=== PATIENT | male | born 1945 | race Caucasian/White ===

== ENCOUNTER → 2020-02-04 09:20 | Outpatient (BNVA) | payer MEDICARE, SELFPAY | PROVIDERS: PCP Internal Medicine; Referring Provider Internal Medicine; Visit Provider Internal Medicine Cardiovascular Disease | DX: R00.2 Palpitations (principal); I10 Essential (primary) hypertension | CPT/HCPCS: 93005; 99212 ==

== ENCOUNTER 2020-06-09 10:45 | Outpatient (REF) | payer MEDICARE, SELFPAY ==
[2020-06-09 12:44] LABS: Alanine Aminotransferase 31 U/L (0-40); Albumin Level 4.2 g/dL (3.5-5.0); Alkaline Phosphatase 61 U/L (39-117); Aspartate Amino Transferase 32 U/L (5-37); Bilirubin Direct 0.2 mg/dL (0.0-0.5); Bilirubin Total 0.4 mg/dL (0.0-1.0); Cholesterol 139 mg/dL; HDL Cholesterol 38 mg/dL; LDL Cholesterol Calculated 72 mg/dl; Total Protein 6.8 g/dL (6.5-8.0); Triglycerides 149 mg/dL
== END 2020-06-09 10:46 | disposition home or self-care (01) ==
LOC: HO.LNP 10:45
PROVIDERS: Visit Provider Internal Medicine
DX: I25.10 Atherosclerotic heart disease of native coronary artery without angina pectoris (principal); E78.6 Lipoprotein deficiency
CPT/HCPCS: 80061; 80076

== ENCOUNTER 2020-09-09 14:09 | Outpatient (REF) | payer MEDICARE, SELFPAY ==
--- NOTE | ~2020-09-09 | XR_ITS ---
EXAMINATION: XR HAND, BILATERAL CLINICAL INFORMATION: Bilateral hand pain. COMPARISON: 11/22/2017 TECHNIQUE: 3 views of each hand. FINDINGS: RIGHT HAND: There is no evidence of acute fracture or dislocation of the right hand. There is again noted to be significant narrowing of the 1st metacarpophalangeal joint with loss of joint space and marginal spurring and sclerosis and flattening of the distal metatarsal head. This is similar to previous study. There is some degenerative change with narrowing of the 1st carpometacarpal joint and spurring. There are some small bony densities without narrowing of joint spaces involving the 2nd distal interphalangeal joint, 3rd proximal interphalangeal joint, and 4th proximal interphalangeal joint. These are likely sequela of previous injuries. No periarticular or para-articular erosive change appreciated. LEFT HAND: There is no evidence of acute fracture or dislocation of the left hand. No acute fracture or dislocation is evident. There is some degenerative change of the 1st carpometacarpal joint with some mild joint space narrowing and marginal sclerosis and spurring. There are small bony densities seen about the 1st metacarpophalangeal joint, 1st interphalangeal joint, and 2nd distal interphalangeal joint likely related to previous trauma. The joint spaces are generally maintained other than for previously noted. There appears to be a hypoplastic 5th distal interphalangeal phalanx. Subchondral cyst formation is seen about the heads of the 2nd and 3rd proximal interphalangeal joints with soft tissue swelling prominent about the 3rd proximal interphalangeal joint. The subchondral cyst formation is more prominent than was present on previous study of 11/22/2017. XR/XR hand LT min 3V IMPRESSION: Degenerative change of both hands without evidence of acute fracture or dislocation. Large amount soft tissue swelling seen about the 3rd proximal interphalangeal joint.
[2020-09-09 15:38] LABS: MANUAL DIFF FLAG NO
[2020-09-09 15:43] LABS: Basophils Absolute Auto 0.1 X10*3/uL (0.0-0.2); Basophils Percent Auto 0.6 % (0-2); Eosinophils Absolute Auto 0.3 X10*3/uL (0.0-0.4); Eosinophils Percent Auto 3.3 % (0-4); Hematocrit 41.9 % (42-52); Hemoglobin 13.8 g/dl (14.0-18.0); Imm Gran Abs Auto 0.03 X10*3/uL (0.00-0.03); Imm Gran Pct Auto 0.4 % (0.0-0.4); Lymphocytes Absolute Auto 2.2 X10*3/uL (1.2-4.9); Lymphocytes Percent Auto 27.1 % (20-40); Mean Corpuscular HGB Conc 32.9 g/dl (31.0-36.0); Mean Corpuscular Hemoglobin 30.9 pg (27.0-33.0); Mean Corpuscular Volume 93.9 fL (80-98); Mean Platelet Volume 10.3 fL (9.4-12.4); Monocytes Absolute Auto 0.6 X10*3/uL (0.1-1.2); Neutrophils Absolute Auto 4.8 X10*3/uL (2.0-8.3); Neutrophils Percent Auto 60.6 % (45-73); Platelet Count 213 X10*3/uL (160-400); Red Blood Count 4.46 X10*6/uL (4.60-5.80); Red Cell Distribution Width 12.8 % (11.0-16.0)
[2020-09-09 16:12] LABS: Alanine Aminotransferase 33 U/L (0-40); Albumin Level 4.3 g/dL (3.5-5.0); Alkaline Phosphatase 63 U/L (39-117); Anion Gap 14 (12-20); Aspartate Amino Transferase 38 U/L (5-37); Bilirubin Total 0.7 mg/dL (0.0-1.0); Blood Urea Nitrogen 18 mg/dL (9-16); C Reactive Protein 0.19 mg/dL (< or = 0.50); Calcium 9.7 mg/dL (8.4-10.2); Carbon Dioxide 28 mmol/L (22-29); Chloride 105 mmol/L (96-108); Estimated Glomerular Filt Rate 51; Glucose Random 101 mg/dL (60-115); Potassium 4.1 mmol/L (3.3-5.1); Sodium 143 mmol/L (135-145); Total Protein 7.1 g/dL (6.5-8.0); Uric Acid 8.5 mg/dL (3.4-7.0)
[2020-09-09 16:19] LABS: Rheumatoid Factor < 15.0 IU/mL (<15.0)
[2020-09-09 16:59] LABS: Erythrocyte Sedimentation Rate 5 MM/HR (0-15)
[2020-09-13 15:57] LABS: Cyclic Citrullinated Peptide <16 UNITS
== END 2020-09-09 14:10 | disposition home or self-care (01) ==
LOC: HO.LAB 14:09
PROVIDERS: PCP Internal Medicine; Visit Provider Student in an Organized Health Care Education/Training Program
DX: M25.541 Pain in joints of right hand (principal); M25.542 Pain in joints of left hand
CPT/HCPCS: 36415; 73130; 80053; 84550; 85025; 85652; 86140; 86200; 86431; 99202

== ENCOUNTER 2020-10-22 12:39 | Outpatient (REF) | payer MEDICARE, SELFPAY ==
[2020-10-22 15:24] LABS: Uric Acid 6.4 mg/dL (3.4-7.0)
== END 2020-10-22 12:40 | disposition home or self-care (01) ==
LOC: HO.LAB 12:39
PROVIDERS: PCP Internal Medicine; Visit Provider Student in an Organized Health Care Education/Training Program
DX: M25.541 Pain in joints of right hand (principal); M25.542 Pain in joints of left hand
CPT/HCPCS: 36415; 84550

== ENCOUNTER → 2020-10-27 09:58 | Outpatient (BNVA) | payer MEDICARE, SELFPAY | PROVIDERS: Visit Provider Nurse Practitioner Family | DX: M1A.09X1 Idiopathic chronic gout, multiple sites, with tophus (tophi) (principal); M25.541 Pain in joints of right hand; M25.542 Pain in joints of left hand; Z79.899 Other long term (current) drug therapy | CPT/HCPCS: 99212 ==

== ENCOUNTER 2020-12-08 07:44 | Outpatient (REF) | payer MEDICARE, SELFPAY ==
[2020-12-08 08:18] LABS: MANUAL DIFF FLAG NO
[2020-12-08 08:29] LABS: Basophils Percent Auto 0.4 % (0-2); Eosinophils Absolute Auto 0.3 X10*3/uL (0.0-0.4); Hematocrit 40.2 % (42-52); Hemoglobin 13.3 g/dl (14.0-18.0); Imm Gran Abs Auto 0.02 X10*3/uL (0.00-0.03); Imm Gran Pct Auto 0.3 % (0.0-0.4); Lymphocytes Absolute Auto 1.6 X10*3/uL (1.2-4.9); Lymphocytes Percent Auto 23.2 % (20-40); Mean Corpuscular HGB Conc 33.1 g/dl (31.0-36.0); Mean Corpuscular Hemoglobin 31.5 pg (27.0-33.0); Mean Corpuscular Volume 95.3 fL (80-98); Mean Platelet Volume 10.2 fL (9.4-12.4); Monocytes Absolute Auto 0.5 X10*3/uL (0.1-1.2); Monocytes Percent Auto 7.6 % (2-11); Neutrophils Absolute Auto 4.4 X10*3/uL (2.0-8.3); Neutrophils Percent Auto 64.5 % (45-73); Platelet Count 187 X10*3/uL (160-400); Red Blood Count 4.22 X10*6/uL (4.60-5.80); Red Cell Distribution Width 13.4 % (11.0-16.0); White Blood Count 6.8 X10*3/uL (4.8-10.8)
[2020-12-08 08:55] LABS: Cholesterol 131 mg/dL; HDL Cholesterol 33 mg/dL; LDL Cholesterol Calculated 75 mg/dl; Triglycerides 115 mg/dL
[2020-12-08 08:59] LABS: Alanine Aminotransferase 35 U/L (0-40); Alkaline Phosphatase 60 U/L (39-117); Anion Gap 10 (12-20); Aspartate Amino Transferase 31 U/L (5-37); Bilirubin Total 0.4 mg/dL (0.0-1.0); Blood Urea Nitrogen 21 mg/dL (9-16); Calcium 8.9 mg/dL (8.4-10.2); Carbon Dioxide 29 mmol/L (22-29); Chloride 108 mmol/L (96-108); Estimated Glomerular Filt Rate 53; Glucose Random 108 mg/dL (60-115); Potassium 4.7 mmol/L (3.3-5.1); Sodium 142 mmol/L (135-145); Total Protein 6.4 g/dL (6.5-8.0); Uric Acid 5.9 mg/dL (3.4-7.0)
[2020-12-08 09:13] LABS: Reflex LDLD? No
[2020-12-08 09:17] LABS: PSA,Total (Free>4and<10) 1.06 ng/mL (0.00-4.00)
[2020-12-08 09:57] LABS: Appearance Urine CLEAR; Color Urine YELLOW; Glucose Urine UA NEG (NEG); Leukocyte Esterase Urine NEG (NEG); Nitrite Urine NEG (NEG); Urine Blood NEG (NEG); Urine Ketones NEG (NEG); Urine Protein NEG (NEG-TRACE)
== END 2020-12-08 07:45 | disposition home or self-care (01) ==
LOC: HO.LAB 07:44
PROVIDERS: Absent Provider Nurse Practitioner Family; PCP Internal Medicine; Visit Provider Internal Medicine
DX: Z12.5 Encounter for screening for malignant neoplasm of prostate (principal); M1A.09X1 Idiopathic chronic gout, multiple sites, with tophus (tophi); I10 Essential (primary) hypertension; E78.6 Lipoprotein deficiency
CPT/HCPCS: 36415; 80053; 80061; 81003; 84153; 84550; 85025

== ENCOUNTER → 2020-12-10 07:52 | Outpatient (BNVA) | payer MEDICARE, SELFPAY | PROVIDERS: PCP Internal Medicine; Visit Provider Nurse Practitioner Family | DX: M1A.09X1 Idiopathic chronic gout, multiple sites, with tophus (tophi) (principal); M25.541 Pain in joints of right hand; M25.542 Pain in joints of left hand | CPT/HCPCS: 99212 ==

== ENCOUNTER → 2021-02-05 14:22 | Outpatient (BNVA) | payer MEDICARE, SELFPAY | PROVIDERS: PCP Internal Medicine; Referring Provider Internal Medicine; Visit Provider Internal Medicine Cardiovascular Disease | DX: I10 Essential (primary) hypertension (principal); R00.2 Palpitations | CPT/HCPCS: 93005; 99212 ==

== ENCOUNTER 2021-03-16 07:58 | Outpatient (REF) | payer MEDICARE, SELFPAY ==
[2021-03-16 08:59] LABS: Alanine Aminotransferase 33 U/L (0-40); Albumin Level 4.2 g/dL (3.5-5.0); Alkaline Phosphatase 73 U/L (39-117); Anion Gap 10 (12-20); Aspartate Amino Transferase 28 U/L (5-37); Bilirubin Total 0.3 mg/dL (0.0-1.0); Blood Urea Nitrogen 17 mg/dL (9-16); Calcium 9.8 mg/dL (8.4-10.2); Carbon Dioxide 31 mmol/L (22-29); Chloride 105 mmol/L (96-108); Estimated Glomerular Filt Rate 56; Glucose Random 92 mg/dL (60-115); Potassium 4.4 mmol/L (3.3-5.1); Sodium 142 mmol/L (135-145)
[2021-03-16 09:18] LABS: Uric Acid 5.7 mg/dL (3.4-7.0)
== END 2021-03-16 07:59 | disposition home or self-care (01) ==
LOC: HO.LAB 07:58
PROVIDERS: PCP Internal Medicine; Visit Provider Nurse Practitioner Family
DX: M10.9 Gout, unspecified (principal)
CPT/HCPCS: 36415; 80053; 84550

== ENCOUNTER → 2021-03-19 07:56 | Outpatient (BNVA) | payer MEDICARE, SELFPAY | PROVIDERS: PCP Internal Medicine; Visit Provider Nurse Practitioner Family | DX: M1A.09X1 Idiopathic chronic gout, multiple sites, with tophus (tophi) (principal); M25.541 Pain in joints of right hand; M25.542 Pain in joints of left hand | CPT/HCPCS: 99212 ==

== ENCOUNTER 2021-05-18 08:12 | Outpatient (REF) | payer MEDICARE, SELFPAY ==
[2021-05-18 09:42] LABS: Alanine Aminotransferase 26 U/L (0-40); Albumin Level 4.2 g/dL (3.5-5.0); Alkaline Phosphatase 71 U/L (39-117); Anion Gap 12 (12-20); Aspartate Amino Transferase 30 U/L (5-37); Bilirubin Total 0.4 mg/dL (0.0-1.0); Blood Urea Nitrogen 16 mg/dL (9-16); Calcium 9.3 mg/dL (8.4-10.2); Carbon Dioxide 30 mmol/L (22-29); Chloride 105 mmol/L (96-108); Estimated Glomerular Filt Rate 57; Glucose Random 99 mg/dL (60-115); Potassium 4.4 mmol/L (3.3-5.1); Sodium 143 mmol/L (135-145); Uric Acid 4.8 mg/dL (3.4-7.0)
== END 2021-05-18 08:13 | disposition home or self-care (01) ==
LOC: HO.LAB 08:12
PROVIDERS: PCP Internal Medicine; Visit Provider Nurse Practitioner Family
DX: M1A.09X1 Idiopathic chronic gout, multiple sites, with tophus (tophi) (principal)
CPT/HCPCS: 36415; 80053; 84550

== ENCOUNTER → 2021-05-22 10:51 | Outpatient (BNVA) | payer MEDICARE, SELFPAY | PROVIDERS: PCP Internal Medicine; Visit Provider Nurse Practitioner Family | DX: M1A.09X1 Idiopathic chronic gout, multiple sites, with tophus (tophi) (principal); M25.541 Pain in joints of right hand; M25.542 Pain in joints of left hand | CPT/HCPCS: 99212 ==

== ENCOUNTER 2021-06-12 10:55 | Outpatient (REF) | payer MEDICARE, SELFPAY ==
[2021-06-12 14:29] LABS: Alanine Aminotransferase 29 U/L (0-40); Albumin Level 4.2 g/dL (3.5-5.0); Alkaline Phosphatase 70 U/L (39-117); Aspartate Amino Transferase 33 U/L (5-37); Bilirubin Direct 0.2 mg/dL (0.0-0.5); Bilirubin Total 0.6 mg/dL (0.0-1.0); Cholesterol 133 mg/dL; HDL Cholesterol 34 mg/dL; LDL Cholesterol Calculated 76 mg/dl; Total Protein 6.5 g/dL (6.5-8.0); Triglycerides 115 mg/dL
[2021-06-12 14:58] LABS: Reflex LDLD? No
== END 2021-06-12 10:56 | disposition home or self-care (01) ==
LOC: HO.LNP 10:55
PROVIDERS: Visit Provider Internal Medicine
DX: I25.10 Atherosclerotic heart disease of native coronary artery without angina pectoris (principal); E78.6 Lipoprotein deficiency
CPT/HCPCS: 80061; 80076

== ENCOUNTER 2021-09-21 08:03 | Outpatient (REF) | payer MEDICARE, SELFPAY ==
[2021-09-21 09:14] LABS: Alanine Aminotransferase 26 U/L (0-40); Albumin Level 4.2 g/dL (3.5-5.0); Alkaline Phosphatase 69 U/L (39-117); Anion Gap 10 (12-20); Aspartate Amino Transferase 28 U/L (5-37); Bilirubin Total 0.4 mg/dL (0.0-1.0); Blood Urea Nitrogen 15 mg/dL (9-16); Calcium 9.2 mg/dL (8.4-10.2); Carbon Dioxide 32 mmol/L (22-29); Chloride 106 mmol/L (96-108); Estimated Glomerular Filt Rate 56; Glucose Random 121 mg/dL (60-115); Potassium 4.6 mmol/L (3.3-5.1); Sodium 143 mmol/L (135-145); Total Protein 6.5 g/dL (6.5-8.0); Uric Acid 4.7 mg/dL (3.4-7.0)
== END 2021-09-21 08:04 | disposition home or self-care (01) ==
LOC: HO.LAB 08:03
PROVIDERS: PCP Internal Medicine; Visit Provider Nurse Practitioner Family
DX: M1A.09X1 Idiopathic chronic gout, multiple sites, with tophus (tophi) (principal)
CPT/HCPCS: 36415; 80053; 84550

== ENCOUNTER → 2021-09-24 12:18 | Outpatient (BNVA) | payer MEDICARE, SELFPAY | PROVIDERS: PCP Internal Medicine; Visit Provider Nurse Practitioner Family | DX: M1A.09X1 Idiopathic chronic gout, multiple sites, with tophus (tophi) (principal); M25.541 Pain in joints of right hand; M25.542 Pain in joints of left hand | CPT/HCPCS: Q3014 ==

== ENCOUNTER 2021-12-10 11:43 | Outpatient (REF) | payer MEDICARE, SELFPAY ==
[2021-12-10 11:49] LABS: MANUAL DIFF FLAG NO
[2021-12-10 12:10] LABS: Basophils Percent Auto 0.6 % (0-2); Eosinophils Absolute Auto 0.3 X10*3/uL (0.0-0.4); Eosinophils Percent Auto 4.5 % (0-4); Hematocrit 40.7 % (42.0-52.0); Hemoglobin 13.3 g/dl (14.0-18.0); Imm Gran Abs Auto 0.01 X10*3/uL (0.00-0.03); Imm Gran Pct Auto 0.2 % (0.0-0.4); Lymphocytes Absolute Auto 1.6 X10*3/uL (1.2-4.9); Mean Corpuscular HGB Conc 32.7 g/dl (31.0-36.0); Mean Corpuscular Volume 94.9 fL (80.0-98.0); Mean Platelet Volume 10.3 fL (9.4-12.4); Monocytes Absolute Auto 0.5 X10*3/uL (0.1-1.2); Monocytes Percent Auto 8.2 % (2-11); Neutrophils Percent Auto 61.5 % (45-73); Platelet Count 191 X10*3/uL (160-400); Red Blood Count 4.29 X10*6/uL (4.60-5.80); Red Cell Distribution Width 13.6 % (11.0-16.0); White Blood Count 6.5 X10*3/uL (4.8-10.8)
[2021-12-10 12:19] LABS: Alanine Aminotransferase 29 U/L (0-40); Albumin Level 4.2 g/dL (3.5-5.0); Alkaline Phosphatase 72 U/L (39-117); Anion Gap 13 (12-20); Aspartate Amino Transferase 35 U/L (5-37); Bilirubin Total 0.8 mg/dL (0.0-1.0); Blood Urea Nitrogen 19 mg/dL (9-16); Calcium 9.1 mg/dL (8.4-10.2); Carbon Dioxide 29 mmol/L (22-29); Chloride 102 mmol/L (96-108); Cholesterol 142 mg/dL; Estimated Glomerular Filt Rate 58; Glucose Fasting 102 mg/dL (60-99); HDL Cholesterol 33 mg/dL; LDL Cholesterol Calculated 76 mg/dl; Sodium 140 mmol/L (135-145); Total Protein 6.5 g/dL (6.5-8.0); Triglycerides 167 mg/dL
[2021-12-10 12:39] LABS: PSA,Total (Free>4and<10) 1.52 ng/mL (0.00-4.00)
[2021-12-10 13:05] LABS: Appearance Urine Clear; Color Urine Dark Yellow; Glucose Urine UA Negative (Negative); Leukocyte Esterase Urine Trace (Negative); Nitrite Urine Negative (Negative); UMIC TRIGGER UA YES; Urine Blood Negative (Negative); Urine Ketones Negative (Negative); Urine Protein Negative (Neg-Trace)
[2021-12-10 13:12] LABS: Bacteria Urine None Seen (None Seen); Hyaline Casts Urine 0-2 /LPF (0-2); RBC Urine 0-2 /HPF (0-2); Squamous Epithelial Cell Urine 0-2 /HPF (0-2); WBC Urine 0-5 /HPF (0-5)
== END 2021-12-10 11:44 | disposition home or self-care (01) ==
LOC: HO.LNP 11:43
PROVIDERS: Visit Provider Internal Medicine
DX: Z12.5 Encounter for screening for malignant neoplasm of prostate (principal); I10 Essential (primary) hypertension; E78.6 Lipoprotein deficiency
CPT/HCPCS: 80053; 80061; 81001; 84153; 85025

== ENCOUNTER 2021-12-30 07:58 | Outpatient (REF) | payer MEDICARE, SELFPAY ==
--- NOTE | ~2021-12-30 | CT_ITS ---
EXAMINATION: CT LUMBAR SPINE WITH CONTRAST CLINICAL INFORMATION: Spinal stenosis of the lumbar spine. COMPARISON: None TECHNIQUE: Multidetector helical imaging acquired in the axial plane following intravenous administration of 85 mL of Omnipaque 350. This CT examination was performed using dose optimization techniques as appropriate, variously including the following: *Automated exposure control *Adjustment of mA and/or kV according to patient size (this includes techniques or standardized protocols for targeted exams where dose is matched to indication/reason for exam; i.e. extremities or head) *Use of iterative reconstruction technique DLP: 1410 mGy-cm FINDINGS: Significant multilevel disc space narrowing evident with vacuum phenomenon and endplate spurring. There are mild posterior subluxations at the L1-L2 and L2-L3 levels. No compression fractures identified. Chronic postlaminectomy changes noted at the L5-S1 level on the right side. L1-L2: Mild retrosubluxation and diffuse disc bulge with facet arthropathy resulting in mild central canal stenosis and mild foraminal narrowing. L2-L3: Retrosubluxation and diffuse disc bulge contribute to moderate central canal stenosis and ventral thecal sac distortion. Zdzg-[id number]-coyzcbgb bilateral foraminal narrowing. L3-L4: Concentric disc bulge and facet arthropathy with thickening of the ligamentum flavum result in mild central canal stenosis with severe left foraminal narrowing as a result of osseous encroachment. L4-L5: Posterior subluxation and diffuse disc bulge with moderate facet arthropathy result in moderate central canal stenosis. Severe bilateral foraminal narrowing, worse on the left side. L5-S1: Chronic postlaminectomy changes on the right side with slight narrowing of the central canal. Exuberant facet arthropathy and chronic right L5 pars defect. A left foraminal disc protrusion compresses the exiting left L5 nerve root. No suspicious abnormal enhancement is seen. Small renal cysts noted for which no further imaging followup is indicated. The visualized bony pelvis is unremarkable with vacuum phenomenon and [id number]-pv-[id number] sacroiliac joint space narrowing. The imaged paraspinal soft tissues are unremarkable. CT/CT lumbar spine w IV con IMPRESSION: Extensive multilevel degenerative disc disease and facet arthropathy. Chronic postlaminectomy changes on the right side at the L5-S1 level with a chronic right L5 pars defect. Exuberant facet arthropathy and diffuse disc bulge with mild narrowing of the central canal at this level. Additional left posterolateral disc protrusion which compresses the exiting left L5 nerve root. Moderate central canal stenosis and severe foraminal narrowing, worse on the left side at the L4-L5 level. Mild central canal stenosis and severe left foraminal narrowing at the L3-L4 level. Moderate central canal stenosis and artf-gu-vrkcgwpl foraminal narrowing at the L2-L3 level. No abnormal enhancement.
[2021-12-30] MEDS: iohexoL 350 MG/ML 100 ML INFUS..BTL IV ×2 (09:02→09:06)
== END 2021-12-30 07:59 | disposition home or self-care (01) ==
LOC: HO.CT 07:58
PROVIDERS: PCP Internal Medicine; Visit Provider Internal Medicine
DX: M48.062 Spinal stenosis, lumbar region with neurogenic claudication (principal)
CPT/HCPCS: 72132; Q9967

== ENCOUNTER → 2022-02-08 12:38 | Outpatient (BNVA) | payer MEDICARE, SELFPAY | PROVIDERS: PCP Internal Medicine; Referring Provider Internal Medicine; Visit Provider Internal Medicine Cardiovascular Disease | DX: I10 Essential (primary) hypertension (principal); R00.2 Palpitations; Z79.899 Other long term (current) drug therapy | CPT/HCPCS: 93005; 99212 ==

== ENCOUNTER 2022-03-25 07:45 | Outpatient (REF) | payer MEDICARE, SELFPAY ==
[2022-03-25 09:40] LABS: Alanine Aminotransferase 24 U/L (0-40); Albumin Level 4.1 g/dL (3.5-5.0); Alkaline Phosphatase 73 U/L (39-117); Anion Gap 14 (12-20); Aspartate Amino Transferase 30 U/L (5-37); Bilirubin Total 0.8 mg/dL (0.0-1.0); Blood Urea Nitrogen 21 mg/dL (9-16); Calcium 9.6 mg/dL (8.4-10.2); Carbon Dioxide 30 mmol/L (22-29); Chloride 103 mmol/L (96-108); Estimated Glomerular Filt Rate 56; Glucose Random 111 mg/dL (60-115); Potassium 4.6 mmol/L (3.3-5.1); Sodium 142 mmol/L (135-145); Total Protein 6.4 g/dL (6.5-8.0); Uric Acid 4.9 mg/dL (3.4-7.0)
== END 2022-03-25 07:46 | disposition home or self-care (01) ==
LOC: HO.LAB 07:45
PROVIDERS: PCP Internal Medicine; Visit Provider Nurse Practitioner Family
DX: M1A.09X1 Idiopathic chronic gout, multiple sites, with tophus (tophi) (principal)
CPT/HCPCS: 36415; 80053; 84550

== ENCOUNTER → 2022-03-31 12:43 | Outpatient (BNVA) | payer MEDICARE, SELFPAY | PROVIDERS: PCP Internal Medicine; Visit Provider Nurse Practitioner Family | DX: M1A.9XX1 Chronic gout, unspecified, with tophus (tophi) (principal) | CPT/HCPCS: 99212 ==

== ENCOUNTER 2022-04-08 12:38 | Outpatient (REF) | payer MEDICARE, SELFPAY ==
--- NOTE | ~2022-04-08 | XR_ITS ---
EXAMINATION: XR HIP, LEFT CLINICAL INFORMATION: Left hip tendinitis. COMPARISON: None TECHNIQUE: AP and frog-leg lateral views of the left hip are submitted, together with a frontal view the pelvis. FINDINGS: Bones and soft tissues are normal. No fracture. Alignment is anatomic. Hip joint spaces are well-maintained. There are symmetric tiny accessory ossification centers seen adjacent to the bilateral acetabular roofs. The sacroiliac joints are symmetric and well-maintained. Pubic symphysis is intact. There are pelvic phleboliths and atherosclerotic calcifications. XR/XR hip LT w PEL1V IMPRESSION: Normal left hip and AP pelvis.
== END 2022-04-08 12:39 | disposition home or self-care (01) ==
LOC: HO.XRAY 12:38
PROVIDERS: PCP Internal Medicine; Visit Provider Physical Medicine & Rehabilitation
DX: M76.02 Gluteal tendinitis, left hip (principal)
CPT/HCPCS: 73502

== ENCOUNTER 2022-06-11 10:57 | Outpatient (REF) | payer MEDICARE, SELFPAY ==
[2022-06-11 11:49] LABS: Alanine Aminotransferase 29 U/L (0-40); Albumin Level 3.9 g/dL (3.5-5.0); Alkaline Phosphatase 70 U/L (39-117); Aspartate Amino Transferase 30 U/L (5-37); Bilirubin Direct 0.2 mg/dL (0.0-0.5); Bilirubin Total 0.8 mg/dL (0.0-1.0); Cholesterol 145 mg/dL; HDL Cholesterol 38 mg/dL; LDL Cholesterol Calculated 87 mg/dl; Total Protein 6.1 g/dL (6.5-8.0); Triglycerides 104 mg/dL
[2022-06-11 13:00] LABS: Reflex LDLD? No
== END 2022-06-11 10:58 | disposition home or self-care (01) ==
LOC: HO.LNP 10:57
PROVIDERS: Visit Provider Internal Medicine
DX: E78.5 Hyperlipidemia, unspecified (principal)
CPT/HCPCS: 80061; 80076

== ENCOUNTER 2022-09-08 12:00 | Outpatient (RCR) | payer MEDICARE, SELFPAY | END 2022-09-08 13:04 | disposition home or self-care (01) | LOC: HO.PT 12:00 | PROVIDERS: PCP Internal Medicine; Visit Provider Nurse Practitioner Adult Health | DX: M54.16 Radiculopathy, lumbar region (principal) | CPT/HCPCS: 97110; 97162; 97530 ==

== ENCOUNTER 2022-10-20 08:04 | Outpatient (REF) | payer MEDICARE, SELFPAY ==
[2022-10-20 08:27] LABS: MANUAL DIFF FLAG NO
[2022-10-20 08:51] LABS: Basophils Percent Auto 0.6 % (0-2); Eosinophils Absolute Auto 0.4 X10*3/uL (0.0-0.4); Eosinophils Percent Auto 5.6 % (0-4); Hematocrit 41.3 % (42.0-52.0); Hemoglobin 13.4 g/dl (14.0-18.0); Imm Gran Abs Auto 0.02 X10*3/uL (0.00-0.03); Imm Gran Pct Auto 0.3 % (0.0-0.4); Lymphocytes Absolute Auto 1.5 X10*3/uL (1.2-4.9); Mean Corpuscular HGB Conc 32.4 g/dl (31.0-36.0); Mean Corpuscular Hemoglobin 31.5 pg (27.0-33.0); Mean Corpuscular Volume 97.2 fL (80.0-98.0); Monocytes Absolute Auto 0.4 X10*3/uL (0.1-1.2); Monocytes Percent Auto 6.5 % (2-11); Neutrophils Absolute Auto 4.1 x10*3/uL (2.0-8.3); Platelet Count 185 X10*3/uL (160-400); Red Blood Count 4.25 X10*6/uL (4.60-5.80); Red Cell Distribution Width 13.2 % (11.0-16.0); White Blood Count 6.4 X10*3/uL (4.8-10.8)
[2022-10-20 09:43] LABS: Alanine Aminotransferase 23 U/L (0-40); Alkaline Phosphatase 70 U/L (39-117); Anion Gap 11 (12-20); Aspartate Amino Transferase 31 U/L (5-37); Bilirubin Total 0.8 mg/dL (0.0-1.0); Blood Urea Nitrogen 19 mg/dL (9-16); Calcium 9.8 mg/dL (8.4-10.2); Carbon Dioxide 31 mmol/L (22-29); Chloride 105 mmol/L (96-108); Estimated Glomerular Filt Rate 49; Glucose Random 91 mg/dL (60-115); Potassium 4.4 mmol/L (3.3-5.1); Sodium 143 mmol/L (135-145); Total Protein 6.6 g/dL (6.5-8.0); Uric Acid 5.5 mg/dL (3.4-7.0)
== END 2022-10-20 08:05 | disposition home or self-care (01) ==
LOC: HO.LAB 08:04
PROVIDERS: Absent Provider Student in an Organized Health Care Education/Training Program; PCP Internal Medicine; Visit Provider Nurse Practitioner Family
DX: M1A.9XX1 Chronic gout, unspecified, with tophus (tophi) (principal)
CPT/HCPCS: 36415; 80053; 84550; 85025

== ENCOUNTER 2022-10-27 14:31 | Outpatient (AMB) | payer MEDICARE, SELFPAY ==
--- NOTE | 2022-10-27 14:35 | MHC.OFFVIS ---
Intake Vital Signs 10/27/22 14:36 Height 6 ft Weight 272 lb 14.916 oz BMI 37.0 BP 124/70 Blood Pressure Location Rt brachial Position Sitting Pulse 67 Pulse Source Pulse Oximeter Temp 97.3 F Temp Source Skin Pulse Oximetry (%) 96 Oxygen Delivery Method Room Air Intake Visit Reasons: Gout Intake Note: Here for gout follow up. c/o back pain Auto Body Technician Required: No Accompanied by: Self / Same As Patient Allergies lisinopril [From ZESTRIL] Adverse Reaction (Mild, Verified 03/31/22 13:23) DIZZINESS Cortisone Allergy (Mild, Uncoded 03/31/22 13:23) red face Medication List - Last Reconciled 10/27/22 by Scooter Yeboah MD albuterol sulfate 90 mcg/actuation 2 puffs PO Q4H PRN allopurinol 300 mg PO DAILY alprazolam 1 mg PO DAILY PRN amlodipine 10 mg PO DAILY amoxicillin 1,000 mg PO BID aspirin (Adult Low Dose Aspirin) 81 mg PO DAILY atorvastatin 20 mg PO DAILY carvedilol 6.25 mg PO BID 90 days celecoxib 200 mg PO .4 times a week fluticasone propionate 110 mcg/actuation (Flovent HFA) 1 puff inhalation DAILY gabapentin 300 mg PO TID irbesartan-hydrochlorothiazide 150-12.5 mg 1 tab PO DAILY lorazepam 0.5 mg PO BID PRN multivitamin 1 tab PO DAILY pantoprazole 40 mg PO DAILY prednisone 20 mg PO DAILY PRN HPI HPI Comments History of Present Illness Details 77yoM presents for follow-up of gout. Last seen 03/29 by Lindsay Hylton. On Allopurinol 300mg daily and tolerating this well. His main complaint today is left lower back pain, left buttock pain radiating down his left lower extremity. States that his sciatica is coming back. He had an epidural injection back in 06/2022 which helped for a few months until last week where he had another flare-up of his sciatica. He was evaluated by his spine doctor and is scheduled for another injection soon. In terms of his gout he has not had a flare up in a long time. Does not recall the most recent flare. He has been giving pain at the base of both thumbs worse with use. [facility] Surgical History History of foot surgery History of left knee surgery S/P surgery on nasal septum Family History Father No problems noted. Mother No problems noted. Family/Other Diabetes Social History Household Members: Spouse Alcohol intake: never Patient Tobacco Use Status: Former Tobacco user Quit Date: 1999 Tobacco use type: Cigarette Years Smoked: 20 +/- Review of Systems Musc Reports back pain, Reports arthralgias and Reports stiffness Neuro Reports radicular pain Physical Exam Vital Signs: Last Vital Signs Temp 97.3 F 10/27/22 14:36 Pulse 67 10/27/22 14:36 BP 124/70 10/27/22 14:36 Pulse Ox 96 10/27/22 14:36 Oxygen Delivery Method Room Air 10/27/22 14:36 BMI result Body Mass Index 37.0 Const General: cooperative and healthy appearing Nutritional Appearance: obese morbidly obese Orientation/consciousness: patient oriented x3 Limitations: ambulation with cane HEENT Head: Yes normocephalic and Yes atraumatic Resp Effort & Inspection: normal respiratory effort and able to speak in complete sentences Neuro General: patient oriented x3 Extrem Other: Bilateral positive [facility] grind test + crepitus and pain Assessment & Plan Assessment & Plan (1) Gout with tophi: Comment: Allopurinol started 09/09/2020- present Code(s): M1A.9XX1 - Chronic gout, unspecified, with tophus (tophi) Plan: This is a 77-year-old female with gout who presents for follow-up. On allopurinol 300 mg daily. Does not recall the most recent gout flare-up. Uric acid level is at 5.5 which is at goal. His creatinine was slightly elevated at 1.4 which is a little higher than previous values. Patient had a sciatica attack over the last week and was using NSAIDs. Patient will follow-up with his PCP. Advised patient that we will monitor his kidney function as we might have to adjust his allopurinol dose accordingly. For now continue with allopurinol 300 mg daily Labs before next visit in 6 months Plan I spent 24 minutes reviewing patient's chart, evaluating patient, ordering diagnostic workup, counseling patient and documenting in the chart Medications: Changed From prednisone Take 20mg by mouth daily for 3 days for gout flare. 20 mg PO DAILY PRN 12 tabs 0RF gout flare To prednisone Take 20mg by mouth daily for 3 days for gout flare. 20 mg PO DAILY PRN Refilled allopurinol 300 mg PO DAILY 90 tabs 1RF Coding Level of Care Code Est Pt Level 4 (58855) Diagnoses Gout with tophi M1A.9XX1
[2022-10-27 14:36] VITALS: BP 124/70; PULSE 67; TEMP 36.3; O2SAT 96; BMI 37.0
== END 2022-10-27 14:56 | disposition home or self-care (01) ==
PROVIDERS: PCP Internal Medicine; Visit Provider Student in an Organized Health Care Education/Training Program
DX: M1A.9XX1 Chronic gout, unspecified, with tophus (tophi) (principal)
CPT/HCPCS: 99214

== ENCOUNTER → 2022-10-27 14:31 | Outpatient (BNVA) | payer MEDICARE, SELFPAY | PROVIDERS: PCP Internal Medicine; Visit Provider Student in an Organized Health Care Education/Training Program | DX: M1A.9XX1 Chronic gout, unspecified, with tophus (tophi) (principal) | CPT/HCPCS: 99212 ==

== ENCOUNTER 2022-11-04 11:38 | Outpatient (REF) | payer MEDICARE, SELFPAY ==
[2022-11-04 11:57] LABS: MANUAL DIFF FLAG NO
[2022-11-04 12:02] LABS: Basophils Percent Auto 0.4 % (0-2); Eosinophils Absolute Auto 0.3 X10*3/uL (0.0-0.4); Eosinophils Percent Auto 3.1 % (0-4); Hematocrit 37.8 % (42.0-52.0); Hemoglobin 12.8 g/dl (14.0-18.0); Imm Gran Abs Auto 0.02 X10*3/uL (0.00-0.03); Imm Gran Pct Auto 0.2 % (0.0-0.4); Mean Corpuscular HGB Conc 33.9 g/dl (31.0-36.0); Mean Corpuscular Volume 94.5 fL (80.0-98.0); Monocytes Absolute Auto 0.9 X10*3/uL (0.1-1.2); Monocytes Percent Auto 9.8 % (2-11); Neutrophils Absolute Auto 5.8 x10*3/uL (2.0-8.3); Neutrophils Percent Auto 64.5 % (45-73); Platelet Count 172 X10*3/uL (160-400); Red Cell Distribution Width 13.2 % (11.0-16.0)
[2022-11-04 12:37] LABS: C Reactive Protein 6.98 mg/dL (< or = 0.50); Uric Acid 5.3 mg/dL (3.4-7.0)
[2022-11-04 12:41] LABS: Erythrocyte Sedimentation Rate 17 MM/HR (0-15)
== END 2022-11-04 11:39 | disposition home or self-care (01) ==
LOC: HO.LAB 11:38
PROVIDERS: PCP Internal Medicine; Visit Provider Podiatrist
DX: M10.072 Idiopathic gout, left ankle and foot (principal)
CPT/HCPCS: 36415; 84550; 85025; 85652; 86140

== ENCOUNTER 2022-11-26 08:38 | Outpatient (REF) | payer MEDICARE, SELFPAY ==
--- NOTE | ~2022-11-26 | MR_ITS ---
EXAMINATION: MR LUMBAR SPINE WITHOUT CONTRAST CLINICAL INFORMATION: Ongoing low back pain with leg pain. COMPARISON: Lumbar spine CT 12/30/2021. TECHNIQUE: MRI of the lumbar spine was obtained using routine sequences without contrast. FINDINGS: The lumbar vertebral bodies maintain normal heights. There is mild retrolisthesis of L1 on L2, L2 on L3, L3 on L4, and L4 on L5. There is grade 1 anterolisthesis of L5 on S1 related to right-sided L5 pars defect. There is advanced intervertebral disc height loss throughout the lumbar levels with associated vacuum discs. Mild amount of endplate edema seen inferiorly at T12, superiorly at L3, inferiorly at L3, and at the opposing endplates of L4-L5. The distal spinal cord appears normal. The conus medullaris terminates normally at the L1-L2 level. The visualized paraspinal muscles and intra-abdominal and pelvic contents are within normal limits. SPINAL LEVELS: L1-L2: Disc bulging. No spinal canal stenosis. Mild bilateral neural foraminal stenosis. L2-L3: Disc bulging with facet arthropathy. Mild spinal canal stenosis. Mild right neural foraminal stenosis. Osteophytic ridging abuts the exiting right L2 nerve root. L3-L4: Disc bulging with left more than right facet arthropathy. Left subarticular stenosis with compression of the traversing left L4 nerve root. Severe left neural foraminal stenosis with significant compression of the exiting left L3 nerve root. L4-L5: Disc bulging with ligament flavum infolding and severe right and moderate left facet arthropathy. Bilateral subarticular stenosis and mild spinal canal stenosis. Severe bilateral neural foraminal stenosis with compression of both exiting L4 nerve roots. L5-S1: Grade 1 anterolisthesis. Disc bulging with severe facet arthropathy. Bilateral subarticular stenosis. Severe left and fgqm-tc-qfeniaun right neural foraminal stenosis with compression of the exiting left L5 nerve root. MR/MR lumbar spine wo con IMPRESSION: 1. Advanced multilevel degenerative spondylosis. 2. At L3-L4 there is left subarticular stenosis with compression of the traversing left L4 nerve root and severe left neural foraminal stenosis with significant compression of the exiting left L3 nerve root. 3. At L4-L5 there is severe bilateral neural foraminal stenosis with compression of both exiting L4 nerve roots. 4. At L5-S1 there is grade 1 anterolisthesis related to right-sided L5 pars defect. Severe left neural foraminal stenosis with compression of the exiting left L5 nerve root.
== END 2022-11-26 08:39 | disposition home or self-care (01) ==
LOC: HO.MRI 08:38
PROVIDERS: PCP Internal Medicine; Visit Provider Nurse Practitioner Adult Health
DX: M54.16 Radiculopathy, lumbar region (principal)
CPT/HCPCS: 72148

== ENCOUNTER 2022-12-15 18:02 | Emergency (ER) | payer MEDICARE, SELFPAY ==
--- NOTE | ~2022-12-15 | US_ITS ---
EXAMINATION: US VENOUS ULTRASOUND WITH DOPPLER LOWER EXTREMITY, RIGHT CLINICAL INFORMATION: Right lower extremity edema and pain. COMPARISON: None available. TECHNIQUE: Ultrasound of the deep veins is performed from the hip to the calf with compression sonography and color and pulse Doppler assessment. Spectral analysis with color-flow imaging is performed. FINDINGS: There is normal venous compression and respiratory variation and augmented flow. The visualized common femoral vein, superficial femoral vein, profunda femoral vein, popliteal vein, and the trifurcation region shows no evidence of deep venous thrombosis. There is no significant popliteal fossa cyst. If the patient's symptoms persist, followup ultrasound in 5 days 7 days might be of value to exclude proximal propagation from a non-visualized calf vein. US/US venous duplex LE RT IMPRESSION: No DVT demonstrated in the right lower extremity.
[2022-12-15 18:37] VITALS: BP 165/79; PULSE 72; RESP 18; TEMP 36.9; O2SAT 96; BMI 36.6
--- NOTE | 2022-12-15 18:40 | ED.GENADULT ---
HPI - General Adult General Chief complaint: General Medical Stated complaint: dizziness, high blood pressure Time Seen by Provider: 12/16/22 00:18 Source: patient Mode of arrival: ambulatory History of Present Illness HPI narrative: This is a 77-year-old male who arrives here after being referred from urgent care for feeling lightheaded at approximately noon this afternoon after eating lunch. Patient states that it persisted until he you arrives here in the emergency room and denies any recent fever, chills, recent travel, nausea or vomiting or shortness of breath and denies any visual or speech difficulties. Related Data Home Medications Medication Instructions Recorded Confirmed albuterol sulfate 90 mcg/actuation 2 puff PO Q4H PRN 02/04/20 10/27/22 aerosol inhaler amlodipine 10 mg tablet 10 mg PO DAILY 02/04/20 10/27/22 aspirin 81 mg tablet,delayed 81 mg PO DAILY 02/04/20 10/27/22 release (Adult Low Dose Aspirin) atorvastatin 20 mg tablet 20 mg PO DAILY 02/04/20 10/27/22 irbesartan 150 1 tab PO DAILY 02/04/20 10/27/22 mg-hydrochlorothiazide 12.5 mg tablet lorazepam 0.5 mg tablet 0.5 mg PO BID PRN 02/04/20 10/27/22 fluticasone propionate 110 1 puff inhalation DAILY 09/09/20 10/27/22 mcg/actuation HFA aerosol inhaler (Flovent HFA) multivitamin 1 tab PO DAILY 09/09/20 10/27/22 celecoxib 200 mg capsule 200 mg PO .4 times a week 12/10/20 10/27/22 alprazolam 1 mg tablet 1 mg PO DAILY PRN 10/27/22 10/27/22 amoxicillin 500 mg capsule 1,000 mg PO BID 10/27/22 10/27/22 gabapentin 300 mg capsule 300 mg PO TID 10/27/22 10/27/22 pantoprazole 40 mg tablet,delayed 40 mg PO DAILY 10/27/22 10/27/22 release prednisone 20 mg tablet 20 mg PO DAILY PRN gout flare 10/27/22 10/27/22 Previous Rx's Medication Instructions Recorded carvedilol 6.25 mg tablet 6.25 mg PO BID 90 days #180 tabs 02/08/22 allopurinol 300 mg tablet 300 mg PO DAILY #90 tabs 10/27/22 Allergies Allergy/AdvReac Type Severity Reaction Status Date / Time lisinopril [From ZESTRIL] AdvReac Mild DIZZINESS Verified 03/31/22 13:23 Cortisone Allergy Mild red face Uncoded 03/31/22 13:23 Review of Systems Review of Systems: Pertinent positives and negatives as stated in [facility] Past Medical History Source: nursing notes reviewed Surgical History History of foot surgery S/P surgery on nasal septum History of left knee surgery Family History Family History Father No problems noted. Mother No problems noted. Family/Other Diabetes Social History Social History Household Members: Spouse Alcohol intake: never Patient Tobacco Use Status: Former Tobacco user Quit Date: 1999 Tobacco use type: Cigarette Years Smoked: 20 +/- Smoked in Last 30 Days: No Use of substances other than those prescribed or required for medical reasons: No Advance Directives: No Advance Directives Information Provided: Yes Physical Exam ED Vital Signs: Vital Signs - 24 hr 12/15/22 18:37 12/16/22 00:44 12/16/22 00:44 Temperature 98.5 F Pulse Rate 72 61 65 Respiratory Rate 18 Blood Pressure 165/79 H 155/73 H 155/78 H Pulse Oximetry 96 Oxygen Delivery Method Room Air 12/16/22 00:45 12/16/22 00:45 Temperature 97.9 F Pulse Rate 65 68 Respiratory Rate 18 Blood Pressure 155/78 H 149/82 H Pulse Oximetry 97 Oxygen Delivery Method Room Air BMI result Body Mass Index 36.6 VITAL SIGNS: Reviewed. GENERAL: Well developed, well nourished, in no acute distress. HEAD: Normocephalic/atraumatic EYES: PERRLA, EOMI EARS: Ext canals without abnormality NOSE: Nares patent bilateral OROPHARYNX: no oral lesions noted, posterior pharynx clear NECK: Supple, no adenopathy LUNGS: Normal breath sounds. No adventitious sounds or accessory muscle use. SpO2<96> CARDIOVASCULAR: Regular rate and rhythm without noted murmurs, no JVD but bilateral 1+ pitting edema ABDOMEN: Soft, non-tender, non-distended with bowel sounds. MUSCULOSKELETAL: No tenderness, deformities, or effusions noted on gross inspection. EXTREMITIES: No cyanosis, clubbing or edema. SKIN: Inspection of the skin reveals no rashes NEUROLOGIC: Alert and oriented x 4. Strength and sensation to light touch were grossly intact x 4, no facial asymmetry, no pronator drift, cranial nerves 2-12 are grossly intact. Course Course Course Narrative: This is an RME: Additional HPI, ROS, PE not included below will be deferred to primary provider. This is a [id number]-male presenting to the ER with complaints of swollen right leg, HTN, dizziness, since today. Patient reporting right swollen leg, worsening since today. Plan: Labs, EKG, US Medical Decision Making Medical Decision Making [facility] Narrative: 77-year-old male with history and clinical presentation, DDX: Infection, anemia, electrolyte abnormality, arrhythmia, lower clinical suspicion for primary ACS and no focal deficits appreciated and at this time patient is completely asymptomatic. I reviewed all investigations and orthostatic are negative, hematologic indices are chronically stable without leukocytosis or left shift, there is a stable normocytic anemia no thrombocytopenia. Chemistry indices are without RAULITO and no electrolyte or liver enzyme abnormalities. There was a noted detectable/elevated troponin that remain unchanged on repeat and is not associated with any acute changes on EKG in patient is asymptomatic for chest pain or palpitations. BNP is within normal range. Urinalysis is negative for UTI or hematuria. Venous duplex negative for DVT. All results and findings were discussed with patient at bedside Differential Diagnosis Differential Diagnoses: The differential diagnosis associated with the presentation includes Please see the discussion above Admission/Observation Consideration of admission/observation: Escalation of care including admission/observation considered Please see the discussion above Lab Data [facility] Lab Attestation statement: I reviewed the patient's lab results. Please see the discussion above 12/15/22 19:00 12/15/22 19:00 Labs: Lab Results 12/15/22 12/16/22 Range/Units 19:00 00:54 WBC 8.9 (4.8-10.8) X10*3/uL RBC 4.38 L (4.60-5.80) X10*6/uL Hgb 13.8 L (14.0-18.0) g/dl Hct 40.9 L (42.0-52.0) % MCV 93.4 (80.0-98.0) fL MCH 31.5 (27.0-33.0) pg MCHC 33.7 (31.0-36.0) g/dl RDW 13.5 (11.0-16.0) % Plt Count 194 (160-400) X10*3/uL MPV 9.6 (9.4-12.4) fL Immature Gran % (Auto) 0.3 (0.0-0.4) % Neut % (Auto) 62.9 (45-73) % Lymph % (Auto) 24.2 (20-40) % [place] % (Auto) 7.2 (2-11) % Eos % (Auto) 4.7 H (0-4) % Baso % (Auto) 0.7 (0-2) % Lymph # (Auto) 2.2 (1.2-4.9) X10*3/uL [place] # (Auto) 0.6 (0.1-1.2) X10*3/uL Eos # (Auto) 0.4 (0.0-0.4) X10*3/uL Baso # (Auto) 0.1 (0.0-0.2) X10*3/uL Abs Immat Gran (auto) 0.03 (0.00-0.03) X10*3/uL Absolute Neuts (auto) 5.6 (2.0-8.3) x10*3/uL Absolute Nucleated RBC 0.000 (0.0-0.012) X10*3/uL Nucleated RBC % (auto) 0.0 (0.0-0.2) /100WBC Sodium 143 (135-145) mmol/L Potassium 3.7 (3.3-5.1) mmol/L Chloride 105 (96-108) mmol/L Carbon Dioxide 25 (22-29) mmol/L Anion Gap 17 (12-20) BUN 18 H (9-16) mg/dL Creatinine 1.02 (0.5-1.4) mg/dL Estim Creat Clear Calc 84.5 Estimated GFR > 60 Random Glucose 102 (60-115) mg/dL Calcium 9.6 (8.4-10.2) mg/dL Magnesium 2.0 (1.6-2.6) mg/dL Total Bilirubin 0.6 (0.0-1.0) mg/dL Direct Bilirubin 0.2 (0.0-0.5) mg/dL AST 35 (5-37) U/L ALT 26 (0-40) U/L Alkaline Phosphatase 67 (39-117) U/L Troponin I High Sens 41.3 H 39.7 H (<3.5-35.0) ng/L B-Natriuretic Peptide 50 (<100) pg/mL Total Protein 7.0 (6.5-8.0) g/dL Albumin 4.3 (3.5-5.0) g/dL Urine Color Yellow Urine Appearance Clear Urine pH 7.5 (5.0-9.0) Ur Specific [place] 1.010 (1.005-1.025) Urine Protein Negative (Neg-Trace) mg/dL Urine Glucose (UA) Negative (Negative) mg/dL Urine Ketones Negative (Negative) mg/dL Urine Blood Negative (Negative) Urine Nitrite Negative (Negative) Ur Leukocyte Esterase Negative (Negative) Independent Interpretation I performed an independent interpretation of an: EKG Interpretation: Sinus bradycardia, HR -59, no STEMI, IL/QRS/QTC is within normal limits. Radiology Impression Discussion of test interpretation with radiology: I have reviewed the radiologist's reading. Radiologist Impression: Please see the discussion above External Record Review External record reviewed: Outpatient record, Prior outpatient labs and Prior outpatient radiology Chronic Conditions Patient?s care impacted by: Hypertension Discharge Plan Discharge Clinical Impression: Light-headed, Elevated troponin Patient Disposition: Home, Self-Care Instructions: Lightheadedness (ED) Additional Instructions: 1. Resume all home medications as prescribed. 2. Please follow-up with primary care doctor by calling the office 1st thing in the morning and setting up an appointment for re-evaluation. Return to the ER for any worsening of symptoms. Prescriptions: No Action Flovent HFA 110 mcg/actuation HFA aerosol inhaler 1 puff inhalation DAILY multivitamin Tablet 1 tab PO DAILY lorazepam 0.5 mg tablet 0.5 mg PO BID PRN irbesartan-hydrochlorothiazide 150-12.5 mg tablet 1 tab PO DAILY atorvastatin 20 mg tablet 20 mg PO DAILY amlodipine 10 mg tablet 10 mg PO DAILY albuterol sulfate 90 mcg/actuation HFA aerosol inhaler 2 puff PO Q4H PRN aspirin [Adult Low Dose Aspirin] 81 mg tablet,delayed release (DR/EC) 81 mg PO DAILY celecoxib 200 mg capsule 200 mg PO .4 times a week pantoprazole 40 mg tablet,delayed release (DR/EC) 40 mg PO DAILY carvedilol 6.25 mg tablet 6.25 mg PO BID 90 Days Qty: 180 3RF prednisone 20 mg tablet 20 mg PO DAILY PRN (Reason: gout flare) Rx Instructions: Take 20mg by mouth daily for 3 days for gout flare. alprazolam 1 mg tablet 1 mg PO DAILY PRN amoxicillin 500 mg capsule 1,000 mg PO BID gabapentin 300 mg capsule 300 mg PO TID allopurinol 300 mg tablet 300 mg PO DAILY Qty: 90 1RF Referrals: Luis Gauthier MD [Primary Care Provider] - Antonio Cage MD [Physician] -
--- NOTE | 2022-12-15 18:44 | ECG_ITS ---
Test Reason : DIZZINESS Blood Pressure : / mmHG Vent. Rate : 059 BPM Atrial Rate : 059 BPM P-R Int : 132 ms QRS Dur : 094 ms QT Int : 426 ms P-R-T Axes : 005 -11 043 degrees QTc Int : 421 ms Sinus bradycardia with Premature supraventricular complexes Otherwise normal ECG When compared with ECG of 08-JUN-2018 23:16, Premature supraventricular complexes are now Present Referred By: Sheeba Arboleda Electronically Signed By:GENIA CANTU MD
[2022-12-15 19:05] LABS: MANUAL DIFF FLAG NO
[2022-12-15 19:09] LABS: Basophils Absolute Auto 0.1 X10*3/uL (0.0-0.2); Basophils Percent Auto 0.7 % (0-2); Eosinophils Absolute Auto 0.4 X10*3/uL (0.0-0.4); Eosinophils Percent Auto 4.7 % (0-4); Hematocrit 40.9 % (42.0-52.0); Hemoglobin 13.8 g/dl (14.0-18.0); Imm Gran Abs Auto 0.03 X10*3/uL (0.00-0.03); Imm Gran Pct Auto 0.3 % (0.0-0.4); Lymphocytes Absolute Auto 2.2 X10*3/uL (1.2-4.9); Lymphocytes Percent Auto 24.2 % (20-40); Mean Corpuscular HGB Conc 33.7 g/dl (31.0-36.0); Mean Corpuscular Hemoglobin 31.5 pg (27.0-33.0); Mean Corpuscular Volume 93.4 fL (80.0-98.0); Mean Platelet Volume 9.6 fL (9.4-12.4); Monocytes Absolute Auto 0.6 X10*3/uL (0.1-1.2); Monocytes Percent Auto 7.2 % (2-11); Neutrophils Absolute Auto 5.6 x10*3/uL (2.0-8.3); Neutrophils Percent Auto 62.9 % (45-73); Platelet Count 194 X10*3/uL (160-400); Red Blood Count 4.38 X10*6/uL (4.60-5.80); Red Cell Distribution Width 13.5 % (11.0-16.0); White Blood Count 8.9 X10*3/uL (4.8-10.8)
[2022-12-15 19:22] LABS: Alanine Aminotransferase 26 U/L (0-40); Albumin Level 4.3 g/dL (3.5-5.0); Alkaline Phosphatase 67 U/L (39-117); Anion Gap 17 (12-20); Aspartate Amino Transferase 35 U/L (5-37); Bilirubin Direct 0.2 mg/dL (0.0-0.5); Bilirubin Total 0.6 mg/dL (0.0-1.0); Blood Urea Nitrogen 18 mg/dL (9-16); Calcium 9.6 mg/dL (8.4-10.2); Carbon Dioxide 25 mmol/L (22-29); Chloride 105 mmol/L (96-108); Creatinine Clr Calc Pharmacy 84.5; Estimated Glomerular Filt Rate > 60; Glucose Random 102 mg/dL (60-115); Potassium 3.7 mmol/L (3.3-5.1); Sodium 143 mmol/L (135-145)
[2022-12-15 19:27] LABS: B Type Natriuretic Peptide 50 pg/mL (<100)
[2022-12-15 19:28] LABS: Troponin-I High Sensitivity 41.3 ng/L (<3.5-35.0)
--- OUTSIDE RECORDS SUMMARY | 2022-12-16 00:14 | XMS_ITS | Patient Health Record ---
Author Name Unknown Organization Luis Gauthier MD Address [address] [place] [address] [phone] Care Team Providers Care Solar Installer Pv Name Role Phone Luis Gauthier Primary Care Provider ALLERGIES Allergen (clinical drug ingredient) Drug/Non Drug Allergy documented on EMR Reaction Allergy Type Onset Date Status lisinopril Lisinopril angioedema Drug Allergy Acti ve RESULTS Component Value Reference Range Notes CT lumbar spine w con Reviewed date:01/04/2022 12:53:58 PM Interpretation: Performing Lab: Notes/Report: [address] [address] [address] Scan Report Signed Patient: Ben Dia MR#: [id number] : 1945 Acct:[id number] Age/Sex: 76 / M ADM Date: 12/30/21 Loc: HO.CT Attending Dr: Luis Gauthier MD Ordering Physician: Luis Gauthier MD Date of Service: 12/30/21 Procedure(s): CT lumbar spine w IV con Accession Number(s): [id number] cc: Luis Gauthier MD EXAMINATION: CT LUMBAR SPINE WITH CONTRAST CLINICAL INFORMATION: Spinal stenosis of the lumbar spine. COMPARISON: None TECHNIQUE: Multidetector helical imaging acquired in the axial plane following intravenous administration of 85 mL of Omnipaque 350. This CT examination was performed using dose optimization techniques as appropriate, variously including the following: *Automated exposure control *Adjustment of mA and/or kV according to patient size (this includes techniques or standardized protocols for targeted exams where dose is matched to indication/reason for exam; i.e. extremities or head) *Use of iterative reconstruction technique DLP: 1410 mGy-cm FINDINGS: Significant multilevel disc space narrowing evident with vacuum phenomenon and endplate spurring. There are mild posterior subluxations at the L1-L2 and L2-L3 levels. No compression fractures identified. Chronic postlaminectomy changes noted at the L5-S1 level on the right side. L1-L2: Mild retrosubluxation and diffuse disc bulge with facet arthropathy resulting in mild central canal stenosis and mild foraminal narrowing. L2-L3: Retrosubluxation and diffuse disc bulge contribute to moderate central canal stenosis and ventral thecal sac distortion. Osfy-xl-cqhmbljy bilateral foraminal narrowing. L3-L4: Concentric disc bulge and facet arthropathy with thickening of the ligamentum flavum result in mild central canal stenosis with severe left foraminal narrowing as a result of osseous encroachment. L4-L5: Posterior subluxation and diffuse disc bulge with moderate facet arthropathy result in moderate central canal stenosis. Severe bilateral foraminal narrowing, worse on the left side. L5-S1: Chronic postlaminectomy changes on the right side with slight narrowing of the central canal. Exuberant facet arthropathy and chronic right L5 pars defect. A left foraminal disc protrusion compresses the exiting left L5 nerve root. No suspicious abnormal enhancement is seen. Small renal cysts noted for which no further imaging followup is indicated. The visualized bony pelvis is unremarkable with vacuum phenomenon and tofl-dv-lbnypdqe sacroiliac joint space narrowing. The imaged paraspinal soft tissues are unremarkable. CT/CT lumbar spine w IV con IMPRESSION: Extensive multilevel degenerative disc disease and facet arthropathy. Chronic postlaminectomy changes on the right side at the L5-S1 level with a chronic right L5 pars defect. Exuberant facet arthropathy and diffuse disc bulge with mild narrowing of the central canal at this level. Additional left posterolateral disc protrusion which compresses the exiting left L5 nerve root. Moderate central canal stenosis and severe foraminal narrowing, worse on the left side at the L4-L5 level. Mild central canal stenosis and severe left foraminal narrowing at the L3-L4 level. Moderate central canal stenosis and vvhj-qq-wznqaitg foraminal narrowing at the L2-L3 level. No abnormal enhancement. Dictated By: SEBLE JIMENEZ MD Signed By: <Electronically signed by SEBLE JIMENEZ MD in OV> 01/03/22 1340 DD/ 0900 TD/TT: Petrology Teacher: MATT Schmitt. Panel Reviewed date:03/25/2022 05:01:30 PM Interpretation: Performing Lab:[facility], [address] [place] [phone] Notes/Report: Sodium 142 135-145 mmol/L Potassium 4.6 3.3-5.1 mmol/L Chloride 103 96-108 mmol/L Carbon Dioxide 30 22-29 mmol/L Anion Gap 14 12-20 Blood Urea Nitrogen 21 9-16 mg/dL Creatinine 1.25 0.5-1.4 mg/dL Estimated Glomerular Filt Rate 56 NOTE: For -Mexican individuals, multiply the result by 1.210. Chronic Kidney Disease: Estimated GFR < 60 mL/min/1.73m2 Severe Kidney Disease: Estimated GFR < 15 mL/min/1.73m2 Glucose Random 111 60-115 mg/dL Calcium 9.6 8.4-10.2 mg/dL Bilirubin Total 0.8 0.0-1.0 mg/dL Aspartate Amino Transferase 30 5-37 U/L Alanine Aminotransferase 24 0-40 U/L Total Protein 6.4 6.5-8.0 g/dL Albumin Level 4.1 3.5-5.0 g/dL Alkaline Phosphatase 73 39-117 U/L Uric Acid Reviewed date:03/25/2022 12:49:18 PM Interpretation: Performing Lab:[facility], [address] [place] [phone] Notes/Report: Uric Acid 4.9 3.4-7.0 mg/dL Liver Panel Reviewed date:06/11/2022 02:13:03 PM Interpretation: Performing Lab:[facility], [address] [place] [phone] Notes/Report: Bilirubin Total 0.8 0.0-1.0 mg/dL Bilirubin Direct 0.2 0.0-0.5 mg/dL Aspartate Amino Transferase 30 5-37 U/L Alanine Aminotransferase 29 0-40 U/L Total Protein 6.1 6.5-8.0 g/dL Albumin Level 3.9 3.5-5.0 g/dL Alkaline Phosphatase 70 39-117 U/L Lipid Panel with Reflex Reviewed date:06/11/2022 02:13:14 PM Interpretation: Performing Lab:[facility], [address] [place] [phone] Notes/Report: Triglycerides 104 Desirable Triglyceride: less than 150 mg/dL Borderline High Triglyceride 150-199 mg/dL High Triglyceride: 200-499 mg/dL Very High Triglyceride: greater than or equal to 5OO mg/dL Cholesterol 145 Desirable Cholesterol: less than 200 mg/dL Borderline High Cholesterol: 200-239 mg/dL High Cholesterol: greater than 239 mg/dL LDL Cholesterol Calculated 87 Desirable LDL: less than 100 mg/dL Near Optimal/Above Optimal LDL: 110-129 mg/dL Borderline High LDL: 130-159 mg/dL High LDL: 160-189 mg/dL Very High LDL: greater than or equal to 190 mg/dL HDL Cholesterol 38 Desirable HDL: greater than 40 mg/dL Note: This HDL assay may give artificially low results in patients with liver disease. Complete Blood Count Auto Di ff Reviewed date:10/21/2022 05:07:21 PM Interpretation: Performing Lab:[facility], [address] [place] [phone] Notes/Report: White Blood Count 6.4 4.8-10.8 X10*3/uL Red Blood Count 4.25 4.60-5.80 X10*6/uL Hemoglobin 13.4 14.0-18.0 g/dl Hematocrit 41.3 42.0-52.0 % Mean Corpuscular Volume 97.2 80.0-98.0 fL Mean Corpuscular Hemoglobin 31.5 27.0-33.0 pg Mean Corpuscular HGB Conc 32.4 31.0-36.0 g/dl Red Cell Distribution Width 13.2 11.0-16.0 % Platelet Count 185 160-400 X10*3/uL Mean Platelet Volume 10.0 9.4-12.4 fL Neutrophils Percent Auto 64.0 45-73 % Imm Gran Pct Auto 0.3 0.0-0.4 % Lymphocytes Percent Auto 23.0 20-40 % Monocytes Percent Auto 6.5 2-11 % Eosinophils Percent Auto 5.6 0-4 % Basophils Percent Auto 0.6 0-2 % NRBC Pct Auto 0.0 0.0-0.2 /100WBC Neutrophils Absolute Auto 4.1 2.0-8.3 x10*3/u L Imm Gran Abs Auto 0.02 0.00-0.03 X10*3/uL Lymphocytes Absolute Auto 1.5 1.2-4.9 X10*3/u L Monocytes Absolute Auto 0.4 0.1-1.2 X10*3/uL Eosinophils Absolute Auto 0.4 0.0-0.4 X10*3/u L Basophils Absolute Auto 0.0 0.0-0.2 X10*3/uL NRBC Abs Auto 0.000 0.0-0.012 X10*3/uL Comprehensive Met. Panel Reviewed date:10/21/2022 07:51:30 PM Interpretation: Performing Lab:[facility], [address] [place] [phone] Notes/Report: Sodium 143 135-145 mmol/L Potassium 4.4 3.3-5.1 mmol/L Chloride 105 96-108 mmol/L Carbon Dioxide 31 22-29 mmol/L Anion Gap 11 12-20 Blood Urea Nitrogen 19 9-16 mg/dL Creatinine 1.41 0.5-1.4 mg/dL Estimated Glomerular Filt Rate 49 NOTE: For -Mexican individuals, multiply the result by 1.210. Chronic Kidney Disease: Estimated GFR < 60 mL/min/1.73m2 Severe Kidney Disease: Estimated GFR < 15 mL/min/1.73m2 Glucose Random 91 60-115 mg/dL Calcium 9.8 8.4-10.2 mg/dL Bilirubin Total 0.8 0.0-1.0 mg/dL Aspartate Amino Transferase 31 5-37 U/L Alanine Aminotransferase 23 0-40 U/L Total Protein 6.6 6.5-8.0 g/dL Albumin Level 4.0 3.5-5.0 g/dL Alkaline Phosphatase 70 39-117 U/L Uric Acid Reviewed date:10/21/2022 05:07:29 PM Interpretation: Performing Lab:[facility], [address] [facility], [place] [address] Notes/Report: Uric Acid 5.5 3.4-7.0 mg/dL REASON FOR REFERRAL Reason spinal stenosis of l umber patient is not able to do a MRI due to mental implantes will be having a Ct scan done instead Diagnosis 1 Spinal stenosis of l umbar region with neurogenic claudication (M48.062) Referral Organization Luis Gauthier MD Referring Provider First Name Luis Referring Provider Last Name Disha Referring Provider Speciality Internal M edicine Referred Provider Hema Gallegos Referred Provider Specialty Neurological Surgery General Notes Cristine Chaney 03:20:56 PM EDT > info faxed [phone], Cristine Chaney 01/01/2022 10:27:12 AM EDT > wanting for Ct to be read then appt can be booked , Cristine Chaney 01/04/2022 10:19:56 AM EDT > called patient with info and mailed Referral Priority Routine Referral Appointment Date 03/02/2022 MEDICATIONS Medication SIG (Take, Route, Frequency, Duration) Notes Start Date End Date Status amLODIPine Besylate 10 MG TAKE 1 TABLET BY MOUTH EVERY DAY for 90 Active Allopurinol 300 MG 1tablet Orally Once a day Active Amoxicillin 500 MG 4capsule Orally 1 ho ur prior to dental Not-Taking Gabapentin 300 MG 1 capsule Orally thr ee times a day Active LORazepam 0.5 MG 1 tablet as needed Orally Twice a day for 7 days 06/09/2018 Not-Taking Flovent HFA 110 MCG/ACT 2 puffs Inhalati on Twice a day for 30 days 06/07/2022 Active Irbesartan-hydroCHLOROthi azide 150-12.5 MG TAKE 1 TABLET BY MOUTH EVERY DAY for 90 Active Celecoxib 200 MG TAKE 1 CAPSULE BY MO UTH EVERY DAY for 90 Active Pantoprazole Sodium 40 MG TAKE 2 TABLETS BY MOUTH EVERY DAY for 90 Active Atorvastatin Calcium 20 MG TAKE 1 TABLET BY MOUTH EVERY DAY for 90 Active Carvedilol 6.25 MG TAKE 1 TABLET BY MEREDITH TH TWICE DAILY Active ProAir HFA 108 (90 Base) MCG/ACT 2 puffs as needed Inhalation every 4 hrs for 90 days Active Flonase 50 MCG/ACT 2 sprays Nasally Onc e a day for 90 days Not-Taking Advair Diskus 500-50 MCG/DOSE 1 puff Inhalation Twice a day 06/22/2012 Not-Taking Aspir-81 81 MG 1 tablet Orally Once a day for 30 day(s) Active Nasacort Allergy 24HR 55 MCG/ACT 1 puff in each nostril Nasally Once a day for 30 day(s) 03/28/2015 Not-Taking IMMUNIZATIONS Vaccine Route Administration Date Status Comme nts Flu Vaccine IM Intramuscular 12/18/2010 Administered PPSV23 (Pnemovax) IM Intramuscular 07/11/2012 Administered Flu Vaccine Unknown 12/15/2012 Administered At work [email or web address]. Fluarix Quadrivalent IM Intramuscular 11/20/2013 Administe red Prevnar 13 IM Intramuscular 03/11/2014 Administered zFluzone Quadrivalent Unknown 12/31/2014 Administered given at work Fluarix Quadrivalent Unknown 11/26/2015 Administered At work [employer]. Fluarix Quadrivalent Unknown 12/17/2016 Administered At [facility] TDaP Unknown 05/20/2008 Administered Shingles Unknown 05/20/2008 Administered PPSV23 (Pnemovax) IM Intramuscular 05/29/2018 Administered Fluarix Quadrivalent Unknown 12/16/2017 Administered pt was given the vaccine at work. Shingrix IM Intramuscular 10/24/2018 Administered pt was given the vaccine at [facility] [employer] [facility] in [place]. Shingrix IM Intramuscular 01/06/2019 Administered pt was given the vaccine at [facility] [employer] [facility] in [place]. Influenza High Dose Unknown 11/29/2019 Administered [employer] TDaP Unknown 10/25/2019 Administered [facility] Covid Vaccine Unknown 04/29/2020 Administered Moderna Covid Vaccine Unknown 05/27/2020 Administered Moderna Influenza High Dose Unknown 12/05/[address] [facility] SARS-COV-2 Moderna Unknown 06/12/2021 Administered [employer] SARS-COV-2 Moderna Unknown 12/26/2020 Administered Influenza High Dose Unknown 12/05/2021 Administered SARS-COV-2 Moderna Unknown 06/12/2021 Administered SARS-COV-2 Moderna Unknown 11/15/2021 Administered Flu Vaccine Unknown 11/20/2013 Pending SOCIAL HISTORY Tobacco Use: Social History Observation Description Date Details (start date - stop date) Former Smoker NA - NA Sex Assigned At : Social History Observation Description Sex Assigned At Unknown Tobacco Use/Smoking Question Answer Notes Patient is a former smoker How long has it been since y ou last smoked? > 10 years Additional Findings: Tobacco Non-User Fo rmer smoker, currently using no form of tobacco Alcohol Screen Question Answer Notes Did you have a drink containing alcohol in the p ast year? No Points 0 Interpretation Negative PROBLEMS Problem Type ICD Code Onset Dates Problem Status W/U Status Risk SNOMED Code Notes Problem Atherosclerotic heart disease of 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) Active confirmed 892585188 Problem Anxiety (F41.9) Active confirmed 346832 02 Problem Obstructive sleep apnea (adult) (pediatric) (G47.33) Active confirmed 29609278 Problem Arthritis (M19.90) Active confirmed 372 3001 Problem Gastroesophageal reflux disease without esophagitis (K21.9) Active confirmed 915172731 Problem Essential hypertension (I10) Active confirmed 70148636 Problem Mild intermittent asthma without complication (J45.20) Active confirmed 414796350 Problem Low HDL (under 40) (E78.6) Active confirmed 261303441 Problem Non morbid obesity due to excess calories (E66.09) Active confirmed 729168640 Problem History of gout (Z87.39) Active confirmed 328577979 Problem Esophageal dysmotility (K22.4) Active confirmed 531098435 Problem Obstructive sleep apnea (G47.33) Active confirmed 81991710 Problem OSMEL (obstructive sleep apnea) (G47.33) Active confirmed 38650614 Problem Nodule of kidney (N28.89) Active confirmed 991808202 VITAL SIGNS Blood pressure diastolic 58 mm Hg 06/18/2022 gwendolyn ght is up 5 pounds since 12-17-21 Height 72 in 06/18/2022 weight is up 5 pounds since 12-17-21 Blood pressure systolic 120 mm Hg 06/18/2022 weig ht is up 5 pounds since 12-17-21 Weight 278 lbs 06/18/2022 weight is up 5 pounds since 12-17-21 BMI 37.70 kg/m2 06/18/2022 weight is up 5 pounds since 12-17-21 Encounters Encounter Location Date Provider Diagnosis Luis Gauthier MD [address] [place] [id number] 12/17/2021 Luis Gauthier Spinal stenosis of lumbar region with neurogenic claudication M48.062 ; Essential hypertension I10 ; Tertiary contraction of esophagus K22.4 ; Obstructive sleep apnea G47.33 ; Colon cancer screening Z12.11 ; Depression screen Z13.31 and Encounter for screening for other viral diseases Z11.59 Luis Gauthier MD [address] [place] [id number] 06/11/2022 Luis Gauthier Low HDL (under 40) E78.6 Luis Gauthier MD [address] [place] [id number] 12/16/2022 Luis Gauthier Essential hypertension I10 and Low HDL (under 40) E78.6 Luis Gauthier MD [address] [place] [address] [id number] 06/18/2022 Luis Gauthier Spinal stenosis, lumbar region with neurogenic claudication M48.062 and Leg weakness, bilateral R29.898 Luis Gauthier MD [address] [place] [address] [id number] 12/25/2021 Luis Gauthier Spinal stenosis of lumbar region with neurogenic claudication M48.062 Luis Gauthier MD [address] [place] [address] [id number] 06/07/2022 Luis Gauthier MD [address] [place] [address] [id number] 06/07/2022 Luis Gauthier MD [address] [place] [address] [id number] 12/17/2021 Luis Gauthier MD [address] [place] [address] [id number] 06/05/2022 Luis Gauthier ASSESSMENTS Encounter Date Diagnosis Assessment Notes Treatment Notes Treatment Clinical Notes 12/17/2021 Spinal stenosis of lumbar region with neurogenic claudication (ICD-10 - M48.062) willy send to neurosurgery of 's choice/ patient will be calling us back with this info / order faxed to [facility] dept 12/17/2021 Essential hypertension (ICD-10 - I10) doing well, will continue current regiment 06/11/2022 Low HDL (under 40) (ICD-10 - E78.6) 12/16/2022 Essential hypertension (ICD-10 - I10) 06/18/2022 Leg weakness, bilateral (ICD-10 - R29.898) may be partially related to spinal stenosis 06/18/2022 Spinal stenosis, lumbar region with neurogenic claudication (ICD-10 - M48.062) if he doesn't get better with repeat injections will get back to neurosurgery 12/17/2021 Tertiary contraction of esophagus (ICD-10 - K22.4) still having a little issue 12/16/2022 Low HDL (under 40) (ICD-10 - E78.6) 12/25/2021 Spinal stenosis of lumbar region with neurogenic claudication (ICD-10 - M48.062) order faxed to [facility] dept 12/17/2021 Obstructive sleep apnea (ICD-10 - G47.33) using machine all the time 12/17/2021 Colon cancer screening (ICD-10 - Z12.11) guaiac negative 12/17/2021 Depression screen (ICD-10 - Z13.31) negative screen 12/17/2021 Encounter for screening for other viral diseases (ICD-10 - Z11.59) no covid sx's PLAN OF TREATMENT Pending Test Test Name Order Date Complete Blood Count Auto Diff 3 Comprehensive [place]. Panel Fast 3 Lipid Panel 12/16/2022 PSA,Total (Free>4and<10) 12/16/2022 CT lumbar spine wo con 12/17/2021 UA ClnCatch+Micro w/rflx Cult 12/16/2022 Next Appt Details Provider Name:Luis kirkland, 12/16/2022 07:00:00 AM, [address] [place] [address], [address], [place], [place], [phone], Provider Name:Luis kirkland, 12/23/2022 08:30:00 AM, [address] [place] [address], [address], [place], [place], [phone], Insurance Providers Payer Name Payer Address Payer Phone Subscriber Number Group Number Insured Name Patient Relationship to Insured Coverage Start Date Coverage End Date MEDICARE NHIC EDD[address] [place] [id number] [employer] Self - patient is the insured [employer] [address] [place], [place] [id number] [phone] [id number] Ben Kramer Self - patient is the insured MEDICAL (GENERAL) HISTORY Medical History History ICD Code phlebitis Gout hematuria .cysto in 2004 colonoscopy 02/2003; 03/2013 - repeat 10 years sleep study 10/2008 Surgical History Surgery Date(Month/Year) Left Achilles Lengthening 12/2012
[2022-12-16 00:44] VITALS: BP 155/73; BP 155/78; PULSE 61; PULSE 65
[2022-12-16 00:45] VITALS: BP 149/82; BP 155/78; PULSE 65; PULSE 68; RESP 18; TEMP 36.6; O2SAT 97
--- NOTE | 2022-12-16 00:46 | MHC.EDTECH ---
Ortho Static vitals completed,patient ambulated to bathroom with cane and a steady gait, urine sample and repeat labs collected and sent to lab.
[2022-12-16 01:06] LABS: Appearance Urine Clear; Color Urine Yellow; Glucose Urine UA Negative (Negative); Leukocyte Esterase Urine Negative (Negative); Nitrite Urine Negative (Negative); PH 7.5 (5.0-9.0); Urine Blood Negative (Negative); Urine Ketones Negative (Negative); Urine Protein Negative (Neg-Trace)
[2022-12-16 01:34] LABS: Troponin-I High Sensitivity 39.7 ng/L (<3.5-35.0)
[2022-12-16 02:24] VITALS: BP 139/75; PULSE 62; RESP 18; TEMP 36.6; O2SAT 98
--- NOTE | 2022-12-16 02:24 | MHC.EDTECH ---
Hourly rounds and vitals completed,patient is awaiting discharge at this time.
== END 2022-12-16 02:32 | disposition home or self-care (01) ==
PROVIDERS: Physician Assistant Medical; Emergency Provider Student in an Organized Health Care Education/Training Program; PCP Internal Medicine
DX: R42 Dizziness and giddiness (principal); R79.89 Other specified abnormal findings of blood chemistry; R60.0 Localized edema; I10 Essential (primary) hypertension; Z79.82 Long term (current) use of aspirin; Z79.899 Other long term (current) drug therapy; Z87.891 Personal history of nicotine dependence
CPT/HCPCS: 36415; 80048; 80053; 80061; 80076; 81003; 83735; 83880; 84153; 84484; 85025; 93005; 93971; 99284; 99285

== ENCOUNTER 2022-12-17 11:09 | Outpatient (REF) | payer MEDICARE, SELFPAY ==
[2022-12-17 11:37] LABS: Alanine Aminotransferase 26 U/L (0-40); Albumin Level 4.1 g/dL (3.5-5.0); Alkaline Phosphatase 63 U/L (39-117); Anion Gap 15 (12-20); Aspartate Amino Transferase 32 U/L (5-37); Bilirubin Total 0.8 mg/dL (0.0-1.0); Blood Urea Nitrogen 22 mg/dL (9-16); Calcium 9.3 mg/dL (8.4-10.2); Carbon Dioxide 28 mmol/L (22-29); Chloride 104 mmol/L (96-108); Cholesterol 137 mg/dL (<200); Estimated Glomerular Filt Rate > 60; Glucose Random 97 mg/dL (60-115); HDL Cholesterol 34 mg/dL (>40); LDL Cholesterol Calculated 76 mg/dL (<100); Potassium 4.1 mmol/L (3.3-5.1); Sodium 143 mmol/L (135-145); Total Protein 6.6 g/dL (6.5-8.0); Triglycerides 135 mg/dL (<150)
== END 2022-12-17 11:10 | disposition home or self-care (01) ==
LOC: HO.LNP 11:09
PROVIDERS: Visit Provider Internal Medicine
DX: I10 Essential (primary) hypertension (principal); E78.6 Lipoprotein deficiency; Z12.5 Encounter for screening for malignant neoplasm of prostate
CPT/HCPCS: 80053; 80061; 84153

== ENCOUNTER 2023-02-09 12:47 | Outpatient (AMB) | payer MEDICARE, SELFPAY ==
[2023-02-09 12:51] VITALS: BP 110/50; PULSE 68; BMI 38.0
--- NOTE | 2023-02-09 12:51 | A.OFFVIS_ITS ---
Intake Vital Signs 02/09/23 12:51 Height 6 ft Weight 279 lb 15.793 oz BMI 38.0 BP 110/50 L Blood Pressure Location Lt brachial Position Sitting Pulse 68 Pulse Source Pulse Oximeter Intake Visit Reasons: 1 yr f/up Intake Note: 1 yr f/up patient feel good. Language And Literature Division Chair Required: No Accompanied by: Self / Same As Patient Allergies lisinopril [From ZESTRIL] Adverse Reaction (Mild, Verified 02/09/23 12:54) DIZZINESS Cortisone Allergy (Mild, Uncoded 03/31/22 13:23) red face Medication List - Last Reconciled 02/09/23 by Antonio Cage MD albuterol sulfate 90 mcg/actuation 2 puffs PO Q4H PRN allopurinol 300 mg PO DAILY alprazolam 1 mg PO DAILY PRN amlodipine 10 mg PO DAILY amoxicillin 1,000 mg PO BID aspirin (Adult Low Dose Aspirin) 81 mg PO DAILY atorvastatin 20 mg PO DAILY carvedilol 6.25 mg PO BID 90 days celecoxib 200 mg PO .4 times a week fluticasone propionate 110 mcg/actuation (Flovent HFA) 1 puff inhalation DAILY gabapentin 300 mg PO TID irbesartan-hydrochlorothiazide 150-12.5 mg 1 tab PO DAILY lorazepam 0.5 mg PO BID PRN multivitamin 1 tab PO DAILY pantoprazole 40 mg PO DAILY prednisone 20 mg PO DAILY PRN HPI HPI Comments History of Present Illness Details Here for follow up. He was seen for epigastric fullness, palpitations and HTN. He had slight troponin elevation. Nuclear stress was normal. Echo showed normal LVEF and indeterminate diastolic function. For his palpitations we arranged a Holter which showed occasional supraventricular and ventricular ectopy but no sustained arrhythmia noted. He was started on antiypertensive medications. Since then he has been doing well. He is here for follow-up today. He is denying any chest discomfort or shortness of breath. Denying any further palpitations. Taking his antihypertensive medications regularly without any significant issues. He has bilateral lower extremity edema. He is wearing compression stockings. He had right lower extremity DVT and since then he had chronic right lower extremity edema. Currently has edema on both sides and he has been on amlodipine 10 mg daily which is potential reason for edema. He is denying any shortness of breath, orthopnea or PND. He has sleep apnea and sleeps with CPAP. 02/09/2023: He returns for follow-up. He was in the emergency department in December with dizziness. He felt lightheaded at that time. His blood pressure was elevated and his blood pressures were as high as 160s systolic. He was monitored in the ER and then discharged home. His BNP was normal. High sensitive troponin levels were flat. EKG did not have any dynamic changes. Since then he has done well. He continues to take same medications at this point. He continues to have peripheral edema but appears to be not bothered by it. [facility] Surgical History History of foot surgery S/P surgery on nasal septum History of left knee surgery Family History Father No problems noted. Mother No problems noted. Family/Other Diabetes Social History Household Members: Spouse Alcohol intake: never Patient Tobacco Use Status: Former Tobacco user Quit Date: 1999 Tobacco use type: Cigarette Years Smoked: 20 +/- Review of Systems Const Reports chills, Reports fatigue, Reports fever(s), Reports frequent falls, Reports weakness, Reports weight gain and Reports weight loss ENT Reports dizziness Card Reports chest pain, Reports leg edema, Reports lightheadedness, Reports palpitations, Reports dyspnea and Reports dyspnea on exertion Resp Reports cough, Reports dyspnea and Reports dyspnea on exertion GI Reports hematochezia Musc Reports abnormal gait, Reports muscle weakness, Reports numbness, Reports radiating pain into limb and Reports tingling Neuro Reports abnormal gait, Reports dizziness, Reports frequent falls, Reports n umbness, Reports tingling and Reports weakness Endo Reports fatigue and Reports palpitations Physical Exam Vital Signs: Last Vital Signs Pulse 68 02/09/23 12:51 BP 110/50 L 02/09/23 12:51 BMI result Body Mass Index 38.0 GENERAL APPEARANCE: in no acute distress, well developed, well nourished. NECK/THYROID: no carotid bruit, no jugular venous distention. SKIN: warm and dry. HEART: no murmurs, regular rate and rhythm, S1, S2 normal. LUNGS: clear to auscultation bilaterally. ABDOMEN: normal, bowel sounds present, soft, nontender, nondistended. EXTREMITIES: One to 2+ edema bilaterally in the legs. PERIPHERAL PULSES: equal. PSYCH: mood/affect full range. Assessment & Plan Assessment & Plan (1) Hypertension: Code(s): I10 - Essential (primary) hypertension (2) Peripheral edema: Code(s): R60.0 - Localized edema Plan 77-year-old gentleman here for follow-up. He has background of hypertension. Blood pressure control is good. He recently went to ER with dizziness. He was not hypotensive and affect his blood pressures were mildly elevated. He had workup and was discharged home. He has not had any further symptoms since then. He has peripheral edema which is a combination of amlodipine and gabapentin. He is not in heart failure clinically. If edema worsens then can consider stopping gabapentin 1st. It was stopping gabapentin is not an option then amlodipine can be split to 5 mg twice a day. Thank you for allowing me to participate in the care of your patient. Please feel free to contact me if you have any questions. Coding Level of Care Code Est Pt Level 4 (15066) Diagnoses Hypertension I10 Peripheral edema R60.0
== END 2023-02-09 13:15 | disposition home or self-care (01) ==
PROVIDERS: Visit Provider Internal Medicine Cardiovascular Disease
DX: I10 Essential (primary) hypertension (principal); R60.0 Localized edema
CPT/HCPCS: 99214

== ENCOUNTER → 2023-02-09 12:47 | Outpatient (BNVA) | payer MEDICARE, SELFPAY | PROVIDERS: Visit Provider Internal Medicine Cardiovascular Disease | DX: I10 Essential (primary) hypertension (principal); R60.0 Localized edema | CPT/HCPCS: 99212 ==

== ENCOUNTER 2023-04-27 11:07 | Outpatient (REF) | payer MEDICARE, SELFPAY ==
[2023-04-27 11:23] LABS: MANUAL DIFF FLAG NO
[2023-04-27 11:59] LABS: Basophils Absolute Auto 0.1 X10*3/uL (0.0-0.2); Basophils Percent Auto 0.8 % (0-2); Eosinophils Absolute Auto 0.3 X10*3/uL (0.0-0.4); Eosinophils Percent Auto 4.4 % (0-4); Hematocrit 41.1 % (42.0-52.0); Hemoglobin 13.4 g/dl (14.0-18.0); Imm Gran Abs Auto 0.02 X10*3/uL (0.00-0.03); Imm Gran Pct Auto 0.3 % (0.0-0.4); Lymphocytes Absolute Auto 2.2 X10*3/uL (1.2-4.9); Lymphocytes Percent Auto 28.5 % (20-40); Mean Corpuscular HGB Conc 32.6 g/dl (31.0-36.0); Mean Corpuscular Volume 95.1 fL (80.0-98.0); Monocytes Absolute Auto 0.6 X10*3/uL (0.1-1.2); Monocytes Percent Auto 7.7 % (2-11); Neutrophils Absolute Auto 4.5 x10*3/uL (2.0-8.3); Neutrophils Percent Auto 58.3 % (45-73); Platelet Count 211 X10*3/uL (160-400); Red Blood Count 4.32 X10*6/uL (4.60-5.80); Red Cell Distribution Width 13.2 % (11.0-16.0); White Blood Count 7.7 X10*3/uL (4.8-10.8)
[2023-04-27 12:22] LABS: Alanine Aminotransferase 24 U/L (0-40); Albumin Level 4.3 g/dL (3.5-5.0); Alkaline Phosphatase 76 U/L (39-117); Anion Gap 12 (12-20); Aspartate Amino Transferase 31 U/L (5-37); Bilirubin Total 0.8 mg/dL (0.0-1.0); Blood Urea Nitrogen 18 mg/dL (9-16); Calcium 9.7 mg/dL (8.4-10.2); Carbon Dioxide 31 mmol/L (22-29); Chloride 104 mmol/L (96-108); Estimated Glomerular Filt Rate 56; Glucose Random 93 mg/dL (60-115); Potassium 4.8 mmol/L (3.3-5.1); Sodium 142 mmol/L (135-145)
== END 2023-04-27 11:08 | disposition home or self-care (01) ==
LOC: HO.LAB 11:07
PROVIDERS: PCP Internal Medicine; Visit Provider Student in an Organized Health Care Education/Training Program
DX: M1A.9XX1 Chronic gout, unspecified, with tophus (tophi) (principal)
CPT/HCPCS: 36415; 80053; 84550; 85025

== ENCOUNTER 2023-04-28 13:27 | Outpatient (AMB) | payer MEDICARE, SELFPAY ==
[2023-04-28 13:36] VITALS: BP 120/68; PULSE 54; TEMP 36.4; O2SAT 96; BMI 37.2
--- NOTE | 2023-04-28 13:36 | MHC.OFFVIS ---
Intake Vital Signs 04/28/23 13:36 Height 6 ft Weight 274 lb 0.553 oz BMI 37.2 BP 120/68 Blood Pressure Location Rt brachial Position Sitting Pulse 54 Pulse Source Pulse Oximeter Temp 97.6 F Temp Source Skin Pulse Oximetry (%) 96 Intake Visit Reasons: Gout Intake Note: Patient last seen 10/27/22 presents today for follow up and test results. 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 Required: No Accompanied by: Self / Same As Patient Allergies lisinopril [From ZESTRIL] Adverse Reaction (Mild, Verified 04/28/23 13:39) DIZZINESS Cortisone Allergy (Mild, Uncoded 04/28/23 13:39) red face Medication List - Last Reconciled 04/28/23 by Scooter Yeboah MD albuterol sulfate 90 mcg/actuation 2 puffs PO Q4H PRN allopurinol 300 mg PO DAILY alprazolam 1 mg PO DAILY PRN amlodipine 10 mg PO DAILY amoxicillin 1,000 mg PO BID aspirin (Adult Low Dose Aspirin) 81 mg PO DAILY atorvastatin 20 mg PO DAILY carvedilol 6.25 mg PO BID celecoxib 200 mg PO .4 times a week fluticasone propionate 110 mcg/actuation (Flovent HFA) 1 puff inhalation DAILY gabapentin 300 mg PO TID irbesartan-hydrochlorothiazide 150-12.5 mg 1 tab PO DAILY lorazepam 0.5 mg PO BID PRN multivitamin 1 tab PO DAILY pantoprazole 40 mg PO DAILY prednisone 20 mg PO DAILY PRN HPI HPI Comments History of Present Illness Details 77yoM presents for follow-up of gout. Last seen 10/2022 On Allopurinol 300mg daily and tolerating this well. Doing well overall with no recent gout flares. Requesting refills. States that he recently had back surgery and it was uneventful. He is going to PT these days [facility] Surgical History History of foot surgery S/P surgery on nasal septum History of left knee surgery Family History Father No problems noted. Mother No problems noted. Family/Other Diabetes Social History Household Members: Spouse Alcohol intake: never Patient Tobacco Use Status: Former Tobacco user Quit Date: 1999 Tobacco use type: Cigarette Years Smoked: 20 +/- Review of Systems Neuro Details: Poor balance. Using a cane for support Physical Exam Vital Signs: Last Vital Signs Temp 97.6 F 04/28/23 13:36 Pulse 54 04/28/23 13:36 BP 120/68 04/28/23 13:36 Pulse Ox 96 04/28/23 13:36 BMI result Body Mass Index 37.2 Const General: cooperative and healthy appearing Nutritional Appearance: obese morbidly obese Orientation/consciousness: patient oriented x3 Limitations: ambulation with cane HEENT Head: Yes normocephalic and Yes atraumatic Resp Effort & Inspection: normal respiratory effort and able to speak in complete sentences Neuro General: patient oriented x3 Extrem Other: Bilateral lower extremity edema No active synovitis No tophi noted Assessment & Plan Assessment & Plan (1) Gout with tophi: Comment: Allopurinol started 09/09/2020- present Code(s): M1A.9XX1 - Chronic gout, unspecified, with tophus (tophi) Plan: This is a 77-year-old female with gout who presents for follow-up. On allopurinol 300 mg daily. Well tolerated. Gout well controlled. Uric acid level at target 5.0. Patient takes 1 20 mg prednisone tablet as needed for flare-ups. Refilled. Has not had flare-ups in a long time Continue with allopurinol 300 mg daily. Refilled Labs before next visit in 6 months Plan I spent 15 minutes reviewing patient's chart, evaluating patient, ordering diagnostic workup, counseling patient and documenting in the chart Orders: Orders Complete Blood Count Auto Diff 6 Months M1A.9XX1 - Chronic gout, unspecified, with tophus (tophi) Uric Acid 6 Months M1A.9XX1 - Chronic gout, unspecified, with tophus (tophi) Comprehensive Met. Panel 6 Months M1A.9XX1 - Chronic gout, unspecified, with tophus (tophi) Medications: New prednisone Take 20mg by mouth daily for 3 days for gout flare. 20 mg PO DAILY PRN 12 tabs 1RF gout flare Refilled allopurinol 300 mg PO DAILY 90 tabs 3RF Coding Level of Care Code Est Pt Level 3 (06342) Diagnoses Gout with tophi M1A.9XX1
== END 2023-04-28 13:57 | disposition home or self-care (01) ==
PROVIDERS: PCP Internal Medicine; Visit Provider Student in an Organized Health Care Education/Training Program
DX: M1A.9XX1 Chronic gout, unspecified, with tophus (tophi) (principal)
CPT/HCPCS: 99213

== ENCOUNTER → 2023-04-28 13:27 | Outpatient (BNVA) | payer MEDICARE, SELFPAY | PROVIDERS: PCP Internal Medicine; Visit Provider Student in an Organized Health Care Education/Training Program | DX: M1A.9XX1 Chronic gout, unspecified, with tophus (tophi) (principal) | CPT/HCPCS: 99212 ==

== ENCOUNTER 2023-06-13 14:00 | Outpatient (RCR) | payer MEDICARE, SELFPAY | END 2023-07-11 13:07 | disposition home or self-care (01) | LOC: HO.PT 14:00 | PROVIDERS: PCP Internal Medicine; Visit Provider Physician Assistant Surgical | DX: R26.81 Unsteadiness on feet (principal) | CPT/HCPCS: 97110; 97112; 97116; 97161 ==

== ENCOUNTER 2023-06-14 11:31 | Outpatient (REF) | payer MEDICARE, SELFPAY ==
[2023-06-14 12:34] LABS: Alanine Aminotransferase 24 U/L (0-40); Alkaline Phosphatase 77 U/L (39-117); Aspartate Amino Transferase 29 U/L (5-37); Bilirubin Direct 0.2 mg/dL (0.0-0.5); Bilirubin Total 0.5 mg/dL (0.0-1.0); Cholesterol 130 mg/dL (<200); HDL Cholesterol 30 mg/dL (>40); LDL Cholesterol Calculated 76 mg/dL (<100); Total Protein 6.4 g/dL (6.5-8.0); Triglycerides 123 mg/dL (<150)
[2023-06-14 14:02] LABS: Reflex LDLD? No
== END 2023-06-14 11:32 | disposition home or self-care (01) ==
LOC: HO.LNP 11:31
PROVIDERS: Visit Provider Internal Medicine
DX: I25.10 Atherosclerotic heart disease of native coronary artery without angina pectoris (principal); E78.6 Lipoprotein deficiency
CPT/HCPCS: 80061; 80076

== ENCOUNTER 2023-09-05 13:00 | Outpatient (RCR) | payer MEDICARE, SELFPAY | END 2023-09-05 15:45 | disposition home or self-care (01) | LOC: HO.PT 13:00 | PROVIDERS: PCP Internal Medicine; Visit Provider Nurse Practitioner Adult Health | DX: M54.16 Radiculopathy, lumbar region (principal); M51.36 Other intervertebral disc degeneration, lumbar region; M48.062 Spinal stenosis, lumbar region with neurogenic claudication | CPT/HCPCS: 97110; 97161; 97530 ==

== ENCOUNTER 2023-09-19 13:27 | Emergency (ER) | payer MEDICARE, SELFPAY ==
--- NOTE | ~2023-09-19 | XR_ITS ---
EXAMINATION: XR SHOULDER, LEFT CLINICAL INFORMATION: Shoulder injury COMPARISON: CTA chest 05/30/2018 TECHNIQUE: Four views of the left shoulder. FINDINGS: There is a fracture through the base of the humeral head which is minimally comminuted and impacted. The glenohumeral joint remains intact. The AC joint is unremarkable. There is some XR/XR shoulder LT min 2V IMPRESSION: Humeral head fracture.
--- NOTE | ~2023-09-19 | CT_ITS ---
EXAM: CT scan of the head and cervical spine. INDICATION: Reason for Exam pain, fall TECHNIQUE: A noncontrast CT scan was performed from the skull base to the vertex. A noncontrast CT scan of the cervical spine was performed from the base of the skull through T1 at 2.5 mm and 1.25 mm collimation. Coronal and sagittal reformats were obtained at the acquisition workstation. This CT examination was performed using dose optimization techniques as appropriate, variously including the following: *Automated exposure control *Adjustment of mA and/or kV according to patient size (this includes techniques or standardized protocols for targeted exams where dose is matched to indication/reason for exam; i.e. extremities or head) *Use of iterative reconstruction technique DLP: 757 mGy-cm COMPARISON: None FINDINGS: Head: There is no evidence of acute intracranial hemorrhage or territorial infarction. Patel-white matter differentiation is preserved. No abnormal mass effect or midline shift. No extra-axial fluid collections. No abnormal attenuation is demonstrated within the brain parenchyma. The ventricles and sulcal spaces are proportional without hydrocephalus. Proportional prominence of the ventricles and sulcal spaces. No acute osseous or soft tissue abnormalities. The mastoid air cells and visualized portions of the paranasal sinuses are well aerated. Cervical Spine: The atlantooccipital and atlantoaxial articulations remain well aligned. Reversal of the normal cervical lordosis. Otherwise, there is anatomic alignment of the vertebral bodies and posterior elements. No evidence of acute fracture or subluxation. Notable degenerative disc disease changes from C3 4-6 T1. Minimal lateral listhesis of C4-C5 1 mm likely degenerative. Slight motion degradation limits assessment.. There is no prevertebral soft tissue swelling. The thyroid gland and remaining cervical soft tissues are normal in appearance. The lung apices demonstrate no abnormalities. CT/CT cervical spine wo IV con IMPRESSION: No acute intracranial pathology. No acute fracture subluxation cervical spine.
[2023-09-19 13:44] VITALS: BP 155/77; PULSE 55; RESP 17; TEMP 36.6; O2SAT 97; BMI 38.2
--- NOTE | 2023-09-19 13:44 | ED_ITS ---
HPI - General Adult General Chief complaint: Fall Stated complaint: fall l shoulder inj Time Seen by Provider: 09/19/23 15:15 Source: patient Mode of arrival: ambulatory Limitations: no limitations History of Present Illness ED Provider: Edwina Downs PA-C HPI narrative: Patient is a 78 year old assigned male at with a history of HTN presenting to the emergency department today with left shoulder pain. Patient states that he tripped on his rug and fell, landing on his left shoulder. Patient denies any head strike or loss of consciousness. Patient denies any dizziness, lighthead edness, abdominal pain, nausea, vomiting, fever, chills, blurry vision, double vision, loss of vision, chest pain, difficulty breathing, shortness of breath, back pain, night sweats, pain with urination, increased urinary frequency, increased urinary urgency, blood in his urine or stool, syncope or a near syncopal episode, bowel incontinence, bladder incontinence, or any other complaints at this time. Location: left and upper extremity Severity: mild Severity scale (1-10): 4 Quality: aching and dull Pain Consistency: constant Relieving factors: immobilization Exacerbating factors: movement Associated symptoms: denies other symptoms Treatments prior to arrival: none Related Data Home Medications ?Medication ?Instructions ?Recorded ?Confirmed albuterol sulfate 90 mcg/actuation 2 puff PO Q4H PRN 02/04/20 02/09/23 aerosol inhaler amlodipine 10 mg tablet 10 mg PO DAILY 02/04/20 02/09/23 aspirin 81 mg tablet,delayed 81 mg PO DAILY 02/04/20 02/09/23 release (Adult Low Dose Aspirin) atorvastatin 20 mg tablet 20 mg PO DAILY 02/04/20 02/09/23 irbesartan 150 1 tab PO DAILY 02/04/20 02/09/23 mg-hydrochlorothiazide 12.5 mg tablet lorazepam 0.5 mg tablet 0.5 mg PO BID PRN 02/04/20 02/09/23 fluticasone propionate 110 1 puff inhalation DAILY 09/09/20 02/09/23 mcg/actuation HFA aerosol inhaler (Flovent HFA) multivitamin 1 tab PO DAILY 09/09/20 02/09/23 celecoxib 200 mg capsule 200 mg PO .4 times a week 12/10/20 02/09/23 alprazolam 1 mg tablet 1 mg PO DAILY PRN 10/27/22 02/09/23 amoxicillin 500 mg capsule 1,000 mg PO BID 10/27/22 02/09/23 gabapentin 300 mg capsule 300 mg PO TID 10/27/22 02/09/23 pantoprazole 40 mg tablet,delayed 40 mg PO DAILY 10/27/22 02/09/23 release Previous Rx's ?Medication ?Instructions ?Recorded carvedilol 6.25 mg tablet 6.25 mg PO BID #180 tabs 02/14/23 allopurinol 300 mg tablet 300 mg PO DAILY #90 tabs 04/28/23 prednisone 20 mg tablet 20 mg PO DAILY PRN gout flare #12 04/28/23 tabs Allergies Allergy/AdvReac Type Severity Reaction Status Date / Time lisinopril [From ZESTRIL] AdvReac Mild DIZZINESS Verified 09/19/23 13:48 Cortisone AdvReac Mild red face Uncoded 09/19/23 13:48 Review of Systems Constitutional: Constitutional: Reports no additional constitutional complaints, Denies chills, Denies fever(s) and Denies night sweats Eyes: Eyes: Reports no additional eye complaints, Denies blurry vision, Denies change in vision, Denies diplopia, Denies eye discharge, Denies loss of vision and Denies eye pain ENT: Denies dizziness Cardiovascular: Cardiovascular: Reports no additional cardiovascular complaints, Denies chest pain, Denies lightheadedness, Denies Loss of Consciousness and Denies dyspnea Respiratory: Respiratory: Reports no additional respiratory complaints and Denies dyspnea Gastrointestinal: Gastrointestinal: Reports no additional gastrointestinal complaints, Denies abdominal pain, Denies melena, Denies hematochezia, Denies change in bowel habits and Denies change in stool character Genitourinary: Genitourinary: Reports no additional male genitourinary complaints, Denies hematuria, Denies oliguria, Denies difficulty urinating, Denies dysuria, Denies urinary frequency, Denies urinary hesitancy, Denies urinary incontinence and Denies urinary urgency Musculoskeletal: Musculoskeletal: Reports no additional musculoskeletal complaints, Denies numbness and Denies tingling Comments: left shoulder pain Neurologic: Denies dizziness, Denies loss of vision, Denies numbness and Denies tingling Psychiatric: Psychiatric: Reports no additional psychiatric complaints Endocrine: Endocrine: Reports no additional endocrine complaints Hematologic/Lymphatic: Hematologic/Lymphatic: Reports no additional hematologic/lymphatic complaints Allergic/Immunologic: Allergic/Immunologic: Reports no additional allergic/immunologic complaints [facility] Past Medical History Attestation statement: The following information was validated with the patient. Source: old records reviewed and nursing notes reviewed Surgical History History of foot surgery S/P surgery on nasal septum History of left knee surgery Family History Family History Father No problems noted. Mother No problems noted. Family/Other Diabetes Social History Social History Household Members: Spouse Alcohol intake: never Patient Tobacco Use Status: Former Tobacco user Tobacco use type: Cigarette Years Smoked: 20 +/- Advance Directives: No Advance Directives Information Provided: No Do you have a plan to hurt others: No Plan Physical Exam ED Vital Signs: Vital Signs - 24 hr 09/19/23 13:44 09/19/23 18:17 09/19/23 18:41 Temperature 97.9 F 97.8 F 97.8 F Pulse Rate 55 70 70 Respiratory Rate 17 18 18 Blood Pressure 155/77 H 158/87 H 158/87 H Pulse Oximetry 97 95 95 Oxygen Delivery Method Room Air Room Air Room Air BMI result Body Mass Index 38.2 Const General: cooperative, no acute distress, alert and awake Nutritional Appearance: well nourished Orientation/consciousness: patient oriented x3 Limitations: no limitations [facility] Head: Yes normal to inspection and Yes atraumatic Ears: hearing grossly normal bilaterally and external ears normal General nose exam: Normal external nose present, no nasal discharge noted and no epistaxis Face and sinus: Yes normal facial exam, No abrasion and No laceration Mouth: Normal oral and palatal mucosa present, no drooling and no muffled voice Eyes General: appearance normal, both eyes and all related structures Periorbital: periorbital findings normal Eyelids: Yes eyelids normal Conjunctivae: conjunctivae normal Pupils: Equal, round and reactive pupils present EOM: EOMs intact bilaterally Neck Neck: Yes normal visual inspection, Yes full ROM and Yes no lymphadenopathy Chest Chest palpation & inspection: normal inspection of the chest Resp Effort & Inspection: normal respiratory effort and able to speak in complete sentences GI Inspection: Yes normal to inspection Neuro General: patient oriented x3 and moves all extremities Cranial nerves: Yes Equal, round and reactive pupils present Cognition (Neuro): normal cognition Extrem Other: pain with left shoulder ROM General: Yes normal to inspection and Yes capillary refill normal Psych Appearance: grossly normal Mental Status: mental status grossly normal Affect: normal affect Attitude: cooperative Thought process: Normal thought process present Thought content: Normal thought content present Insight: Good insight present (Psych) Course Course Course Narrative: RME performed by Edwina Downs PA-C. Patient is a 78 year old assigned male at presenting to the emergency department with left shoulder pain after a trip and fall. Detailed physical exam and review of systems are deferred to the guest services ambassador. Imaging ordered. Patient placed back in the waiting room pending room availability and results. Procedures Orthopedic Splinting/Casting Injury #1: Side: left Upper Extremity Injury Location: shoulder Upper Extremity Immobilizer: sling/shoulder immobilizer Medical Decision Making Medical Decision Making MDM Narrative: Patient is a 78 year old assigned male at with a history of HTN presenting to the emergency department today with left shoulder pain post fall. Patient's physical exam was as noted in the physical exam portion of this note. Patient's head and c-spine CTs showed no acute process. Patient's left shoulder x-ray showed a humerus fx. I explained my physical exam findings as well as all test results to the patient. I answered all questions asked by the patient. Patient's left shoulder was placed in a sling, without incident. Patient's PMS was intact prior to and after sling placement. I stressed the importance of the patient taking his medication as directed (either prescribed or as the over the counter packaging recommends). I stressed the importance of the patient following up with his primary care provider and an orthopedic provider. I stressed the importance of the patient returning to the emergency department immediately if his symptoms were to worsen or if he were to develop any dizziness, shortness of breath, difficulty breathing, chest pain, blurry vision, loss of vision, nausea, vomiting, abdominal pain, fever, chills, back pain, or any other complaints. Patient verbalized agreement and understanding with this treatment plan and discharge. Differential Diagnosis Differential Diagnoses: The differential diagnosis associated with the presentation includes Humerus fracture Shoulder pain Shoulder strain Fall Admission/Observation Consideration of admission/observation: Escalation of care including admission/observation considered Patient would have been admitted to the hospital had his work up had any findings where hospital admission was appropriate and his clinical presentation warranted hospital admission. Independent Interpretation I performed an independent interpretation of an: Plain X-Ray and CT Scan Interpretation: My interpretation is in agreement with the radiologist's impression of these imaging studies. EXAM: CT scan of the head and cervical spine. INDICATION: Reason for Exam pain, fall TECHNIQUE: A noncontrast CT scan was performed from the skull base to the vertex. A noncontrast CT scan of the cervical spine was performed from the base of the skull through T1 at 2.5 mm and 1.25 mm collimation. Coronal and sagittal reformats were obtained at the acquisition workstation. This CT examination was performed using dose optimization techniques as appropriate, variously including the following: *Automated exposure control *Adjustment of mA and/or kV according to patient size (this includes techniques or standardized protocols for targeted exams where dose is matched to indication/reason for exam; i.e. extremities or head) *Use of iterative reconstruction technique DLP: 757 mGy-cm COMPARISON: None FINDINGS: Head: There is no evidence of acute intracranial hemorrhage or territorial infarction. Patel-white matter differentiation is preserved. No abnormal mass effect or midline shift. No extra-axial fluid collections. No abnormal attenuation is demonstrated within the brain parenchyma. The ventricles and sulcal spaces are proportional without hydrocephalus. Proportional prominence of the ventricles and sulcal spaces. No acute osseous or soft tissue abnormalities. The mastoid air cells and visualized portions of the paranasal sinuses are well aerated. Cervical Spine: The atlantooccipital and atlantoaxial articulations remain well aligned. Reversal of the normal cervical lordosis. Otherwise, there is anatomic alignment of the vertebral bodies and posterior elements. No evidence of acute fracture or subluxation. Notable degenerative disc disease changes from C3 4-6 T1. Minimal lateral listhesis of C4-C5 1 mm likely degenerative. Slight motion degradation limits assessment.. There is no prevertebral soft tissue swelling. The thyroid gland and remaining cervical soft tissues are normal in appearance. The lung apices demonstrate no abnormalities. CT/CT head/brain wo IV con IMPRESSION: No acute intracranial pathology. No acute fracture subluxation cervical spine. Dictated By: Laron Crane MD Signed By: Electronically signed by Laron Crane MD 09/19/23 1829 EXAMINATION: XR SHOULDER, LEFT CLINICAL INFORMATION: Shoulder injury COMPARISON: CTA chest 05/30/2018 TECHNIQUE: Four views of the left shoulder. FINDINGS: There is a fracture through the base of the humeral head which is minimally comminuted and impacted. The glenohumeral joint remains intact. The AC joint is unremarkable. There is some XR/XR shoulder LT min 2V IMPRESSION: Humeral head fracture. Dictated By: Noe Swann MD Signed By: Electronically signed by Noe Swann MD 09/19/23 1448 Radiology Impression Discussion of test interpretation with radiology: I have reviewed the radiologist's reading. Discharge Plan Discharge Clinical Impression: Fracture, humerus Patient Disposition: Home, Self-Care Instructions: How to Use a Sling (ED) Additional Instructions: You should extend your left elbow out of the sling at least 5 minutes every hour to avoid freezing your elbow. Follow up with your primary care provider and an orthopedic provider. Return to the emergency department immediately if your symptoms worsen or if you develop any dizziness, shortness of breath, difficulty breathing, chest pain, blurry vision, loss of vision, nausea, vomiting, abdominal pain, fever, chills, back pain, or any other complaints. Prescriptions: No Action carvedilol 6.25 mg tablet 6.25 mg PO BID Qty: 180 3RF Flovent HFA 110 mcg/actuation HFA aerosol inhaler 1 puff inhalation DAILY multivitamin Tablet 1 tab PO DAILY lorazepam 0.5 mg tablet 0.5 mg PO BID PRN irbesartan-hydrochlorothiazide 150-12.5 mg tablet 1 tab PO DAILY atorvastatin 20 mg tablet 20 mg PO DAILY amlodipine 10 mg tablet 10 mg PO DAILY albuterol sulfate 90 mcg/actuation HFA aerosol inhaler 2 puff PO Q4H PRN aspirin [Adult Low Dose Aspirin] 81 mg tablet,delayed release (DR/EC) 81 mg PO DAILY celecoxib 200 mg capsule 200 mg PO .4 times a week pantoprazole 40 mg tablet,delayed release (DR/EC) 40 mg PO DAILY alprazolam 1 mg tablet 1 mg PO DAILY PRN amoxicillin 500 mg capsule 1,000 mg PO BID gabapentin 300 mg capsule 300 mg PO TID allopurinol 300 mg tablet 300 mg PO DAILY Qty: 90 3RF prednisone 20 mg tablet 20 mg PO DAILY PRN (Reason: gout flare) Qty: 12 1RF Rx Instructions: Take 20mg by mouth daily for 3 days for gout flare. Referrals: [facility] [place] Orthopedic Surgeons [Provider Group] (Call to establish and follow up with an orthopedic provider.) Luis Gauthier MD [Primary Care Provider] - Interventions: ED Discharge Assessment Last Done: 09/19/23 18:41 Discharge Date/Time: 09/19/23 18:47 Print Language: Somali
[2023-09-19 18:17] VITALS: BP 158/87; PULSE 70; RESP 18; TEMP 36.6; O2SAT 95
[2023-09-19 18:41] VITALS: BP 158/87; PULSE 70; RESP 18; TEMP 36.6; O2SAT 95
== END 2023-09-19 18:47 | disposition home or self-care (01) ==
PROVIDERS: Emergency Provider Student in an Organized Health Care Education/Training Program; PCP Internal Medicine
DX: S42.302A Unspecified fracture of shaft of humerus, left arm, initial encounter for closed fracture (principal); R51.9 Headache, unspecified; M54.2 Cervicalgia; M25.512 Pain in left shoulder; X58.XXXA Exposure to other specified factors, initial encounter; W18.09XA Striking against other object with subsequent fall, initial encounter; Y93.9 Activity, unspecified; Y92.89 Other specified places as the place of occurrence of the external cause; Y99.8 Other external cause status; Z79.899 Other long term (current) drug therapy
CPT/HCPCS: 29105; 70450; 72125; 73030; 99282; 99284

== ENCOUNTER 2023-09-22 10:38 | Outpatient (AMB) | payer MEDICARE, SELFPAY ==
--- NOTE | 2023-09-22 10:55 | MHC.OFFVIS ---
Intake Visit Reasons: FC- right,humerus,FC DOI 09/19/23 Intake Note: Ben a 78 year old male right hand dominant male who presents today for an ER follow up of right humerus fx, DOI 09/19/23. Patient reports he tripped on a rug causing him to fall landing on his shoulder. He presented to [facility] ER where xrays were taken and placed in a sling. Currently he has pain with movement of arm. Occasional numbness and tingling in his hands Allergies lisinopril [From ZESTRIL] Adverse Reaction (Mild, Verified 09/22/23 10:59) DIZZINESS Cortisone Adverse Reaction (Mild, Uncoded 09/22/23 10:59) red face Medication List - Last Reconciled 09/22/23 by Virgilio Melgoza PA-C albuterol sulfate 90 mcg/actuation 2 puffs PO Q4H PRN allopurinol 300 mg PO DAILY alprazolam 1 mg PO DAILY PRN amlodipine 10 mg PO DAILY amoxicillin 1,000 mg PO BID aspirin (Adult Low Dose Aspirin) 81 mg PO DAILY atorvastatin 20 mg PO DAILY carvedilol 6.25 mg PO BID celecoxib 200 mg PO .4 times a week fluticasone propionate 110 mcg/actuation (Flovent HFA) 1 puff inhalation DAILY gabapentin 300 mg PO TID irbesartan-hydrochlorothiazide 150-12.5 mg 1 tab PO DAILY lorazepam 0.5 mg PO BID PRN multivitamin 1 tab PO DAILY pantoprazole 40 mg PO DAILY prednisone 20 mg PO DAILY PRN pregabalin 50 mg PO BID HPI HPI FC- right,humerus,FC DOI 09/19/23: Details: 78-year-old right hand dominant male who presents to the office today for an ER follow-up of right humerus injury after tripping on a rug causing him to fall on his shoulder, 09/19/23. He currently states he has pain with movement of his arm. His pain is aggravated at night. He also experiences occasional numbness and tingling in his hands. [facility] Surgical History (Updated 09/22/23 @ 11:02 by NATALIA Hall) History of back surgery History of foot surgery S/P surgery on nasal septum History of left knee surgery Family History Father No problems noted. Mother No problems noted. Family/Other Diabetes Social History (Updated 09/22/23 @ 11:05 by Mireya Kulkarni Junie) Household Members: Spouse Alcohol intake: never Patient Tobacco Use Status: Former Tobacco user Tobacco use type: Cigarette Years Smoked: 20 +/- Current occupational status: unemployed Review of Systems Const All systems reviewed & are unremarkable except as noted in HPI and below Physical Exam Extrem Other: Right shoulder: Normal to inspection. Diffuse Swelling and tenderness over the proximal humerus which extends down the arm. Anterior deltoid sensation intact. Elbow and wrist ROM intact. NVI. Office Procedures Fracture Care Fracture Billing Code: Fracture Billing Code Results Reviewed Results Reviewed: xrays of the left shoulder obtained in the ED on 09/19/23 show impacted prox humerus fx Assessment & Plan Assessment & Plan (1) Closed fracture of left proximal humerus: Code(s): S42.202A - Unspecified fracture of upper end of left humerus, initial encounter for closed fracture Category: Medical Qualifiers: Encounter type: initial encounter Fracture morphology: other fracture Fracture alignment: displaced Qualified Code(s): S42.292A - Other displaced fracture of upper end of left humerus, initial encounter for closed fracture Plan He will use the sling for comfort. He can remove the sling to rest and allow it to dangle on the sides. He will do light activities in the fronatal plane of the body. He will avoid any type of lifting, pushing, pulling, or carrying. He will see me back in 4-6 weeks with x-rays, sooner if needed. Patient Instructions: Scribed for Virgilio Melgoza PA-C, by David Jefferson medical review coordinator, on 09/22/2023 at 10:45 AM EST.? I, Virgilio Melgoza PA-C, have personally reviewed and agree with the information entered by the scribe. Coding Level of Care Code New Pt Level 3 (22162) Diagnoses Other closed displaced fracture of proximal end of left humerus, initial encounter S42.292A Encounter type: initial encounter Fracture morphology: other fracture Fracture alignment: displaced CPT Codes Fracture Care - Fracture Billing Code: Fracture Billing Code ([id number])
== END 2023-09-22 11:26 | disposition home or self-care (01) ==
PROVIDERS: PCP Internal Medicine; Visit Provider Physician Assistant
DX: S42.292A Other displaced fracture of upper end of left humerus, initial encounter for closed fracture (principal); W01.0XXA Fall on same level from slipping, tripping and stumbling without subsequent striking against object, initial encounter
CPT/HCPCS: 99203

== ENCOUNTER → 2023-09-22 10:38 | Outpatient (BNVA) | payer MEDICARE, SELFPAY | PROVIDERS: PCP Internal Medicine; Visit Provider Physician Assistant | DX: S42.291A Other displaced fracture of upper end of right humerus, initial encounter for closed fracture (principal); W18.09XA Striking against other object with subsequent fall, initial encounter; Y93.9 Activity, unspecified; Y92.9 Unspecified place or not applicable; Y99.9 Unspecified external cause status | CPT/HCPCS: 99202 ==

== ENCOUNTER 2023-09-26 09:30 | Outpatient (REF) | payer MEDICARE, SELFPAY ==
[2023-09-26 09:59] LABS: MANUAL DIFF FLAG NO
[2023-09-26 10:45] LABS: Basophils Absolute Auto 0.1 X10*3/uL (0.0-0.2); Basophils Percent Auto 0.6 % (0-2); Eosinophils Absolute Auto 0.3 X10*3/uL (0.0-0.4); Eosinophils Percent Auto 3.3 % (0-4); Hemoglobin 12.6 g/dl (14.0-18.0); Imm Gran Abs Auto 0.03 X10*3/uL (0.00-0.03); Imm Gran Pct Auto 0.4 % (0.0-0.4); Lymphocytes Absolute Auto 1.7 X10*3/uL (1.2-4.9); Lymphocytes Percent Auto 21.5 % (20-40); Mean Corpuscular HGB Conc 33.2 g/dl (31.0-36.0); Mean Corpuscular Hemoglobin 32.1 pg (27.0-33.0); Mean Corpuscular Volume 96.7 fL (80.0-98.0); Mean Platelet Volume 10.1 fL (9.4-12.4); Monocytes Absolute Auto 0.5 X10*3/uL (0.1-1.2); Monocytes Percent Auto 6.6 % (2-11); Neutrophils Absolute Auto 5.3 x10*3/uL (2.0-8.3); Neutrophils Percent Auto 67.6 % (45-73); Platelet Count 199 X10*3/uL (160-400); Red Blood Count 3.93 X10*6/uL (4.60-5.80); Red Cell Distribution Width 13.5 % (11.0-16.0); White Blood Count 7.8 X10*3/uL (4.8-10.8)
[2023-09-26 11:20] LABS: Alanine Aminotransferase 26 U/L (0-40); Albumin Level 4.1 g/dL (3.5-5.0); Alkaline Phosphatase 71 U/L (39-117); Anion Gap 13 (12-20); Aspartate Amino Transferase 29 U/L (5-37); Bilirubin Total 0.7 mg/dL (0.0-1.0); Blood Urea Nitrogen 25 mg/dL (9-16); Carbon Dioxide 30 mmol/L (22-29); Chloride 105 mmol/L (96-108); Estimated Glomerular Filt Rate 59; Glucose Random 98 mg/dL (60-115); Potassium 4.9 mmol/L (3.3-5.1); Sodium 143 mmol/L (135-145); Total Protein 6.7 g/dL (6.5-8.0); Uric Acid 4.9 mg/dL (3.4-7.0)
== END 2023-09-26 09:31 | disposition home or self-care (01) ==
LOC: HO.LAB 09:30
PROVIDERS: PCP Internal Medicine; Visit Provider Student in an Organized Health Care Education/Training Program
DX: M1A.9XX1 Chronic gout, unspecified, with tophus (tophi) (principal)
CPT/HCPCS: 36415; 80053; 84550; 85025

== ENCOUNTER 2023-10-06 13:32 | Outpatient (AMB) | payer MEDICARE, SELFPAY ==
--- NOTE | 2023-10-06 13:37 | MHC.OFFVIS ---
Vital Signs 10/06/23 13:40 Height 6 ft Weight 279 lb 15.793 oz BMI 38.0 BP 120/62 Blood Pressure Location Rt brachial Position Sitting Respiration 18 Pulse 60 Pulse Source Pulse Oximeter Pulse Oximetry (%) 96 Oxygen Delivery Method Room Air Intake Visit Reasons: Gout/Cm Intake Note: Patient presents for Gout. Allergies lisinopril [From ZESTRIL] Adverse Reaction (Mild, Verified 10/06/23 13:41) DIZZINESS Cortisone Adverse Reaction (Mild, Uncoded 09/22/23 10:59) red face Medication List - Last Reconciled 10/06/23 by Scooter Yeboah MD acetaminophen (Tylenol Extra Strength) 1,000 mg PO QID PRN albuterol sulfate 90 mcg/actuation 2 puffs PO Q4H PRN allopurinol 300 mg PO DAILY alprazolam 1 mg PO DAILY PRN amlodipine 10 mg PO DAILY amoxicillin 1,000 mg PO BID aspirin (Adult Low Dose Aspirin) 81 mg PO DAILY atorvastatin 20 mg PO DAILY carvedilol 6.25 mg PO BID celecoxib 200 mg PO .4 times a week fluticasone propionate 110 mcg/actuation (Flovent HFA) 1 puff inhalation DAILY gabapentin 300 mg PO TID irbesartan-hydrochlorothiazide 150-12.5 mg 1 tab PO DAILY lorazepam 0.5 mg PO BID PRN multivitamin 1 tab PO DAILY pantoprazole 40 mg PO DAILY prednisone 20 mg PO DAILY PRN pregabalin 50 mg PO BID HPI Comments Details: 78yoM presents for follow-up of gout. Last seen 04/2023 On Allopurinol 300mg daily and tolerating this well. Doing well overall with no recent gout flares. Three weeks ago he his toe was caught in the carpet and he fell and broke his left humerus. He now has a sling. He gets some pain at the base of his right thumb with activity. Has used Voltaren gel and Tylenol without much relief he also takes Celebrex about 4 days a week for his other arthritic issues. [facility] Surgical History History of back surgery History of foot surgery S/P surgery on nasal septum History of left knee surgery Family History Father No problems noted. Mother No problems noted. Family/Other Diabetes Social History Household Members: Spouse Alcohol intake: never Patient Tobacco Use Status: Former Tobacco user Tobacco use type: Cigarette Years Smoked: 20 +/- Current occupational status: unemployed Review of Systems [facility] Reports arthralgias, Reports joint swelling and Reports stiffness Neuro Details: Poor balance. Using a cane for support Physical Exam Vital Signs: Last Vital Signs Pulse 60 10/06/23 13:40 Resp 18 10/06/23 13:40 BP 120/62 10/06/23 13:40 Pulse Ox 96 10/06/23 13:40 Oxygen Delivery Method Room Air 10/06/23 13:40 BMI result Body Mass Index 38.0 Const General: cooperative and healthy appearing Nutritional Appearance: obese morbidly obese Orientation/consciousness: patient oriented x3 Limitations: ambulation with cane HEENT Head: Yes normocephalic and Yes atraumatic Resp Effort & Inspection: normal respiratory effort and able to speak in complete sentences Neuro General: patient oriented x3 Extrem Other: Bilateral lower extremity edema No active synovitis Crepitus and pain with right thumb grind test No tophi noted Assessment & Plan Assessment & Plan (1) Gout with tophi: Comment: Allopurinol started 09/09/2020- present Code(s): M1A.9XX1 - Chronic gout, unspecified, with tophus (tophi) Category: Medical Plan: This is a 78-year-old female with gout who presents for follow-up. On allopurinol 300 mg daily. Well tolerated. Gout well controlled. Uric acid level at target 4.9 Patient takes 1 20 mg prednisone tablet as needed for flare-ups. Has not had flare-ups in a long time Continue with allopurinol 300 mg daily. Discussed with patient that at this time I think his gout is well controlled and he may have follow-up with his PCP if PCP is agreeable. Uric acid level and kidney function should be monitored periodically about twice a year. If there is any changes or patient start developing gout flare-ups we can see him again If patient is to follow-up with us he is to do blood work before next visit in 6 months (2) Osteoarthritis of carpometacarpal joints of thumbs, bilateral: Code(s): M18.0 - Bilateral primary osteoarthritis of first carpometacarpal joints Category: Medical Qualifiers: Osteoarthritis type: primary Qualified Code(s): M18.0 - Bilateral primary osteoarthritis of first carpometacarpal joints Plan: Intermittent symptoms, worse with activity. Uses Tylenol. Also uses Celebrex. Voltaren gel not very helpful. We discussed potential injections. Patient will think about it. He will give us a call if he feels like he needs an injection Plan I spent 15 minutes reviewing patient's chart, evaluating patient, ordering diagnostic workup, counseling patient and documenting in the chart Orders: Orders Comprehensive Met. Panel 6 Months M1A.9XX1 - Chronic gout, unspecified, with tophus (tophi) Uric Acid 6 Months M1A.9XX1 - Chronic gout, unspecified, with tophus (tophi) Coding Level of Care Code Est Pt Level 3 (04662) Diagnoses Gout with tophi M1A.9XX1 Primary osteoarthritis of both first carpometacarpal joints M18.0 Osteoarthritis type: primary
[2023-10-06 13:40] VITALS: BP 120/62; PULSE 60; RESP 18; O2SAT 96; BMI 38.0
== END 2023-10-06 14:08 | disposition home or self-care (01) ==
PROVIDERS: PCP Internal Medicine; Visit Provider Student in an Organized Health Care Education/Training Program
DX: M1A.9XX1 Chronic gout, unspecified, with tophus (tophi) (principal); M18.0 Bilateral primary osteoarthritis of first carpometacarpal joints
CPT/HCPCS: 99213

== ENCOUNTER → 2023-10-06 13:32 | Outpatient (BNVA) | payer MEDICARE, SELFPAY | PROVIDERS: PCP Internal Medicine; Visit Provider Student in an Organized Health Care Education/Training Program | DX: M18.0 Bilateral primary osteoarthritis of first carpometacarpal joints (principal); M1A.9XX1 Chronic gout, unspecified, with tophus (tophi) | CPT/HCPCS: 99212 ==

== ENCOUNTER 2023-10-20 09:03 | Outpatient (REF) | payer MEDICARE, SELFPAY ==
--- NOTE | ~2023-10-20 | XR_ITS ---
EXAMINATION: XR SHOULDER, LEFT CLINICAL INFORMATION: Pain. COMPARISON: Radiographs dated 09/19/2023. TECHNIQUE: AP external rotation, Grashey, scapular Y, and axillary views of the left shoulder. FINDINGS: Bony alignment and mineralization are normal. The glenohumeral joint is intact and shows mild osteoarthritic change. The previously noted fracture line of the right humeral neck is not redemonstrated, with the bony union and good callus formation. No dislocation is seen. The acromioclavicular and coracoclavicular intervals are normal. No focal soft tissue calcification or foreign body is seen. There is no right pneumothorax. XR/XR shoulder LT min 2V IMPRESSION: There is interval healing of the previously noted left humeral neck fracture, with good callus formation. Electronically signed by: Raghavendra Bazan MD 11/16/2023 03:09 PM EDT
== END 2023-10-20 09:04 | disposition home or self-care (01) ==
LOC: HO.HOSX 09:03
PROVIDERS: Visit Provider Physician Assistant
DX: M25.512 Pain in left shoulder (principal); S42.292D Other displaced fracture of upper end of left humerus, subsequent encounter for fracture with routine healing
CPT/HCPCS: 73030; 99212

== ENCOUNTER 2023-10-20 10:27 | Outpatient (AMB) | payer MEDICARE, SELFPAY ==
--- NOTE | 2023-10-20 10:46 | MHC.OFFVIS ---
Vital Signs 10/20/23 10:48 Height 6 ft Weight 279 lb BMI 37.8 Intake Visit Reasons: OV- rt humerus fracture DOI 09/19/23 Intake Note: Ben a 78 year old male who presents today for a follow up of right humerus fracture, DOI 09/19/23. Xrays updated. Patient reports he is doing well, states he is able to move his arm more. He continues use of sling. Allergies lisinopril [From ZESTRIL] Adverse Reaction (Mild, Verified 10/20/23 10:49) DIZZINESS Cortisone Adverse Reaction (Mild, Uncoded 10/20/23 10:49) red face Medication List - Last Reconciled 10/20/23 by Virgilio Melgoza PA-C acetaminophen (Tylenol Extra Strength) 1,000 mg PO QID PRN albuterol sulfate 90 mcg/actuation 2 puffs PO Q4H PRN allopurinol 300 mg PO DAILY alprazolam 1 mg PO DAILY PRN amlodipine 10 mg PO DAILY amoxicillin 1,000 mg PO BID aspirin (Adult Low Dose Aspirin) 81 mg PO DAILY atorvastatin 20 mg PO DAILY carvedilol 6.25 mg PO BID celecoxib 200 mg PO .4 times a week fluticasone propionate 110 mcg/actuation (Flovent HFA) 1 puff inhalation DAILY gabapentin 300 mg PO TID irbesartan-hydrochlorothiazide 150-12.5 mg 1 tab PO DAILY lorazepam 0.5 mg PO BID PRN multivitamin 1 tab PO DAILY pantoprazole 40 mg PO DAILY prednisone 20 mg PO DAILY PRN pregabalin 50 mg PO BID HPI HPI OV- rt humerus fracture DOI 09/19/23: Details: 78-year-old male who presents to the office today for follow-up of right humerus injury, 09/19/23. He states he has improvement in his symptoms however he continues to have pain, soreness and limited ROM in his arm. He continues to use his sling as instructed. He has no other concerns today. [facility] Surgical History History of back surgery History of foot surgery S/P surgery on nasal septum History of left knee surgery Family History Father No problems noted. Mother No problems noted. Family/Other Diabetes Social History Household Members: Spouse Alcohol intake: never Patient Tobacco Use Status: Former Tobacco user Tobacco use type: Cigarette Years Smoked: 20 +/- Current occupational status: unemployed Review of Systems Const All systems reviewed & are unremarkable except as noted in HPI and below Physical Exam Vital Signs: BMI result Body Mass Index 37.8 Extrem Other: Right shoulder: Normal to inspection. No swelling or tenderness over the proximal humerus . Anterior deltoid sensation intact. He can bring his hand to the mouth and top of the head. ER to 60, FF to 100 with use of accessory muscles. Elbow and wrist ROM intact. NVI. Results Reviewed Results Reviewed: xrays of the left shoulder obtained in the office today show impacted prox humerus fx Assessment & Plan Assessment & Plan (1) Closed fracture of left proximal humerus: Code(s): S42.A - Unspecified fracture of upper end of left humerus, initial encounter for closed fracture Category: Medical Qualifiers: Encounter type: initial encounter Fracture alignment: displaced Fracture morphology: other fracture Qualified Code(s): S42.292A - Other displaced fracture of upper end of left humerus, initial encounter for closed fracture Plan He will begin working on physical therapy to improve ROM and periscapular stabilization. He will hold off on RTC strengthening until 3 months post injury. I would like to see him back in 8 weeks with new x-rays, sooner if needed. ? Orders: Orders PT Evaluation and Treatment Today S42.292A - Other displaced fracture of upper end of left humerus, initial encounter for closed fracture Patient Instructions: Scribed for Virgilio Melgoza PA-C, by David Jefferson medical artist, on 10/20/2023 at 10:45 AM EST.? I, Virgilio Melgoza PA-C, have personally reviewed and agree with the information entered by the scribe. Coding Level of Care Code Global (85292) Diagnoses Other closed displaced fracture of proximal end of left humerus, initial encounter S42.292A Encounter type: initial encounter Fracture alignment: displaced Fracture morphology: other fracture
[2023-10-20 10:48] VITALS: BMI 37.8
== END 2023-10-20 11:59 | disposition home or self-care (01) ==
PROVIDERS: PCP Internal Medicine; Visit Provider Physician Assistant
DX: S42.292A Other displaced fracture of upper end of left humerus, initial encounter for closed fracture (principal)
CPT/HCPCS: 99213

== ENCOUNTER 2023-12-15 10:49 | Outpatient (REF) | payer MEDICARE, SELFPAY | END 2023-12-15 10:50 | disposition home or self-care (01) | LOC: HO.HOSX 10:49 | PROVIDERS: Visit Provider Physician Assistant | DX: M25.512 Pain in left shoulder (principal); S42.292D Other displaced fracture of upper end of left humerus, subsequent encounter for fracture with routine healing | CPT/HCPCS: 73030; 99212 ==

== ENCOUNTER 2023-12-15 12:28 | Outpatient (AMB) | payer MEDICARE, SELFPAY ==
--- NOTE | 2023-12-15 12:50 | A.OFFVIS_ITS ---
Vital Signs 12/15/23 12:58 Height 6 ft Weight 279 lb BMI 37.8 Intake Visit Reasons: OV- lt humerus fracture DOI 09/19/23 Intake Note: Ben a 78 year old male who presents today for a follow up of right humerus fracture, DOI 09/19/23. Xrays updated. Patient reports he is doing well, states a having some pain with certain arm movements. He continues to attend PT. Allergies lisinopril [From ZESTRIL] Adverse Reaction (Mild, Verified 12/15/23 12:58) DIZZINESS Cortisone Adverse Reaction (Mild, Uncoded 12/15/23 12:58) red face Medication List - Last Reconciled 12/15/23 by Virgilio Melgoza PA-C acetaminophen (Tylenol Extra Strength) 1,000 mg PO QID PRN albuterol sulfate 90 mcg/actuation 2 puffs PO Q4H PRN allopurinol 300 mg PO DAILY alprazolam 1 mg PO DAILY PRN amlodipine 10 mg PO DAILY amoxicillin 1,000 mg PO BID aspirin (Adult Low Dose Aspirin) 81 mg PO DAILY atorvastatin 20 mg PO DAILY carvedilol 6.25 mg PO BID celecoxib 200 mg PO .4 times a week fluticasone propionate 110 mcg/actuation (Flovent HFA) 1 puff inhalation DAILY gabapentin 300 mg PO TID irbesartan-hydrochlorothiazide 150-12.5 mg 1 tab PO DAILY lorazepam 0.5 mg PO BID PRN multivitamin 1 tab PO DAILY pantoprazole 40 mg PO DAILY prednisone 20 mg PO DAILY PRN pregabalin 50 mg PO BID HPI HPI OV- lt humerus fracture DOI 09/19/23: Details: 78-year-old male who returns to the office today for a follow-up of right humerus fracture, 09/19/23. He states he has mild pain that is aggravated with certain positions. He also experiences occasional popping in his shoulder. He continues to attend physical therapy with benefits. He is doing well overall and has no other concerns today. [facility] Surgical History History of back surgery History of foot surgery S/P surgery on nasal septum History of left knee surgery Family History Father No problems noted. Mother No problems noted. Family/Other Diabetes Social History Household Members: Spouse Alcohol intake: never Patient Tobacco Use Status: Former Tobacco user Tobacco use type: Cigarette Years Smoked: 20 +/- Current occupational status: unemployed Review of Systems Const All systems reviewed & are unremarkable except as noted in HPI and below Physical Exam Vital Signs: BMI result Body Mass Index 37.8 Extrem Other: Right shoulder: Normal to inspection. No swelling or tenderness over the proximal humerus . Anterior deltoid sensation intact. He can bring his hand to the mouth and top of the head. ER to 60, FF to 100 with use of accessory muscles. Elbow and wrist ROM intact. NVI. Results Reviewed Results Reviewed: xrays of the left shoulder obtained in the office today show impacted prox humerus fx Assessment & Plan Assessment & Plan (1) Closed fracture of left proximal humerus: Code(s): S42.A - Unspecified fracture of upper end of left humerus, initial encounter for closed fracture Category: Medical Qualifiers: Encounter type: initial encounter Fracture alignment: displaced Fracture morphology: other fracture Qualified Code(s): S42.292A - Other displaced fracture of upper end of left humerus, initial encounter for closed fracture Plan He will progress to RTC strengthening with physical therapy and increase activities as tolerated. He will see me back if symptoms arise. Orders: Orders XR shoulder RT min 2V Today M25.511 - Pain in right shoulder XR shoulder LT min 2V Today M25.512 - Pain in left shoulder PT Evaluation and Treatment Today S42.292A - Other displaced fracture of upper end of left humerus, initial encounter for closed fracture Patient Instructions: Scribed for Virgilio Melgoza PA-C, by David [place] emergency medical technician, on 12/15/2023 at 12:45 PM EST.? I, Virgilio Melgoza PA-C, have personally reviewed and agree with the information entered by the scribe. Coding Level of Care Code Global (87934) Diagnoses Other closed displaced fracture of proximal end of left humerus, initial encounter S42.292A Encounter type: initial encounter Fracture alignment: displaced Fracture morphology: other fracture
[2023-12-15 12:58] VITALS: BMI 37.8
== END 2023-12-15 13:43 | disposition home or self-care (01) ==
PROVIDERS: PCP Internal Medicine; Visit Provider Physician Assistant
DX: S42.292A Other displaced fracture of upper end of left humerus, initial encounter for closed fracture (principal)
CPT/HCPCS: 99213

== ENCOUNTER 2023-12-20 11:11 | Outpatient (REF) | payer MEDICARE, SELFPAY ==
[2023-12-20 11:14] LABS: MANUAL DIFF FLAG NO
[2023-12-20 11:42] LABS: Basophils Percent Auto 0.5 % (0-2); Eosinophils Absolute Auto 0.3 X10*3/uL (0.0-0.4); Eosinophils Percent Auto 5.2 % (0-4); Hematocrit 39.7 % (42.0-52.0); Imm Gran Abs Auto 0.03 X10*3/uL (0.00-0.03); Imm Gran Pct Auto 0.5 % (0.0-0.4); Lymphocytes Absolute Auto 1.5 X10*3/uL (1.2-4.9); Mean Corpuscular HGB Conc 32.7 g/dl (31.0-36.0); Mean Corpuscular Hemoglobin 31.9 pg (27.0-33.0); Mean Corpuscular Volume 97.3 fL (80.0-98.0); Mean Platelet Volume 10.6 fL (9.4-12.4); Monocytes Absolute Auto 0.4 X10*3/uL (0.1-1.2); Neutrophils Percent Auto 62.8 % (45-73); Platelet Count 172 X10*3/uL (160-400); Red Blood Count 4.08 X10*6/uL (4.60-5.80); Red Cell Distribution Width 13.9 % (11.0-16.0); White Blood Count 6.3 X10*3/uL (4.8-10.8)
[2023-12-20 11:45] LABS: Appearance Urine Clear; Color Urine Yellow; Glucose Urine UA Negative (Negative); Leukocyte Esterase Urine Negative (Negative); Nitrite Urine Negative (Negative); Specific Gravity - Urine 1.015 (1.005-1.025); Urine Blood Negative (Negative); Urine Ketones Negative (Negative); Urine Protein Negative (Neg-Trace)
[2023-12-20 11:54] LABS: Alanine Aminotransferase 27 U/L (0-40); Albumin Level 4.2 g/dL (3.5-5.0); Alkaline Phosphatase 79 U/L (39-117); Anion Gap 8 (12-20); Aspartate Amino Transferase 31 U/L (5-37); Bilirubin Total 0.4 mg/dL (0.0-1.0); Blood Urea Nitrogen 18 mg/dL (9-16); Calcium 9.4 mg/dL (8.4-10.2); Carbon Dioxide 32 mmol/L (22-29); Chloride 107 mmol/L (96-108); Cholesterol 128 mg/dL (<200); Estimated Glomerular Filt Rate > 60; Glucose Fasting 99 mg/dL (60-99); HDL Cholesterol 36 mg/dL (>40); LDL Cholesterol Calculated 74 mg/dL (<100); Sodium 143 mmol/L (135-145); Total Protein 6.6 g/dL (6.5-8.0); Triglycerides 91 mg/dL (<150)
[2023-12-20 12:11] LABS: PSA,Total (Free>4and<10) 2.21 ng/mL (0.00-4.00)
[2023-12-20 12:17] LABS: Bacteria Urine None Seen (None Seen); Hyaline Casts Urine 0-2 /LPF (0-2); RBC Urine 0-2 /HPF (0-2); Squamous Epithelial Cell Urine 0-2 /HPF (0-2); WBC Urine 0-5 /HPF (0-5)
== END 2023-12-20 11:12 | disposition home or self-care (01) ==
LOC: HO.LNP 11:11
PROVIDERS: Visit Provider Internal Medicine
DX: I10 Essential (primary) hypertension (principal); E78.6 Lipoprotein deficiency; E78.00 Pure hypercholesterolemia, unspecified; Z12.5 Encounter for screening for malignant neoplasm of prostate
CPT/HCPCS: 80053; 80061; 81001; 84153; 85025

== ENCOUNTER 2023-12-29 13:00 | Outpatient (RCR) | payer MEDICARE, SELFPAY ==
--- NOTE | 2023-11-14 15:40 | MHC.PT.EP ---
[facility] Office [place] Office [place] Office [address] [phone] F: [phone] F: [phone] F: [phone] F: [phone] Physical Therapy Plan of Care Date of Evaluation: 11/14/23 Date of Surgery: Diagnosis: L humerus fracture Assessment: Pt is a 78 y/o M with HTN who is referred to PT for eval and treat of L humerus fx resulting in decreased ability for reaching overhead, reaching behind his back and pulling objects secondary to decreased shoulder ROM and strength, decreased elbow strength and evidence of humeral fracture shown in x-rays. Pt is motivated and is deemed an appropriate candidate to receive skilled PT services to address their physical impairments in order to improve his function. Frequency and Duration: The patient will be seen 2x/week for 5 weeks. Short Term Goals: Initiate home exercise program. Pt will report at most 1/10 pain; initial 0-3/10 pain. Pt will improve L shoulder flex ROM to 120; initial 67 and painful. Comparative Sociology Professor Goals: Pt will be I with home exercise program. Pt will improve L shoulder abd strength by 1/2 grade; initial 4/5. Pt will be able to wash his back with at most 4/10 difficulty; initial 9/10. Pt will improve SPADI score by 13 points. Treatment Plan: Modalities to reduce pain, spasms and effusion. Manual therapy to restore motion and function. Therapeutic exercise to improve strength and flexibility. Neuromuscular re-education for posture and balance. Therapeutic activities to return to functional activities of daily living. Electronically signed by: Watson Cormier PT. Please sign and return to therapist. Thank you for your referral.
--- NOTE | 2023-12-29 14:11 | MHC.PT.DC ---
[facility] [place] Office [place] Office [place] Office [address] Haleigh Chance 140 [facility] [phone] F: [phone] F: [phone] F: [phone] F: [phone] Physical Therapy Discharge Report Diagnosis: L humerus fracture Date of Surgery: DOI Date of Evaluation: 11/14/23 Date of Discharge: 12/29/23 Treatments to Date: 11 Cancellations to Date: No Shows to Date: Discharge Status: Achieved Goals Improved Function Independent with HEP Discharge Summary: Ben has been an active and motivated participant in his therapy in and out of the clinic. We are in agreement with DC as he is managed of his symptoms, improved of his function and has met most of his therapeutic goals. Electronically signed by: Watson Cormier PT. Please sign and return to therapist. Thank you for your referral.
== END 2023-12-29 14:10 | disposition home or self-care (01) ==
LOC: HO.PT 13:00
PROVIDERS: PCP Internal Medicine; Visit Provider Physician Assistant
DX: S42.292D Other displaced fracture of upper end of left humerus, subsequent encounter for fracture with routine healing (principal)
CPT/HCPCS: 97110; 97140; 97161; 97530

== ENCOUNTER 2024-02-11 16:23 | Emergency (ER) | payer MEDICARE, SELFPAY ==
--- NOTE | ~2024-02-11 | XR_ITS ---
EXAMINATION: XR HAND, RIGHT CLINICAL INFORMATION: deformity 4th finger COMPARISON: Right hand 09/09/2020 TECHNIQUE: PA, lateral, and oblique views of the right hand. FINDINGS: There is an acute dislocation at the PIP joint of the fourth digit with medial and dorsal displacement of the middle phalanx. Some fracture fragments are seen at the base of the middle phalanx . Chronic degenerative changes are present at the first MCP joint as well as the first CMC joint. Milder degenerative changes are seen at the interphalangeal joints, all changed. XR/XR hand RT 2V IMPRESSION: Acute fracture dislocation at the PIP joint of the fourth digit. Electronically signed by: Noe Swann MD 02/11/2024 05:35 PM EST
--- NOTE | ~2024-02-11 | XR_ITS ---
EXAMINATION: XR HAND, RIGHT CLINICAL INFORMATION: s/p reduction COMPARISON: Right hand earlier today TECHNIQUE: PA, lateral, and oblique views of the right hand. FINDINGS: There has been reduction of the previously seen dislocation at the PIP joint of the fourth digit . Some soft tissue swelling is present. There is a ill-defined bony density seen at the medial distal end of the proximal phalanx which likely represents avulsion fracture although degenerative change could be playing a role. XR/XR hand RT 2V IMPRESSION: Reduction of previously seen dislocation at the PIP joint of the fourth digit. Probable avulsion fracture as described above. Electronically signed by: Noe Swann MD 02/11/2024 08:27 PM EST
--- NOTE | 2024-02-11 16:31 | ED.FALL ---
HPI - Fall General Chief Complaint: General Medical Stated Complaint: fell right hand and facial inj Time Seen by Provider: 02/11/24 18:51 Source: patient Mode of arrival: ambulatory Limitations: no limitations History of Present Illness ED Provider: Bushra Bunch APRN HPI Narrative: 78 yo male with history of HTN here with complaints of right 4th finger pain/swelling after a trip and fall. When he fell he bit his lower lip. Does not believe he hit his head or LOC. No AC therapy use. No associated chest pain, belly pain, neck pain, back pain, weakness/numbness/tingling of the extremity. Tetanus was last given in 2019 Related Data Home Medications ?Medication ?Instructions ?Recorded ?Confirmed albuterol sulfate 90 mcg/actuation 2 puff PO Q4H PRN 02/04/20 12/15/23 aerosol inhaler amlodipine 10 mg tablet 10 mg PO DAILY 02/04/20 12/15/23 aspirin 81 mg tablet,delayed 81 mg PO DAILY 02/04/20 12/15/23 release (Adult Low Dose Aspirin) atorvastatin 20 mg tablet 20 mg PO DAILY 02/04/20 12/15/23 irbesartan 150 1 tab PO DAILY 02/04/20 12/15/23 mg-hydrochlorothiazide 12.5 mg tablet lorazepam 0.5 mg tablet 0.5 mg PO BID PRN 02/04/20 12/15/23 fluticasone propionate 110 1 puff inhalation DAILY 09/09/20 12/15/23 mcg/actuation HFA aerosol inhaler (Flovent HFA) multivitamin 1 tab PO DAILY 09/09/20 12/15/23 celecoxib 200 mg capsule 200 mg PO .4 times a week 12/10/20 12/15/23 alprazolam 1 mg tablet 1 mg PO DAILY PRN 10/27/22 12/15/23 amoxicillin 500 mg capsule 1,000 mg PO BID 10/27/22 12/15/23 gabapentin 300 mg capsule 300 mg PO TID 10/27/22 12/15/23 pantoprazole 40 mg tablet,delayed 40 mg PO DAILY 10/27/22 12/15/23 release pregabalin 50 mg capsule 50 mg PO BID 09/22/23 12/15/23 acetaminophen 500 mg tablet 1,000 mg PO QID PRN 10/06/23 12/15/23 (Tylenol Extra Strength) Previous Rx's ?Medication ?Instructions ?Recorded carvedilol 6.25 mg tablet 6.25 mg PO BID #180 tabs 02/14/23 allopurinol 300 mg tablet 300 mg PO DAILY #90 tabs 04/28/23 prednisone 20 mg tablet 20 mg PO DAILY PRN gout flare #12 04/28/23 tabs Allergies Allergy/AdvReac Type Severity Reaction Status Date / Time lisinopril [From ZESTRIL] AdvReac Mild DIZZINESS Verified 02/11/24 16:35 Cortisone AdvReac Mild red face Uncoded 02/11/24 16:35 Review of Systems Review of Systems: Yes all other systems are reviewed and are negative Constitutional: Constitutional: Reports no additional constitutional complaints, Denies body ache(s), Denies chills, Denies fever(s), Denies headache(s) and Denies weakness Eyes: Eyes: Reports no additional eye complaints and Denies change in vision ENT: Reports system reviewed and no additional complaints, except as documented, Denies dizziness, Denies headache(s), Denies nasal congestion, Denies nasal discharge and Denies neck pain Cardiovascular: Cardiovascular: Reports no additional cardiovascular complaints, Denies chest pain, Denies leg edema and Denies dyspnea Respiratory: Respiratory: Reports no additional respiratory complaints, Denies cough and Denies dyspnea Gastrointestinal: Gastrointestinal: Reports no additional gastrointestinal complaints, Denies abdominal pain, Denies diarrhea, Denies nausea and Denies vomiting Genitourinary: Genitourinary: Denies urinary incontinence Musculoskeletal: Musculoskeletal: Reports no additional musculoskeletal complaints, Denies back pain, Reports arthralgias, Reports joint swelling, Reports limited range of motion, Denies neck pain, Denies numbness and Denies tingling Integumentary/Breasts: Skin/Breast: Reports system reviewed and no additional complaints, except as docu and Denies rash Neurologic: Reports system reviewed and no additional complaints, except as documented, Denies Abnormal speech present, Denies dizziness, Denies headache(s), Denies numbness, Denies tingling and Denies weakness PMFSH Past Medical History Attestation statement: The following information was validated with the patient. Source: old records reviewed Surgical History History of back surgery History of foot surgery S/P surgery on nasal septum History of left knee surgery Family History Family History Father No problems noted. Mother No problems noted. Family/Other Diabetes Social History Social History Household Members: Spouse Alcohol intake: never Patient Tobacco Use Status: Former Tobacco user Tobacco use type: Cigarette Years Smoked: 20 +/- Advance Directives: No Advance Directives Information Provided: No Do you have a plan to hurt others: No Plan Current occupational status: unemployed Physical Exam Vital Signs: Vital Signs: Last Vital Signs Temp 98 F 02/11/24 16:33 Pulse 73 02/11/24 16:33 Resp 17 02/11/24 16:33 BP 164/79 H 02/11/24 16:33 Pulse Ox 98 02/11/24 16:33 O2 Del Method Room Air 02/11/24 16:33 BMI result Body Mass Index 37.3 Const: General: cooperative, healthy appearing, comfortable and no acute distress Orientation/consciousness: patient oriented x3 Limitations: no limitations HEENT: Other: No hemotympanum Head: Yes normal to inspection, No Martinez's sign and No raccoon eyes Ears: hearing grossly normal bilaterally and TM's normal bilaterally General nose exam: Normal external nose present Face and sinus: Yes normal facial exam Mouth: Normal oral and palatal mucosa present Mouth/tongue images: 1. Superficial abrasion Throat: Yes posterior oropharynx normal Eyes: General: appearance normal, both eyes and all related structures Pupils: Equal, round and reactive pupils present Neck: Neck: Yes normal visual inspection Chest: Chest palpation & inspection: normal inspection of the chest Resp: Effort & Inspection: normal respiratory effort Auscultation: clear to auscultation bilaterally Cardio: Rate: regular rate Rhythm: regular rhythm Peripheral pulses: Peripheral pulses 2+ throughout GI: Inspection: Yes normal to inspection Palpation (GI): Soft to palpation and nontender Auscultation: normal bowel sounds Back/Spine/Pelvis: Thoracic/Lumbar Spine: thoracic and lumbar spine normal to inspection Skin: General skin exam: no rashes or lesions noted Neuro: General: patient oriented x3, moves all extremities, no focal motor deficits and normal sensation to monofilament Cranial nerves: Yes CN's II-XII intact bilaterally, Yes Equal, round and reactive pupils present, Yes Bilaterally intact EOM present, Yes Nystagmus not present, Yes Normal facial strength present and Yes Midline tongue present Cognition (Neuro): normal cognition Speech: No Abnormal speech present Gait exam (Neuro): Normal gait present Motor exam (neuro): 5/5 motor strength present throughout Sensory Exam: Normal double simultaneous stimulation for sensation Extrem: Hand/finger images: 1. Deformity, swelling Sensation normal Skin pink warm dry Course Course Course Narrative: Patient's x-ray shows an acute fracture and dislocation of the PIP joint of the 4th digit. He received a nerve block and we did a bedside reduction with a repeat x-ray that shows anatomical alignment. Patient had several abrasions noted over the fingers and hand which were cleansed. Bacitracin and a dressing were applied. Patient was placed in a foam finger splint. Reviewed worrisome signs and symptoms of when to return to the emergency room. Comfortable plan for discharge home. Medications Administered Discontinued Medications Generic Name Dose Route Start Last Admin Trade Name Abhilash PRN Reason Stop Dose Admin Lidocaine HCl 2 ml 02/11/24 18:57 02/11/24 19:03 Lidocaine Hcl 1 % Mpf 2 Ml Vial INFILTRATI 02/11/24 18:58 2 ml ONCE ONE Administration Lidocaine HCl 2 ml 02/11/24 18:58 02/11/24 19:03 Lidocaine Hcl 1 % Mpf 2 Ml Vial INFILTRATI 02/11/24 18:59 2 ml ONCE ONE Administration Procedures Nerve Block Nerve Block 1: Time out performed: Yes Local Anesthetic: lidocaine 1% Amount of anesthesia used (mL): 2 Nerve Blocks: digital Procedure Successful: Yes Patient Tolerated Procedure: well Complications: none Orthopedic Joint Reduction Joint #1: Time Out Performed: Yes Side: right Joint Reduction Location: finger Analgesia: nerve block Technique used: traction/counter-traction Post-reduction neuro exam: intact Post-reduction vascular: intact Post Reduction X-Ray Obtained: Yes Post Reduction X-Ray Results: reduced Splint Applied: Yes Patient Tolerated Procedure: well Medical Decision Making Medical Decision Making MDM Narrative: 78 yo male with history of HTN here with complaints of right 4th finger pain/swelling after a trip and fall. When he fell he bit his lower lip. Does not believe he hit his head or LOC. No AC therapy use. No associated chest pain, belly pain, neck pain, back pain, weakness/numbness/tingling of the extremity. Tetanus was last given in 2019 Patient has deformity to the right hand 4th digit Color and sensation is normal Will check x-rays Superficial laceration to the lip. No need for repair Patient does not feel that he had his head or have loss of consciousness and has a normal neurological exam and so do not feel that imaging of his head is warranted Differential Diagnosis Differential Diagnoses: The differential diagnosis associated with the presentation includes Abrasion, laceration Fracture, dislocation Low suspicion for vascular injury, see above Admission/Observation Consideration of admission/observation: Escalation of care including admission/observation considered Independent Interpretation I performed an independent interpretation of an: Plain X-Ray Interpretation: I have independetely reviewed the x-ray and agree with rad report Radiology Impression Discussion of test interpretation with radiology: I have reviewed the radiologist's reading. Radiologist Impression: [address] [address] XRay Report Signed Patient: Ben Kramer MR#: [id number] : 1945 Acct:[id number] Age/Sex: 78 / M ADM Date: 02/11/24 Loc: HO.ED Attending Dr: Ordering Physician: Bushra Bunch NP Date of Service: 02/11/24 Procedure(s): XR hand RT 2V Accession Number(s): [id number] cc: Luis Gauthier MD; Bushra Bunch NP~ EXAMINATION: XR HAND, RIGHT CLINICAL INFORMATION: deformity 4th finger COMPARISON: Right hand 09/09/2020 TECHNIQUE: PA, lateral, and oblique views of the right hand. FINDINGS: There is an acute dislocation at the PIP joint of the fourth digit with medial and dorsal displacement of the middle phalanx. Some fracture fragments are seen at the base of the middle phalanx . Chronic degenerative changes are present at the first MCP joint as well as the first CMC joint. Milder degenerative changes are seen at the interphalangeal joints, all changed. XR/XR hand RT 2V IMPRESSION: Acute fracture dislocation at the PIP joint of the fourth digit. Electronically signed by: Noe Swann MD 02/11/2024 05:35 PM [facility] Independent Historian Clinical information obtained from an independent historian. History obtained from or confirmed by: Spouse Prescription Management I considered prescription management with: Pain Medication Discharge Plan Discharge Clinical Impression: Dislocation closed, finger, Avulsion fracture of middle phalanx of finger Patient Disposition: Home, Self-Care Instructions: Finger Fracture (ED), Finger Dislocation (ED) Additional Instructions: Use the splint for the next 7 days. You may remove it for showering or washing her hands and then reapply it Take Tylenol and Motrin for pain if able as needed Prescriptions: No Action carvedilol 6.25 mg tablet 6.25 mg PO BID Qty: 180 3RF Flovent HFA 110 mcg/actuation HFA aerosol inhaler 1 puff inhalation DAILY multivitamin Tablet 1 tab PO DAILY lorazepam 0.5 mg tablet 0.5 mg PO BID PRN irbesartan-hydrochlorothiazide 150-12.5 mg tablet 1 tab PO DAILY atorvastatin 20 mg tablet 20 mg PO DAILY amlodipine 10 mg tablet 10 mg PO DAILY albuterol sulfate 90 mcg/actuation HFA aerosol inhaler 2 puff PO Q4H PRN aspirin [Adult Low Dose Aspirin] 81 mg tablet,delayed release (DR/EC) 81 mg PO DAILY celecoxib 200 mg capsule 200 mg PO .4 times a week pantoprazole 40 mg tablet,delayed release (DR/EC) 40 mg PO DAILY alprazolam 1 mg tablet 1 mg PO DAILY PRN amoxicillin 500 mg capsule 1,000 mg PO BID gabapentin 300 mg capsule 300 mg PO TID allopurinol 300 mg tablet 300 mg PO DAILY Qty: 90 3RF prednisone 20 mg tablet 20 mg PO DAILY PRN (Reason: gout flare) Qty: 12 1RF Rx Instructions: Take 20mg by mouth daily for 3 days for gout flare. acetaminophen [Tylenol Extra Strength] 500 mg tablet 1,000 mg PO QID PRN pregabalin 50 mg capsule 50 mg PO BID Referrals: Luis Gauthier MD [Primary Care Provider] - 1 week Print Language: Spanish
[2024-02-11 16:33] VITALS: BP 164/79; PULSE 73; RESP 17; TEMP 36.6; O2SAT 98; BMI 37.3
[2024-02-11] MEDS: Lidocaine HCl 1 % MPF 2 ML VIAL INFILTRATI ×2 (19:03)
[2024-02-11 19:39] VITALS: BP 155/77; PULSE 70; RESP 20; TEMP 36.6; O2SAT 98
[2024-02-11 19:49] VITALS: BP 155/77; PULSE 70; RESP 20; TEMP 36.6; O2SAT 98
== END 2024-02-11 19:50 | disposition home or self-care (01) ==
PROVIDERS: Emergency Provider Emergency Medicine; PCP Internal Medicine
DX: S62.624A Displaced fracture of middle phalanx of right ring finger, initial encounter for closed fracture (principal); W01.0XXA Fall on same level from slipping, tripping and stumbling without subsequent striking against object, initial encounter; Y93.9 Activity, unspecified; Y92.9 Unspecified place or not applicable; Y99.9 Unspecified external cause status
CPT/HCPCS: 26742; 73120; 99282; 99284; J2003

== ENCOUNTER 2024-02-13 14:21 | Outpatient (AMB) | payer MEDICARE, SELFPAY ==
[2024-02-13 14:30] VITALS: BP 140/60; PULSE 54; BMI 37.6
--- NOTE | 2024-02-13 14:30 | A.OFFVIS_ITS ---
Vital Signs 02/13/24 14:30 Height 6 ft Weight 277 lb 5.464 oz BMI 37.6 BP 140/60 H Blood Pressure Location Lt brachial Position Sitting Pulse 54 Pulse Source Monitor Intake Visit Reasons: 1 yr f/up Intake Note: 1 yr f/up Web Specialist Required: No Accompanied by: Self / Same As Patient Allergies lisinopril [From ZESTRIL] Adverse Reaction (Mild, Verified 02/11/24 16:35) DIZZINESS Cortisone Adverse Reaction (Mild, Uncoded 02/11/24 16:35) red face Medication List - Last Reconciled 02/13/24 by nAtonio Cage MD acetaminophen (Tylenol Extra Strength) 1,000 mg PO QID PRN albuterol sulfate 90 mcg/actuation 2 puffs PO Q4H PRN allopurinol 300 mg PO DAILY alprazolam 1 mg PO DAILY PRN amlodipine 10 mg PO DAILY amoxicillin 1,000 mg PO BID aspirin (Adult Low Dose Aspirin) 81 mg PO DAILY atorvastatin 20 mg PO DAILY carvedilol 6.25 mg PO BID celecoxib 200 mg PO .4 times a week fluticasone propionate 110 mcg/actuation (Flovent HFA) 1 puff inhalation DAILY irbesartan-hydrochlorothiazide 150-12.5 mg 1 tab PO DAILY lorazepam 0.5 mg PO BID PRN multivitamin 1 tab PO DAILY pantoprazole 40 mg PO DAILY prednisone 20 mg PO DAILY PRN pregabalin 50 mg PO BID HPI Comments Details: Here for follow up. He was seen for epigastric fullness, palpitations and HTN. He had slight troponin elevation. Nuclear stress was normal. Echo showed normal LVEF and indeterminate diastolic function. For his palpitations we arranged a Holter which showed occasional supraventricular and ventricular ectopy but no sustained arrhythmia noted. He was started on antiypertensive medications. Since then he has been doing well. He is here for follow-up today. He is denying any chest discomfort or shortness of breath. Denying any further palpitations. Taking his antihypertensive medications regularly without any significant issues. He has bilateral lower extremity edema. He is wearing compression stockings. He had right lower extremity DVT and since then he had chronic right lower extremity edema. Currently has edema on both sides and he has been on amlodipine 10 mg daily which is potential reason for edema. He is denying any shortness of breath, orthopnea or PND. He has sleep apnea and sleeps with CPAP. 02/09/2023: He returns for follow-up. He was in the emergency department in December with dizziness. He felt lightheaded at that time. His blood pressure was elevated and his blood pressures were as high as 160s systolic. He was monitored in the ER and then discharged home. His BNP was normal. High sensitive troponin levels were flat. EKG did not have any dynamic changes. Since then he has done well. He continues to take same medications at this point. He continues to have peripheral edema but appears to be not bothered by it. 02/13/2024: He is here for follow-up. His blood pressure is elevated and he has peripheral edema as before. He is saying that he is off the gabapentin and has been started on pregabalin. Continues to take 10 mg amlodipine. [facility] Surgical History History of back surgery History of foot surgery S/P surgery on nasal septum History of left knee surgery Family History Father No problems noted. Mother No problems noted. Family/Other Diabetes Social History Household Members: Spouse Alcohol intake: never Patient Tobacco Use Status: Former Tobacco user Tobacco use type: Cigarette Years Smoked: 20 +/- Current occupational status: unemployed Review of Systems Const Denies chills, Denies fatigue, Denies fever(s), Denies frequent falls, Denies weakness, Denies weight gain and Denies weight loss ENT Denies dizziness Card Denies chest pain, Denies leg edema, Denies lightheadedness, Denies palpitations, Denies dyspnea and Denies dyspnea on exertion Resp Denies cough, Denies dyspnea and Denies dyspnea on exertion GI Denies hematochezia Musc Denies abnormal gait, Denies muscle weakness, Denies numbness, Denies radiating pain into limb and Denies tingling Neuro Denies abnormal gait, Denies dizziness, Denies frequent falls, Denies numbness, Denies tingling and Denies weakness Endo Denies fatigue and Denies palpitations Physical Exam Vital Signs: Last Vital Signs Pulse 54 02/13/24 14:30 BP 140/60 H 02/13/24 14:30 BMI result Body Mass Index 37.6 GENERAL APPEARANCE: in no acute distress, well developed, well nourished. NECK/THYROID: no carotid bruit, no jugular venous distention. SKIN: warm and dry. HEART: no murmurs, regular rate and rhythm, S1, S2 normal. LUNGS: clear to auscultation bilaterally. ABDOMEN: normal, bowel sounds present, soft, nontender, nondistended. EXTREMITIES: One to 2+ edema bilaterally in the legs. PERIPHERAL PULSES: equal. PSYCH: mood/affect full range. Office Procedures EKG Details: Sinus bradycardia 54 beats per minute, normal axis, premature atrial complexes, QTC 398 milliseconds. 63645-Tkqzqbdtlssttvdni, Complete Assessment & Plan Assessment & Plan (1) Hypertension: Code(s): I10 - Essential (primary) hypertension Category: Medical (2) Peripheral edema: Code(s): R60.0 - Localized edema Category: Medical Plan Pleasant 78 year gentleman who is here for follow-up. He has background history of hypertension. Blood pressure is mildly elevated. He is on carvedilol 6.25 mg twice a day, amlodipine 10 mg daily and irbesartan hydrochlorothiazide combi nation 150-12.5 mg daily. He has peripheral edema and I think he will benefit from low-dose of Lasix. Adding 20 mg Lasix daily. Given the combination of thiazide and Lasix, I will repeat blood workup in 10 days to monitor electrolytes and kidney function. Follow-up with us in 6 months. Thank you for allowing me to participate in the care of your patient. Please feel free to contact me if you have any questions. Orders: Orders Basic Metabolic Panel 10 Days R60.0 - Localized edema Medications: New furosemide (Lasix) 20 mg PO DAILY 90 tabs 3RF R60.0 - Localized edema Coding Level of Care Code Est Pt Level 4 (76820) Diagnoses Hypertension I10 Peripheral edema R60.0 CPT Codes EKG - CPT: 23055-Ylgudczgkhfylzpkz, Complete ([id number])
== END 2024-02-13 14:56 | disposition home or self-care (01) ==
PROVIDERS: PCP Internal Medicine; Visit Provider Internal Medicine Cardiovascular Disease
DX: I10 Essential (primary) hypertension (principal); R60.0 Localized edema
CPT/HCPCS: 93010; 99214

== ENCOUNTER → 2024-02-13 14:21 | Outpatient (BNVA) | payer OTHER, MEDICARE, SELFPAY | PROVIDERS: PCP Internal Medicine; Visit Provider Internal Medicine Cardiovascular Disease | DX: I10 Essential (primary) hypertension (principal); R60.0 Localized edema; Z79.899 Other long term (current) drug therapy | CPT/HCPCS: 93005; 99212 ==

== ENCOUNTER 2024-02-27 07:58 | Outpatient (REF) | payer MEDICARE, SELFPAY ==
[2024-02-27 08:47] LABS: Anion Gap 13 (12-20); Blood Urea Nitrogen 33 mg/dL (9-16); Calcium 9.6 mg/dL (8.4-10.2); Carbon Dioxide 33 mmol/L (22-29); Chloride 102 mmol/L (96-108); Estimated Glomerular Filt Rate 45; Glucose Random 111 mg/dL (60-115); Potassium 4.5 mmol/L (3.3-5.1); Sodium 143 mmol/L (135-145)
== END 2024-02-27 07:59 | disposition home or self-care (01) ==
LOC: HO.LAB 07:58
PROVIDERS: PCP Internal Medicine; Visit Provider Internal Medicine Cardiovascular Disease
DX: R60.0 Localized edema (principal)
CPT/HCPCS: 36415; 80048

== ENCOUNTER 2024-03-15 15:06 | Outpatient (REF) | payer MEDICARE, SELFPAY ==
[2024-03-15 17:39] LABS: Uric Acid 5.5 mg/dL (3.4-7.0)
[2024-03-15 18:20] LABS: Alanine Aminotransferase 31 U/L (0-40); Albumin Level 4.1 g/dL (3.5-5.0); Anion Gap 17 (12-20); Aspartate Amino Transferase 43 U/L (5-37); Bilirubin Total 0.6 mg/dL (0.0-1.0); Blood Urea Nitrogen 21 mg/dL (9-16); Calcium 9.5 mg/dL (8.4-10.2); Carbon Dioxide 28 mmol/L (22-29); Chloride 106 mmol/L (96-108); Estimated Glomerular Filt Rate 51; Glucose Random 100 mg/dL (60-115); Potassium 4.6 mmol/L (3.3-5.1); Sodium 146 mmol/L (135-145); Total Protein 6.8 g/dL (6.5-8.0)
[2024-03-15 18:39] LABS: Alkaline Phosphatase 74 U/L (39-117)
== END 2024-03-15 15:07 | disposition home or self-care (01) ==
LOC: HO.LAB 15:06
PROVIDERS: Absent Provider Student in an Organized Health Care Education/Training Program; PCP Internal Medicine; Visit Provider Internal Medicine
DX: M1A.9XX1 Chronic gout, unspecified, with tophus (tophi) (principal); I10 Essential (primary) hypertension
CPT/HCPCS: 36415; 80053; 84550

== ENCOUNTER 2024-06-26 10:54 | Outpatient (REF) | payer MEDICARE, SELFPAY ==
[2024-06-26 11:48] LABS: Alanine Aminotransferase 31 U/L (0-40); Albumin Level 4.1 g/dL (3.5-5.0); Alkaline Phosphatase 76 U/L (39-117); Aspartate Amino Transferase 39 U/L (5-37); Bilirubin Direct 0.2 mg/dL (0.0-0.5); Bilirubin Total 0.5 mg/dL (0.0-1.0); Cholesterol 132 mg/dL (<200); HDL Cholesterol 30 mg/dL (>40); LDL Cholesterol Calculated 69 mg/dL (<100); Total Protein 6.2 g/dL (6.5-8.0); Triglycerides 168 mg/dL (<150)
--- OUTSIDE RECORDS SUMMARY | 2024-06-26 12:57 | XMS_ITS ---
Author Organization [facility] Address [address] [place] [address] Care Team Providers Care Tongue And Groove Machine Feeder Name Role Phone Luis Gauthier MD Primary Care Provider Unavajane granados Black, Soila Unavailable [phone] Allergies Allergen (clinical drug ingredient) Drug/Non Drug Allergy documented on EMR Reaction Allergy Type Onset Date Status Cortisone red face Drug Allergy Active angiotensin-converting enzyme inhibitor (FN) NOEMI Inhibitors swelling Drug Allergy Acti ve REASON FOR VISIT Painful nail(s) aggrevated by shoes and causing difficulty standing/walking. Medications Medication SIG (Take, Route, Frequency, Duration) Notes Start Date End Date Status ProAir HFA Active AFO-fixed Not-Taking Ammonium Lactate 12 % 1 application Externally Twice a day for 30 days Active predniSONE PRN Active Gabapentin 300 MG 1 capsule Orally Three times a day Not-Taking Pantoprazole Sodium 40 MG 1 tablet Orally Once a day for 30 day(s) Active CeleBREX 200 MG 1 capsule Orally Once a day for 30 day(s) Active Carvedilol 6.25 MG 1 tablet with food Orally Twice a day Active Multivitamins Active Flovent HFA 110 MCG/ACT 1 puff Inhalatio n Twice a day Active Allopurinol 300 MG 1 tablet Orally once a day Active amLODIPine Besylate 10 MG 1 tablet Orally Once a day Active Pregabalin Active Avalide 150-12.5 MG 1 tablet Orally Once a day for 30 day(s) Active Aspirin 81 MG 1 tablet Orally Once a day Active Colcrys 0.6 MG 1 tablet Orally Once a day for 30 day(s) Not-Taking Ciclopirox Olamine 0.77% external Apply to effected areas on the feet twice a day for 30 days 07/28/2015 Not-Taking Keflex 500 MG 1 capsule Orally every 12 hrs for 10 day(s) 04/12/2019 Not-Taking Colcrys 0.6 MG 1 tablet Orally Once a day for 30 day(s) 10/29/2013 Not-Taking Cephalexin 500 MG 1 tablet Orally every 6 hrs for 10 day(s) 02/17/2016 Not-Taking Social History Tobacco Use: Social History Observation Description Date Details (start date - stop date) Former Smoker NA - NA Tobacco Use/Smoking Question Answer Notes Are you a: former smoker Additional Findings: Tobacco Non-User Current no n-smoker Tobacco use other than smoking: Question Answer Notes Are you an other tobacco user? No AUDIT-C (Standard) Question Answer Notes Did you have a drink containing alcohol in the p ast year? No Points 0 Interpretation Negative Vital Signs Height 6ft in 02/13/2024 Weight 275 lbs 02/13/2024 BMI 37.29 kg/m2 02/13/2024 Blood pressure systolic 122 mm Hg 02/13/20 24 Blood pressure diastolic 60 mm Hg 024 Procedures Procedure Date Ordered Date Performed Result Body Sit e 94689-MRICZUM NAIL, 6 OR MORE 02/13/2024 N/A Encounters Encounter Location Date Provider Diagnosis [facility] [place] [address] [place] [address] 02/13/2024 Soila Villalobos Tinea unguium B35.1 ; Pain in right toe(s) M79.674 and Pain in left toe(s) M79.675 Assessments Encounter Date Diagnosis (ICD Code) Assessment Notes Treatment Notes Treatment Clinical Notes Section Notes 02/13/2024 Tinea unguium (ICD-10 - B35.1) 02/13/2024 Pain in right toe(s) (ICD-10 - M79.674) 02/13/2024 Pain in left toe(s) (ICD-10 - M79.675) Plan Of Treatment Pending Test Test Name Order Date 14254-CCUHXHC NAIL, 6 OR MORE 02/13/2024 Next Appt Details Follow Up: prn, Reason: Provider Name:Soila Villalobos , 08/23/2024 01:00:00 PM, [address] [place] [address], [phone], Provider Name:Soila Villalobos , 10/29/2024 01:30:00 PM, [address] [place] [address], [phone], Procedure Notes * Category Sub-Category Detail Notes Debride Nail 6-10 Nail debridement Due to the cl inical pathology outlined in the exam findings, performance of this nail treatment is medically necessary as its management by an unskilled/untrained nonprofessional would put this patients foot and overall health at risk. Therefore, debridement to affected nail(s), as described in exam, was performed extensively to reduce/remove overall nail length, girth, thickness, subungual debris, and necrotic tissue, by manual and/or electrical means through the use of a nail nipper and/or dremel-type jewel bearing grinder, to a more viable healthy nail plate or bed tissue 6-10 nails in total. Silver nitrate was used for any petechial bleeding as necessary. Definitive antifungal treatment options, both pharmaceutical and surgical, have been reviewed and discussed with the patient. The patient solely prefers the use of intermittent/as needed professional debridement services for their nail condition and understands the need for additional periodic treatments to maintain effectiveness in symptomatic relief - [address] Progress Notes * Ben SANDSDOB: [birth year] (78 yo M)Acc No.[id number]:02/13/2024 Progress Note Patient:?Ben SANDS Provider:?Soila Villalobos DPM :1945???Age:78 Y???Sex:Male Valdo e:02/13/2024 Address:[address] [place], [place] [phone] Pcp:Luis Gauthier MD Subjective: * Chief Complaints: * ???Painful nail(s) aggrevate d by shoes and causing difficulty standing/walking. * HPI: ???Painful Nails:?Pt States Last PCP Visit:?Date:?06/24/2023 * ROS:?General/Constitutional:?Nausea?denies.?Vomiting?denies.?Hunger Thirst?denies.?Loss appetite?denies.?Chills?denies.?Fatigue?denies.?Fever?denies.?Night Sweats?denies.?Unexplained weight loss?denies.?Unexplained weight gain?denies.?HEENTM:?Dentures?denies.?Dizziness?denies.?Glasses/contacts?admits.?Retinopathy?de nies.?Blurred/double vision?denies.?TMJ?denies.?Discharge/drainage?denies.?Implants?denies.?Sore throat?denies.?Dental implants?denies.?Hard of hearing ?denies.?Difficulty chewing/swallowing/speaking?denies.?Nose bleeds?denies.?Sore mouth?denies.?Respiratory:?On Oxygen?denies.?Pneumonia/pleurisy?denies.?Bronchitis?denies.?Emphysema?denies.?C oughing?denies.?Cough blood?denies.?Shortness of breath?denies.?Wheezing?denies.?Cardiovascular:?Pacemaker?denies.?MVP?denies.?WPW?denies.?CHF?denies.?Heart attack?denies.?Septal defect?denies.?Rapid beat?denies.?Chest pain ?denies.?Atrial Fib.?denies.?Murmur/Palpitations?denies.?Gastrointestinal:?Hemorrhoids?denies.?Stomach/Abdominal pain?denies.?Dark blood stool?denies.?Irritable bowel ?denies.?Constipation?denies.?Diarrhea?denies.?Hematology:?Swelling?denies.?Clots?denies.?Varicose Veins?denies.?Bruising?denies.?Bleeding problem?denies.?Genitourinary:?Blood urine?denies.?Frequent/Painfu/urination/bladder control?denies.?Kidney stones?denies.?Infection (UTI)?denies.?Nephropathy?denies.?sex trans dis (STD)?denies.?Prostate?denies.?Musculoskeletal:?Hammertoes?admits.?Bunions?denies.?Back Pain?denies.?Muscle Cramps/ Resting?denies.?Muscle cramps / walking?denies.?Generalized aches and pains?admits.?Weakness?denies.?Integ.:?Horowitz?denies.?Scars?denies.?Corns/calluses?denies.?Ingrown nails?denies.?Painful nails?admits.?Open Sores?denies.?Rashes?denies.?Neurologic:?Difficulty sleeping?denies.?Brain disorder?denies.?Numbness?denies.?Balance trouble?admits.?Confusion?denies.?Fainting/blackouts?denies.?Tingling?denies.?Tr emors?denies.? * Medical History:? * Surgical History:?knee repla cement 2009Foot surgery 12/2013skin tag removal 10/2017Back Surgery 04/01/23 * Hospitalization/Major Diagno stic Procedure:?[facility] - HTN 06/2018[facility] er visit for fall 02/2024 * Family History:?Mother: dece ased, diagnosed with Unspecified essential hypertension, Unspecified heart disease, Family history of arthritis.?Father: .?Daughter(s): alive.?Son(s): alive. Siblings: diabetes, foot problems, hypertension.?Spouse: alive.?1 son(s) , 1 daughter(s) . .? * Social History:?Tobacco Use:?Tobacco Use/Smoking?Are you a:?former smoker ?Additional Findings: Tobacco Non-User?Current non-smoker ?Tobacco use other than smoking?Are you an other tobacco user??No ???Drugs/Alcohol:?Drugs?Have you used drugs other than those for medical reasons in the past 12 months??No ???Miscellaneous:?Caffeine: yes, frequency:, 1-2 cups per day. ?Children: yes, 2. ?Exercise: yes, walking. ?Marital status: . 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 ???Drug/Alcohol:?AUDIT-C (Standard)?Did you have a drink containing alcohol in the past year??No ?Points?0 ?Interpretation?Negative * Medications:?TakingPregabali n Allopurinol 300 MG Tablet 1 tablet Orally , Notes to Pharmacist: once a dayamLODIPine Besylate 10 MG Tablet 1 tablet Orally Once a day Avalide 150-12.5 MG Tablet 1 tablet Orally Once a day Aspirin 81 MG Tablet 1 tablet Orally Once a day CeleBREX 200 MG Capsule 1 capsule Orally Once a day Carvedilol 6.25 MG Tablet 1 tablet with food Orally Twice a day Flovent HFA 110 MCG/ACT Aerosol 1 puff Inhalation Twice a day Multivitamins Pantoprazole Sodium 40 MG Tablet Delayed Release 1 tablet Orally Once a day ProAir HFA predniSONE , Notes to Pharmacist: PRNAmmonium Lactate 12 % Cream 1 application Externally Twice a day Taking Pregabalin Taking Allopurinol 300 MG Tablet 1 tablet Orally , Notes to Pharmacist: once a dayTaking amLODIPine Besylate 10 MG Tablet 1 tablet Orally Once a day Taking Avalide 150-12.5 MG Tablet 1 tablet Orally Once a day Taking Aspirin 81 MG Tablet 1 tablet Orally Once a day Taking CeleBREX 200 MG Capsule 1 capsule Orally Once a day Taking Carvedilol 6.25 MG Tablet 1 tablet with food Orally Twice a day Taking Flovent HFA 110 MCG/ACT Aerosol 1 puff Inhalation Twice a day Taking Multivitamins Taking Pantoprazole Sodium 40 MG Tablet Delayed Release 1 tablet Orally Once a day Taking ProAir HFA Taking predniSONE , Notes to Pharmacist: PRNTaking Ammonium Lactate 12 % Cream 1 application Externally Twice a day Not-Taking/PRNGabapentin 300 MG Capsule 1 capsule Orally Three times a day AFO-fixed Colcrys 0.6 MG Tablet 1 tablet Orally Once a day Ciclopirox Olamine 0.77% Cream external Apply to effected areas on the feet twice a day Keflex 500 MG Capsule 1 capsule Orally every 12 hrs Colcrys 0.6 MG Tablet 1 tablet Orally Once a day Cephalexin 500 MG Tablet 1 tablet Orally every 6 hrs Medication List reviewed and reconciled with the patientNot-Taking/PRN Gabapentin 300 MG Capsule 1 capsule Orally Three times a day Not-Taking/PRN AFO-fixed Not- Taking/PRN Colcrys 0.6 MG Tablet 1 tablet Orally Once a day Not-Taking/PRN Ciclopirox Olamine 0.77% Cream external Apply to effected areas on the feet twice a day Not- Taking/PRN Keflex 500 MG Capsule 1 capsule Orally every 12 hrs Not-Taking/PRN Colcrys 0.6 MG Tablet 1 tablet Orally Once a day Not-Taking/PRN Cephalexin 500 MG Tablet 1 tablet Orally every 6 hrs Medication List reviewed and reconciled with the patient * Allergies:?Cortisone: red fa ce - Side EffectsACE Inhibitors: swelling - Side Effectsyes[Allergies Verified] Objective: * Vitals:?Ht: 6ft, Wt: 275, BM I: 37.29, Shoe size: 12.5, BP: 122/60 mm Hg, Ht-cm: 182.88 cm, Wt-k.74 kg. * Examination: ???Nails: ?NAILS are:?Elongated, overgrown, dystrophic, lytic, greater than 3mm thick, discolored and friable with crumbly malodorous subungual debris, with pain on palpation, , 1-5 B/L.? Assessment: * Assessment: 1.?Tinea unguium - B35.1 (Pr imary)???2.?Pain in right toe(s) - M79.674???3.?Pain in left toe(s) - M79.675??? Plan: * Treatment: * Procedures:?Debride Nail 6-10:?Nail debridement?Due to the clinical pathology outlined in the exam findings, performance of this nail treatment is medically necessary as its management by an unskilled/untrained nonprofessional would put this patients foot and overall health at risk. Therefore, debridement to affected nail(s), as described in exam, was performed extensively to reduce/remove overall nail length, girth, thickness, subungual debris, and necrotic tissue, by manual and/or electrical means through the use of a nail nipper and/or dremel-type jewel bearing grinder, to a more viable healthy nail plate or bed tissue 6-10 nails in total. Silver nitrate was used for any petechial bleeding as necessary. Definitive antifungal treatment options, both pharmaceutical and surgical, have been reviewed and discussed with the patient. The patient solely prefers the use of intermittent/as needed professional debridement services for their nail condition and understands the need for additional periodic treatments to maintain effectiveness in symptomatic relief - 11599.? * Procedure Codes:?56909 DEBRI DE NAIL, 6 OR MORE * Preventive Medicine:? ??Screening/Special Tests:?Fall Risk?Assessment:?Performed ?Plan of Care:?Documented ?Type of fall plan of care:?Balance, strength and gait training or instruction provided ?Screening:?Two or more falls with injury in the past year * Follow Up:?prn * Images: * Sign off status: Completed true * Provider:?Soila Villalobos DPM Date:?2023 Generated for Inocencio peace/Prosper/Dorinda on:?06/26/2024 12:57 PM EDT History and Physical Notes * HPI (History of Present Illness) Category Sub-Category Detail Notes Category Not es Painful Nails Pt States Last PCP Visit: Date:: 06/24/2023 Examination Category Sub-Category Detail Notes Category Not es Nails NAILS are: Elongated, overg rown, dystrophic, lytic, greater than 3mm thick, discolored and friable with crumbly malodorous subungual debris, with pain on palpation, , 1-5 B/L
--- OUTSIDE RECORDS SUMMARY | 2024-06-26 12:57 | XMS_ITS ---
Author Organization Luis Gauthier MD Address [address] [place] [phone] Care Team Providers Care Plastic Parts Fabricator Trimmer Name Role Phone Luis Gauthier Primary Care Provider [phone] REASON FOR VISIT FASTING LIPIDS Encounters Encounter Location Date Provider Diagnosis Luis Gauthier MD [address] [place] [phone] 06/26/2024 Luis Gauthier Hypercholesteremia E 78.00 Assessments Encounter Date Diagnosis (ICD Code) Assessment Notes Treatment Notes Treatment Clinical Notes Section Notes 06/26/2024 Hypercholesteremia (ICD-10 - E78.00) Plan Of Treatment Pending Test Test Name Order Date Liver Panel 06/26/2024 Lipid Panel with Reflex 06/26/2024 Next Appt Details Provider Name:Luis kirkland, 07/03/2024 10:00:00 AM, [address] [place] [address], [address], [phone], Provider Name:Luis kirkland, 12/20/2024 07:15:00 AM, [address] [place] [address], [address], [phone], Provider Name:Luis kirkland, 12/27/2024 08:30:00 AM, [address], [address], [place], [phone], Progress Notes * Ben KRAMER SrDOB: (79 yo M)Acc No.[id number]:06/26/2024 Progress Note Patient:?Ben KRAMER Sr Provider:?Luis Gauthier MD :1945???Age:79 Y???Sex:Male Valdo e:06/26/2024 Address: [address], [facility], [id number] Subjective: * Chief Complaints: * ???1. FASTING LIPIDS. * Medical History:? Objective: * Vitals:? Assessment: * Assessment: 1.?Hypercholesteremia - E78. 00 (Primary)??? Plan: * Treatment: * Procedure Codes:?07250 VENIP UNCT, ROUTINE* * * The named appointment provid er may or may not be the originator of this progress note, and it is not deemed complete until electronically signed by the appointment provider. Sign off status: Pending * Provider:?Luis Gauthier MD Date:?0 06/26/2024 Generated for Inocencio peace/Prosper/Aleksitting on:?06/26/2024 12:56 PM EDT
--- OUTSIDE RECORDS SUMMARY | 2024-06-26 12:57 | XMS_ITS | Patient Health Record ---
Author Organization Luis Chaves MD Address [address] [place], [place] [id number] Care Team Providers Care Retail Coverage Merchandiser Name Role Phone Luis Chaves Primary Care Provider Allergies Allergen (clinical drug ingredient) Drug/Non Drug Allergy documented on EMR Reaction Allergy Type Onset Date Status Lisinopril angioedema Drug Allergy Activ e Results Component Value Reference Range Notes Complete Blood Count Auto Di ff Reviewed date:12/21/2023 02:28:31 PM Interpretation: Performing Lab:[facility], [address] [place] [phone] Notes/Report: White Blood Count 6.3 4.8-10.8 X10*3/uL Red Blood Count 4.08 4.60-5.80 X10*6/uL Hemoglobin 13.0 14.0-18.0 g/dl Hematocrit 39.7 42.0-52.0 % Mean Corpuscular Volume 97.3 80.0-98.0 fL Mean Corpuscular Hemoglobin 31.9 27.0-33.0 pg Mean Corpuscular HGB Conc 32.7 31.0-36.0 g/dl Red Cell Distribution Width 13.9 11.0-16.0 % Platelet Count 172 160-400 X10*3/uL Mean Platelet Volume 10.6 9.4-12.4 fL Neutrophils Percent Auto 62.8 45-73 % Imm Gran Pct Auto 0.5 0.0-0.4 % Lymphocytes Percent Auto 24.0 20-40 % Monocytes Percent Auto 7.0 2-11 % Eosinophils Percent Auto 5.2 0-4 % Basophils Percent Auto 0.5 0-2 % NRBC Pct Auto 0.0 0.0-0.2 /100WBC Neutrophils Absolute Auto 4.0 2.0-8.3 x10*3/uL Imm Gran Abs Auto 0.03 0.00-0.03 X10*3/uL Lymphocytes Absolute Auto 1.5 1.2-4.9 X10*3/uL Monocytes Absolute Auto 0.4 0.1-1.2 X10*3/uL Eosinophils Absolute Auto 0.3 0.0-0.4 X10*3/uL Basophils Absolute Auto 0.0 0.0-0.2 X10*3/uL NRBC Abs Auto 0.000 0.0-0.012 X10*3/uL Comprehensive [place]. Panel Fa st Reviewed date:12/21/2023 06:53:29 PM Interpretation: Performing Lab:[facility], [address] [place] [phone] Notes/Report: Sodium 143 135-145 mmol/L Potassium 4.0 3.3-5.1 mmol/L Chloride 107 96-108 mmol/L Carbon Dioxide 32 22-29 mmol/L Anion Gap 8 12-20 Blood Urea Nitrogen 18 9-16 mg/dL Creatinine 1.17 0.5-1.4 mg/dL Estimated Glomerular Filt Rate > 60 NOTE: For -Portuguese individuals, multiply the result by 1.210. Chronic Kidney Disease: Estimated GFR < 60 mL/min/1.73m2 Severe Kidney Disease: Estimated GFR < 15 mL/min/1.73m2 Glucose Fasting 99 60-99 mg/dL Calcium 9.4 8.4-10.2 mg/dL Bilirubin Total 0.4 0.0-1.0 mg/dL Aspartate Amino Transferase 31 5-37 U/L Alanine Aminotransferase 27 0-40 U/L Total Protein 6.6 6.5-8.0 g/dL Albumin Level 4.2 3.5-5.0 g/dL Alkaline Phosphatase 79 39-117 U/L Lipid Panel Reviewed date:12/21/2023 02:16:56 PM Interpretation: Performing Lab:[facility], [address] [place] [phone] Notes/Report: Triglycerides 91 <150 mg/dL Desirable Triglyceride: less than 150 mg/dL Borderline High Triglyceride 150-199 mg/dL High Triglyceride: 200-499 mg/dL Very High Triglyceride: greater than or equal to 5OO mg/dL Cholesterol 128 <200 mg/dL Desirable Cholesterol: less than 200 mg/dL Borderline High Cholesterol: 200-239 mg/dL High Cholesterol: greater than 239 mg/dL LDL Cholesterol Calculated 74 <100 mg/dL Desirable LDL: less than 100 mg/dL Near Optimal/Above Optimal LDL: 110-129 mg/dL Borderline High LDL: 130-159 mg/dL High LDL: 160-189 mg/dL Very High LDL: greater than or equal to 190 mg/dL HDL Cholesterol 36 >40 mg/dL Desirable HDL: greater than 40 mg/dL Note: This HDL assay may give artificially low results in patients with liver disease. PSA,Total (Free>4and<10) Reviewed date:12/21/2023 02:15:52 PM Interpretation: Performing Lab:[facility], [address] [place] [phone] Notes/Report: PSA,Total (Free>4and<10) 2.21 0.00-4.00 ng/mL A Free PSA was not performed: The percentage of Free PSA can be used to enhance the differentiation of prostate cancer from benign prostatic disease in subjects whose PSA levels are between 4.0 and 10.0 ng/mL. For subjects whose PSA levels are below 4.0 or above 10.0 ng/mL, the risk of prostate cancer is determined on the basis of the PSA alone. Therefore the % Free PSA is recommended only for those subjects whose PSA levels are between 4.0 and 10.0 ng/mL. PSA methodology: Bourgeois Alinity i Chemiluminescent Microparticle Immunoassay (CMIA) UA ClnCatch+Micro w/rflx Cul t Reviewed date:12/21/2023 06:42:42 PM Interpretation: Performing Lab:[facility], [address] [place] [phone] Notes/Report: Urine, Clean Catch Color Urine Yellow Appearance Urine Clear PH 7.0 5.0-9.0 Glucose Urine UA Negative Negative mg/dL Urine Blood Negative Negative Specific [place] - Urine 1.015 1.005-1.025 Urine Protein Negative Neg-Trace mg/dL Urine Ketones Negative Negative mg/dL Nitrite Urine Negative Negative Leukocyte Esterase Urine Negative Negative RBC Urine 0-2 0-2 /HPF WBC Urine 0-5 0-5 /HPF Squamous Epithelial Cell Urine 0-2 0-2 /HPF Bacteria Urine None Seen None Seen Hyaline Casts Urine 0-2 0-2 /LPF Occult Blood, Stool, Guaiac Reviewed date:12/26/2023 10:58:51 AM Interpretation:Negative Performing Lab: Notes/Report: Negative Occult Blood, Stool, Guaiac Neg CT cervical spine wo con Reviewed date:09/20/2023 10:43:04 AM Interpretation: Performing Lab: Notes/Report: [address] [address] [address] Scan Report Signed Patient: Ben Kramer MR#: [id number] : 1945 Acct:[id number] Age/Sex: 78 / M ADM Date: 09/19/23 Loc: HO.ED Attending Dr: Ordering Physician: Edwina Downs Date of Service: 09/19/23 Procedure(s): CT cervical spine wo IV con Accession Number(s): [id number] cc: Luis Chaves MD; Edwina Downs EXAM: CT scan of the head and cervical spine. INDICATION: Reason for Exam pain, fall TECHNIQUE: A noncontrast CT scan was performed from the skull base to the vertex. A noncontrast CT scan of the cervical spine was performed from the base of the skull through T1 at 2.5 mm and 1.25 mm collimation. Coronal and sagittal reformats were obtained at the acquisition workstation. This CT examination was performed using dose optimization techniques as appropriate, variously including the following: *Automated exposure control *Adjustment of mA and/or kV according to patient size (this includes techniques or standardized protocols for targeted exams where dose is matched to indication/reason for exam; i.e. extremities or head) *Use of iterative reconstruction technique DLP: 757 mGy-cm COMPARISON: None FINDINGS: Head: There is no evidence of acute intracranial hemorrhage or territorial infarction. Patel-white matter differentiation is preserved. No abnormal mass effect or midline shift. No extra-axial fluid collections. No abnormal attenuation is demonstrated within the brain parenchyma. The ventricles and sulcal spaces are proportional without hydrocephalus. Proportional prominence of the ventricles and sulcal spaces. No acute osseous or soft tissue abnormalities. The mastoid air cells and visualized portions of the paranasal sinuses are well aerated. Cervical Spine: The atlantooccipital and atlantoaxial articulations remain well aligned. Reversal of the normal cervical lordosis. Otherwise, there is anatomic alignment of the vertebral bodies and posterior elements. No evidence of acute fracture or subluxation. Notable degenerative disc disease changes from C3 4-6 T1. Minimal lateral listhesis of C4-C5 1 mm likely degenerative. Slight motion degradation limits assessment.. There is no prevertebral soft tissue swelling. The thyroid gland and remaining cervical soft tissues are normal in appearance. The lung apices demonstrate no abnormalities. CT/CT cervical spine wo IV con IMPRESSION: No acute intracranial pathology. No acute fracture subluxation cervical spine. Dictated By: Laron Crane MD Signed By: <Electronically signed by Laron Crane MD in OV> 09/19/23 1829 DD/ 1723 TD/TT: Certified Family Mediator: [place] [id number] CT Scan Report Signed Patient: Ben Kramer MR#: [id number] : 1945 Acct:[id number] Age/Sex: 78 / M ADM Date: 09/19/23 Loc: HO.ED Attending Dr: Ordering Physician: Edwina Downs Date of Service: 09/19/23 Procedure(s): CT cervical spine wo IV con Accession Number(s): [id number] cc: Luis Chaves MD; Edwina Downs EXAM: CT scan of the head and cervical spine. INDICATION: Reason for Exam pain , fall TECHNIQUE: A noncontrast CT sca n was performed from the skull base to the vertex. A noncontrast CT sca n of the cervical spine was performed from the base of the skull through T1 at 2.5 mm and 1.25 mm collimation. Coronal and sagittal reformats w ere obtained at the acquisition workstation. This CT examination was performed using dose optimization techniques as appropriate, various ly including the following: *Automated exposure control *Adjustment of mA an d/or kV according to patient size (this includes techniques or standardized protocols for targeted exams where dose is matched to indication/reason for exam; i.e. extremities or head) *Use of iterative reconstruction technique DLP: 757 mGy-cm COMPARISON: None FINDINGS: Head: There is no evidence of acute intracranial hemorrhage or territorial infarction. Patel-whi te matter differentiation is preserved. No abnormal mass effect or midli ne shift. No extra-axial fluid collections. No abnormal attenuat ion is demonstrated within the brain parenchyma. The ventricles and sulcal spaces are proportional without hydrocephalus. Proportional promine nce of the ventricles and sulcal spaces. No acute osseous or soft tissue abnormalities. The mastoid air cells and visualized porti ons of the paranasal sinuses are well aerated. Cervical Spine: The atlantooccipital and atlantoaxial articulations remain well aligned. Reversal of the normal cervical lordosis. Otherwise, there is anatomic alignment o f the vertebral bodies and posterior elements. No evidence of acute fracture or subluxation. Notable degenerative disc disease changes from C3 4-6 T1. Minimal lateral listhesis of C4-C5 1 mm likely degenerative. Slight motion degradation limits assessment.. There is no preverte bral soft tissue swelling. The thyroid gland an d remaining cervical soft tissues are normal in appearance. The lung apices demonstrate no abnormalities. C T/CT cervical spine wo IV con IMPRESSION: No acute intracrania l pathology. No acute fracture subluxation cervical spine. Dictated By: Jeffery Crane MD Signed By: <Electronically signed by Laron Crane MD in OV> 09/19/23 1829 DD/ 1723 TD/TT: Certified Family Mediator: ELIAS CT head/brain wo con Reviewed date:09/20/2023 10:42:35 AM Interpretation: Performing Lab: Notes/Report: [address] [address] [address] Scan Report Signed Patient: Ben Kramer MR#: [id number] : 1945 Acct:[id number] Age/Sex: 78 / M ADM Date: 09/19/23 Loc: HO.ED Attending Dr: Ordering Physician: Edwina Downs Date of Service: 09/19/23 Procedure(s): CT head/brain wo IV con Accession Number(s): [id number] cc: Luis Chaves MD; Edwina Downs EXAM: CT scan of the head and cervical spine. INDICATION: Reason for Exam pain, fall TECHNIQUE: A noncontrast CT scan was performed from the skull base to the vertex. A noncontrast CT scan of the cervical spine was performed from the base of the skull through T1 at 2.5 mm and 1.25 mm collimation. Coronal and sagittal reformats were obtained at the acquisition workstation. This CT examination was performed using dose optimization techniques as appropriate, variously including the following: *Automated exposure control *Adjustment of mA and/or kV according to patient size (this includes techniques or standardized protocols for targeted exams where dose is matched to indication/reason for exam; i.e. extremities or head) *Use of iterative reconstruction technique DLP: 757 mGy-cm COMPARISON: None FINDINGS: Head: There is no evidence of acute intracranial hemorrhage or territorial infarction. Patel-white matter differentiation is preserved. No abnormal mass effect or midline shift. No extra-axial fluid collections. No abnormal attenuation is demonstrated within the brain parenchyma. The ventricles and sulcal spaces are proportional without hydrocephalus. Proportional prominence of the ventricles and sulcal spaces. No acute osseous or soft tissue abnormalities. The mastoid air cells and visualized portions of the paranasal sinuses are well aerated. Cervical Spine: The atlantooccipital and atlantoaxial articulations remain well aligned. Reversal of the normal cervical lordosis. Otherwise, there is anatomic alignment of the vertebral bodies and posterior elements. No evidence of acute fracture or subluxation. Notable degenerative disc disease changes from C3 4-6 T1. Minimal lateral listhesis of C4-C5 1 mm likely degenerative. Slight motion degradation limits assessment.. There is no prevertebral soft tissue swelling. The thyroid gland and remaining cervical soft tissues are normal in appearance. The lung apices demonstrate no abnormalities. CT/CT head/brain wo IV con IMPRESSION: No acute intracranial pathology. No acute fracture subluxation cervical spine. Dictated By: Laron Crane MD Signed By: <Electronically signed by Laron Crane MD in OV> 09/19/23 1829 DD/ 1723 TD/TT: Certified Family Mediator: ELIAS [address] [address] [address] Scan Report Signed Patient: Ben Kramer MR#: [id number] : 1945 Acct:[id number] Age/Sex: 78 / M ADM Date: 09/19/23 Loc: HO.ED Attending Dr: Ordering Physician: Edwina Downs Date of Service: 09/19/23 Procedure(s): CT head/brain wo IV con Accession Number(s): [id number] cc: Luis Chaves MD; Edwina Downs EXAM: CT scan of the head and cervical spine. INDICATION: Reason for Exam pain , fall TECHNIQUE: A noncontrast CT sca n was performed from the skull base to the vertex. A noncontrast CT sca n of the cervical spine was performed from the base of the skull through T1 at 2.5 mm and 1.25 mm collimation. Coronal and sagittal reformats w ere obtained at the acquisition workstation. This CT examination was performed using dose optimization techniques as appropriate, various ly including the following: *Automated exposure control *Adjustment of mA an d/or kV according to patient size (this includes techniques or standardized protocols for targeted exams where dose is matched to indication/reason for exam; i.e. extremities or head) *Use of iterative reconstruction technique DLP: 757 mGy-cm COMPARISON: None FINDINGS: Head: There is no evidence of acute intracranial hemorrhage or territorial infarction. Patel-whi te matter differentiation is preserved. No abnormal mass effect or midli ne shift. No extra-axial fluid collections. No abnormal attenuat ion is demonstrated within the brain parenchyma. The ventricles and sulcal spaces are proportional without hydrocephalus. Proportional promine nce of the ventricles and sulcal spaces. No acute osseous or soft tissue abnormalities. The mastoid air cells and visualized porti ons of the paranasal sinuses are well aerated. Cervical Spine: The atlantooccipital and atlantoaxial articulations remain well aligned. Reversal of the normal cervical lordosis. Otherwise, there is anatomic alignment o f the vertebral bodies and posterior elements. No evidence of acute fracture or subluxation. Notable degenerative disc disease changes from C3 4-6 T1. Minimal lateral listhesis of C4-C5 1 mm likely degenerative. Slight motion degradation limits assessment.. There is no preverte bral soft tissue swelling. The thyroid gland an d remaining cervical soft tissues are normal in appearance. The lung apices demonstrate no abnormalities. C T/CT head/brain wo IV con IMPRESSION: No acute intracrania l pathology. No acute fracture subluxation cervical spine. Dictated By: Jeffery Crane MD Signed By: <Electronically signed by Laron Crane MD in OV> 09/19/23 1829 DD/ 1723 TD/TT: Bar Attendant ist: SL XR shoulder LT min 2V Reviewed date:09/22/2023 12:41:35 PM Interpretation: Performing Lab: Notes/Report: [address] [address] XRay Report Signed Patient: Ben Dia MR#: [id number] : 1945 Acct:[id number] Age/Sex: 78 / M ADM Date: 09/19/23 Loc: HO.ED Attending Dr: Ordering Physician: Edwina Downs Date of Service: 09/19/23 Procedure(s): XR shoulder LT min 2V Accession Number(s): [id number] cc: Luis Chaves MD; Edwina Downs EXAMINATION: XR SHOULDER, LEFT CLINICAL INFORMATION: Shoulder injury COMPARISON: CTA chest 05/30/2018 TECHNIQUE: Four views of the left shoulder. FINDINGS: There is a fracture through the base of the humeral head which is minimally comminuted and impacted. The glenohumeral joint remains intact. The AC joint is unremarkable. There is some XR/XR shoulder LT min 2V IMPRESSION: Humeral head fracture. Dictated By: Noe Swann MD Signed By: <Electronically signed by Noe Swann MD in OV> 09/19/23 1448 DD/ 1406 TD/TT: Certified Family Mediator: [address] [address] XRay Report Signed Patient: Catie Dia MR#: [id number] : 1945 Acct:[id number] Age/Sex: 78 / M ADM Date: 09/19/23 Loc: HO.ED Attending Dr: Ordering Physician: Edwina Downs Date of Service: 09/19/23 Procedure(s): XR shoulder LT min 2V Accession Number(s): [id number] cc: Luis Chaves MD; Edwina Downs EXAMINATION: XR SHOULDER, LEFT CLINICAL INFORMATION: Shoulder injury COMPARISON: CTA chest 05/30/2018 TECHNIQUE: Four views of the le ft shoulder. FINDINGS: There is a fracture through the base of the humeral head which is minimally comminuted and impacted. The glenohumeral joint remains intact. The AC joint is unremarkable. There is some X R/XR shoulder LT min 2V IMPRESSION: Humeral head fracture. Dictated By: Noe Swann MD Signed By: <Electronically signed by Noe Swann MD in OV> 09/19/23 1448 DD/ 1406 TD/TT: Bar Attendant ist: SS Complete Blood Count Auto Di ff Reviewed date:09/26/2023 12:38:17 PM Interpretation: Performing Lab:[facility], [address] [place] [phone] Notes/Report: White Blood Count 7.8 4.8-10.8 X10*3/uL Red Blood Count 3.93 4.60-5.80 X10*6/uL Hemoglobin 12.6 14.0-18.0 g/dl Hematocrit 38.0 42.0-52.0 % Mean Corpuscular Volume 96.7 80.0-98.0 fL Mean Corpuscular Hemoglobin 32.1 27.0-33.0 pg Mean Corpuscular HGB Conc 33.2 31.0-36.0 g/dl Red Cell Distribution Width 13.5 11.0-16.0 % Platelet Count 199 160-400 X10*3/uL Mean Platelet Volume 10.1 9.4-12.4 fL Neutrophils Percent Auto 67.6 45-73 % Imm Gran Pct Auto 0.4 0.0-0.4 % Lymphocytes Percent Auto 21.5 20-40 % Monocytes Percent Auto 6.6 2-11 % Eosinophils Percent Auto 3.3 0-4 % Basophils Percent Auto 0.6 0-2 % NRBC Pct Auto 0.0 0.0-0.2 /100WBC Neutrophils Absolute Auto 5.3 2.0-8.3 x10*3/uL Imm Gran Abs Auto 0.03 0.00-0.03 X10*3/uL Lymphocytes Absolute Auto 1.7 1.2-4.9 X10*3/uL Monocytes Absolute Auto 0.5 0.1-1.2 X10*3/uL Eosinophils Absolute Auto 0.3 0.0-0.4 X10*3/uL Basophils Absolute Auto 0.1 0.0-0.2 X10*3/uL NRBC Abs Auto 0.000 0.0-0.012 X10*3/uL Comprehensive Met. Panel Reviewed date:09/26/2023 12:32:32 PM Interpretation: Performing Lab:[address] [address] Notes/Report: Sodium 143 135-145 mmol/L Potassium 4.9 3.3-5.1 mmol/L Chloride 105 96-108 mmol/L Carbon Dioxide 30 22-29 mmol/L Anion Gap 13 12-20 Blood Urea Nitrogen 25 9-16 mg/dL Creatinine 1.20 0.5-1.4 mg/dL Estimated Glomerular Filt Rate 59 NOTE: For -Portuguese individuals, multiply the result by 1.210. Chronic Kidney Disease: Estimated GFR < 60 mL/min/1.73m2 Severe Kidney Disease: Estimated GFR < 15 mL/min/1.73m2 Glucose Random 98 60-115 mg/dL Calcium 10.0 8.4-10.2 mg/dL Bilirubin Total 0.7 0.0-1.0 mg/dL Aspartate Amino Transferase 29 5-37 U/L Alanine Aminotransferase 26 0-40 U/L Total Protein 6.7 6.5-8.0 g/dL Albumin Level 4.1 3.5-5.0 g/dL Alkaline Phosphatase 71 39-117 U/L Uric Acid Reviewed date:09/26/2023 12:32:14 PM Interpretation: Performing Lab:[address] [address] Notes/Report: Uric Acid 4.9 3.4-7.0 mg/dL XR hand RT 2V Reviewed date:02/12/2024 11:57:10 AM Interpretation: Performing Lab: Notes/Report: [address] [address] XRay Report Signed Patient: Ben Kramer MR#: [id number] : 1945 Acct:[id number] Age/Sex: 78 / M ADM Date: 02/11/24 Loc: HO.ED Attending Dr: Ordering Physician: Bushra Bunch NP Date of Service: 02/11/24 Procedure(s): XR hand RT 2V Accession Number(s): [id number] cc: Luis Chaves MD; Bushra Bunch NP EXAMINATION: XR HAND, RIGHT CLINICAL INFORMATION: deformity 4th finger COMPARISON: Right hand 09/09/2020 TECHNIQUE: PA, lateral, and oblique views of the right hand. FINDINGS: There is an acute dislocation at the PIP joint of the fourth digit with medial and dorsal displacement of the middle phalanx. Some fracture fragments are seen at the base of the middle phalanx . Chronic degenerative changes are present at the first MCP joint as well as the first CMC joint. Milder degenerative changes are seen at the interphalangeal joints, all changed. XR/XR hand RT 2V IMPRESSION: Acute fracture dislocation at the PIP joint of the fourth digit. Electronically signed by: Noe Swann MD 02/11/2024 05:35 PM [facility] Dictated By: Noe Swann MD Signed By: <Electronically signed by Noe Swann MD in OV> 02/11/24 1735 DD/ 1655 TD/TT: 02/11/24 1700 Certified Family Mediator: [address] [address] XRay Report Signed Patient: Ben Kramer MR#: [id number] : 1945 Acct:[id number] Age/Sex: 78 / M ADM Date: 02/11/24 Loc: HO.ED Attending Dr: Ordering Physician: Bushra Bunch NP Date of Service: 02/11/24 Procedure(s): XR calhoun d RT 2V Accession Number(s): [id number] cc: Luis Chaves MD; Bushra Bunch NP EXAMINATION: XR HAND, RIGHT CLINICAL INFORMATION: deformity 4th finger COMPARISON: Right hand 09/09/2020 TECHNIQUE: PA, lateral, and obl ique views of the right hand. FINDINGS: There is an acute dislocation at the PIP joint of the fourth digit with medial and dorsal displacement of the middle phalanx. Some fracture fragments are seen a t the base of the middle phalanx . Chronic degenerative changes are present at the first MCP joint as well as the first CMC cara nt. Milder degenerative changes are seen at the interphalangeal join ts, all changed. X R/XR hand RT 2V IMPRESSION: Acute fracture dislocation at the PIP joint of the fourth digit. Electronically gonzalo d by: Noe Swann MD 02/11/2024 05:35 PM [facility] Dictated By: Noe Swann MD Signed By: <Electronically signed by Noe Swann MD in OV> 02/11/24 1735 DD/ 1655 TD/TT: 02/11/24 1700 Certified Family Mediator: FINA XR hand RT 2V Reviewed date:02/12/2024 11:48:54 AM Interpretation: Performing Lab: Notes/Report: [address] [address] XRay Report Signed Patient: Ben Kramer MR#: [id number] : 1945 Acct:[id number] Age/Sex: 78 / M ADM Date: 02/11/24 Loc: .ED Attending Dr: Ordering Physician: Bushra Bunch NP Date of Service: 02/11/24 Procedure(s): XR hand RT 2V Accession Number(s): [id number] cc: Luis Chaves MD; Bushra Bunch NP EXAMINATION: XR HAND, RIGHT CLINICAL INFORMATION: s/p reduction COMPARISON: Right hand earlier today TECHNIQUE: PA, lateral, and oblique views of the right hand. FINDINGS: There has been reduction of the previously seen dislocation at the PIP joint of the fourth digit . Some soft tissue swelling is present. There is a ill-defined bony density seen at the medial distal end of the proximal phalanx which likely represents avulsion fracture although degenerative change could be playing a role. XR/XR hand RT 2V IMPRESSION: Reduction of previously seen dislocation at the PIP joint of the fourth digit. Probable avulsion fracture as described above. Electronically signed by: Noe wSann MD 02/11/2024 08:27 PM [facility] [place] Dictated By: Noe Swann MD Signed By: <Electronically signed by Noe Swann MD in OV> 02/11/242026 DD/ 15 TD/TT: 02/11/241927 Certified Family Mediator: [place] [address] XRay Report Signed Patient: Ben Kramer MR#: [id number] : 1945 Acct:[id number] Age/Sex: 78 / M ADM Date: 02/11/24 Loc: HO.ED Attending Dr: Ordering Physician: Bushra Bunch NP Date of Service: 02/11/24 Procedure(s): XR calhoun d RT 2V Accession Number(s): [id number] cc: Luis Chaves MD; Bushra Bunch NP EXAMINATION: XR HAND, RIGHT CLINICAL INFORMATION: s/p reduction COMPARISON: Right hand earlier today TECHNIQUE: PA, lateral, and obl ique views of the right hand. FINDINGS: There has been reduc tion of the previously seen dislocation at the PIP joint of the fourth digit . Some soft tissue swelling is present. There is a ill-defin ed bony density seen at the medial distal end of the proximal phalanx which likely represents avulsion fracture although degenerative change could be playing a role. X R/XR hand RT 2V IMPRESSION: Reduction of previou sly seen dislocation at the PIP joint of the fourth digit. Probable avul juwan fracture as described above. Electronically gonzalo d by: Noe Swann MD 02/11/2024 08:27 PM [facility] [place] Dictated By: Noe Swann MD Signed By: <Electronically signed by Noe Swann MD in OV> 02/11/242026 DD/ 15 TD/TT: 02/11/241927 Certified Family Mediator: FINA Basic Metabolic Panel Reviewed date:03/01/2024 08:49:05 AM Interpretation: Performing Lab:[facility], [address] [place] [phone] Notes/Report: Sodium 143 135-145 mmol/L Potassium 4.5 3.3-5.1 mmol/L Chloride 102 96-108 mmol/L Carbon Dioxide 33 22-29 mmol/L Anion Gap 13 12-20 Blood Urea Nitrogen 33 9-16 mg/dL Creatinine 1.52 0.5-1.4 mg/dL Estimated Glomerular Filt Rate 45 Chronic Kidney Disease: Estimated GFR < 60 mL/min/1.73m2 Severe Kidney Disease: Estimated GFR < 15 mL/min/1.73m2 Glucose Random 111 60-115 mg/dL Calcium 9.6 8.4-10.2 mg/dL Comprehensive Met. Panel Reviewed date:03/16/2024 05:41:41 PM Interpretation: Performing Lab:[facility], [address] [place] [phone] Notes/Report: CC BUN AND CREAT TO DR. CHAVES Sodium 146 135-145 mmol/L Potassium 4.6 3.3-5.1 mmol/L Chloride 106 96-108 mmol/L Carbon Dioxide 28 22-29 mmol/L Anion Gap 17 12-20 Blood Urea Nitrogen 21 9-16 mg/dL Creatinine 1.35 0.5-1.4 mg/dL Estimated Glomerular Filt Rate 51 Chronic Kidney Disease: Estimated GFR < 60 mL/min/1.73m2 Severe Kidney Disease: Estimated GFR < 15 mL/min/1.73m2 Glucose Random 100 60-115 mg/dL Calcium 9.5 8.4-10.2 mg/dL Bilirubin Total 0.6 0.0-1.0 mg/dL Aspartate Amino Transferase 43 5-37 U/L Alanine Aminotransferase 31 0-40 U/L Total Protein 6.8 6.5-8.0 g/dL Albumin Level 4.1 3.5-5.0 g/dL Alkaline Phosphatase 74 39-117 U/L Uric Acid Reviewed date:03/16/2024 05:26:58 PM Interpretation: Performing Lab:[facility], [address] [place] [phone] Notes/Report: CC BUN AND CREAT TO DR. CHAVES Uric Acid 5.5 3.4-7.0 mg/dL Ji Cotto Reviewed date:06/26/2024 12:35:07 PM Interpretation: Performing Lab:[facility], [address] [place] [phone] Notes/Report: Ji Cotto See Note Specimen held untested for 24 hours; Call to request Chemistry testing. Reason For Referral No Information Medications Medication SIG (Take, Route, Frequency, Duration) Notes Start Date End Date Status amLODIPine Besylate 10 MG TAKE 1 TABLET BY MOUTH EVERY DAY for 90 Active Advair HFA 115-21 MCG/ACT 2 puffs Inhala tion Twice a day for 30 days 04/27/2024 Active Celecoxib 200 MG TAKE 1 CAPSULE BY MO UTH EVERY DAY Active Irbesartan-hydroCHLOROthi azide 150-12.5 MG TAKE 1 TABLET BY MOUTH EVERY DAY Active Gabapentin 100 MG 2 capsule Twice a day Active Atorvastatin Calcium 20 MG TAKE 1 TABLET BY MOUTH EVERY DAY Active Allopurinol 300 MG 1tablet Orally Once a day Active Pantoprazole Sodium 40 MG TAKE 2 TABLETS BY MOUTH EVERY DAY for 90 Active Nasacort Allergy 24HR 55 MCG/ACT 1 puff in each nostril Nasally Once a day for 30 day(s) 03/28/2015 Not-Taking Amoxicillin 500 MG 4capsule Orally 1 ho ur prior to dental Not-Taking Flonase 50 MCG/ACT 2 sprays Nasally Onc e a day for 90 days Not-Taking Flovent HFA 110 MCG/ACT 2 puffs Inhalati on Twice a day 06/07/2022 Active Advair Diskus 500-50 MCG/DOSE 1 puff Inhalation Twice a day 06/22/2012 Not-Taking Carvedilol 6.25 MG TAKE 1 TABLET BY MEREDITH TH TWICE DAILY Active Albuterol Sulfate HFA 108 (90 Base) MCG/ACT INHALE 2 PUFFS BY MOUTH EVERY 4 HOURS NEEDED Active Aspir-81 81 MG 1 tablet Orally Once a day for 30 day(s) Not-Taking LORazepam 0.5 MG 1 tablet as needed Orally Twice a day for 7 days 06/09/2018 Not-Taking Immunizations Vaccine Route Administration Date Status Comme nts Flu Vaccine IM Intramuscular 12/18/2010 Administered PPSV23 (Pnemovax) IM Intramuscular 07/11/2012 Administered Flu Vaccine Unknown 12/15/2012 Administered At work [employer]. Fluarix Quadrivalent IM Intramuscular 11/20/2013 Administe red Prevnar 13 IM Intramuscular 03/11/2014 Administered zFluzone Quadrivalent Unknown 12/31/2014 Administered given at work Fluarix Quadrivalent Unknown 11/26/2015 Administered At work [facility] [employer]. Fluarix Quadrivalent Unknown 12/17/2016 Administered At [facility] TDaP Unknown 05/20/2008 Administered Shingles Unknown 05/20/2008 Administered PPSV23 (Pnemovax) IM Intramuscular 05/29/2018 Administered Fluarix Quadrivalent Unknown 12/16/2017 Administered pt was given the vaccine at work. Shingrix IM Intramuscular 10/24/2018 Administered pt was given the vaccine at [employer] in [place]. Shingrix IM Intramuscular 01/06/2019 Administered pt was given the vaccine at [employer] in [place]. Influenza High Dose Unknown 11/29/2019 Administered Teddy sher s TDaP Unknown 10/25/2019 Administered [employer] Covid Vaccine Unknown 04/29/2020 Administered Moderna Covid Vaccine Unknown 05/27/2020 Administered Moderna Influenza High Dose Unknown 12/05/2020 Administered Teddy nikky's SARS-COV-2 Moderna Unknown 06/12/2021 Administered Isabel carballo's SARS-COV-2 Moderna Unknown 12/26/2020 Administered Influenza High Dose Unknown 12/05/2021 Administered SARS-COV-2 Moderna Unknown 06/12/2021 Administered SARS-COV-2 Moderna Unknown 11/15/2021 Administered Fluarix Quadrivalent Unknown 11/30/2022 Administered SARS-COV-2 Moderna Unknown 12/07/2022 Administered Flu Vaccine Unknown 11/20/2013 Pending Social History Tobacco Use: Social History Observation Description Date Details (start date - stop date) Former Smoker NA - NA Tobacco Use/Smoking Question Answer Notes Patient is a former smoker How long has it been since y ou last smoked? > 10 years Additional Findings: Tobacco Non-User Fo rmer smoker, currently using no form of tobacco Alcohol Screen Question Answer Notes Did you have a drink containing alcohol in the p ast year? 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 Problem 74796538 Anxiety (F41.9) Active confirmed Problem 52426138 Obstructive slee p apnea (adult) (pediatric) (G47.33) Active confirmed Problem 7017573 Arthritis (M19.90) Active confirmed Problem 113381036 Lumbar disc dise ase (M51.9) Active confirmed Problem 842762060 Gastroesophageal reflux disease without esophagitis (K21.9) Active confirmed Problem 47806028 Essential hypert ension (I10) Active confirmed Problem 299391094 Mild intermitten t asthma without complication (J45.20) Active confirmed Problem 785386464 Low HDL (under 4 0) (E78.6) Active confirmed Problem 026508712 Non morbid obesi ty due to excess calories (E66.09) Active confirmed Problem 987042596 History of gout (Z87.39) Active confirmed Problem 127860777 Esophageal dysmo tility (K22.4) Active confirmed Problem 50757787 Obstructive slee p apnea (G47.33) Active confirmed Problem 27766561 Hypercholesterem ia (E78.00) Active confirmed Problem 96300238 OSMEL (obstructive sleep apnea) (G47.33) Active confirmed Problem 776449392 Nodule of kidney (N28.89) Active confirmed Vital Signs Blood pressure diastolic 60 mm Hg 12/26/2023 Height 72 in 12/26/2023 Blood pressure systolic 122 mm Hg 12/26/2023 Weight 281 lbs 12/26/2023 BMI 38.11 kg/m2 12/26/2023 Encounters Encounter Location Date Provider Diagnosis Luis Chaves MD [address] [place] [address] [id number] 06/26/2024 Luis Chaves Hypercholesteremia E 78.00 Luis Chaves MD [address] [place] [address] [id number] 12/20/2023 Luis Chaves Essential hypertensi on I10 ; Low HDL (under 40) E78.6 and Hypercholesteremia E78.00 Luis Chaves MD [address] [place] [address] [id number] 12/26/2023 Luis Chaves Mild intermittent as thma without complication J45.20 ; Essential hypertension I10 ; Obstructive sleep apnea G47.33 ; Hypercholesteremia E78.00 ; Lumbar disc disease M51.9 ; History of gout Z87.39 ; Gastroesophageal reflux disease without esophagitis K21.9 ; Arthritis M19.90 ; Colon cancer screening Z12.11 and Depression screening Z13.31 Luis Chaves MD [address] [place] [address] [id number] 09/20/2023 Luis Chaves MD [address] [place] [address] Drive [address] [place] [address] [id number] 02/13/2024 Luis Chaves MD [address] [place] [address] [id number] 04/26/2024 Luis Chaves MD [address] [place] [address] [id number] 04/27/2024 Luis Chaves Assessments Encounter Date Diagnosis (ICD Code) Assessment Notes Treatment Notes Treatment Clinical Notes Section Notes 06/26/2024 Hypercholesteremia (ICD-10 - E78.00) 12/20/2023 Essential hypertensi on (ICD-10 - I10) 12/20/2023 Low HDL (under 40) (ICD-10 - E78.6) 12/26/2023 Mild intermittent asthma without complication (ICD-10 - J45.20) is stable, will continue current regiment 12/26/2023 Essential hypertensi on (ICD-10 - I10) well controlled, will continue current regiment 12/20/2023 Hypercholesteremia (ICD-10 - E78.00) 12/26/2023 Obstructive sleep apnea (ICD-10 - G47.33) using cpap nightly, doing well 12/26/2023 Hypercholesteremia (ICD-10 - E78.00) stable, at goal, will cpntinue current regiment 12/26/2023 Lumbar disc disease (ICD-10 - M51.9) stable, will continue current regiment 12/26/2023 History of gout (ICD-10 - Z87.39) doing well, will continue current regiment 12/26/2023 Gastroesophageal reflux disease without esophagitis (ICD-10 - K21.9) stbale, will contiue current regiment 12/26/2023 Arthritis (ICD-10 - M19.90) stab;e, will continue current regiment 12/26/2023 Colon cancer screeni ng (ICD-10 - Z12.11) guaiac negative 12/26/2023 Depression screening (ICD-10 - Z13.31) negative screen Plan Of Treatment Pending Test Test Name Order Date Liver Panel 06/26/2024 Lipid Panel with Reflex 06/26/2024 CT lumbar spine wo con 12/17/2021 Next Appt Details Provider Name:Luis Lewis ier, 07/03/2024 10:00:00 AM, [address] [place] [address], [phone], Provider Name:Luis Lewis ier, 12/20/2024 07:15:00 AM, [address] [place] [address], [phone], Provider Name:Luis Lewis ier, 12/27/2024 08:30:00 AM, [address] [place] [address], [address], [phone], Insurance Providers Payer Name Payer Address Payer Phone Subscriber Number Group Number Insured Name Patient Relationship to Insured Coverage Start Date Coverage End Date MEDICARE NHIC [address] [place] [address] [id number] Ben Lehman Self - patient is the insured [employer] [address] [place], [place] [id number] [phone] [id number] Ben Kramer Self - patient is the insured Medical (General) History Medical History History ICD Code phlebitis Gout hematuria .cysto in 2004 colonoscopy 02/2003; 03/2013 - repeat 10 years sleep study 10/2008 Surgical History Surgery Date(Month/Year) Left Achilles Lengthening 12/2012
--- OUTSIDE RECORDS SUMMARY | 2024-06-26 12:57 | XMS_ITS ---
[facility] Address [address] [place] [address] Care Team Providers Care Insurance Adjustor Name Role Phone Luis Gauthier MD Primary Care Provider Unavajane granados Black, Soila Unavailable [phone] Allergies Allergen (clinical drug ingredient) Drug/Non Drug Allergy documented on EMR Reaction Allergy Type Onset Date Status Cortisone red face Drug Allergy Active angiotensin-converting enzyme inhibitor (FN) NOEMI Inhibitors swelling Drug Allergy Acti ve REASON FOR VISIT Painful nail(s) aggrevated by shoes and causing difficulty standing/walking., Painful Toe(s) Medications Medication SIG (Take, Route, Frequency, Duration) Notes Start Date End Date Status Keflex 500 MG 1 capsule Orally every 12 hrs for 10 day(s) 04/12/2019 Not-Taking Colcrys 0.6 MG 1 tablet Orally Once a day for 30 day(s) 10/29/2013 Not-Taking Colcrys 0.6 MG 1 tablet Orally Once a day for 30 day(s) Not-Taking Ciclopirox Olamine 0.77% external Apply to effected areas on the feet twice a day for 30 days 07/28/2015 Not-Taking Cephalexin 500 MG 1 tablet Orally every 6 hrs for 10 day(s) 02/17/2016 Not-Taking AFO-fixed Not-Taking Ammonium Lactate 12 % 1 application Externally Twice a day for 30 days Active Gabapentin 300 MG 1 capsule Orally Three times a day Not-Taking ProAir HFA Active predniSONE PRN Active Carvedilol 6.25 MG 1 tablet with food Orally Twice a day Active Flovent HFA 110 MCG/ACT 1 puff Inhalatio n Twice a day Active CeleBREX 200 MG 1 capsule Orally Once a day for 30 day(s) Active Multivitamins Active Pantoprazole Sodium 40 MG 1 tablet Orally Once a day for 30 day(s) Active Avalide 150-12.5 MG 1 tablet Orally Once a day for 30 day(s) Active Aspirin 81 MG 1 tablet Orally Once a day Active Allopurinol 300 MG 1 tablet Orally once a day Active amLODIPine Besylate 10 MG 1 tablet Orally Once a day Active Pregabalin Active Social History Tobacco Use: Social History Observation Description Date Details (start date - stop date) Never Smoker NA - NA Tobacco use other than smoking: Question Answer Notes Are you an other tobacco user? No Tobacco Control (Standard) Question Answer Notes Tobacco use: Nonsmoker Problems Problem Type SNOMED Code ICD Code Onset Dates Problem Status W/U Status Risk Notes Problem Acquired hammer toe of right foot ([id number]) Other hammer toe(s) (acquired), right foot (M20.41) Active confirmed Chronic problem, Worse (4) Problem Localized, primary osteoarthritis of the ankle and/or foot (670666216) Arthritis of joint of lesser toe, right (M19.071) Active confirmed Vital Signs Height 6ft in 04/16/2024 Weight 275 lbs 04/16/2024 BMI 37.29 kg/m2 04/16/2024 Blood pressure systolic 160 mm Hg 04/16/19 25 Blood pressure diastolic 80 mm Hg 025 Procedures Procedure Date Ordered Date Performed Result Body Sit e 82006-JAQECIR NAIL, 6 OR MORE 04/16/2024 N/A Encounters Encounter Location Date Provider Diagnosis [facility] [address] [place] [address] 04/16/2024 Soila Black Tinea unguium B35.1 ; Other hammer toe(s) (acquired), right foot M20.41 ; Pain in left toe(s) M79.675 ; Pain in right toe(s) M79.674 and Subluxation of metatarsophalangeal joint of toe, initial encounter S93.149A Assessments Encounter Date Diagnosis (ICD Code) Assessment Notes Treatment Notes Treatment Clinical Notes Section Notes 04/16/2024 Tinea unguium (ICD-1 0 - B35.1) 04/16/2024 Other hammer toe(s) (acquired), right foot (ICD-10 - M20.41) Chronic problem, Worse (4) 04/16/2024 Pain in left toe(s) (ICD-10 - M79.675) 04/16/2024 Pain in right toe(s) (ICD-10 - M79.674) 04/16/2024 Subluxation of metatarsophalangeal joint of toe, initial encounter (ICD-10 - S93.149A) Plan Of Treatment Pending Test Test Name Order Date [id number] NAIL, 6 OR MORE 04/16/2024 Next Appt Details Follow Up: 2 Months, Reason: Provider Name:Soila Zaman Wilfredo , 08/23/2024 01:00:00 PM, [address] [place] [address], [id number], Provider Name:Soila Villalobos , 10/29/2024 01:30:00 PM, [address] [place] [address], [id number], Procedure Notes * Category Sub-Category Detail Notes Debride Nail 6-10 Nail debridement Due to the cl inical pathology outlined in the exam findings, performance of this nail treatment is medically necessary as its management by an unskilled/untrained nonprofessional would put this patients foot and overall health at risk. Therefore, debridement to affected nail(s), as described in exam ( TA, T1, T2, T3, T4, T5, T6, T8, T9, ), was performed exclusively by the physician of record to reduce/remove overall nail length, girth, thickness, subungual debris, and necrotic tissue, by manual and/or electrical means through the use of a nail nipper and/or dremel-type cast shell grinder, to a more viable healthy nail [...] to maintain effectiveness in symptomatic relief - Progress Notes * STGEORGES, PaulDOB: [birth year] (78 yo M)Acc No.[id number]:04/16/2024 Progress Note Patient:?Ben SANDS Provider:?Soila Villalobos DPM :1945???Age:78 Y???Sex:Male Valdo e:04/16/2024 Address:[address] [place], [place] [id number] Pcp:Luis Gauthier MD Subjective: * Chief Complaints: * ???Painful nail(s) aggrevate d by shoes and causing difficulty standing/walking.Painful Toe(s) * HPI: ???Painful Nails:?Pt States Last PCP Visit:?Date:?12/28/2023 ???Toe pain:?Nature:?tenderness.?Location:?Right foot, 3rd toe.?Duration:?, several weeks.?Course:?worse.?Aggravated by:?any pressure, shoes.?Treatments:?rest/alter normal daily activity, change in shoes.? * ROS:?General/Constitutional:?Nausea?denies.?Vomiting?denies.?Hunger Thirst?denies.?Loss appetite?denies.?Chills?denies.?Fatigue?denies.?Fever?denies.?Night Sweats?denies.?Unexplained weight loss?denies.?Unexplained [...] 10/2017Back Surgery 04/01/23 * [place]ization/Major Diagno stic [place] [place] [place] 02[place] * Family History:?Mother: dece ased, diagnosed with Family history of arthritis, Unspecified essential hypertension, Unspecified heart disease.?Father: .?Daughter(s): alive.?Son(s): alive. Siblings: diabetes, foot problems, hypertension.?Spouse: alive.?1 son(s) , 1 daughter(s) . .? * Social History:?Tobacco Use:?Tobacco use other than smoking?Are you an other tobacco user??No ?Tobacco Control (Standard)?Tobacco use:?Nonsmoker ???Miscellaneous:?Caffeine: yes, frequency:, 1-2 cups per day. ?Children: yes, 2. ?Exercise: yes, walking. ?Marital status: . 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 * Medications:?TakingPregabali n Allopurinol 300 MG Tablet [...] BM I: 37.29, Shoe size: 12.5, BP: 160/80 mm Hg, Ht-cm: 182.88 cm, Wt-k.74 kg. * Examination: ???General Examination: ?GENERAL APPEARANCE:?Reveals a pleasant, alert, well nourished, well- developed, well hydrated individual, who demonstrates proper attention to hygiene/body habitus, and is in no acute distress, Pt serves as own historian for office visit today.?ORIENTED:?person, place, and time.?Nails: ?NAILS are:?Elongated, overgrown, dystrophic, lytic, greater than 3mm thick, discolored and friable with crumbly malodorous subungual debris, with pain on palpation, , , TA, T1, T2, T3, T4, T5, T6, T8, T9.?Orthopedic: ?MUSCLE STRENGTH:?5/5 all groups in a symmetrical fashion, B/L.?GAIT ABNORMALITY:?unstable/unsteady relating occasional difficulty with balance, cane-assisted.?DIGITAL DEFORMITIES:?, Digital contracture, PIPJ, T7, incompl-reducible with WB, or to push-up test, no over, nor underlapping, Reveals pain/swelling/redness/enlargement of DIPJ T7.?FOOTWEAR:? shoe gear properties exacerbate patients foot/toe deformity.?Vascular: ?DP PULSES (B):?2/4, B/L.?PT PULSES (B):?2/4, B/L.?CAPILLARY FILL TIME:?immediate, all digits, B/L.?TROPHIC CONDITION-TEXTURE/ELASTICITY/TURGOR/HAIR GROWTH (B):?normal, B/L.?TEMPERTURE GRADIENT (C):?normal, warm to cool, proximal to distal, B/L, B/L.?PIGMENTATION:?normal, B/L.?Dermatologic: ?SKIN FINDINGS:?Skin exam reveals Keratotic lesion(s) located at distal T7.? Assessment: * Assessment: 1.?Tinea unguium - B35.1???2 .?Other hammer toe(s) (acquired), right foot - M20.41 (Primary)???Notes :Chronic problem, Worse (4)???3.?Pain in left toe(s) - M79.675???4.?Pain in right toe(s) - M79.674???5.?Subluxation of metatarsophalangeal joint of toe, initial encounter - S93.149A??? Plan: * Treatment: * Procedures:?Debride Nail 6-10:?Nail debridement?Due to the clinical pathology outlined in the exam findings, performance of this nail treatment is medically necessary as its management by an unskilled/untrained nonprofessional would put this patients foot and overall health at risk. Therefore, debridement to affected nail(s), as described in exam ( TA, T1, T2, T3, T4, T5, T6, T8, T9, ), was performed exclusively by the physician of record to reduce/remove overall nail length, girth, thickness, subungual debris, and necrotic tissue, by manual and/or electrical means through the use of a nail nipper and/or dremel-type cast shell grinder, to a more viable healthy nail plate or bed tissue 6- 10 nails in total. Silver nitrate was used for any petechial bleeding as necessary. Definitive antifungal treatment options, both pharmaceutical and surgical, have been reviewed and discussed with the patient. The patient solely prefers the use of intermittent/as needed professional debridement services for their nail condition and understands the need for additional periodic treatments to maintain effectiveness in symptomatic relief - 92809.? * Procedure Codes:?20173 DEBRI DE NAIL, 6 OR MORE * Preventive Medicine:? ??Counseling:?Discussion:?-14: Office or other outpatient visit for the evaluation and management of an established patient, which required a medically appropriate history and/or examination and MODERATE level of DECISION MAKING for: 1 OR MORE CHRONIC PROBLEM(S) THATS WORSENING, 2 STABLE CHRONIC PROBLEMS, A NEWLY DIAGNOSED PROBLEM WITH UNCERTAIN PROGNOSIS, AN ACUTE COMPLICATED INJURY WITH MULTIPLE TREATMENT OPTIONS, OR AN ACUTE PROBLEM WITH ACCOMPANYING SYSTEMIC SYMPTOMS, THAT POSE(S) A MODERATE RISK OF MORBIDITY. THIS CONDITION MAY ALSO INCLUDE RX DRUG MANAGEMENT, OR A DECISON FOR MINOR SURGERY. The visit on the day of the encounter encompassed interpreting the data and educating the patient as to the nature of their condition, treatment options available according to their individual PMH, meds, allergies, and overall health/living conditions, as well as any potential risks or complications that may occur from a failure to adhere to, and participate in, the recommended course of therapy. The discussion included a complete verbal, and/or written explanation of the examination results, any x-rays taken, the proposed diagnosis, and outline of the treatment plan. A schedule for future care needs was also explained. The patient verbalized an understanding of the instructions at this time and agreed to be an active participant in their treatment. If the patient should think of any questions or concerns after the visit, I have encouraged the patient to call the office.?Digital Surgery:?FLEXOR : Minimal Incision digital procedure consisting of Percutaneous Flexor Release was discussed with the patient, including the risks of the procedure vs and not having the procedure, the potential procedure complications, the anesthesia, and the usual post-op course. No guarentees were given. We discussed with the patient the complications such as delayed/non healing, excessive scarring, excessive swelling, failure of procedure, floppy toe, infection, numbness, chronic pain, recurrence of the condition, shortened toe, joint stiffness, and possible loss of limb/life. Alternatives to the procedure were also discussed, including conservative care, The patient would like to procede with surgical treatment, The patient will consider surgical treatment.?Digital Treatment:?HT- I explained to the patient the possible etiologies of Hammertoes, including genetics/foot type/shoegear/activity level/exercise routine and the risks/benefits of all the different treatment options for their pain including: No treatment at all, Rest, Ice, New/supportive/wider/deeper Shoe gear, Digital Padding/Strapping/Taping/Bracing/Gel protective sleeves, Foot/Ankle AFO Bracing, Stretching exercises, Deep Tissue Massage, Arch support/shoe inserts with splay metatarsal padding, and Custom orthoses. I insisted that any digital devices be removed daily and not worn overnight for safety. The patient is to carefully examine the toes daily for any skin irritation while using any splinting or padding device. The advantages and disadvantages of each option were discussed and the patients questions re: shoe gear, padding, custom vs prefabricated inserts, activity level, and consistency in home treatment regimens for optimal success were answered to their verbally confirmed satisfaction, Recomm, rest, ice, proper shoegear, padding, orthotics, anti-inflammatories or tylenol as tolerated, topical analgesics, cortisone injections.?Shoe Gear Counseling:?The patient and I reviewed the types of shoes they should be wearing. My recommendation included obtaining a well-fitted shoe with a good supportive, non-foldable nor twistable sole, plenty of toe/room for the forefoot, and proper arch support. Based on todays examination, I recommended the patient look for new shoes, by having their feet professionally measured. We discussed that generally the best time of the day for a shoe fitting is the afternoon. Different shoes types and brands to best match the patients occupation and vocation were discussed. Specific brand selection will be up to the patient, their individual foot condition/deformities, and fit. The patient and I reviewed the standard new shoe break in period by wearing them for a few hours a day while checking for redness or sores as wear time is increased. The patient verbally confirmed to understanding the information discussed.? ??Screening/Special Tests:?Fall Risk?Assessment:?Performed ?Plan of Care:?Documented ?Type of fall plan of care:?Balance, strength and gait training or instruction provided ?Screening:?Two or more falls with injury in the past year ?FALLS: Screening for Future Fall Risk?Have you had two or more falls in the past year??Yes ?Have you had any falls with injury in the past year??Yes * Follow Up:?2 Months * Images: * Sign off status: Completed true * Provider:?Soila Villalobos DPM Date:?2024 Generated for Inocencio peace/Prosper/Dorinda on:?06/26/2024 12:56 PM EDT History and Physical Notes * HPI (History of Present Illness) Category Sub-Category Detail Notes Category Not es Toe pain Nature: tenderness Location: Right foot, 3rd toe Duration: , several weeks Course: worse Aggravated by: any pressure, shoes Treatments: rest/alter normal da johann activity, change in shoes Painful Nails Pt States Last PCP Visit: Date:: 12/28/2023 Examination Category Sub-Category Detail Notes Category Not es Dermatologic SKIN FINDINGS: Skin exam reveal s Keratotic lesion(s) located at distal T7 Orthopedic GAIT ABNORMALITY: unstable/unste livia relating occasional difficulty with balance, cane-assisted FOOTWEAR EVALUATION: shoe gear propertie s exacerbate patients foot/toe deformity DIGITAL DEFORMITIES: , Digital contractu re, PIPJ, T7, incompl-reducible with WB, or to push-up test, no over, nor underlapping, Reveals pain/swelling/redness/enlargement of DIPJ T7 MUSCLE STRENGTH: 5/5 all groups in a symmetrical fashion, B/L General Examination GENERAL APPEARANCE: Reveals a pleasant, alert, well nourished, well-developed, well hydrated individual, who demonstrates proper attention to hygiene/body habitus, and is in no acute distress, Pt serves as own historian for office visit today ORIENTED: person, place, and t endy Vascular DP PULSES (B): 2/4, B/L PT PULSES (B): 2/4, B/L CAPILLARY FILL TIME: immediate, all digi ts, B/L TEMPERTURE GRADIENT (C): normal, warm to cool, proximal to distal, B/L, B/L TROPHIC CONDITION-TEXTURE/ELASTICITY/TURGOR/HAIR GROWTH (B): normal, B/L PIGMENTATION: normal, B/L Nails NAILS are: Elongated, overg rown, dystrophic, lytic, greater than 3mm thick, discolored and friable with crumbly malodorous subungual debris, with pain on palpation, , , TA, T1, T2, T3, T4, T5, T6, T8, T9
--- OUTSIDE RECORDS SUMMARY | 2024-06-26 12:57 | XMS_ITS | Patient Health Record ---
Author Organization [facility] Address [address] [place] [address] Care Team Providers Care Senior Director Marketing Name Role Phone Luis Gauthier MD Primary Care Provider Mariam Villalobos, Soila Unavailable [phone] Allergies Allergen (clinical drug ingredient) Drug/Non Drug Allergy documented on EMR Reaction Allergy Type Onset Date Status Cortisone red face Drug Allergy Active angiotensin-converting enzyme inhibitor (FN) NOEMI Inhibitors swelling Drug Allergy Acti ve Reason For Referral No Information Medications Medication SIG (Take, Route, Frequency, Duration) Notes Start Date End Date Status Ciclopirox Olamine 0.77% external Apply to effected areas on the feet twice a day for 30 days 07/28/2015 Not-Taking Colcrys 0.6 MG 1 tablet Orally Once a day for 30 day(s) Not-Taking AFO-fixed Not-Taking Gabapentin 300 MG 1 capsule Orally Three times a day Not-Taking Ammonium Lactate 12 % 1 application Externally Twice a day for 30 days Active predniSONE PRN Active ProAir HFA Active Pantoprazole Sodium 40 MG 1 tablet Orally Once a day for 30 day(s) Active Multivitamins Active Cephalexin 500 MG 1 tablet Orally every 6 hrs for 10 day(s) 02/17/2016 Not-Taking Flovent HFA 110 MCG/ACT 1 puff Inhalatio n Twice a day Active Colcrys 0.6 MG 1 tablet Orally Once a day for 30 day(s) 10/29/2013 Not-Taking Carvedilol 6.25 MG 1 tablet with food Orally Twice a day Active Keflex 500 MG 1 capsule Orally every 12 hrs for 10 day(s) 04/12/2019 Not-Taking CeleBREX 200 MG 1 capsule Orally Once a day for 30 day(s) Active Aspirin 81 MG 1 tablet Orally Once a day Active Avalide 150-12.5 MG 1 tablet Orally Once a day for 30 day(s) Active amLODIPine Besylate 10 MG 1 tablet Orally Once a day Active Allopurinol 300 MG 1 tablet Orally once a day Active Pregabalin Active Immunizations Vaccine Route Administration Date Status Comme nts COVID-19 Moderna Vaccine Unknown 12/26/2020 Administered 1st 04/29/20 2nd dose: 05/27/20 Social History Tobacco Use: Social History Observation Description Date Details (start date - stop date) Never Smoker NA - NA Tobacco use other than smoking: Question Answer Notes Are you an other tobacco user? No Tobacco Control (Standard) Question Answer Notes Tobacco use: Nonsmoker AUDIT-C (Standard) Question Answer Notes Did you have a drink containing alcohol in the p ast year? No Points 0 Interpretation Negative Problems Problem Type SNOMED Code ICD Code Onset Dates Problem Status W/U Status Risk Notes Problem Cellulitis of left lower limb (256722876590786 09) Cellulitis of left lower limb (L03.116) Active confirmed Problem Localized, primary osteoarthritis of the ankle and/or foot (435036518) Primary osteoarthriti s, left ankle and foot (M19.072) Active confirmed Problem Acquired hammer toe of right foot (440016080420325 5) Other hammer toe(s) (acquired), right foot (M20.41) Active confirmed Chronic problem, Worse (4) Problem Primary gout (42876402) Idiopathic gout, 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) Active confirmed Problem Acquired hammer toe of left foot (055951072171258 3) Hammer toe of left foot (M20.42) Active confirmed Resistant to previous conservative treatment,Deci juwan for Surgery (4) Problem Gout (27830741) Gout (M10.9) Active confirmed Problem Primary gout (73456169) Acute idiopathic gout of left ankle (M10.072) Active confirmed Problem Joint contracture of the ankle and/or foot (654434292) 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) Active confirmed Problem Localized, primary osteoarthritis of the ankle and/or foot (330855134) Arthritis of joint of lesser toe, right (M19.071) Active confirmed Vital Signs Blood pressure diastolic 80 mm Hg 06/18/2024 Height 6ft in 06/18/2024 Blood pressure systolic 160 mm Hg 06/18/2024 Weight 275 lbs 06/18/2024 BMI 37.29 kg/m2 06/18/2024 Procedures Procedure Date Ordered Date Performed Result Body Sit e 83505 - Tenotomy, open flexor 08/25/2023 N/A 26452-XWNQTJL NAIL, 6 OR MORE 09/01/2023 N/A 65751-KPZSLBV NAIL, 6 OR MORE 06/18/2024 N/A 36170-TTYRRYF NAIL, 6 OR MORE 04/16/2024 N/A 22588-OGDBXYG NAIL, 6 OR MORE 02/13/2024 N/A 76717-HMPMYVO NAIL, 6 OR MORE 11/10/2023 N/A Encounters Encounter Location Date Provider Diagnosis [address] [address] 08/25/2023 Soila Black Hammer toe of left f oot M20.[address] [address] 09/01/2023 Soila Black Hammer toe of left f oot M20.42 ; Tinea unguium B35.1 ; Pain in right toe(s) M79.674 and Pain in left toe(s) M79.[address] [address] 11/10/2023 Soila Black Tinea unguium B35.1 ; Pain in right toe(s) M79.674 and Pain in left toe(s) M79.[address] [address] 02/13/2024 Soila Black Tinea unguium B35.1 ; Pain in right toe(s) M79.674 and Pain in left toe(s) M79.[address] [address] 04/16/2024 Soila Black Tinea unguium B35.1 ; Other hammer toe(s) (acquired), right foot M20.41 ; Pain in left toe(s) M79.675 ; Pain in right toe(s) M79.674 and Subluxation of metatarsophalangeal joint of toe, initial encounter S93.149A [facility] [address] [place] [address] 06/18/2024 Soila Black Tinea unguium B35.1 ; Pain in left toe(s) M79.675 and Pain in right toe(s) M79.674 Assessments Encounter Date Diagnosis (ICD Code) Assessment Notes Treatment Notes Treatment Clinical Notes Section Notes 08/25/2023 Hammer toe of left f oot (ICD-10 - M20.42) 11/10/2023 Tinea unguium (ICD-1 0 - B35.1) 11/10/2023 Pain in right toe(s) (ICD-10 - M79.674) 02/13/2024 Tinea unguium (ICD-1 0 - B35.1) 02/13/2024 Pain in right toe(s) (ICD-10 - M79.674) 04/16/2024 Tinea unguium (ICD-1 0 - B35.1) 04/16/2024 Other hammer toe(s) (acquired), right foot (ICD-10 - M20.41) Chronic problem, Worse (4) 06/18/2024 Tinea unguium (ICD-1 0 - B35.1) 06/18/2024 Pain in left toe(s) (ICD-10 - M79.675) 09/01/2023 Tinea unguium (ICD-1 0 - B35.1) 09/01/2023 Hammer toe of left f oot (ICD-10 - M20.42) Improvement 09/01/2023 Pain in right toe(s) (ICD-10 - M79.674) 06/18/2024 Pain in right toe(s) (ICD-10 - M79.674) 04/16/2024 Pain in left toe(s) (ICD-10 - M79.675) 02/13/2024 Pain in left toe(s) (ICD-10 - M79.675) 11/10/2023 Pain in left toe(s) (ICD-10 - M79.675) 04/16/2024 Pain in right toe(s) (ICD-10 - M79.674) 09/01/2023 Pain in left toe(s) (ICD-10 - M79.675) 04/16/2024 Subluxation of metatarsophalangeal joint of toe, initial encounter (ICD-10 - S93.149A) Plan Of Treatment Pending Test Test Name Order Date *Uric Acid, Serum 11/04/2022 *CBC With Differential/Platelet 11/05/19 23 *Sedimentation Rate-Westergren C-Reactive Protein, Quant 11/04/2022 X ray : Foot, right 3V 05/29/2012 07228-XBOPFFP NAIL, 6 OR MORE 04/03/2012 69794-TTXHKDS NAIL, 6 OR MORE 07/01/2011 79531-GZJEGDB NAIL, 6 OR MORE 11/24/2020 64515-MUQMORN NAIL, 6 OR MORE 07/23/2019 50368-OHHIPYB NAIL, 6 OR MORE 10/05/2018 37792-UCXPENP NAIL, 6 OR MORE 09/27/2022 83843-SYZMRQS NAIL, 6 OR MORE 10/29/2013 18970-AMVEHCI NAIL, 6 OR MORE 06/25/2013 33882-XSYDHKL NAIL, 6 OR MORE 12/02/2022 60030-NETFTAN NAIL, 6 OR MORE 02/03/2023 69136-MXYXKNG NAIL, 6 OR MORE 04/07/2023 80471-UCSQZZQ NAIL, 6 OR MORE 06/09/2023 96536-DUPLNSY NAIL, 6 OR MORE 04/05/2016 31276-NPGUHCD NAIL, 6 OR MORE 10/22/2021 75254-HYJMTWH NAIL, 6 OR MORE 12/28/2021 13892-NMPMUPV NAIL, 6 OR MORE 03/15/2022 92419-PCAQCKT NAIL, 6 OR MORE 05/24/2022 27065-XSSDJWV NAIL, 6 OR MORE 07/26/2022 49673-TKNMSNU NAIL, 6 OR MORE 09/01/2023 15515-AISKPLB NAIL, 6 OR MORE 11/10/2023 05180-NTLDXPI NAIL, 6 OR MORE 02/13/2024 52748-QJGHQTD NAIL, 6 OR MORE 04/16/2024 76207-PXHWEXP NAIL, 6 OR MORE 06/18/2024 38190-GPTSIHT NAIL, 6 OR MORE 12/09/2016 19546-NKBUZKQ NAIL, 6 OR MORE 09/24/2016 45316-LUCPTSG NAIL, 6 OR MORE 12/07/2010 19412-VCDTOCY NAIL, 6 OR MORE 03/11/2011 81739-GVMUUCL NAIL, 6 OR MORE 10/14/2011 16756-WQGDYYZ NAIL, 6 OR MORE 02/19/2013 56010-EVTBQZX NAIL, 6 OR MORE 03/18/2014 04435-LVUEHTO NAIL, 6 OR MORE 07/05/2016 77544-SKYRYOE NAIL, 6 OR MORE 02/10/2017 56545-NPEJFMT NAIL, 6 OR MORE 05/05/2017 24590-MZFIZYT NAIL, 6 OR MORE 07/21/2017 28272-SIQXPCE NAIL, 6 OR MORE 10/10/2017 89698-AREYIQP NAIL, 6 OR MORE 12/19/2017 84261-NHUWJGW NAIL, 6 OR MORE 03/20/2018 03090-SVXJRWE NAIL, 6 OR MORE 05/22/2018 52080-LPKOUYP NAIL, 6 OR MORE 07/24/2018 23071-WEGFLUQ NAIL, 6 OR MORE 12/21/2018 12728-STOEJIW NAIL, 6 OR MORE 03/12/2019 16672-IEHITCH NAIL, 6 OR MORE 05/14/2019 81287-JQGCORT NAIL, 6 OR MORE 10/01/2019 11053-RCMZSRO NAIL, 6 OR MORE 12/13/2019 40528-BLSFAYF NAIL, 6 OR MORE 02/19/2020 89158-JUEFGKE NAIL, 6 OR MORE 05/01/2020 29952-RQXRUUU NAIL, 6 OR MORE 07/03/2020 60801-YQYEZKK NAIL, 6 OR MORE 09/04/2020 37275-VFPEQHJ NAIL, 6 OR MORE 03/16/2021 79901-ODIPQDQ NAIL, 6 OR MORE 06/11/2021 30297-CZAKJOB NAIL, 6 OR MORE 08/17/2021 80112-FEGSSOJ NAIL, 6 OR MORE 10/30/2012 98410-FYSHGOG NAIL, 6 OR MORE 07/03/2012 52611-Byrhexfl Plate 10/22/2021 89396-Vcsxpowb Plate 12/13/2019 00102-Phzqqljl Plate 05/22/2018 38450-Vyuqeoqs Plate 10/10/2017 59010-Bwnlitjs Plate 03/18/2014 21858-Mkykugtf Plate 11/18/2014 30535-Lkobpjuh Plate 07/15/2014 42515-Qjlcdlao Plate 09/27/2022 35569-Kvwidswd Plate 07/05/2016 93112-Vjyrikky Plate 12/01/2015 89555-Wpqimbvm Plate Each Additional 30978 I&D ABSCESS- SIMPLE,SINGLE 016 94488 - Tenotomy, open flexor 08/25/2023 49205 - Tenotomy, open flexor 04/12/2019 Next Appt Details Provider Name:Soila Villalobos , 08/23/2024 01:00:00 PM, [address] [place] [address], [phone], Provider Name:Soila Villalobos , 10/29/2024 01:30:00 PM, [address] [place] [address], [phone], Insurance Providers Payer Name Payer Address Payer Phone Subscriber Number Group Number Insured Name Patient Relationship to Insured Coverage Start Date Coverage End Date Medicare National [employer] [address] [place] [address] [id number] Ben Hogan Self - patient is the insured [facility] [address] [place] [address] [phone] [id number] Ben Hogan Self - patient is the insured Medical (General) History Medical History History ICD Code vascular phlebitis(clots) mumps measles hypertension chicken pox Gout Arthritis Broken bones ( arm) Surgical History Surgery Date(Month/Year) knee replacement 2009 Foot surgery 12/2013 skin tag removal 10/2017 Back Surgery 04/01/23 Hospitalization History Reason Date(Month/Year) [facility] er visit for fall 02/2024 [facility] - HTN 06/2018
--- OUTSIDE RECORDS SUMMARY | 2024-06-26 12:57 | XMS_ITS ---
Author Organization [facility] Address [address] [place] [address] Care Team Providers Care Pharmacy Clerk Name Role Phone Luis Gauthier MD Primary Care Provider Unaralph granados Black, Soial Unavailable [phone] Allergies Allergen (clinical drug ingredient) Drug/Non Drug Allergy documented on EMR Reaction Allergy Type Onset Date Status Cortisone red face Drug Allergy Active angiotensin-converting enzyme inhibitor (FN) NOEMI Inhibitors swelling Drug Allergy Acti ve REASON FOR VISIT Painful nail(s) aggrevated by shoes and causing difficulty standing/walking. Medications Medication SIG (Take, Route, Frequency, Duration) Notes Start Date End Date Status Colcrys 0.6 MG 1 tablet Orally Once a day for 30 day(s) 10/29/2013 Not-Taking Keflex 500 MG 1 capsule Orally every 12 hrs for 10 day(s) 04/12/2019 Not-Taking Ciclopirox Olamine 0.77% external Apply to effected areas on the feet twice a day for 30 days 07/28/2015 Not-Taking Colcrys 0.6 MG 1 tablet Orally Once a day for 30 day(s) Not-Taking Cephalexin 500 MG 1 tablet Orally every 6 hrs for 10 day(s) 02/17/2016 Not-Taking AFO-fixed Not-Taking Gabapentin 300 MG 1 capsule Orally Three times a day Not-Taking Ammonium Lactate 12 % 1 application Externally Twice a day for 30 days Active predniSONE PRN Active ProAir HFA Active Flovent HFA 110 MCG/ACT 1 puff Inhalatio n Twice a day Active Carvedilol 6.25 MG 1 tablet with food Orally Twice a day Active CeleBREX 200 MG 1 capsule Orally Once a day for 30 day(s) Active Pantoprazole Sodium 40 MG 1 tablet Orally Once a day for 30 day(s) Active Multivitamins Active Aspirin 81 MG 1 tablet Orally Once a day Active Avalide 150-12.5 MG 1 tablet Orally Once a day for 30 day(s) Active amLODIPine Besylate 10 MG 1 tablet Orally Once a day Active Allopurinol 300 MG 1 tablet Orally once a day Active Pregabalin Active Social History Tobacco Use: Social History Observation Description Date Details (start date - stop date) Never Smoker NA - NA Tobacco use other than smoking: Question Answer Notes Are you an other tobacco user? No Tobacco Control (Standard) Question Answer Notes Tobacco use: Nonsmoker Vital Signs Height 6ft in 06/18/2024 Weight 275 lbs 06/18/2024 BMI 37.29 kg/m2 06/18/2024 Blood pressure systolic 160 mm Hg 06/19/19 25 Blood pressure diastolic 80 mm Hg 025 Procedures Procedure Date Ordered Date Performed Result Body Sit e 36635-CEUDDNM NAIL, 6 OR MORE 06/18/2024 N/A Encounters Encounter Location Date Provider Diagnosis [facility] [address] [address] 06/18/2024 Soila Villalobos Tinea unguium B35.1 ; Pain in left toe(s) M79.675 and Pain in right toe(s) M79.674 Assessments Encounter Date Diagnosis (ICD Code) Assessment Notes Treatment Notes Treatment Clinical Notes Section Notes 06/18/2024 Tinea unguium (ICD-10 - B35.1) 06/18/2024 Pain in left toe(s) (ICD-10 - M79.675) 06/18/2024 Pain in right toe(s) (ICD-10 - M79.674) Plan Of Treatment Pending Test Test Name Order Date 95596-MBVJWMV NAIL, 6 OR MORE 06/18/2024 Next Appt Details Follow Up: 2 Months, Reason: Provider Name:Soila Villalobos , 08/23/2024 01:00:00 PM, [address] [place] [address], [phone], Provider Name:Soila Villalobos , 10/29/2024 01:30:00 PM, [address] [place], [phone], Procedure Notes * Category Sub-Category Detail Notes [...] use of a nail nipper and/or dremel-type head wood grinder, to a more viable healthy nail [...] to maintain effectiveness in symptomatic relief - 60813 Progress Notes * Ben SANDSDOB: [birth year] (79 yo M)Acc No.[id number]:06/18/2024 Progress Note Patient:?Ben SANDS Provider:?Soila GINO Villalobos :1945???Age:79 Y???Sex:Male Valdo e:06/18/2024 Address:[address] [place], [place] [phone] Pcp:Luis Gauthier MD Subjective: * Chief Complaints: * ???Painful nail(s) aggrevate d by shoes and causing difficulty standing/walking. * HPI: ???Painful Nails:?Pt States Last PCP Visit:?Date:?12/28/2023 * ROS:?General/Constitutional:?Nausea?denies.?Vomiting?denies.?Hunger Thirst?denies.?Loss appetite?denies.?Chills?denies.?Fatigue?denies.?Fever?denies.?Night Sweats?denies.?Unexplained weight loss?denies.?Unexplained [...] 10/2017Back Surgery 04/01/23 * Hospitalization/Major Diagno stic Procedure:?[facility] - HTN 06/2018[facility] er visit for fall 02/2024 * Family [...] ?Marital status: . 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 * Medications:?TakingPregabali n Allopurinol 300 MG [...] Orally Three times a day Not-Taking/PRN AFO-fixed Not-Taking/PRN Colcrys 0.6 MG Tablet 1 tablet Orally Once a day Not-Taking/PRN Ciclopirox Olamine 0.77% Cream external Apply to effected areas on the feet twice a day Not-Taking/PRN Keflex 500 MG Capsule 1 capsule Orally every 12 hrs Not- Taking/PRN Colcrys 0.6 MG Tablet 1 [...] T1, T2, T3, T4, T5, T6, T8, T9.?Vascular: ?DP PULSES (B):?2/4, B/L.?PT PULSES (B):?2/4, B/L.?CAPILLARY FILL TIME:?immediate, all digits, B/L.?TROPHIC CONDITION-TEXTURE/ELASTICITY/TURGOR/HAIR GROWTH (B):?normal, B/L.?TEMPERTURE GRADIENT (C):?normal, warm to cool, proximal to distal, B/L, B/L.?PIGMENTATION:?normal, B/L.?Dermatologic: ?SKIN FINDINGS:?Skin exam reveals normal color, texture, elasticity, and turgor. There are no masses, nor excrescences. The interspaces are clear, B/L.? Assessment: * Assessment: 1.?Tinea unguium - B35.1 (Pr imary)???2.?Pain in left toe(s) - M79.675???3.?Pain in right toe(s) - M79.674??? Plan: * Treatment: * Procedures:?Debride Nail 6-10:?Nail [...] use of a nail nipper and/or dremel-type head wood grinder, to a more viable healthy nail [...] to maintain effectiveness in symptomatic relief - [address]1831.? * Procedure Codes:?39946 JOHN DE NAIL, 6 OR MORE * Follow Up:?2 Months * Images: * Sign off status: Completed true * Provider:?Soila Villalobos DPM Date:?2024 Generated for Inocencio peace/Prosper/eTransmitting on:?06/26/2024 12:57 PM EDT History and Physical Notes * HPI (History of Present Illness) Category Sub-Category Detail Notes Category Not es Painful Nails Pt States Last PCP Visit: Date:: 12/28/2023 Examination Category Sub-Category Detail Notes Category Not es Dermatologic SKIN FINDINGS: Skin exam reveal s normal color, texture, elasticity, and turgor. There are no masses, nor excrescences. The interspaces are clear, B/L General Examination GENERAL APPEARANCE: Reveals a [...]
--- OUTSIDE RECORDS SUMMARY | 2024-06-26 12:58 | XMS_ITS ---
Author Organization Luis Gauthier MD Address [address] [place] [phone] Care Team Providers Care Circus Performer Name Role Phone Luis Gautiher Primary Care Provider REASON FOR VISIT RE:Need prescription to replace Flovent HFA with Advair HFA Encounters Encounter Location Date Provider Diagnosis Luis Gauthier MD [address] [facility] [address] [place] [phone] 04/27/2024 Luis Gauthier Plan Of Treatment Next Appt Details Provider Name:Luis kirkland, 07/03/2024 10:00:00 AM, [address] [place] [address], [address], [phone], Provider Name:Luis Lewis ier, 12/20/2024 07:15:00 AM, [address] [place] [address], [address], [phone], Provider Name:Luis kirkland, 12/27/2024 08:30:00 AM, [address] [place] [address], [address], [phone], Progress Notes * Ben KRAMER SrDOB: (78 yo M)Acc No.[id number]:04/27/2024 Patient:?Ben KRAMER Sr :1945???Age:78 Y???Sex:Male Address:[address] [facility] [place] [address] * true * Date:? Generated for Inocencio peace/Prosper/eTransmitting on:?06/26/2024 12:57 PM EDT
--- OUTSIDE RECORDS SUMMARY | 2024-06-26 12:58 | XMS_ITS ---
Author Organization Luis Gauthier MD Address [address] [place] [phone] Care Team Providers Care Deputy Probation Officer Name Role Phone Luis Gauthier Primary Care Provider REASON FOR VISIT Need prescription to replace Flovent HFA with Advair HFA Medications Medication SIG (Take, Route, Frequency, Duration) Notes Start Date End Date Status Advair HFA 115-21 MCG/ACT 2 puffs Inhala tion Twice a day for 30 days 04/27/2024 Active Encounters Encounter Location Date Provider Diagnosis Luis Gauthier MD [address] [place] [address] [place] [phone] 04/26/2024 Luis Gauthier Plan Of Treatment Medication Medication Name Sig Start Date Stop Date Notes Advair HFA 115-21 MCG/ACT 2 puffs Inhala tion Twice a day for 30 days 04/27/2024 Next Appt Details Provider Name:Luis kirkland, 07/03/2024 10:00:00 AM, [address] [place] [address], [address], [phone], Provider Name:Luis kirkland, 12/20/2024 07:15:00 AM, [address] [place] [address], [address], [phone], Provider Name:Luis Lewis ier, 12/27/2024 08:30:00 AM, [address], [address], [place], [place], [phone], Progress Notes * Ben KRAMER SrDOB: (78 yo M)Acc No.[id number]:04/26/2024 Patient:?Ben KRAMER Sr :1945???Age:78 Y???Sex:Male Address:[address], [place] [address] * Refills? Start Advair HFA Aerosol, 115-21 MCG/ACT, Inhalation, 1, 2 puffs, Twice a day, 30 days, Refills=11 * true * Date:? Generated for Inocencio peace/Prosper/eTransmitting on:?06/26/2024 12:57 PM EDT
[2024-06-26 13:47] LABS: Reflex LDLD? No
== END 2024-06-26 10:55 | disposition home or self-care (01) ==
LOC: HO.LNP 10:54
PROVIDERS: Visit Provider Internal Medicine
DX: E78.00 Pure hypercholesterolemia, unspecified (principal)
CPT/HCPCS: 80061; 80076

== ENCOUNTER 2024-07-20 07:49 | Outpatient (REF) | payer MEDICARE, SELFPAY ==
--- NOTE | ~2024-07-20 | FL_ITS ---
EXAMINATION: XR FLUOROSCOPY UPPER GI WITH AIR CLINICAL INFORMATION: History of reflux esophagitis. COMPARISON: None available. TECHNIQUE: Routine upper GI contrast study was performed in upright and lying position. FINDINGS: Following oral administration of thick barium and effervescent granules is normal propagation of bolus from the oral cavity through the pharynx, esophagus into stomach without any evidence of obstruction, narrowing or stricture. The mucosal pattern esophagus is normal. On placing patient supine and prone lying the course, caliber and peristalsis of the stomach is normal. The mucosal pattern of stomach and duodenum is normal. There is mild gastroesophageal reflux without hiatal hernia. FLUOROSCOPY TIME: 2 minutes and 0 seconds DOSE AREA PRODUCT: 2116 uGy-m2 (microgray-meter squared) FL/FL upper GI w air IMPRESSION: Mild gastroesophageal reflux without hiatal hernia. Electronically signed by: Thomas Quintero MD 07/20/2024 09:42 AM EDT
--- OUTSIDE RECORDS SUMMARY | 2024-07-20 07:51 | XMS_ITS ---
Author Organization Luis Gauthier MD Address [address] [place], [place] [phone] Care Team Providers Care Vibrator Equipment Tester Name Role Phone Luis Gauthier Primary Care Provider [phone] Results Component Value Reference Range Notes Liver Panel Reviewed date:06/26/2024 06:41:59 PM Interpretation: Performing Lab:[facility], [address] [place] [phone] Notes/Report: Bilirubin Total 0.5 0.0-1.0 mg/dL Bilirubin Direct 0.2 0.0-0.5 mg/dL Aspartate Amino Transferase 39 5-37 U/L Alanine Aminotransferase 31 0-40 U/L Total Protein 6.2 6.5-8.0 g/dL Albumin Level 4.1 3.5-5.0 g/dL Alkaline Phosphatase 76 39-117 U/L Lipid Panel with Reflex Reviewed date:06/26/2024 06:42:36 PM Interpretation: Performing Lab:[address] [id number] Notes/Report: Triglycerides 168 <150 mg/dL Desirable Triglyceride: [...] Location Date Provider Diagnosis Luis Gauthier MD [address] [place] [phone] 06/26/2024 Luis Gauthier Hypercholesteremia E 78.00 Assessments Encounter Date Diagnosis (ICD Code) Assessment Notes Treatment Notes Treatment Clinical Notes Section Notes 06/26/2024 Hypercholesteremia (ICD-10 - E78.00) Plan Of Treatment Next Appt Details Provider Name:Luis kirkland, 08/03/2024 09:15:00 AM, [address] [place] [address], [address], [phone], Provider Name:Luis kirkland, 12/20/2024 07:15:00 AM, [address] [place] [address], [address], [phone], Provider Name:Luis kirkland, 12/27/2024 08:30:00 AM, [address] [place] [address], [address], [phone], Progress Notes * Ben KRAMER SrDOB: (79 yo M)Acc No.[id number]:06/26/2024 Progress Note Patient:?Ben KRAMER Sr Provider:?Luis Gauthier MD :1945???Age:79 Y???Sex:Male Valdo e:06/26/2024 Address: [address], [id number] Subjective: * Chief Complaints: * ???1. FASTING LIPIDS. * Medical History:? Objective: * Vitals:? Assessment: * Assessment: 1.?Hypercholesteremia - E78. 00 (Primary)??? Plan: * Treatment: * Procedure Codes:?58133 VENIP UNCT, ROUTINE* * * The named appointment provid er may or may not be the originator of this progress note, and it is not deemed complete until electronically signed by the appointment provider. Sign off status: Pending * Provider:?Luis Gauthier MD Date:?0 06/26/2024 Generated for Inocencio peace/Prosper/Corinsmitting on:?07/20/2024 07:50 AM EDT
--- OUTSIDE RECORDS SUMMARY | 2024-07-20 07:52 | XMS_ITS ---
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 ; [...] Treatment Pending Test Test Name Order Date [id number] NAIL, 6 OR MORE 06/18/2024 Next Appt Details Follow Up: 2 Months, Reason: Provider Name:Soila Villalobos , 08/23/2024 01:00:00 PM, [address] [place] [address], [phone], Provider Name:Soila Villalobos , 10/29/2024 01:30:00 PM, [address] [place], [phone], Procedure Notes * Category Sub-Category Detail Notes [...] use of a nail nipper and/or dremel-type grinder brake lining, to a more viable healthy nail plate [...] to maintain effectiveness in symptomatic relief - 98894 Progress Notes * Ben SANDSDOB: 8 (79 yo M)Acc No.[id number]:06/18/2024 Progress Note Patient:?Ben SANDS Provider:?Soila GINO Villalobos :1945???Age:79 Y???Sex:Male Valdo e:06/18/2024 Address:[address] [place], [place] [id number] Pcp:Luis Gauthier MD Subjective: * Chief Complaints: [...] 10/2017Back Surgery 04/01/23 * Hospitalization/Major Diagno stic Procedure:[place] [place] visit for [place] 02/2024 * Family [...] walking. ?Marital status: . 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 * Medications:?TakingPregabali n Allopurinol 300 MG [...] use of a nail nipper and/or dremel-type grinder brake lining, to a more viable healthy nail plate [...] to maintain effectiveness in symptomatic relief - 37489.? * Procedure Codes:?99187 JOHN DE NAIL, 6 OR MORE * Follow Up:?2 Months * Images: * Sign off status: Completed true * Provider:?Soila Villalobos DPM Date:?2024 Generated for Inocencio peace/Prosper/eTransmitting on:?07/20/2024 07:52 AM EDT History and Physical Notes * HPI [...]
--- OUTSIDE RECORDS SUMMARY | 2024-07-20 07:52 | XMS_ITS | Patient Health Record ---
Author Organization Luis Chaves MD Address [address] [place], [place] [id number] Care Team Providers Care Shactor Name Role Phone Luis Chaves Primary Care Provider Allergies Allergen (clinical drug ingredient) Drug/Non Drug Allergy documented on EMR Reaction Allergy Type Onset Date Status lisinopril Lisinopril angioedema Drug Allergy Acti ve Results Component Value Reference Range Notes Liver Panel Reviewed date:06/26/2024 06:41:59 PM Interpretation: Performing Lab:[facility], [address] [place] [phone] Notes/Report: Bilirubin Total 0.5 0.0-1.0 mg/dL Bilirubin Direct 0.2 0.0-0.5 mg/dL Aspartate Amino Transferase 39 5-37 U/L Alanine Aminotransferase 31 0-40 U/L Total Protein 6.2 6.5-8.0 g/dL Albumin Level 4.1 3.5-5.0 g/dL Alkaline Phosphatase 76 39-117 U/L Lipid Panel with Reflex Reviewed date:06/26/2024 06:42:36 PM Interpretation: Performing Lab:[facility], [address] [place] [phone] Notes/Report: Triglycerides 168 <150 mg/dL Desirable Triglyceride: [...] ff Reviewed date:12/21/2023 02:28:31 PM Interpretation: Performing Lab:[facility], [address] [place] [phone] Notes/Report: White Blood Count 6.3 4.8-10.8 X10*3/uL [...] NRBC Abs Auto 0.000 0.0-0.012 X10*3/uL Comprehensive Reading. Panel Fa st Reviewed date:12/21/2023 06:53:29 PM Interpretation: Performing Lab:[facility], [address] [place] [phone] Notes/Report: Sodium 143 135-145 mmol/L Potassium 4.0 3.3-5.1 mmol/L Chloride 107 96-108 mmol/L Carbon Dioxide 32 22-29 mmol/L Anion Gap 8 12-20 Blood Urea Nitrogen 18 9-16 mg/dL Creatinine 1.17 0.5-1.4 mg/dL Estimated Glomerular Filt Rate > 60 NOTE: For -[place] individuals, multiply the result by 1.210. Chronic [...] Panel Reviewed date:12/21/2023 02:16:56 PM Interpretation: Performing Lab:[facility], [address] [place] [phone] Notes/Report: Triglycerides 91 <150 mg/dL Desirable Triglyceride: [...] (Free>4and<10) Reviewed date:12/21/2023 02:15:52 PM Interpretation: Performing Lab:[facility], [address] [place] [phone] Notes/Report: PSA,Total (Free>4and<10) 2.21 0.00-4.00 ng/mL A [...] t Reviewed date:12/21/2023 06:42:42 PM Interpretation: Performing Lab:[facility], [address] [place] [phone] Notes/Report: Urine, Clean Catch Color Urine Yellow Appearance Urine Clear PH 7.0 5.0-9.0 Glucose Urine UA Negative Negative mg/dL Urine Blood Negative Negative Specific [place] - Urine 1.015 1.005-1.025 Urine Protein Negative [...] date:09/20/2023 10:43:04 AM Interpretation: Performing Lab: Notes/Report: [address] [address] [address] Scan Report Signed Patient: Ben Kramer MR#: [id number] : 1945 Acct:[id number] Age/Sex: 78 / M ADM Date: 09/19/23 Loc: HO.ED Attending Dr: Ordering Physician: Edwina Downs Date of Service: 09/19/23 Procedure(s): CT cervical spine wo IV con Accession Number(s): [id number] cc: Luis Chaves MD; Edwina Downs EXAM: [...] in OV> 09/19/23 1829 DD/ 1723 TD/TT: Perinatal Breastfeeding Assistant: [address] [address] [address] Scan Report Signed Patient: Ben Kramer MR#: [id number] : 1945 Acct:[id number] Age/Sex: 78 / M ADM Date: 09/19/23 Loc: HO.ED Attending Dr: Ordering Physician: Edwina Downs Date of Service: 09/19/23 Procedure(s): CT cervical spine wo IV con Accession Number(s): [id number] cc: Luis Chaves MD; Edwina Downs EXAM: [...] in OV> 09/19/23 1829 DD/ 1723 TD/TT: Perinatal Breastfeeding Assistant: ELIAS CT head/brain wo con Reviewed date:09/20/2023 10:42:35 AM Interpretation: Performing Lab: Notes/Report: [address] [address] [address] Scan Report Signed Patient: Ben Kramer MR#: [id number] : 1945 Acct:[id number] Age/Sex: 78 / M ADM Date: 09/19/23 Loc: HO.ED Attending Dr: Ordering Physician: Edwina Downs Date of Service: 09/19/23 Procedure(s): CT head/brain wo IV con Accession Number(s): [id number] cc: Luis Chaves MD; Edwina Downs EXAM: [...] in OV> 09/19/23 1829 DD/ 1723 TD/TT: Perinatal Breastfeeding Assistant: [address] [address] [address] Scan Report Signed Patient: Ben Kramer MR#: [id number] : 1945 Acct:[id number] Age/Sex: 78 / M ADM Date: 09/19/23 Loc: HO.ED Attending Dr: Ordering Physician: Edwina Downs Date of Service: 09/19/23 Procedure(s): CT head/brain wo IV con Accession Number(s): [id number] cc: Luis Chaves MD; Edwina Downs EXAM: [...] acute fracture subluxation cervical spine. Dictated By: [facility] Crane MD Signed By: <Electronically signed by Laron Crane MD in OV> 09/19/23 1829 DD/ 1723 TD/TT: Student Affairs Dean ist: SL XR shoulder LT min 2V Reviewed date:09/22/2023 12:41:35 PM Interpretation: Performing Lab: Notes/Report: [address] [address] XRay Report Signed Patient: Ben Dia MR#: [id number] : 1945 Acct:[id number] Age/Sex: 78 / M ADM Date: 09/19/23 Loc: HO.ED Attending Dr: Ordering Physician: Edwina Downs Date of Service: 09/19/23 Procedure(s): XR shoulder LT min 2V Accession Number(s): [id number] cc: Luis Chaves MD; Edwina Downs EXAMINATION: [...] in OV> 09/19/23 1448 DD/ 1406 TD/TT: Perinatal Breastfeeding Assistant: [address] [address] XRay Report Signed Patient: Catie Dia MR#: [id number] : 1945 Acct:[id number] Age/Sex: 78 / M ADM Date: 09/19/23 Loc: HO.ED Attending Dr: Ordering Physician: Edwina Downs Date of Service: 09/19/23 Procedure(s): XR shoulder LT min 2V Accession Number(s): [id number] cc: Luis Chaves MD; Edwina Downs EXAMINATION: [...] in OV> 09/19/23 1448 DD/ 1406 TD/TT: Student Affairs Dean ist: SS Complete Blood Count Auto Di ff Reviewed date:09/26/2023 12:38:17 PM Interpretation: Performing Lab:[facility], [address] [place] [phone] Notes/Report: White Blood Count 7.8 4.8-10.8 X10*3/uL [...] Panel Reviewed date:09/26/2023 12:32:32 PM Interpretation: Performing Lab:[facility], [address] [place] [phone] Notes/Report: Sodium 143 135-145 mmol/L Potassium 4.9 3.3-5.1 mmol/L Chloride 105 96-108 mmol/L Carbon Dioxide 30 22-29 mmol/L Anion Gap 13 12-20 Blood Urea Nitrogen 25 9-16 mg/dL Creatinine 1.20 0.5-1.4 mg/dL Estimated Glomerular Filt Rate 59 NOTE: For -[place] individuals, multiply the result by 1.210. Chronic [...] Acid Reviewed date:09/26/2023 12:32:14 PM Interpretation: Performing Lab:[facility], [address] [place] [phone] Notes/Report: Uric Acid 4.9 3.4-7.0 mg/dL XR hand RT 2V Reviewed date:02/12/2024 11:57:10 AM Interpretation: Performing Lab: Notes/Report: [address] [address] XRay Report Signed Patient: Ben Kramer MR#: [id number] : 1945 Acct:[id number] Age/Sex: 78 / M ADM Date: 02/11/24 Loc: HO.ED Attending Dr: Ordering Physician: Bushra Bunch NP Date of Service: 02/11/24 Procedure(s): XR hand RT 2V Accession Number(s): [id number] cc: Luis Chaves MD; Bushra Bunch NP [...] by: Noe Swann MD 02/11/2024 05:35 PM [facility] Dictated By: Noe Swann MD Signed By: <Electronically signed by Noe Swann MD in OV> 02/11/24 1735 DD/ 1655 TD/TT: 02/11/24 1700 Perinatal Breastfeeding Assistant: [place] [address] XRay Report Signed Patient: Ben Kramer MR#: [id number] : 1945 Acct:[id number] Age/Sex: 78 / M ADM Date: 02/11/24 Loc: HO.ED Attending Dr: Ordering Physician: Bushra Bunch NP Date of Service: 02/11/24 Procedure(s): XR calhoun d RT 2V Accession Number(s): [id number] cc: Luis Chaves MD; Bushra Bunch NP [...] by: Noe Swann MD 02/11/2024 05:35 PM EST Dictated By: Noe Swann MD Signed By: <Electronically signed by Noe Swann MD in OV> 02/11/24 1735 DD/ 1655 TD/TT: 02/11/24 1700 Perinatal Breastfeeding Assistant: FINA XR hand RT 2V Reviewed date:02/12/2024 11:48:54 AM Interpretation: Performing Lab: Notes/Report: [address] [address] XRay Report Signed Patient: Ben Kramer MR#: [id number] : 1945 Acct:[id number] Age/Sex: 78 / M ADM Date: 02/11/24 Loc: HO.ED Attending Dr: Ordering Physician: Bushra Bunch NP Date of Service: 02/11/24 Procedure(s): XR hand RT 2V Accession Number(s): [id number] cc: Luis Chaves MD; Bushra Bunch NP [...] as described above. Electronically signed by: Noe Swann MD 02/11/2024 08:27 PM EST RP Dictated By: Noe Swann MD Signed By: <Electronically signed by Noe Swann MD in OV> 02/11/242026 DD/ 15 TD/TT: 02/11/241927 Perinatal Breastfeeding Assistant: [address] [address] XRay Report Signed Patient: Ben Kramer MR#: [id number] : 1945 Acct:[id number] Age/Sex: 78 / M ADM Date: 02/11/24 Loc: HO.ED Attending Dr: Ordering Physician: Bushra Bunch NP Date of Service: 02/11/24 Procedure(s): XR calhoun d RT 2V Accession Number(s): [id number] cc: Luis Chaves MD; Bushra Bunch NP [...] by: Noe Swann MD 02/11/2024 08:27 PM EST RP Dictated By: Noe Swann MD Signed By: <Electronically signed by Noe Swann MD in OV> 02/11/242026 DD/ 15 TD/TT: 02/11/241927 Perinatal Breastfeeding Assistant: Basic Metabolic Panel Reviewed date:03/01/2024 08:49:05 AM Interpretation: Performing Lab:[facility] [address] Notes/Report: Sodium 143 135-145 mmol/L Potassium 4.5 [...] Panel Reviewed date:03/16/2024 05:41:41 PM Interpretation: Performing Lab:[address] [phone] Notes/Report: CC BUN AND CREAT TO DR. [...] Acid Reviewed date:03/16/2024 05:26:58 PM Interpretation: Performing Lab:[address] [address] Notes/Report: CC BUN AND CREAT TO DR. CHAVES Uric Acid 5.5 3.4-7.0 mg/dL Hold Gold Reviewed date:06/26/2024 12:35:07 PM Interpretation: Performing Lab:[facility], [address] [facility], [place] [address] Notes/Report: Hold Gold See Note Specimen held untested for 24 hours; Call to request Chemistry testing. Reason For Referral No Information Medications Medication SIG (Take, Route, Frequency, Duration) Notes Start Date End Date Status Advair HFA 115-21 MCG/ACT 2 puffs Inhala tion Twice a day for 30 days 04/27/2024 Active Allopurinol 300 MG 1tablet Orally Once a day Active Aspir-81 81 MG 1 tablet Orally Once a day for 30 day(s) Not-Taking Flovent HFA 110 MCG/ACT 2 puffs Inhalati on Twice a day 06/07/2022 Active LORazepam 0.5 MG 1 tablet as needed Orally Twice a day for 7 days 06/09/2018 Not-Taking Albuterol Sulfate HFA 108 (90 Base) MCG/ACT INHALE 2 PUFFS BY MOUTH EVERY 4 HOURS NEEDED Active Amoxicillin 500 MG 4capsule Orally 1 ho ur prior to dental Not-Taking Carvedilol 6.25 MG TAKE 1 TABLET BY MEREDITH TH TWICE DAILY Active Nasacort Allergy 24HR 55 MCG/ACT 1 puff in each nostril Nasally Once a day for 30 day(s) 03/28/2015 Not-Taking Irbesartan-hydroCHLOROthi azide 150-12.5 MG TAKE 1 TABLET BY MOUTH EVERY DAY Active Advair Diskus 500-50 MCG/DOSE 1 puff Inhalation Twice a day 06/22/2012 Not-Taking Celecoxib 200 MG TAKE 1 CAPSULE BY MO UT EVERY DAY Active Flonase 50 MCG/ACT 2 sprays Nasally Onc e a day for 90 days Not-Taking Atorvastatin Calcium 20 MG TAKE 1 TABLET BY MOUTH EVERY DAY Active Gabapentin 100 MG 2 capsule Twice a day Active Pantoprazole Sodium 40 MG TAKE 2 TABLETS BY MOUTH EVERY DAY for 90 Active amLODIPine Besylate 10 MG TAKE 1 TABLET BY MOUTH EVERY DAY for 90 Active Immunizations Vaccine Route Administration Date Status Comme nts Flu Vaccine IM Intramuscular 12/18/2010 Administered PPSV23 (Pnemovax) IM Intramuscular 07/11/2012 Administered Flu Vaccine Unknown 12/15/2012 Administered At work [facility] [place] Fluarix Quadrivalent IM Intramuscular 11/20/2013 Administe red Prevnar 13 IM Intramuscular 03/11/2014 Administered zFluzone Quadrivalent Unknown 12/31/2014 Administered given at work Fluarix Quadrivalent Unknown 11/26/2015 Administered At work [employer] Fluarix Quadrivalent Unknown 12/17/2016 Administered At The [facility] TDaP Unknown 05/20/2008 Administered Shingles Unknown 05/20/2008 Administered PPSV23 (Pnemovax) IM Intramuscular 05/29/2018 Administered Fluarix Quadrivalent Unknown 12/16/2017 Administered pt was given the vaccine at work. Shingrix IM Intramuscular 10/24/2018 Administered pt was given the vaccine at [facility] in [place]. Shingrix IM Intramuscular 01/06/2019 Administered pt was given the vaccine at [facility] in [place]. Influenza High Dose Unknown 11/29/2019 Administered Teddy sher s TDaP Unknown 10/25/2019 Administered Radha's Covid Vaccine Unknown 04/29/2020 Administered Moderna Covid Vaccine Unknown 05/27/2020 Administered Moderna Influenza High Dose Unknown 12/05/2020 Administered Teddy sher's SARS-COV-2 Moderna Unknown 06/12/2021 Administered Isabel carballo's [...] Problem Status W/U Status Risk Notes Problem 121165634 Atherosclerotic heart disease of [place] coronary artery without angina pectoris (I25.10) Active confirmed Problem Prostatism (10346430) Prostatism (N40.0) Active confirmed Problem Reflux esophagit is (K21.00) Active confirmed Problem 062797008 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 Problem 22374297 Anxiety (F41.9) Active confirmed Problem 14146779 Obstructive slee p apnea (adult) (pediatric) (G47.33) Active confirmed Problem 4136826 Arthritis (M19.90) Active confirmed Problem 451910445 Lumbar disc dise ase (M51.9) Active confirmed Problem 761818697 Gastroesophageal reflux disease without esophagitis (K21.9) Active confirmed Problem 56262518 Essential hypertension (I10) Active confirmed Problem 579931005 Mild intermitten t asthma without complication (J45.20) Active confirmed Problem 373196184 Low HDL (under 4 0) (E78.6) Active confirmed Problem 357709029 Non morbid obesi ty due to excess calories (E66.09) Active confirmed Problem 619571599 History of gout (Z87.39) Active confirmed Problem 108391775 Esophageal dysmotility (K22.4) Active confirmed Problem 74435305 Obstructive slee p apnea (G47.33) Active confirmed Problem 73590480 Hypercholesterem ia (E78.00) Active confirmed Problem 23829063 OSMEL (obstructive sleep apnea) (G47.33) Active confirmed Problem 863326393 Nodule of kidney (N28.89) Active confirmed Vital Signs Blood pressure diastolic 60 mm Hg 07/03/2024 gwendolyn ght is down 8 pounds since 12-26-23 Height 72 in 07/03/2024 weight is down 8 pounds since 12-26-23 Blood pressure systolic 122 mm Hg 07/03/2024 marshall ht is down 8 pounds since 12-26-23 Weight 273 lbs 07/03/2024 weight is down 8 pounds since 12-26-23 BMI 37.02 kg/m2 07/03/2024 weight is down 8 pounds since 12-26-23 Encounters Encounter Location Date Provider Diagnosis Luis Chaves MD [address] [place] [id number] 06/26/2024 Luis Chaves Hypercholesteremia E 78.00 Luis Chaves MD [address] [place] [id number] 12/20/2023 Luis Chaves Essential hypertensi on I10 ; Low HDL (under 40) E78.6 and Hypercholesteremia E78.00 Luis Chaves MD [address] [place] [id number] 12/26/2023 Luis Chaves Mild intermittent as thma without complication J45.20 ; Essential hypertension I10 ; Obstructive sleep apnea G47.33 ; Hypercholesteremia E78.00 ; Lumbar disc disease M51.9 ; History of gout Z87.39 ; Gastroesophageal reflux disease without esophagitis K21.9 ; Arthritis M19.90 ; Colon cancer screening Z12.11 and Depression screening Z13.31 Luis Chaves MD [address] [place] [id number] 07/03/2024 Luis Chaves Vision changes H53.9 ; Hypercholesteremia E78.00 ; Prostatism N40.0 and Reflux esophagitis K21.00 Luis Chaves MD [address] [place] [address] [id number] 09/20/2023 Luis Chaves MD [address] [place] [id number] 02/13/2024 Luis Chaves MD [address] [place] [address] [address] [id number] 04/26/2024 Luis Chaves MD [address] [place] [address] [address] [id number] 04/27/2024 Luis Chaves Assessments Encounter Date Diagnosis (ICD Code) Assessment Notes Treatment Notes Treatment Clinical Notes Section Notes 06/26/2024 Hypercholesteremia (ICD-10 - E78.00) 12/20/2023 Essential hypertension (ICD-10 - I10) 12/20/2023 Low HDL (under 40) (ICD-10 - E78.6) 12/26/2023 Mild intermittent asthma without complication (ICD-10 - J45.20) is stable, will continue current regiment 12/26/2023 Essential hypertension (ICD-10 - I10) well controlled, will continue current regiment 07/03/2024 Vision changes (ICD-10 - H53.9) advised to get back to his ophthalmonoloigst 07/03/2024 Hypercholesteremia (ICD-10 - E78.00) stable, will continue current regiment 12/20/2023 Hypercholesteremia (ICD-10 - E78.00) 12/26/2023 Obstructive sleep apnea (ICD-10 - G47.33) using cpap nightly, doing well 07/03/2024 Prostatism (ICD-10 - N40.0) states that each time is a lot of urine. would fill a bottle each time 12/26/2023 Hypercholesteremia (ICD-10 - E78.00) stable, at goal, will cpntinue current regiment 07/03/2024 Reflux esophagitis (ICD-10 - K21.00) pending diagnostic testing 12/26/2023 Lumbar disc disease (ICD-10 - M51.9) stable, will continue current regiment 12/26/2023 History of gout (ICD-10 - Z87.39) doing well, will continue current regiment 12/26/2023 Gastroesophageal reflux disease without esophagitis (ICD-10 - K21.9) stbale, will contiue current regiment 12/26/2023 Arthritis (ICD-10 - M19.90) stab;e, will continue current regiment 12/26/2023 Colon cancer screening (ICD-10 - Z12.11) guaiac negative 12/26/2023 Depression screening (ICD-10 - Z13.31) negative screen Plan Of Treatment Pending Test Test Name Order Date XR GI SERIES 07/03/2024 CT lumbar spine wo con 12/17/2021 Next Appt Details Provider Name:Luis kirkland, 08/03/2024 09:15:00 AM, [address] [place] [address], [address], [phone], Provider Name:Luis kirkland, 12/20/2024 07:15:00 AM, [address] [place] [address], [address], [phone], Provider Name:Luis kirkland, 12/27/2024 08:30:00 AM, [address] [place] [address], [address], [phone], Insurance Providers Payer Name Payer Address Payer Phone Subscriber Number Group Number Insured Name Patient Relationship to Insured Coverage Start Date Coverage End Date MEDICARE NHIC EDDIE [address] [place] [address] [id number] Ben Kramer Self - patient is the insured [employer] [address] [place], [place] [id number] [id number] Ben Self - patient is the insured Medical (General) History Medical History History ICD Code phlebitis Gout hematuria .cysto in 2004 colonoscopy 02/2003; 03/2013 - repeat 10 years sleep study 10/2008 Surgical History Surgery Date(Month/Year) Left Achilles Lengthening 12/2012
--- OUTSIDE RECORDS SUMMARY | 2024-07-20 07:52 | XMS_ITS | Patient Health Record ---
[facility] Organization [facility] Address [address] [facility] [address] [place] [address] Care Team Providers Care Care Manager Name Role Phone Luis Gauthier MD Primary Care Provider Mariam Villalobos, Soial Unavailable [phone] Allergies Allergen (clinical drug ingredient) Drug/Non Drug [...] Notes Problem Cellulitis of left lower limb (258972160092024 09) Cellulitis of left lower limb (L03.116) Active confirmed Problem Localized, primary osteoarthritis of the ankle and/or foot (120028583) Primary osteoarthriti s, left ankle and foot (M19.072) Active confirmed Problem Acquired hammer toe of right foot (859548620149976 5) Other hammer toe(s) (acquired), right foot (M20.41) Active confirmed Chronic problem, Worse (4) Problem Primary gout (91897946) Idiopathic gout, 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) Active confirmed Problem Acquired hammer toe of left foot (130145870052847 3) Hammer toe of left foot (M20.42) Active confirmed Resistant to previous conservative treatment,Deci juwan for Surgery (4) Problem Gout (14698567) Gout (M10.9) Active confirmed Problem Primary gout (75375773) Acute idiopathic gout of left ankle (M10.072) Active confirmed Problem Joint contracture of the ankle and/or foot (466264339) 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) Active confirmed Problem Localized, primary osteoarthritis of the ankle and/or foot (997345453) Arthritis of joint of lesser toe, right (M19.071) Active confirmed Vital Signs Blood pressure diastolic 80 mm Hg 06/18/2024 Height 6ft in 06/18/2024 Blood pressure systolic 160 mm Hg 06/18/2024 Weight 275 lbs 06/18/2024 BMI 37.29 kg/m2 06/18/2024 Procedures Procedure Date Ordered Date Performed Result Body Sit e 31456 - Tenotomy, open flexor 08/25/2023 N/A 21778-JCSRWSP NAIL, 6 OR MORE 09/01/2023 N/A 12251-VSRWPCO NAIL, 6 OR MORE 11/10/2023 N/A 33732-RBFHQCP NAIL, 6 OR MORE 02/13/2024 N/A 36007-YWLAWDH NAIL, 6 OR MORE 04/16/2024 N/A 91835-LTTLWIX NAIL, 6 OR MORE 06/18/2024 N/A Encounters Encounter Location Date Provider Diagnosis [address] [address] 08/25/2023 Soila Black Hammer toe of left f oot M20.[address] [address] 09/01/2023 Soila Black Hammer toe of left f oot M20.42 ; Tinea unguium B35.1 ; Pain in right toe(s) M79.674 and Pain in left toe(s) M79.[address] [address] 11/10/2023 Soila Black Tinea unguium B35.1 ; Pain in right toe(s) M79.674 and Pain in left toe(s) M79.[address] [address] 02/13/2024 Soila Black Tinea unguium B35.1 ; Pain in right toe(s) M79.674 and Pain in left toe(s) M79.[address] [address] 04/16/2024 Soila Black Tinea unguium B35.1 ; Other hammer toe(s) (acquired), right foot M20.41 ; Pain in left toe(s) M79.675 ; Pain in right toe(s) M79.674 and Subluxation of metatarsophalangeal joint of toe, initial encounter S93.149A [facility] [address] [place] [address] 06/18/2024 Soila Black Tinea unguium B35.1 ; Pain in left toe(s) M79.675 and Pain in right toe(s) M79.674 Assessments Encounter Date Diagnosis (ICD Code) Assessment Notes Treatment Notes Treatment Clinical Notes Section Notes 08/25/2023 Hammer toe of left f oot (ICD-10 - M20.42) 09/01/2023 Tinea unguium (ICD-1 0 - B35.1) 09/01/2023 Hammer toe of left f oot (ICD-10 - M20.42) Improvement 11/10/2023 Tinea unguium (ICD-1 0 - B35.1) [...] in left toe(s) (ICD-10 - M79.675) 09/01/2023 Pain in right toe(s) (ICD-10 - [...] X ray : Foot, right 3V 05/29/2012 62312-MOQPKBT NAIL, 6 OR MORE 07/03/2012 08851-TVEOVLP NAIL, 6 OR MORE 10/30/2012 86850-REBLKFQ NAIL, 6 OR MORE 02/19/2013 64166-SBSJOMY NAIL, 6 OR MORE 06/25/2013 98669-GYZBVSK NAIL, 6 OR MORE 10/29/2013 81432-SOKXPFG NAIL, 6 OR MORE 03/18/2014 87015-MMQVPLH NAIL, 6 OR MORE 12/07/2010 20254-LOVZIRR NAIL, 6 OR MORE 03/11/2011 08312-XCZODXV NAIL, 6 OR MORE 07/01/2011 06167-TRCIRPY NAIL, 6 OR MORE 10/14/2011 90004-OCITJDF NAIL, 6 OR MORE 04/03/2012 54974-MDNXDYE NAIL, 6 OR MORE 04/05/2016 65640-GSVUCOZ NAIL, 6 OR MORE 07/05/2016 42971-FTMYYUJ NAIL, 6 OR MORE 09/24/2016 18524-OFIVCKL NAIL, 6 OR MORE 12/09/2016 56093-FZWXAUZ NAIL, 6 OR MORE 02/10/2017 54614-TJJOOVY NAIL, 6 OR MORE 05/05/2017 22099-PLCKLFP NAIL, 6 OR MORE 07/21/2017 20843-QEBOHZD NAIL, 6 OR MORE 10/10/2017 66273-LBVHMSF NAIL, 6 OR MORE 12/19/2017 56354-NKJKGEX NAIL, 6 OR MORE 03/20/2018 47939-XKXURSI NAIL, 6 OR MORE 05/22/2018 73194-XWZOJKC NAIL, 6 OR MORE 07/24/2018 77279-QZCZCZJ NAIL, 6 OR MORE 10/05/2018 51853-EEZNTOU NAIL, 6 OR MORE 12/21/2018 56601-BZXYFYF NAIL, 6 OR MORE 03/12/2019 98086-XKEBZDD NAIL, 6 OR MORE 09/27/2022 03543-VTMPYUK NAIL, 6 OR MORE 12/02/2022 56008-NILNIYI NAIL, 6 OR MORE 02/03/2023 67399-GGMSZFQ NAIL, 6 OR MORE 04/07/2023 79450-YXODVLR NAIL, 6 OR MORE 06/09/2023 59241-CNNUMLO NAIL, 6 OR MORE 09/01/2023 84729-IRTEUHN NAIL, 6 OR MORE 11/10/2023 48858-QLKFMVH NAIL, 6 OR MORE 02/13/2024 47594-XFROOMV NAIL, 6 OR MORE 04/16/2024 92816-UQNNSTT NAIL, 6 OR MORE 06/18/2024 36479-CZIFDXZ NAIL, 6 OR MORE 02/19/2020 71932-KISNQKA NAIL, 6 OR MORE 05/01/2020 22067-KFWTNYY NAIL, 6 OR MORE 07/03/2020 40939-NJEJQMO NAIL, 6 OR MORE 09/04/2020 12404-JMKFWPF NAIL, 6 OR MORE 11/24/2020 80820-UAKZICN NAIL, 6 OR MORE 03/16/2021 41830-TUMXKDO NAIL, 6 OR MORE 06/11/2021 61413-JZNTDLI NAIL, 6 OR MORE 08/17/2021 30829-BCGIOJV NAIL, 6 OR MORE 05/14/2019 15551-RDUNDNM NAIL, 6 OR MORE 07/23/2019 99901-ERDTEUW NAIL, 6 OR MORE 10/01/2019 94996-FFVODPI NAIL, 6 OR MORE 12/13/2019 64282-ZPNSBGR NAIL, 6 OR MORE 10/22/2021 30304-RUKKCIT NAIL, 6 OR MORE 12/28/2021 01268-FAYOJIF NAIL, 6 OR MORE 03/15/2022 10872-YCCXELX NAIL, 6 OR MORE 05/24/2022 04318-VHPRHAW NAIL, 6 OR MORE 07/26/2022 59531-Xyskfype Plate 09/27/2022 90594-Wnbkcpqk Plate 12/13/2019 62791-Ktwytipv Plate 10/22/2021 28865-Jrdtiwpm Plate 05/22/2018 14468-Owhghakt Plate 10/10/2017 18394-Wqerjono Plate 07/05/2016 85023-Ndmaqema Plate 12/01/2015 94697-Ufzbyvcw Plate 03/18/2014 66089-Wyulzhvr Plate 07/15/2014 46039-Pswzxmmy Plate 11/18/2014 72227-Kppwtaoz Plate Each Additional 10724 I&D ABSCESS- SIMPLE,SINGLE 016 17862 - Tenotomy, open flexor 04/12/2019 58295 - Tenotomy, open flexor 08/25/2023 Next Appt Details Provider Name:Soila Villalobos , 08/23/2024 01:00:00 PM, [address] [place] [address], [phone], Provider Name:Soila Villalobos , 10/29/2024 01:30:00 PM, [address] [place] [address], [phone], Insurance Providers Payer Name Payer Address Payer Phone Subscriber Number Group Number Insured Name Patient Relationship to Insured Coverage Start Date Coverage End Date Medicare National [employer] [address] [place] [address] [id number] Ben Hogan Self - patient is the insured [facility] [address] [place] [address] [phone] [id number] Ben Hogan Self - patient is the insured Medical (General) History Medical History History ICD Code vascular phlebitis(clots) mumps measles hypertension chicken pox Gout Arthritis Broken bones ( arm) Surgical History Surgery Date(Month/Year) knee replacement 2009 Foot surgery 12/2013 skin tag removal 10/2017 Back Surgery 04/01/23 Hospitalization History Reason Date(Month/Year) [facility] er visit for fall 02/2024 [facility] - HTN 06/2018
--- OUTSIDE RECORDS SUMMARY | 2024-07-20 07:52 | XMS_ITS ---
Author Organization [facility] Address [address] [place] [address] Care Team Providers Care Printing Pressman Name Role Phone Luis Gauthier MD Primary Care Provider Unavajane granados Black, Soila Unavailable [phone] Allergies Allergen (clinical drug ingredient) Drug/Non Drug [...] Ordered Date Performed Result Body Sit e 00664-FDDVVOU NAIL, 6 OR MORE 02/13/2024 N/A Encounters Encounter Location Date Provider Diagnosis [facility] [address] [place] [address] 02/13/2024 Soila Villalobos Tinea unguium B35.1 ; [...] Treatment Pending Test Test Name Order Date 57207-OZPYRTE NAIL, 6 OR MORE 02/13/2024 Next Appt Details Follow Up: prn, Reason: Provider Name:Solia Villalobos , 08/23/2024 01:00:00 PM, [address] [place] [address], [phone], Provider Name:Soila Villalobos , 10/29/2024 01:30:00 PM, [address] [place] [address], [phone], Procedure Notes * Category Sub-Category Detail Notes [...] use of a nail nipper and/or dremel-type platen grinder, to a more viable healthy nail [...] to maintain effectiveness in symptomatic relief - 22568 Progress Notes * Ben SANDSDOB: 8 (78 yo M)Acc No.[id number]:02/13/2024 Progress Note Patient:?Ben SANDS Provider:?Soila Villalobos DPM :1945???Age:78 Y???Sex:Male Valdo e:02/13/2024 Address:[address] [place], [place] [address] Pcp:Luis Gauthier MD Subjective: * Chief Complaints: [...] 10/2017Back Surgery 04/01/23 * Hospitalization/Major Diagno stic Procedure:?[facility] - HTN 06/2018[facility] er visit for fall 02/2024 * Family [...] walking. ?Marital status: . 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 ???Drug/Alcohol:?AUDIT-C (Standard)?Did you have a drink containing [...] use of a nail nipper and/or dremel-type platen grinder, to a more viable healthy nail [...] to maintain effectiveness in symptomatic relief - 58387.? * Procedure Codes:?76277 DEBRI DE NAIL, 6 OR MORE * Preventive Medicine:? ??Screening/Special Tests:?Fall Risk?Assessment:?Performed ?Plan of Care:?Documented ?Type of fall plan of care:?Balance, strength and gait training or instruction provided ?Screening:?Two or more falls with injury in the past year * Follow Up:?prn * Images: * Sign off status: Completed true * Provider:?Soila Villalobos DPM Date:?2023 Generated for Inocencio peace/Prosper/Dorinda on:?07/20/2024 07:52 AM EDT History and Physical [...]
--- OUTSIDE RECORDS SUMMARY | 2024-07-20 07:53 | XMS_ITS ---
Author Organization Luis Gauthier MD Address [address] [place], [place] [phone] Care Team Providers Care Consumer Banker Name Role Phone Luis Gauthier Primary Care Provider [phone] Allergies Allergen (clinical drug ingredient) Drug/Non Drug [...] Status W/U Status Risk Notes Problem Prostatism (59735392) Prostatism (N40.0) Active confirmed Problem Reflux esophagitis (K21.00) Active confirmed Vital Signs Blood pressure systolic 122 mm Hg 07/04/19 25 Blood pressure diastolic 60 mm Hg 025 Height 72 in 07/03/2024 Weight 273 lbs 07/03/2024 BMI 37.02 kg/m2 07/03/2024 weight is down 8 pounds [facility] 12-26-23 Encounters Encounter Location Date Provider Diagnosis Luis Gauthier MD [address] [place] [address] [place] [phone] 07/03/2024 Luis Gauthier Vision changes H53.9 ; [...] 4 Weeks, Reason: Provider Name:Luis Lewis ier, 08/03/2024 09:15:00 AM, [address] [place] [address], [address], [place], [place], [phone], Provider Name:Luis Lewis ier, 12/20/2024 07:15:00 AM, [address] [place] [address], [address], [place], [place], [phone], Provider Name:Luis Lewis ier, 12/27/2024 08:30:00 AM, [address] [place] [address], Suite [facility], [place], [place], [phone], Progress Notes * Ben KRAMER SrDOB: (79 yo M)Acc No.[id number]:07/03/2024 Progress Notes Patient:?Ben KRAMER Sr Provider:?Luis Gauthier MD :1945???Age:79 Y???Sex:Male Valdo e:07/03/2024 Address: [address], [place], [place] Subjective: * Chief Complaints: * ???6 MO F/UC/o reflux especi ally at night * HPI: ???Symptom(s):?patient is a 79 yo male here for 6 month follow up visit./ complaining of a lot of reflux. thinks he urinates to often. * ROS:?General/Constitutional:?Denies?Chills.?Denies?Fatigue.?Denies?Fever.?Denies?Headache.?ENT:?Denies?Sore throat.?Respiratory:?Denies?Cough.?Denies?Shortness of breath at rest.?Denies?Shortness of breath with exertion.?Gastrointestinal:?Admits?Abdominal pain.?Denies?Diarrhea.?Admits?Heartburn.?Denies?Nausea.? * Medical History:? * Surgical History:? * Hospitalization/Major Diagno stic Procedure:? * Medications:?TakingAllopurin ol 300 MG Tablet 1tablet Orally Once a day Flovent HFA 110 MCG/ACT Aerosol 2 puffs Inhalation Twice a day Albuterol Sulfate HFA 108 (90 Base) MCG/ACT Aerosol Solution INHALE 2 PUFFS BY MOUTH EVERY 4 HOURS NEEDED Carvedilol 6.25 MG Tablet TAKE 1 TABLET BY MOUTH TWICE DAILY Irbesartan-hydroCHLOROthiazide 150-12.5 MG Tablet TAKE 1 TABLET [...] reviewed and reconciled with the patient * Allergies:?Lisinopril: angio edemayes[Allergies Verified] Objective: * Vitals:?Ht: 72, Wt: 273, BMI :37.02, BP:122/60, Wt-k.83. weight is down 8 pounds since 12-26-23. * ???Past Orders: ???Lab:Liver Panel (Order Da te - 06/26/2024) (Collection Date & Time - 06/26/2024 07:00 AM) ? Value Reference Range ?Bilirubin Total 0.5 0.0- 1.0 - mg/dL ?Bilirubin Direct 0.2 0.0 -0.5 - mg/dL ?Aspartate Amino Transferase 39 H 5-37 - U/L ?Alanine Aminotransferase 31 0-40 - U/L ?Total Protein 6.2 L 6.5-8. 0 - g/dL ?Albumin Level 4.1 3.5-5. 0 - g/dL ?Alkaline Phosphatase 76 39-117 - U/L ???Lab:Lipid Panel with Refl ex (Order Date - 06/26/2024) (Collection Date & Time - 06/26/2024 07:00 AM) ? Value Reference Range ?Triglycerides 168 H <150 - mg/dL ?Cholesterol 132 <200 - m g/dL ?LDL Cholesterol Calculated 69 <100 - mg/dL ?HDL Cholesterol 30 L >40 - mg/dL * Examination: ???General Examination: ?GENERAL APPEARANCE:?alert, well hydrated, in no distress.?HEAD:?normocephalic.?SKIN:?good turgor.?HEART:?no murmurs, rubs, gallops, regular rate and rhythm.?LUNGS:?no wheezes, rales, rhonchi, good air movement, clear to auscultation bilaterally.?ABDOMEN:?soft, nontender, nondistended, no rebound tenderness.? Assessment: * Assessment: 1.?Hypercholesteremia - E78. 00 (Primary)???2.?Vision changes - H53.9???3.?Prostatism - N40.0???4.?Reflux esophagitis - K21.00??? Plan: * Treatment: 2.?Vision changes? Notes: advised to get back to his ophthalmonoloigst?? 3.?Prostatism? Notes: states that each time is a lot of urine. would fill a bottle each time?? 4.?Reflux esophagitis?Imaging: XR GI SERIES Notes: pending diagnostic testing?? * Procedure Codes:? * Follow Up:?4 Weeks * * Sign off status: Completed true * Provider:?Luis Gauthier MD Date:?0 07/03/2024 Generated for Inocencio peace/Prosper/eTmartsmitting on:?07/20/2024 07:52 AM EDT History and Physical [...]
--- OUTSIDE RECORDS SUMMARY | 2024-07-20 07:53 | XMS_ITS ---
Author Organization Luis Gauthier MD Address [address] [facility] [address] [place] [phone] Care Team Providers Care Vamp Presser Name Role Phone Luis Gauthier Primary Care Provider REASON FOR VISIT RE:Need prescription to replace Flovent HFA with Advair HFA Encounters Encounter Location Date Provider Diagnosis Luis Gauthier MD [address] [facility] [address] [place] [phone] 04/27/2024 Luis Gauthier Plan Of Treatment Next Appt Details Provider Name:Luis kirkland, 08/03/2024 09:15:00 AM, [address] [place] [address], [address], [phone], Provider Name:Luis Lewis ier, 12/20/2024 07:15:00 AM, [address] [place] [address], [address], [phone], Provider Name:Luis kirkland, 12/27/2024 08:30:00 AM, [address] [place] [address], [address], [phone], Progress Notes * Ben KRAMER SrDOB: (78 yo M)Acc No.[id number]:04/27/2024 Patient:?Ben KRAMER Sr :1945???Age:78 Y???Sex:Male Address:[address], [place] [place] [address] * true * Date:? Generated for Inocencio peace/Prosper/eTransmitting on:?07/20/2024 07:52 AM EDT
== END 2024-07-20 07:50 | disposition home or self-care (01) ==
LOC: HO.XRAY 07:49
PROVIDERS: PCP Internal Medicine; Visit Provider Internal Medicine
DX: K21.00 Gastro-esophageal reflux disease with esophagitis, without bleeding (principal)
CPT/HCPCS: 74246

== ENCOUNTER → 2024-07-20 07:50 | Outpatient (BNV) | payer MEDICARE, SELFPAY | PROVIDERS: PCP Internal Medicine; Visit Provider Radiology Diagnostic Radiology | DX: K21.9 Gastro-esophageal reflux disease without esophagitis (principal) | CPT/HCPCS: 74246 ==

== ENCOUNTER 2024-07-24 14:06 | Outpatient (AMB) | payer MEDICARE, SELFPAY ==
--- NOTE | 2024-07-24 14:10 | MHC.OFFVIS ---
Vital Signs 07/24/24 14:11 Height 6 ft Weight 272 lb 0.807 oz BMI 36.9 BP 118/64 Blood Pressure Location Lt brachial Position Sitting Pulse 61 Pulse Source Pulse Oximeter Pulse Oximetry (%) 98 Oxygen Delivery Method Room Air Intake Visit Reasons: Gout Intake Note: Patient presents for follow up on gout and lab review. He was last seen in the office by Dr. Yeboah on 10/06/23. Allergies lisinopril [From ZESTRIL] Adverse Reaction (Mild, Verified 07/24/24 14:12) DIZZINESS Cortisone Adverse Reaction (Mild, Uncoded 07/24/24 14:12) red face Medication List - Last Reconciled 07/24/24 by Justine Cohen MD acetaminophen (Tylenol Extra Strength) 1,000 mg PO QID PRN albuterol sulfate 90 mcg/actuation 2 puffs PO Q4H PRN allopurinol 300 mg PO DAILY amlodipine 10 mg PO DAILY aspirin (Adult Low Dose Aspirin) 81 mg PO DAILY atorvastatin 20 mg PO DAILY carvedilol 6.25 mg PO BID celecoxib 200 mg PO .4 times a week fluticasone propion-salmeterol 115-21 mcg/actuation (Advair HFA) inhalation fluticasone propionate 110 mcg/actuation (Flovent HFA) 1 puff inhalation DAILY irbesartan-hydrochlorothiazide 150-12.5 mg 1 tab PO DAILY lorazepam 0.5 mg PO BID PRN multivitamin 1 tab PO DAILY pantoprazole 40 mg PO BID prednisone 20 mg PO DAILY PRN pregabalin 50 mg PO BID pregabalin mg PO HPI Comments Details: Patient is a 79-year-old male with allergies, hypertension, hyperlipidemia, polyarticular osteoarthritis and chronic tophaceous gout here today for follow up Interval History: Patient last seen 10/06/[address] Yeboah. At that time he was following up for his tophaceous gout on allopurinol 300 mg daily. Had no gout flares at that visit. Given that the patient was stable he was recommended to follow up with his PCP if they were amenable Since then he has had 1 gout flare, he is unsure if it was within the last time frame. Complaining of bilateral first CMC joint pain. Right handed. Requesting an injection. Rheumatologic History: Chronic tophaceous gout on allopurinol Current Rheumatology Medication(s): Allopurinol 300 mg daily Prednisone 20 mg p.r.n. for flares PFSH Surgical History (Reviewed 02/13/24 @ 14:33 by Christine Padilla [facility]) History of back surgery History of foot surgery S/P surgery on nasal septum History of left knee surgery Family History (Reviewed 02/13/24 @ 14:33 by Christine Padilla [facility]) Father No problems noted. Mother No problems noted. Family/Other Diabetes Social History (Reviewed 02/13/24 @ 14:33 by Christine Padilla [facility]) Household Members: Spouse Alcohol intake: never Patient Tobacco Use Status: Former Tobacco user Tobacco use type: Cigarette Years Smoked: 20 +/- Current occupational status: unemployed Review of Systems Const Details: Review of Systems Constitutional: Denies fever, chills, weight loss ENT: Denies vision changes, eye pain or eye redness, dental caries, dry mouth GI: Denies nausea, vomiting, diarrhea, abdominal pain, change in BM Pulm: Denies SOB, GARCIA, hemoptysis, wheezing Cards: Denies chest pain, palpitations Skin: Denies Raynaud's, rash, nail changes, photosensitivity, PACKING CHECKER: Denies headaches, weakness, paresthesias, recurrent falls MSK: as per HPI All other systems reviewed and are unremarkable except noted above Physical Exam Vital Signs: Last Vital Signs Pulse 61 07/24/24 14:11 BP 118/64 07/24/24 14:11 Pulse Ox 98 07/24/24 14:11 Oxygen Delivery Method Room Air 07/24/24 14:11 BMI result Body Mass Index 36.9 Vital signs reviewed Physical Examination CONSTITUITIONAL Patient alert and cooperative. Well appearing and in no apparent painful distress HEENT Conjunctiva and sclera clear. ?Pupils equal round and reactive to light. ?No lymphadenopathy. ? CHEST/RESPIRATORY SYSTEM Normal respiratory effort and able to speak in complete sentences. ?Clear to auscultation bilaterally. ?No crackles, rales, rhonchi, wheezes heard. CARDIAC SYSTEM Regular rate and rhythm. ?S1 and S2 heard no murmurs. ?Radial pulses intact bilaterally MSK Hands: ?Able to make a fist. No synovitis noted to the MCPs, PIPs or DIPs. ?No tenderness to palpation of these joints. No deformities noted. ? Wrists: ?Full range of motion at the wrists without pain. ?No tenderness to palpation or synovitis noted to the wrists. Elbows: Full range of motion without pain. No tenderness, weakness, swelling, increased warmth or erythema. Shoulders: Full range of active range of motion without pain. No tenderness, weakness, swelling, increased warmth or erythema. Hips: Full range of motion without pain. Hip bursa: No tenderness to palpation Knees: ?Full range of motion. ?No tenderness, swelling, increased warmth or erythema.?No effusion or crepitations Ankles: Full range of motion. ?No tenderness, swelling, increased warmth or erythema.? Feet: ?Negative squeeze test. ?No tenderness to palpation or swelling of the MTPs. Tender points:?No tenderness to palpation of the bilateral trapezius, supraspinatus, greater trochanters, anterior costochondral junctions, bilateral gluteal areas, bilateral suboccipital muscle insertions SKIN Skin intact without rashes. Results Reviewed Results Reviewed: Laboratory Tests 03/15/24 15:34 Sodium 146 H Potassium 4.6 Chloride 106 Carbon Dioxide 28 BUN 21 H Creatinine 1.35 Uric Acid 5.5 Calcium 9.5 AST 43 H ALT 31 Alkaline Phosphatase 74 Assessment & Plan Assessment & Plan (1) Gout with tophi: Comment: Allopurinol started 09/09/2020- present Code(s): M1A.9XX1 - Chronic gout, unspecified, with tophus (tophi) Category: Medical Plan: #Chronic tophaceous gout Patient is a 79-year-old male with chronic tophaceous gout here today for follow up. Currently in remission on allopurinol monotherapy. Ideally would like his uric acid to be less than 5 however with his uric acid at 5.5 he continues to have no gout flares so we will not increase his allopurinol dose at this time Plan - Allopurinol 300mg - RTC 1 year (2) Osteoarthritis of carpometacarpal joints of thumbs, bilateral: Code(s): M18.0 - Bilateral primary osteoarthritis of first carpometacarpal joints Category: Medical Qualifiers: Osteoarthritis type: primary Qualified Code(s): M18.0 - Bilateral primary osteoarthritis of first carpometacarpal joints Plan: #Bilateral 1st CMC OA s/p right 1st CMC steroid injection (3) Encounter for monitoring allopurinol therapy: Code(s): Z51.81 - Encounter for therapeutic drug level monitoring; Z79.899 - Other terminal press operator (current) drug therapy Plan: #Long-term Current Use of Allopurinol Risks and benefits of allopurinol discussed with patient Benefits include decreased gout flares, remission of gout and reduction of tophi Risks include allopurinol hypersensitivity syndrome which is a severe cutaneous adverse reaction associated with allopurinol use particularly in patients who are HLA B*5801 positive, increased transaminases, GI upset including diarrhea, nausea and vomiting, and other dermatologic manifestations. Plan I spent 20 minutes reviewing the record and labs, taking a history, examining the patient, discussing the treatment plan, ordering diagnostic work up and documenting in the medical record Orders: Orders Comprehensive Met. Panel 1 Year M1A.9XX1 - Chronic gout, unspecified, with tophus (tophi) Uric Acid 1 Year M1A.9XX1 - Chronic gout, unspecified, with tophus (tophi) Comprehensive Met. Panel 6 Months M1A.9XX1 - Chronic gout, unspecified, with tophus (tophi) C Reactive Protein 1 Year M1A.9XX1 - Chronic gout, unspecified, with tophus (tophi) Erythrocyte Sedimentation Rate 1 Year M1A.9XX1 - Chronic gout, unspecified, with tophus (tophi) C Reactive Protein 6 Months M1A.9XX1 - Chronic gout, unspecified, with tophus (tophi) Erythrocyte Sedimentation Rate 6 Months M1A.9XX1 - Chronic gout, unspecified, with tophus (tophi) Uric Acid 6 Months M1A.9XX1 - Chronic gout, unspecified, with tophus (tophi) AMB Joint Injection/Aspiration Today M18.0 - Bilateral primary osteoarthritis of first carpometacarpal joints Medications: New Kenalog (triamcinolone acetonide) 40 mg intra-articular ONCE 1 mL 0RF NS M18.0 - Bilateral primary osteoarthritis of first carpometacarpal joints lidocaine (PF) 1 mL Infiltration ONCE 2 mL 0RF M18.0 - Bilateral primary osteoarthritis of first carpometacarpal joints Refilled allopurinol 300 mg PO DAILY 90 tabs 3RF M1A.9XX1 - Chronic gout, unspecified, with tophus (tophi) prednisone Take 20mg by mouth daily for 3 days for gout flare. 20 mg PO DAILY PRN 12 tabs 1RF gout flare Coding Level of Care Code Est Pt Level 3 (28234) Diagnoses Gout with tophi M1A.9XX1 Primary osteoarthritis of both first carpometacarpal joints M18.0 Osteoarthritis type: primary Encounter for monitoring allopurinol therapy Z51.81; Z79.899
[2024-07-24 14:11] VITALS: BP 118/64; PULSE 61; O2SAT 98; BMI 36.9
--- OUTSIDE RECORDS SUMMARY | 2024-07-24 15:30 | XMS_ITS ---
Author Organization [facility] Address [address] [place] [address] Care Team Providers Care Hack Saw Operator Name Role Phone Luis Gauthier MD Primary Care Provider Unavajane granados Black, Soila Unavailable [phone] Allergies Allergen (clinical drug ingredient) Drug/Non Drug [...] Problem Acquired hammer toe of right foot (6084370417669278) Other hammer toe(s) (acquired), right foot (M20.41) Active confirmed Chronic problem, Worse (4) Problem Localized, primary osteoarthritis of the ankle and/or foot (071741486) Arthritis of joint of lesser toe, right (M19.071) Active confirmed Vital Signs Height 6ft in 04/16/2024 Weight 275 lbs 04/16/2024 BMI 37.29 kg/m2 04/16/2024 Blood pressure systolic 160 mm Hg 04/16/19 25 Blood pressure diastolic 80 mm Hg 025 Procedures Procedure Date Ordered Date Performed Result Body Sit e 42671-YMBNYUY NAIL, 6 OR MORE 04/16/2024 N/A Encounters Encounter Location Date Provider Diagnosis [facility] [place] [address] [place] [address] 04/16/2024 Soila Black Tinea unguium B35.1 ; [...] Treatment Pending Test Test Name Order Date 44852-BEDJITA NAIL, 6 OR MORE 04/16/2024 Next Appt Details Follow Up: 2 Months, Reason: Provider Name:Soila Zaman Wilfredo , 08/23/2024 01:00:00 PM, [address] [place] [address], [phone], Provider Name:Soila Villalobos , 10/29/2024 01:30:00 PM, [address] [place] [address], [phone], Procedure Notes * Category Sub-Category Detail Notes [...] use of a nail nipper and/or dremel-type back grinder, to a more viable healthy nail [...] * STGEORGES, PaulDOB: 8 (78 yo M)Acc No.[id number]:04/16/2024 Progress Note Patient:?Ben SANDS Provider:?Soila Villalobos DPM :1945???Age:78 Y???Sex:Male Valdo e:04/16/2024 Address:[address] [place], [place] [phone] Pcp:Luis Gauthier MD Subjective: * Chief Complaints: [...] 10/2017Back Surgery 04/01/23 * Hospitalization/Major Diagno stic Procedure:?[facility] - HTN 06/2018[facility] er visit for fall 02/2024 [...] walking. ?Marital status: . 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 * Medications:?TakingPregabali n Allopurinol 300 MG [...] use of a nail nipper and/or dremel-type back grinder, to a more viable healthy nail [...] to maintain effectiveness in symptomatic relief - 70106.? * Procedure Codes:?02966 DEBRI DE NAIL, 6 OR MORE * [...] Villalobos DPM Date:?2024 Generated for Inocencio peace/Prosper/Dorinda on:?07/24/2024 03:30 PM EDT History and Physical Notes * [...]
--- OUTSIDE RECORDS SUMMARY | 2024-07-24 15:30 | XMS_ITS ---
Author Organization Luis Gauthier MD Address [address] [place], [place] [id number] Care Team Providers Care Salesperson Men'S Hats Name Role Phone Luis Gauthier Primary Care Provider Results Component Value Reference Range Notes Liver Panel Reviewed date:06/26/2024 06:41:59 PM Interpretation: Performing Lab:[facility], [address] [place] [phone] Notes/Report: Bilirubin Total 0.5 0.0-1.0 mg/dL Bilirubin Direct 0.2 0.0-0.5 mg/dL Aspartate Amino Transferase 39 5-37 U/L Alanine Aminotransferase 31 0-40 U/L Total Protein 6.2 6.5-8.0 g/dL Albumin Level 4.1 3.5-5.0 g/dL Alkaline Phosphatase 76 39-117 U/L Lipid Panel with Reflex Reviewed date:06/26/2024 06:42:36 PM Interpretation: Performing Lab:[address] [id number] Notes/Report: Triglycerides 168 <150 mg/dL Desirable Triglyceride: [...] Location Date Provider Diagnosis Luis Gauthier MD [address] [place] [phone] 06/26/2024 Luis Gauthier Hypercholesteremia E 78.00 Assessments Encounter Date Diagnosis (ICD Code) Assessment Notes Treatment Notes Treatment Clinical Notes Section Notes 06/26/2024 Hypercholesteremia (ICD-10 - E78.00) Plan Of Treatment Next Appt Details Provider Name:Luis kirkland, 08/03/2024 09:15:00 AM, [address] [place] [address], [address], [phone], Provider Name:Luis kirkland, 12/20/2024 07:15:00 AM, [address] [place] [address], [address], [phone], Provider Name:Luis kirkland, 12/27/2024 08:30:00 AM, [address] [place] [address], [address], [phone], Progress Notes * Ben KRAMER SrDOB: (79 yo M)Acc No.[id number]:06/26/2024 Progress Note Patient:?Ben KRAMER Sr Provider:?Luis Gauthier MD :1945???Age:79 Y???Sex:Male Valdo e:06/26/2024 Address: [address] Subjective: * Chief Complaints: * ???1. FASTING LIPIDS. * Medical History:? Objective: * Vitals:? Assessment: * Assessment: 1.?Hypercholesteremia - E78. 00 (Primary)??? Plan: * Treatment: * Procedure Codes:?79228 VENIP UNCT, ROUTINE* * * The named appointment provid er may or may not be the originator of this progress note, and it is not deemed complete until electronically signed by the appointment provider. Sign off status: Pending * Provider:?Luis Gauthier MD Date:?0 06/26/2024 Generated for Inocencio peace/Prosper/Aleksitting on:?07/24/2024 03:30 PM EDT
--- OUTSIDE RECORDS SUMMARY | 2024-07-24 15:31 | XMS_ITS ---
Author Organization Luis Gauthier MD Address [address] [place], [place] [address] Care Team Providers Care Electric Switch Tester Name Role Phone Luis Gauthier Primary [...] Status W/U Status Risk Notes Problem Prostatism (16745043) Prostatism (N40.0) Active confirmed Problem Reflux esophagitis (K21.00) Active confirmed Vital Signs Blood pressure systolic 122 mm Hg 07/04/19 25 Blood pressure diastolic 60 mm Hg 025 Height 72 in 07/03/2024 Weight 273 lbs 07/03/2024 BMI 37.02 kg/m2 07/03/2024 weight is down 8 pounds [facility] 12-26-23 Encounters Encounter Location Date Provider Diagnosis Luis Gauthier MD [address] [place] [address] [place] [phone] 07/03/2024 Luis Gauthier Vision changes H53.9 ; [...] Provider Name:Luis Lewis ier, 08/03/2024 09:15:00 AM, [address] [place] [address], [address], [place], [place], [phone], Provider Name:Luis Lewis ier, 12/20/2024 07:15:00 AM, [address] [place] [address], [address], [place], [place], [phone], Provider Name:Luis Lewis ier, 12/27/2024 08:30:00 AM, [address] [place] [address], Suite [facility], [place], [place], [phone], Progress Notes * Ben KRAMER SrDOB: (79 yo M)Acc No.[id number]:07/03/2024 Progress Notes Patient:?Ben KRAMER Sr Provider:?Luis Gauthier MD :1945???Age:79 Y???Sex:Male Valdo e:07/03/2024 Address: [address], [place], [id number] Subjective: * Chief Complaints: * ???6 [...] Gauthier MD Date:?0 07/03/2024 Generated for Inocencio peace/Prosper/eTransmitting on:?07/24/2024 03:31 PM EDT History and Physical Notes * [...]
--- OUTSIDE RECORDS SUMMARY | 2024-07-24 15:31 | XMS_ITS | Patient Health Record ---
Author Organization [facility] Address [address] [facility] [place] [address] Care Team Providers Care Supervisor Hard Candy Name Role Phone Luis Gauthier MD Primary Care Provider Mariam Villalobos, Soila Unavailable [phone] Allergies Allergen (clinical drug ingredient) Drug/Non Drug [...] Notes Problem Cellulitis of left lower limb (901551156076447 09) Cellulitis of left lower limb (L03.116) Active confirmed Problem Localized, primary osteoarthritis of the ankle and/or foot (328947991) Primary osteoarthriti s, left ankle and foot (M19.072) Active confirmed Problem Acquired hammer toe of right foot (924300835926914 5) Other hammer toe(s) (acquired), right foot (M20.41) Active confirmed Chronic problem, Worse (4) Problem Primary gout (93918229) Idiopathic gout, 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) Active confirmed Problem Acquired hammer toe of left foot (860473361871805 3) Hammer toe of left foot (M20.42) Active confirmed Resistant to previous conservative treatment,Deci juwan for Surgery (4) Problem Gout (47983485) Gout (M10.9) Active confirmed Problem Primary gout (99227672) Acute idiopathic gout of left ankle (M10.072) Active confirmed Problem Joint contracture of the ankle and/or foot (092909411) 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) Active confirmed Problem Localized, primary osteoarthritis of the ankle and/or foot (512343791) Arthritis of joint of lesser toe, right (M19.071) Active confirmed Vital Signs Blood pressure diastolic 80 mm Hg 06/18/2024 Height 6ft in 06/18/2024 Blood pressure systolic 160 mm Hg 06/18/2024 Weight 275 lbs 06/18/2024 BMI 37.29 kg/m2 06/18/2024 Procedures Procedure Date Ordered Date Performed Result Body Sit e 63882 - Tenotomy, open flexor 08/25/2023 N/A 50262-ZWKDVHH NAIL, 6 OR MORE 09/01/2023 N/A 25941-SCVNREK NAIL, 6 OR MORE 11/10/2023 N/A 38336-FNLNHRC NAIL, 6 OR MORE 02/13/2024 N/A 32621-DFQZEIS NAIL, 6 OR MORE 04/16/2024 N/A 90801-EUOBZPM NAIL, 6 OR MORE 06/18/2024 N/A Encounters Encounter Location Date Provider Diagnosis [address] [address] 08/25/2023 Soila Black Hammer toe of left f oot M20.[address] [address] 09/01/2023 Soila Black Hammer toe of left f oot M20.42 ; Tinea unguium B35.1 ; Pain in right toe(s) M79.674 and Pain in left toe(s) M79.[address] [address] 11/10/2023 Soila Black Tinea unguium B35.1 ; Pain in right toe(s) M79.674 and Pain in left toe(s) M79.[address] [address] 02/13/2024 Soila Black Tinea unguium B35.1 ; Pain in right toe(s) M79.674 and Pain in left toe(s) M79.[address] [address] 04/16/2024 Soila Black Tinea unguium B35.1 ; Other hammer toe(s) (acquired), right foot M20.41 ; Pain in left toe(s) M79.675 ; Pain in right toe(s) M79.674 and Subluxation of metatarsophalangeal joint of toe, initial encounter S93.149A [facility] [place] [address] [place] [address] 06/18/2024 Soila Black Tinea unguium B35.1 ; [...] X ray : Foot, right 3V 05/29/2012 90692-HAKFTFH NAIL, 6 OR MORE 07/03/2012 44815-IGFAUGU NAIL, 6 OR MORE 10/30/2012 50299-VUDNEIU NAIL, 6 OR MORE 02/19/2013 03542-TGDDPNF NAIL, 6 OR MORE 06/25/2013 49986-AHYITIA NAIL, 6 OR MORE 10/29/2013 50629-ECTQUDU NAIL, 6 OR MORE 03/18/2014 85195-GIWLOLW NAIL, 6 OR MORE 12/07/2010 15201-XHRCRZV NAIL, 6 OR MORE 03/11/2011 16565-QYFQURN NAIL, 6 OR MORE 07/01/2011 61798-DGZOAEE NAIL, 6 OR MORE 10/14/2011 96327-JXFNWFJ NAIL, 6 OR MORE 04/03/2012 67199-ETZVDIO NAIL, 6 OR MORE 04/05/2016 55101-WBTVLZV NAIL, 6 OR MORE 07/05/2016 04390-ZMDRZLM NAIL, 6 OR MORE 09/24/2016 63887-QCXFXWU NAIL, 6 OR MORE 12/09/2016 87438-PTZBJEY NAIL, 6 OR MORE 02/10/2017 12089-KSGNTLA NAIL, 6 OR MORE 05/05/2017 21131-TZYSTYT NAIL, 6 OR MORE 07/21/2017 68838-FVOJLFZ NAIL, 6 OR MORE 10/10/2017 55978-FMSTSFF NAIL, 6 OR MORE 12/19/2017 72811-JNAANYT NAIL, 6 OR MORE 03/20/2018 94373-OACROFG NAIL, 6 OR MORE 05/22/2018 62864-BEDAVIE NAIL, 6 OR MORE 07/24/2018 67213-GJNIHCA NAIL, 6 OR MORE 10/05/2018 04175-SIZSOYA NAIL, 6 OR MORE 12/21/2018 10614-TBXLAKX NAIL, 6 OR MORE 03/12/2019 54310-UUGWBNJ NAIL, 6 OR MORE 09/27/2022 37918-IEVBPBR NAIL, 6 OR MORE 12/02/2022 44686-YJZJKIZ NAIL, 6 OR MORE 02/03/2023 45056-OLFWQHH NAIL, 6 OR MORE 04/07/2023 49291-UDHOCRR NAIL, 6 OR MORE 06/09/2023 80049-KQYRIMV NAIL, 6 OR MORE 09/01/2023 08874-GWFKSUF NAIL, 6 OR MORE 11/10/2023 89641-NLSAOGX NAIL, 6 OR MORE 02/13/2024 04286-SWSXRFN NAIL, 6 OR MORE 04/16/2024 43564-HXMEXCQ NAIL, 6 OR MORE 06/18/2024 06483-RYAEODA NAIL, 6 OR MORE 02/19/2020 52947-YHGKTSK NAIL, 6 OR MORE 05/01/2020 78461-EOFHSEK NAIL, 6 OR MORE 07/03/2020 41275-DZUJFIE NAIL, 6 OR MORE 09/04/2020 21694-NBDXCHT NAIL, 6 OR MORE 11/24/2020 18323-NSDWDHY NAIL, 6 OR MORE 03/16/2021 14842-BNEIVKT NAIL, 6 OR MORE 06/11/2021 68645-BMCDICM NAIL, 6 OR MORE 08/17/2021 86591-ZWIFIFL NAIL, 6 OR MORE 05/14/2019 16726-YKITKKV NAIL, 6 OR MORE 07/23/2019 51476-DAIJFNH NAIL, 6 OR MORE 10/01/2019 48349-XEBOQBT NAIL, 6 OR MORE 12/13/2019 41222-LZDAFLE NAIL, 6 OR MORE 10/22/2021 38088-VYJPQBH NAIL, 6 OR MORE 12/28/2021 67342-ERVRZCE NAIL, 6 OR MORE 03/15/2022 61109-WFIFMIJ NAIL, 6 OR MORE 05/24/2022 50452-KISERJR NAIL, 6 OR MORE 07/26/2022 46914-Oflbzavs Plate 09/27/2022 25985-Mhfukicr Plate 12/13/2019 35938-Gjjqpovf Plate 10/22/2021 65816-Zgyvvvky Plate 05/22/2018 49843-Xsgpxdum Plate 10/10/2017 81284-Wpwweprf Plate 07/05/2016 63793-Csacknhg Plate 12/01/2015 84918-Gvhftrjz Plate 03/18/2014 15730-Qgispvsm Plate 07/15/2014 30269-Vfrehaxf Plate 11/18/2014 95459-Hnlavsoe Plate Each Additional 97301 I&D ABSCESS- SIMPLE,SINGLE 016 42154 - Tenotomy, open flexor 04/12/2019 33626 - Tenotomy, open flexor 08/25/2023 Next Appt Details Provider Name:Soila Villalobos , 08/23/2024 01:00:00 PM, [address] [place] [address], [phone], Provider Name:Soila Villalobos , 10/29/2024 01:30:00 PM, [address] [place] [address], [phone], Insurance Providers Payer Name Payer Address Payer Phone Subscriber Number Group Number Insured Name Patient Relationship to Insured Coverage Start Date Coverage End Date Medicare [employer] [address] [place] [address] [id number] Ben Hogan Self - patient is the insured [facility] [address] [place] [address] [id number] Ben Hogan Self - patient is the insured Medical (General) History Medical History History ICD Code vascular phlebitis(clots) mumps measles hypertension chicken pox Gout Arthritis Broken bones ( arm) Surgical History Surgery Date(Month/Year) knee replacement 2009 Foot surgery 12/2013 skin tag removal 10/2017 Back Surgery 04/01/23 Hospitalization History Reason Date(Month/Year) [facility] er visit for fall 02/2024 [facility] - HTN 06/2018
--- OUTSIDE RECORDS SUMMARY | 2024-07-24 15:31 | XMS_ITS ---
Author Organization [facility] Address [address] [place] [address] Care Team Providers Care Regulatory Affairs Analyst Name Role Phone Luis Gauthier MD Primary Care Provider Unavajane granados Black, Soila Unavailable [phone] Allergies Allergen (clinical drug ingredient) Drug/Non Drug [...] Ordered Date Performed Result Body Sit e 05583-UCRTPOL NAIL, 6 OR MORE 02/13/2024 N/A Encounters Encounter Location Date Provider Diagnosis [facility] [address] [place] [address] 02/13/2024 Soila Villalobos Tinea unguium B35.1 ; [...] Treatment Pending Test Test Name Order Date 23471-PSMVTUA NAIL, 6 OR MORE 02/13/2024 Next Appt Details Follow Up: prn, Reason: Provider Name:Soila Villalobos , 08/23/2024 01:00:00 PM, [address] [place] [address], [phone], Provider Name:Soila Villalobos , 10/29/2024 01:30:00 PM, [address] [place] [address], [phone], Procedure Notes * Category Sub-Category Detail Notes [...] use of a nail nipper and/or dremel-type magazine grinder loader, to a more viable healthy nail plate [...] to maintain effectiveness in symptomatic relief - 93378 Progress Notes * Ben SANDSDOB: 8 (78 yo M)Acc No.[id number]:02/13/2024 Progress Note Patient:?Ben SANDS Provider:?Soila Villalobos DPM :1945???Age:78 Y???Sex:Male Valdo e:02/13/2024 Address:[address] [place], [place] [phone] Pcp:Luis Gauthier MD Subjective: * Chief Complaints: [...] 10/2017Back Surgery 04/01/23 * Hospitalization/Major Diagno stic Procedure:?[facility] - HTN 06/2018[facility] er visit for fall 02/2024 * Family [...] walking. ?Marital status: . 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 ???Drug/Alcohol:?AUDIT-C (Standard)?Did you have a drink containing [...] use of a nail nipper and/or dremel-type magazine grinder loader, to a more viable healthy nail plate [...] to maintain effectiveness in symptomatic relief - 44738.? * Procedure Codes:?82049 DEBRI DE NAIL, 6 OR MORE * Preventive Medicine:? ??Screening/Special Tests:?Fall Risk?Assessment:?Performed ?Plan of Care:?Documented ?Type of fall plan of care:?Balance, strength and gait training or instruction provided ?Screening:?Two or more falls with injury in the past year * Follow Up:?prn * Images: * Sign off status: Completed true * Provider:?Soila Villalobos DPM Date:?2023 Generated for Inocencio peace/Prosper/Dorinda on:?07/24/2024 03:31 PM EDT History and Physical [...]
--- OUTSIDE RECORDS SUMMARY | 2024-07-24 15:31 | XMS_ITS ---
Author Organization Luis Gauthier MD Address [address] [facility] [address] [place] [phone] Care Team Providers Care Window Clerk Name Role Phone Luis Gauthier Primary Care Provider REASON FOR VISIT RE:Need prescription to replace Flovent HFA with Advair HFA Encounters Encounter Location Date Provider Diagnosis uLis Gauthier MD [address] [facility] [address] [place] [phone] 04/27/2024 Luis Gauthier Plan Of Treatment Next Appt Details Provider Name:Luis kirkland, 08/03/2024 09:15:00 AM, [address] [place] [address], [address], [phone], Provider Name:Luis Lewis ier, 12/20/2024 07:15:00 AM, [address] [place] [address], [address], [phone], Provider Name:Luis kirkland, 12/27/2024 08:30:00 AM, [address] [place] [address], [address], [phone], Progress Notes * Ben KRAMER SrDOB: (78 yo M)Acc No.[id number]:04/27/2024 Patient:?Ben KRAMER Sr :1945???Age:78 Y???Sex:Male Address:[address], [place] [address] * true * Date:? Generated for Inocencio peace/Prosper/eTransmitting on:?07/24/2024 03:31 PM EDT
--- OUTSIDE RECORDS SUMMARY | 2024-07-24 15:31 | XMS_ITS ---
Author Organization [facility] Address [address] 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Sex:Male Valdo e:06/18/2024 Address:[address] [place], [place] [phone] Pcp:Luis Gauthier MD Subjective: * Chief Complaints: [...] 10/2017Back Surgery 04/01/23 * Hospitalization/Major Diagno stic Procedure:?[facility] - HTN 06/2018[facility] er visit for fall 02/2024 * Family [...] walking. ?Marital status: . 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 * Medications:?TakingPregabali n Allopurinol 300 MG [...] to maintain effectiveness in symptomatic relief - 37035.? * Procedure Codes:?73478 JOHN DE NAIL, 6 OR MORE * Follow Up:?2 Months * Images: * Sign off status: Completed true * Provider:?Soila Villalobos DPM Date:?2024 Generated for Inocencio peace/Prosper/eTransmitting on:?07/24/2024 03:30 PM EDT History and Physical [...]
--- OUTSIDE RECORDS SUMMARY | 2024-07-24 15:31 | XMS_ITS | Patient Health Record ---
Author Organization Luis Chaves MD Address [address] [place], [place] [phone] Care Team Providers Care Automatic Machines Supervisor Name Role Phone Luis Chaves Primary Care Provider Allergies Allergen (clinical drug ingredient) Drug/Non Drug Allergy documented on EMR Reaction Allergy Type Onset Date Status lisinopril Lisinopril angioedema Drug Allergy Acti ve Results Component Value Reference Range Notes Liver Panel Reviewed date:06/26/2024 06:41:59 PM Interpretation: Performing Lab:[facility], [address] [place] [phone] Notes/Report: Bilirubin Total 0.5 0.0-1.0 mg/dL Bilirubin Direct 0.2 0.0-0.5 mg/dL Aspartate Amino Transferase 39 5-37 U/L Alanine Aminotransferase 31 0-40 U/L Total Protein 6.2 6.5-8.0 g/dL Albumin Level 4.1 3.5-5.0 g/dL Alkaline Phosphatase 76 39-117 U/L Lipid Panel with Reflex Reviewed date:06/26/2024 06:42:36 PM Interpretation: Performing Lab:[facility], [address] [place] [phone] Notes/Report: Triglycerides 168 <150 mg/dL Desirable Triglyceride: [...] ff Reviewed date:12/21/2023 02:28:31 PM Interpretation: Performing Lab:[facility], [address] [place] [phone] Notes/Report: White Blood Count 6.3 4.8-10.8 X10*3/uL [...] NRBC Abs Auto 0.000 0.0-0.012 X10*3/uL Comprehensive [place]. Panel Fa st Reviewed date:12/21/2023 06:53:29 PM Interpretation: Performing Lab:[facility], [address] [place] [phone] Notes/Report: Sodium 143 135-145 mmol/L Potassium 4.0 3.3-5.1 mmol/L Chloride 107 96-108 mmol/L Carbon Dioxide 32 22-29 mmol/L Anion Gap 8 12-20 Blood Urea Nitrogen 18 9-16 mg/dL Creatinine 1.17 0.5-1.4 mg/dL Estimated Glomerular Filt Rate > 60 NOTE: For -Guinean individuals, multiply the result by 1.210. Chronic [...] Panel Reviewed date:12/21/2023 02:16:56 PM Interpretation: Performing Lab:[facility], [address] [place] [phone] Notes/Report: Triglycerides 91 <150 mg/dL Desirable Triglyceride: [...] (Free>4and<10) Reviewed date:12/21/2023 02:15:52 PM Interpretation: Performing Lab:[facility], [address] [place] [phone] Notes/Report: PSA,Total (Free>4and<10) 2.21 0.00-4.00 ng/mL A [...] t Reviewed date:12/21/2023 06:42:42 PM Interpretation: Performing Lab:[facility], [address] [place] [phone] Notes/Report: Urine, Clean Catch Color Urine Yellow Appearance Urine Clear PH 7.0 5.0-9.0 Glucose Urine UA Negative Negative mg/dL Urine Blood Negative Negative Specific [place] - Urine 1.015 1.005-1.025 Urine Protein Negative [...] date:09/20/2023 10:43:04 AM Interpretation: Performing Lab: Notes/Report: [address] [address] [address] Scan Report Signed Patient: Ben Kramer MR#: [id number] : 1945 Acct:[id number] Age/Sex: 78 / M ADM Date: 09/19/23 Loc: HO.ED Attending Dr: Ordering Physician: Edwina Downs Date of Service: 09/19/23 Procedure(s): CT cervical spine wo IV con Accession Number(s): [id number] cc: Luis Chaves MD; Edwina Downs EXAM: [...] in OV> 09/19/23 1829 DD/ 1723 TD/TT: Quarrying Specialist: [address] [address] [address] Scan Report Signed Patient: Ben Kramer MR#: [id number] : 1945 Acct:[id number] Age/Sex: 78 / M ADM Date: 09/19/23 Loc: HO.ED Attending Dr: Ordering Physician: Edwina Downs Date of Service: 09/19/23 Procedure(s): CT cervical spine wo IV con Accession Number(s): [id number] cc: Luis Chaves MD; Edwina Downs EXAM: [...] in OV> 09/19/23 1829 DD/ 1723 TD/TT: Quarrying Specialist: ELIAS CT head/brain wo con Reviewed date:09/20/2023 10:42:35 AM Interpretation: Performing Lab: Notes/Report: [address] [address] [address] Scan Report Signed Patient: Ben Kramer MR#: [id number] : 1945 Acct:[id number] Age/Sex: 78 / M ADM Date: 09/19/23 Loc: HO.ED Attending Dr: Ordering Physician: Edwina Downs Date of Service: 09/19/23 Procedure(s): CT head/brain wo IV con Accession Number(s): [id number] cc: Luis Chaves MD; Edwina Downs EXAM: [...] in OV> 09/19/23 1829 DD/ 1723 TD/TT: Quarrying Specialist: [address] [address] [address] Scan Report Signed Patient: Ben Kramer MR#: [id number] : 1945 Acct:[id number] Age/Sex: 78 / M ADM Date: 09/19/23 Loc: HO.ED Attending Dr: Ordering Physician: Edwina Downs Date of Service: 09/19/23 Procedure(s): CT head/brain wo IV con Accession Number(s): [id number] cc: Luis Chaves MD; Edwina Downs EXAM: [...] in OV> 09/19/23 1829 DD/ 1723 TD/TT: Cloud Architect ist: SL XR shoulder LT min 2V Reviewed date:09/22/2023 12:41:35 PM Interpretation: Performing Lab: Notes/Report: [address] [address] XRay Report Signed Patient: Ben Dia MR#: [id number] : 1945 Acct:[id number] Age/Sex: 78 / M ADM Date: 09/19/23 Loc: HO.ED Attending Dr: Ordering Physician: Edwina Downs Date of Service: 09/19/23 Procedure(s): XR shoulder LT min 2V Accession Number(s): [id number] cc: Luis Chaves MD; Edwina Downs EXAMINATION: [...] in OV> 09/19/23 1448 DD/ 1406 TD/TT: Quarrying Specialist: [address] [address] XRay Report Signed Patient: Catie Dia MR#: [id number] : 1945 Acct:[id number] Age/Sex: 78 / M ADM Date: 09/19/23 Loc: HO.ED Attending Dr: Ordering Physician: Edwina Downs Date of Service: 09/19/23 Procedure(s): XR shoulder LT min 2V Accession Number(s): [id number] cc: Luis Chaves MD; Edwina Downs EXAMINATION: [...] in OV> 09/19/23 1448 DD/ 1406 TD/TT: Cloud Architect ist: SS Complete Blood Count Auto Di ff Reviewed date:09/26/2023 12:38:17 PM Interpretation: Performing Lab:[facility], [address] [place] [phone] Notes/Report: White Blood Count 7.8 4.8-10.8 X10*3/uL [...] Panel Reviewed date:09/26/2023 12:32:32 PM Interpretation: Performing Lab:[facility], [address] [place] [phone] Notes/Report: Sodium 143 135-145 mmol/L Potassium 4.9 3.3-5.1 mmol/L Chloride 105 96-108 mmol/L Carbon Dioxide 30 22-29 mmol/L Anion Gap 13 12-20 Blood Urea Nitrogen 25 9-16 mg/dL Creatinine 1.20 0.5-1.4 mg/dL Estimated Glomerular Filt Rate 59 NOTE: For -Guinean individuals, multiply the result by 1.210. Chronic [...] Acid Reviewed date:09/26/2023 12:32:14 PM Interpretation: Performing Lab:[facility], [address] [place] [phone] Notes/Report: Uric Acid 4.9 3.4-7.0 mg/dL XR hand RT 2V Reviewed date:02/12/2024 11:57:10 AM Interpretation: Performing Lab: Notes/Report: [address] [address] XRay Report Signed Patient: Ben Kramer MR#: [id number] : 1945 Acct:[id number] Age/Sex: 78 / M ADM Date: 02/11/24 Loc: HO.ED Attending Dr: Ordering Physician: Bushra Bunch NP Date of Service: 02/11/24 Procedure(s): XR hand RT 2V Accession Number(s): [id number] cc: Luis Chaves MD; Bushra Bunch NP [...] by: Noe Swann MD 02/11/2024 05:35 PM [facility] Dictated By: Noe Swann MD Signed By: <Electronically signed by Noe Swann MD in OV> 02/11/24 1735 DD/ 1655 TD/TT: 02/11/24 1700 Quarrying Specialist: [place] [address] XRay Report Signed Patient: Ben Kramer MR#: [id number] : 1945 Acct:[id number] Age/Sex: 78 / M ADM Date: 02/11/24 Loc: HO.ED Attending Dr: Ordering Physician: Bushra Bunch NP Date of Service: 02/11/24 Procedure(s): XR calhoun d RT 2V Accession Number(s): [id number] cc: Luis Chaves MD; Bushra Bunch NP [...] 02/11/24 1735 DD/ 1655 TD/TT: 02/11/24 1700 Quarrying Specialist: FINA XR hand RT 2V Reviewed date:02/12/2024 11:48:54 AM Interpretation: Performing Lab: Notes/Report: [address] [address] XRay Report Signed Patient: Ben Kramer MR#: [id number] : 1945 Acct:[id number] Age/Sex: 78 / M ADM Date: 02/11/24 Loc: HO.ED Attending Dr: Ordering Physician: Bushra Bunch NP Date of Service: 02/11/24 Procedure(s): XR hand RT 2V Accession Number(s): [id number] cc: Luis Chaves MD; Bushra Bunch NP [...] in OV> 02/11/242026 DD/ 15 TD/TT: 02/11/241927 Quarrying Specialist: [address] [address] XRay Report Signed Patient: Ben Kramer MR#: [id number] : 1945 Acct:[id number] Age/Sex: 78 / M ADM Date: 02/11/24 Loc: HO.ED Attending Dr: Ordering Physician: Bushra Bunch NP Date of Service: 02/11/24 Procedure(s): XR calhoun d RT 2V Accession Number(s): [id number] cc: Luis Chaves MD; Bushra Bunch NP [...] in OV> 02/11/242026 DD/ 15 TD/TT: 02/11/241927 Quarrying Specialist: Basic Metabolic Panel Reviewed date:03/01/2024 08:49:05 AM Interpretation: Performing Lab:[facility] [address] Notes/Report: Sodium 143 135-145 mmol/L Potassium 4.5 [...] Panel Reviewed date:03/16/2024 05:41:41 PM Interpretation: Performing Lab:[address] [address] Notes/Report: CC BUN AND CREAT TO DR. [...] Acid Reviewed date:03/16/2024 05:26:58 PM Interpretation: Performing Lab:[address] [address] Notes/Report: CC BUN AND CREAT TO DR. CHAVES Uric Acid 5.5 3.4-7.0 mg/dL Hold Gold Reviewed date:06/26/2024 12:35:07 PM Interpretation: Performing Lab:[facility], [address] [place] [phone] Notes/Report: Hold Gold See Note Specimen held untested for 24 hours; Call to request Chemistry testing. FL upper GI w air Reviewed date:07/20/2024 12:43:54 PM Interpretation: Performing Lab: Notes/Report: [address] [address] Fluoroscopy Report Signed Patient: Ben Kramer MR#: [id number] : 1945 Acct:[id number] Age/Sex: 79 / M ADM Date: 07/20/24 Loc: HO.XRAY Attending Dr: Luis Chaves MD Ordering Physician: Luis Chaves MD Date of Service: 07/20/24 Procedure(s): FL upper GI w air Accession Number(s): [id number] cc: Luis Chaves MD EXAMINATION: XR FLUOROSCOPY UPPER GI WITH AIR CLINICAL INFORMATION: History of reflux esophagitis. COMPARISON: None available. TECHNIQUE: Routine upper GI contrast study was performed in upright and lying position. FINDINGS: Following oral administration of thick barium and effervescent granules is normal propagation of bolus from the oral cavity through the pharynx, esophagus into stomach without any evidence of obstruction, narrowing or stricture. The mucosal pattern esophagus is normal. On placing patient supine and prone lying the course, caliber and peristalsis of the stomach is normal. The mucosal pattern of stomach and duodenum is normal. There is mild gastroesophageal reflux without hiatal hernia. FLUOROSCOPY TIME: 2 minutes and 0 seconds DOSE AREA PRODUCT: 2116 uGy-m2 (microgray-meter squared) FL/FL upper GI w air IMPRESSION: Mild gastroesophageal reflux without hiatal hernia. Electronically signed by: Thomas Quintero MD 07/20/2024 09:42 AM EDT Dictated By: Thomas Quintero MD Signed By: <Electronically signed by Thomas Quintero MD in OV> 07/20/24 0942 DD/ 0805 TD/TT: 07/20/24 0831 Quarrying Specialist: [address] [address] Fluoroscopy Report Signed Patient: Ben Kramer MR#: [id number] : 1945 Acct:[id number] Age/Sex: 79 / M ADM Date: 07/20/24 Loc: HO.XRAY Attending Dr: Luis Chaves MD Ordering Physician: Luis Chaves MD Date of Service: 07/20/24 Procedure(s): FL upp er GI w air Accession Number(s): [id number] cc: Luis Chaves MD EXAMINATION: XR FLUOROSCOPY UPPER GI WITH AIR CLINICAL INFORMATION: History of reflux esophagitis. COMPARISON: None available. TECHNIQUE: Routine upper GI contrast study was performed in upright and lying position. FINDINGS: Following oral administration of thick barium and effervescent granules is normal propagatio n of bolus from the oral cavity through the pharynx, esophagus i nto stomach without any evidence of obstruction, narrowing or strictu re. The mucosal pattern esophagus is normal. On placing patient supine and prone lying the course, caliber and peristalsis of the stomach is normal. The mucosal pattern of stomach and duodenum is norm al. There is mild gastroesophageal reflux without hiatal hernia. FLUOROSCOPY TIME: 2 minutes and 0 seconds DOSE AREA PRODUCT: 2116 uGy-m2 (microgray-meter squared) F L/FL upper GI w air IMPRESSION: Mild gastroesophagea l reflux without hiatal hernia. Electronically gonzalo d by: Thomas Quintero MD 07/20/2024 09:42 AM EDT Dictated By: Mr jama Quintero MD Signed By: <Electronically signed by Thomas Quintero MD in OV> 07/20/24 0942 DD/ 0805 TD/TT: 07/20/24 0831 Quarrying Specialist: DANDRE Reason For Referral No Information Medications Medication [...] CAPSULE BY MO UTH EVERY DAY Active Flonase 50 MCG/ACT 2 [...] Vaccine Unknown 12/15/2012 Administered At work [employer] Fluarix Quadrivalent IM Intramuscular 11/20/2013 Administe red Prevnar 13 IM Intramuscular 03/11/2014 Administered zFluzone Quadrivalent Unknown 12/31/2014 Administered given at work Fluarix Quadrivalent Unknown 11/26/2015 Administered At work [employer]. Fluarix Quadrivalent Unknown 12/17/2016 Administered At The [employer] TDaP Unknown 05/20/2008 Administered Shingles Unknown 05/20/2008 Administered PPSV23 (Pnemovax) IM Intramuscular 05/29/2018 Administered Fluarix Quadrivalent Unknown 12/16/2017 Administered pt was given the vaccine at work. Shingrix IM Intramuscular 10/24/2018 Administered pt was given the vaccine at [facility] [employer] in [place]. Shingrix IM Intramuscular 01/06/2019 Administered pt was given the vaccine at [facility] in [place]. Influenza High Dose Unknown 11/29/2019 Administered Teddy maldonado TDaP Unknown 10/25/2019 Administered [employer] Covid Vaccine Unknown 04/29/2020 Administered Moderna Covid Vaccine Unknown 05/27/2020 Administered Moderna Influenza High Dose Unknown 12/05/2020 Administered Teddy mcgraws SARS-COV-2 Moderna Unknown 06/12/2021 Administered Isabel carballo's [...] Problem Status W/U Status Risk Notes Problem 571721764 Atherosclerotic heart disease of [place] coronary artery without angina pectoris (I25.10) Active confirmed Problem Prostatism (95546579) Prostatism (N40.0) Active confirmed Problem Reflux esophagit is (K21.00) Active confirmed Problem 284746679 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 Problem 06597245 Anxiety (F41.9) Active confirmed Problem 52441811 Obstructive slee p apnea (adult) (pediatric) (G47.33) Active confirmed Problem 6748355 Arthritis (M19.90) Active confirmed Problem 312751966 Lumbar disc dise ase (M51.9) Active confirmed Problem 070320864 Gastroesophageal reflux disease without esophagitis (K21.9) Active confirmed Problem 35562237 Essential hypertension (I10) Active confirmed Problem 009193159 Mild intermitten t asthma without complication (J45.20) Active confirmed Problem 974986808 Low HDL (under 4 0) (E78.6) Active confirmed Problem 294983528 Non morbid obesi ty due to excess calories (E66.09) Active confirmed Problem 983031312 History of gout (Z87.39) Active confirmed Problem 321989295 Esophageal dysmotility (K22.4) Active confirmed Problem 38788143 Obstructive slee p apnea (G47.33) Active confirmed Problem 08642139 Hypercholesterem ia (E78.00) Active confirmed Problem 88152113 OSMEL (obstructive sleep apnea) (G47.33) Active confirmed Problem 371582864 Nodule of kidney (N28.89) Active confirmed Vital Signs Blood pressure diastolic 60 mm Hg 07/03/2024 gwendolyn ght is down 8 pounds since 12-26-23 Height 72 in 07/03/2024 weight is down 8 pounds since 12-26-23 Blood pressure systolic 122 mm Hg 07/03/2024 weig ht is down 8 pounds since 12-26-23 Weight 273 lbs 07/03/2024 weight is down 8 pounds since 12-26-23 BMI 37.02 kg/m2 07/03/2024 weight is down 8 pounds since 12-26-23 Encounters Encounter Location Date Provider Diagnosis Luis Chaves MD [address] [place] [id number] 06/26/2024 Luis Chaves Hypercholesteremia E 78.00 Luis Chaves MD [address] [place] [address] [id number] 12/20/2023 Luis Chaves Essential hypertensi on I10 ; Low HDL (under 40) E78.6 and Hypercholesteremia E78.00 Luis Chaves MD [address] [place] [id number] 12/26/2023 Luis Chaves Mild intermittent as thma without complication J45.20 ; Essential hypertension I10 ; Obstructive sleep apnea G47.33 ; Hypercholesteremia E78.00 ; Lumbar disc disease M51.9 ; History of gout Z87.39 ; Gastroesophageal reflux disease without esophagitis K21.9 ; Arthritis M19.90 ; Colon cancer screening Z12.11 and Depression screening Z13.31 Luis Chaves MD [address] [place] [id number] 07/03/2024 Luis Chaves Vision changes H53.9 ; Hypercholesteremia E78.00 ; Prostatism N40.0 and Reflux esophagitis K21.00 Luis Chaves MD [address] [place] [id number] 09/20/2023 Luis Chaves MD [address] [place] [id number] 02/13/2024 Luis Chaves MD [address] [place] [id number] 04/26/2024 Luis Chaves MD [address] [place] [id number] 04/27/2024 Luis Chaves Assessments Encounter Date Diagnosis [...] con 12/17/2021 Next Appt Details Provider Name:Luis reardonr, 08/03/2024 09:15:00 AM, [address] [place] [address], [address], [phone], Provider Name:Luis Lewis ier, 12/20/2024 07:15:00 AM, [address] [place] [address], [address], [phone], Provider Name:Luis Lewis ier, 12/27/2024 08:30:00 AM, [address] [place] [address], [address], [phone], Insurance Providers Payer Name Payer Address Payer Phone Subscriber Number Group Number Insured Name Patient Relationship to Insured Coverage Start Date Coverage End Date MEDICARE NHIC [address] [place] [address] [id number] Ben Kramer Self - patient is the insured [employer] [address] [place], [place] [id number] Ben Kramer Self - patient is the insured Medical (General) History Medical History History ICD Code phlebitis Gout hematuria .cysto in 2004 colonoscopy 02/2003; 03/2013 - repeat 10 years sleep study 10/2008 Surgical History Surgery Date(Month/Year) Left Achilles Lengthening 12/2012
== END 2024-07-24 15:08 | disposition home or self-care (01) ==
LOC: HO.RHE 14:07
PROVIDERS: PCP Internal Medicine; Visit Provider Student in an Organized Health Care Education/Training Program
DX: M1A.9XX1 Chronic gout, unspecified, with tophus (tophi) (principal); M18.0 Bilateral primary osteoarthritis of first carpometacarpal joints; Z51.81 Encounter for therapeutic drug level monitoring; Z79.899 Other long term (current) drug therapy
CPT/HCPCS: 20600; 99213

== ENCOUNTER → 2024-07-24 14:06 | Outpatient (BNVA) | payer MEDICARE, SELFPAY | PROVIDERS: PCP Internal Medicine; Visit Provider Student in an Organized Health Care Education/Training Program | DX: M1A.9XX1 Chronic gout, unspecified, with tophus (tophi) (principal); M18.0 Bilateral primary osteoarthritis of first carpometacarpal joints; Z51.81 Encounter for therapeutic drug level monitoring; Z79.899 Other long term (current) drug therapy | CPT/HCPCS: 20600; 99212; J3300 ==

== ENCOUNTER 2024-08-27 12:25 | Outpatient (AMB) | payer MEDICARE, SELFPAY ==
--- OUTSIDE RECORDS SUMMARY | 2024-06-26 03:00 | XMS_ITS ---
Author Organization Luis Gauthier MD Address [address] [place], [place] [phone] Care Team Providers Care Emotional Support Teacher Name Role Phone Luis Gauthier Primary Care Provider Results Component Value Reference Range Notes Liver Panel Reviewed date:06/26/2024 06:41:59 PM Interpretation: Performing Lab:[facility], [address] [place] [phone] Notes/Report: Bilirubin Total 0.5 0.0-1.0 mg/dL Bilirubin Direct 0.2 0.0-0.5 mg/dL Aspartate Amino Transferase 39 5-37 U/L Alanine Aminotransferase 31 0-40 U/L Total Protein 6.2 6.5-8.0 g/dL Albumin Level 4.1 3.5-5.0 g/dL Alkaline Phosphatase 76 39-117 U/L Lipid Panel with Reflex Reviewed date:06/26/2024 06:42:36 PM Interpretation: Performing Lab:[address] [phone] Notes/Report: Triglycerides 168 <150 mg/dL Desirable Triglyceride: [...] Location Date Provider Diagnosis Luis Gauthier MD [address] [place] [address] [place] [phone] 06/26/2024 Luis Gauthier Hypercholesteremia E 78.00 Assessments Encounter Date Diagnosis (ICD Code) Assessment Notes Treatment Notes Treatment Clinical Notes Section Notes 06/26/2024 Hypercholesteremia (ICD-10 - E78.00) Plan Of Treatment Next Appt Details Provider Name:Luis kirkland, 12/20/2024 07:15:00 AM, [address] [place] [address], [address] [place] [address], [phone], Provider Name:Luis kirkland, 12/27/2024 08:30:00 AM, [address] [place] [address], [address] [facility], [place], [place], [phone], Progress Notes * Ben KRAMER SrDOB: (79 yo M)Acc No.[id number]:06/26/2024 Progress Note Patient: Ben HOFFMANN Provider: Josh Gauthier MD :1945 A ge:79 Y S ex:Male Date:06/26/2024 Address: [address], [place], [id number] Subjective: * Chief Complaints: * 1 . [...] MD Date: 0 06/26/2024 Generated for Inocencio peace/Prosper/Dorinda on: 0 08/27/2024 01:45 PM EDT
--- NOTE | 2024-08-27 12:53 | MHC.OFFVIS ---
Vital Signs 08/27/24 12:57 Height 6 ft Weight 264 lb 8.875 oz BMI 35.9 BP 120/70 Blood Pressure Location Lt brachial Position Sitting Pulse 60 Pulse Source Pulse Oximeter Intake Visit Reasons: r/s 08/22/24 6 mos followup Intake Note: 6 mth f/up Electrical And Instrumentation Manager Required: No Accompanied by: Self / Same As Patient Allergies lisinopril (From ZESTRIL) Adverse Reaction (Mild, Verified 07/24/24 14:12) DIZZINESS Cortisone Adverse Reaction (Mild, Uncoded 07/24/24 14:12) red face Medication List - Last Reconciled 08/27/24 by Antonio Cage MD acetaminophen (Tylenol Extra Strength) 1,000 mg PO QID PRN albuterol sulfate 90 mcg/actuation 2 puffs PO Q4H PRN allopurinol 300 mg PO DAILY amlodipine 10 mg PO DAILY aspirin (Adult Low Dose Aspirin) 81 mg PO DAILY atorvastatin 20 mg PO DAILY carvedilol 6.25 mg PO BID celecoxib 200 mg PO .4 times a week fluticasone propion-salmeterol 115-21 mcg/actuation (Advair HFA) inhalation fluticasone propionate 110 mcg/actuation (Flovent HFA) 1 puff inhalation DAILY irbesartan-hydrochlorothiazide 150-12.5 mg 1 tab PO DAILY lorazepam 0.5 mg PO BID PRN multivitamin 1 tab PO DAILY pantoprazole 40 mg PO BID prednisone 20 mg PO DAILY PRN pregabalin 50 mg PO BID pregabalin mg PO HPI Comments Details: Here for follow up. He was seen for epigastric fullness, palpitations and HTN. He had slight troponin elevation. Nuclear stress was normal. Echo showed normal LVEF and indeterminate diastolic function. For his palpitations we arranged a Holter which showed occasional supraventricular and ventricular ectopy but no sustained arrhythmia noted. He was started on antiypertensive medications. Since then he has been doing well. He is here for follow-up today. He is denying any chest discomfort or shortness of breath. Denying any further palpitations. Taking his antihypertensive medications regularly without any significant issues. He has bilateral lower extremity edema. He is wearing compression stockings. He had right lower extremity DVT and since then he had chronic right lower extremity edema. Currently has edema on both sides and he has been on amlodipine 10 mg daily which is potential reason for edema. He is denying any shortness of breath, orthopnea or PND. He has sleep apnea and sleeps with CPAP. 02/09/2023: He returns for follow-up. He was in the emergency department in December with dizziness. He felt lightheaded at that time. His blood pressure was elevated and his blood pressures were as high as 160s systolic. He was monitored in the ER and then discharged home. His BNP was normal. High sensitive troponin levels were flat. EKG did not have any dynamic changes. Since then he has done well. He continues to take same medications at this point. He continues to have peripheral edema but appears to be not bothered by it. 02/13/2024: He is here for follow-up. His blood pressure is elevated and he has peripheral edema as before. He is saying that he is off the gabapentin and has been started on pregabalin. Continues to take 10 mg amlodipine. 08/27/2024: He is here for follow-up. We added Lasix previously but he had some electrolyte changes and Lasix was discontinued. He continues to take hydrochlorothiazide and irbesartan combination along with carvedilol and amlodipine. Blood pressure is good. He is denying chest discomfort but gets dyspnea with activities. He is saying that he may need reoperation to his left knee replacement because he has been getting some issuess. [facility] Surgical History History of back surgery History of foot surgery S/P surgery on nasal septum History of left knee surgery Family History Father No problems noted. Mother No problems noted. Family/Other Diabetes Social History Household Members: Spouse Alcohol intake: never Patient Tobacco Use Status: Former Tobacco user Tobacco use type: Cigarette Years Smoked: 20 +/- Current occupational status: unemployed Review of Systems Const Denies chills, Denies fatigue, Denies fever(s), Denies frequent falls, Denies weakness, Denies weight gain and Denies weight loss ENT Denies dizziness Card Denies chest pain, Denies leg edema, Denies lightheadedness, Denies palpitations, Denies dyspnea and Denies dyspnea on exertion Resp Denies cough, Denies dyspnea and Denies dyspnea on exertion GI Denies hematochezia Musc Denies abnormal gait, Denies muscle weakness, Denies numbness, Denies radiating pain into limb and Denies tingling Neuro Denies abnormal gait, Denies dizziness, Denies frequent falls, Denies numbness, Denies tingling and Denies weakness Endo Denies fatigue and Denies palpitations Physical Exam Vital Signs: Last Vital Signs Pulse 60 08/27/24 12:57 BP 120/70 08/27/24 12:57 BMI result Body Mass Index 35.9 GENERAL APPEARANCE: in no acute distress, well developed, well nourished. NECK/THYROID: no carotid bruit, no jugular venous distention. SKIN: warm and dry. HEART: no murmurs, regular rate and rhythm, S1, S2 normal. LUNGS: clear to auscultation bilaterally. ABDOMEN: normal, bowel sounds present, soft, nontender, nondistended. EXTREMITIES: 1+ edema bilaterally in the legs. PERIPHERAL PULSES: equal. PSYCH: mood/affect full range. Assessment & Plan Assessment & Plan (1) Hypertension: Code(s): I10 - Essential (primary) hypertension Category: Medical (2) Preop cardiovascular exam: Code(s): Z01.810 - Encounter for preprocedural cardiovascular examination Category: Medical Plan [age] year gentleman who is here for follow-up. He has background history of hypertension and peripheral edema. Blood pressure is well controlled currently. He has 1+ peripheral edema and we tried giving him some Lasix but he developed electrolyte issues. Currently just on hydrochlorothiazide. He has some dyspnea with activities. I will check echocardiogram for further assessment. Overall he is intermediate risk for left knee surgery. Carvedilol should not be stopped in the perioperative period. Ideally irbesartan hydrochlorothiazide combination should be held before surgery. Thank you for allowing me to participate in the care of your patient. Please feel free to contact me if you have any questions. Orders: Orders CA echo transthoracic complete Today Z01.810 - Encounter for preprocedural cardiovascular examination Coding Level of Care Code Est Pt Level 4 (78838) Diagnoses Hypertension I10 Preop cardiovascular exam Z01.810
[2024-08-27 12:57] VITALS: BP 120/70; PULSE 60; BMI 35.9
== END 2024-08-27 13:16 | disposition home or self-care (01) ==
LOC: HO.HCS 12:25
PROVIDERS: PCP Internal Medicine; Visit Provider Internal Medicine Cardiovascular Disease
DX: I10 Essential (primary) hypertension (principal); Z01.810 Encounter for preprocedural cardiovascular examination
CPT/HCPCS: 99214

== ENCOUNTER → 2024-08-27 12:25 | Outpatient (BNVA) | payer MEDICARE, SELFPAY | PROVIDERS: PCP Internal Medicine; Visit Provider Internal Medicine Cardiovascular Disease | DX: Z01.810 Encounter for preprocedural cardiovascular examination (principal); I10 Essential (primary) hypertension | CPT/HCPCS: 99212 ==

== ENCOUNTER → 2024-10-25 08:06 | Outpatient (REF) | payer MEDICARE, SELFPAY ==
--- NOTE | 2024-10-25 08:09 | CA_ITS ---
Transthoracic Echocardiogram Patient (Last, First, Middle): Ben Kramer F Gender: M Date of : 1945 Age: 79 Procedure Date: 10/25/2024 Procedure Type: Transthoracic Echocardiogram Location: OP Height: 177.8 cm Weight: 117.94 kg BSA: 2.33 m2 Heart Rate: 56 bpm BP: 120 / 70 mmHg Rn Nursery: SB Referring MD: Antonio Cage MD Bill Collector: Matt De La Fuente MD Symptoms: Z01.810 Preop cardiovascular exam Study Quality: Adequate ECG Rhythm: Bradycardia Conclusions: - 1. Low normal LV ejection fraction 50-55% with impaired relaxation filling pattern 2. Mild calcific aortic and mitral valve changes noted with normal cardiac valvular Dopplers 3. Normal RV systolic pressure 4. No gross pericardial effusion Findings Left Ventricle Normal left ventricular size, thickness, and systolic function. The visually estimated ejection fraction is between 50-55%. Spectral Doppler is indicative of an impaired relaxation filling pattern. E/E prime ratio is between 8 and 15 consistent with indeterminate filling pressures. Right Ventricle Normal right ventricular cavity size and systolic function. Atria The left atrium is normal in size. There is no evidence of interatrial shunt. The right atrium is normal in size. Aortic Valve There is mild calcification of the aortic valve. There is no aortic valve stenosis. There is no aortic valve regurgitation. Mitral Valve There is mild anterior mitral leaflet thickening. There is mild mitral annular calcification. There is trace mitral valve regurgitation. There is no mitral valve stenosis. Pulmonic Valve The pulmonic valve was not well visualized. Tricuspid Valve Likely normal tricuspid valve structure and function. There is trace tricuspid valve regurgitation. The right ventricular systolic pressure is normal. The right ventricular systolic pressure is 25 mmHg. Normal right atrial pressure. There is no evidence of pulmonary hypertension. Great Vessels All visible segments of the aorta are normal in size. The pulmonary artery was not well visualized. There is no dilatation of the ascending aorta measuring 3.40 cm. Venous The inferior vena cava is normal in size and collapses greater than 50% with inspiration. Pericardium/Pleural There is no evidence of pericardial effusion. Prior Study Comparison No significant change compared to prior study dated: 05/31/2018. Measurements 2D Linear Measurements IVSd: 1.14 0.6-0.9/0.6-1.0 cm LVIDd: 5.31 3.9-5.3/4.2-5.9 cm LVIDd Index: 2.28 2.4-3.2/2.2-3.1 cm/m2 LVIDs: 4.46 2.0-3.6 cm LVPWd: 0.85 0.7-1.1 cm LA Diam: 4.60 2.7-3.8/3.0-4.0 cm LAIDs Index: 1.97 1.5-2.3 cm/m2 LV Mass: 249.20 67-162/88-224 g LV Mass Index: 106.95 43-95/49-115 g/m2 LVOT Diam: 2.40 3.0+(-)1.3 cm Mitral Valve MV Pk E: 1.00 MV PK A: 1.07 MV Decel Time: 179.00 E/A: 0.90 E'Lateral: 7.83 E'Medial: 8.05 E/E' Med: 12.40 E/E' Lat: 12.80 PHT: 52.00 MVA PHT: 4.23 Decel Sanborn: 5.60 Aortic Valve AoV Pk Jack: 1.38 AoV Pk Grad: 8.00 BRYAN: 3.22 LVOT LVOT Pk Jack: 0.91 LVOT Mn Jack: 0.59 LVOT VTI: 0.21 LVOT Pk Grad: 3.00 LVOT Mn Grad: 2.00 LVOT Diam: 2.40 LVOT Area: 4.52 Diastolic Function MV Pk E: 1.00 MV Pk A: 1.07 E/A: 0.90 E'Medial: 8.05 E/E' Med: 12.40 E' Laterial: 7.83 E/E' Lat: 12.80 Right Ventricle TAPSE (mm): 24.30 TVS' Jack: 10.80 Tricuspid Valve TR Pk Jack: 2.37 TR Pk Grad: 22.00 RA Press: 3.00 RVSP: 25.00 Great Vessels Aorta Sinus of Valsalva: 3.60 2.0-3.5 cm Ao Asc: 3.40 2.1-3.4 cm Pulmonary Veins Pulm Vein S/D 1.60 Pulmonary Valve PV Pk Jack: 0.95 Peak PV Grad: 4.00 Updated in Other Vendor System with Status of Final Matt De La Fuente MD electronically signed on 10/26/2024 5:26:28 PM with status of Final
== END ==
LOC: HO.CARD 08:06
PROVIDERS: PCP Internal Medicine; Visit Provider Internal Medicine Cardiovascular Disease
DX: Z01.810 Encounter for preprocedural cardiovascular examination (principal)
CPT/HCPCS: 93306

== ENCOUNTER → 2024-10-25 08:09 | Outpatient (BNV) | payer MEDICARE, SELFPAY | PROVIDERS: PCP Internal Medicine; Visit Provider Internal Medicine Cardiovascular Disease | DX: I35.8 Other nonrheumatic aortic valve disorders (principal); I34.81 Nonrheumatic mitral (valve) annulus calcification | CPT/HCPCS: 93306 ==

== ENCOUNTER 2024-12-13 11:33 | Outpatient (REF) | payer MEDICARE, SELFPAY ==
[2024-12-13 11:38] LABS: MANUAL DIFF FLAG NO
[2024-12-13 11:46] LABS: Appearance Urine Clear; Glucose Urine UA Negative (Negative); PH 6.5 (5.0-9.0); Specific Gravity - Urine 1.015 (1.005-1.025)
[2024-12-13 11:58] LABS: Hematocrit 40.7 % (42.0-52.0); Hemoglobin 13.3 g/dl (14.0-18.0); Imm Gran Abs Auto 0.02 X10*3/uL (0.00-0.03); Imm Gran Pct Auto 0.3 % (0.0-0.4); Lymphocytes Absolute Auto 1.8 X10*3/uL (1.2-4.9); Mean Corpuscular HGB Conc 32.7 g/dl (31.0-36.0); Mean Corpuscular Hemoglobin 31.5 pg (27.0-33.0); Mean Corpuscular Volume 96.4 fL (80.0-98.0); NRBC Abs Auto 0.000 X10*3/uL (0.0-0.012); NRBC Pct Auto 0.0 /100WBC (0.0-0.2); Platelet Count 196 X10*3/uL (160-400); Red Blood Count 4.22 X10*6/uL (4.60-5.80); White Blood Count 6.6 X10*3/uL (4.8-10.8)
[2024-12-13 12:05] LABS: Alanine Aminotransferase 32 U/L (0-40); Albumin Level 4.3 g/dL (3.5-5.0); Alkaline Phosphatase 81 U/L (39-117); Anion Gap 10 (12-20); Aspartate Amino Transferase 45 U/L (5-37); Blood Urea Nitrogen 22 mg/dL (9-16); Calcium 9.2 mg/dL (8.4-10.2); Carbon Dioxide 31 mmol/L (22-29); Chloride 106 mmol/L (96-108); Cholesterol 128 mg/dL (<200); Estimated Glomerular Filt Rate 54; HDL Cholesterol 31 mg/dL (>40); Potassium 4.0 mmol/L (3.3-5.1); Sodium 143 mmol/L (135-145); Total Protein 6.5 g/dL (6.5-8.0); Triglycerides 122 mg/dL (<150)
[2024-12-13 12:29] LABS: PSA,Total (Free>4and<10) 1.42 ng/mL (0.00-4.00)
== END 2024-12-13 11:34 | disposition home or self-care (01) ==
LOC: HO.LNP 11:33
PROVIDERS: Visit Provider Internal Medicine
DX: Z12.5 Encounter for screening for malignant neoplasm of prostate (principal); I10 Essential (primary) hypertension; E78.00 Pure hypercholesterolemia, unspecified; N40.0 Benign prostatic hyperplasia without lower urinary tract symptoms
CPT/HCPCS: 80053; 80061; 81001; 84153; 85025

== ENCOUNTER 2025-01-02 12:55 | Outpatient (AMB) | payer MEDICARE, SELFPAY ==
--- OUTSIDE RECORDS SUMMARY | 2023-11-03 09:00 | XMS_ITS ---
Author Organization [facility] Address [address] [place] [id number] Care Team Providers Care Forming Machine Upkeep Mechanic Helper Name Role Phone Disha ALVARADO, Luis Primary Care Provider Soila Greco Unavailable [phone] Jacinto Encounters Encounter Location Date Provider Diagnosis [address] [address] 11/03/2023 Soila Wilfredo Plan Of Treatment Next Appt Details Provider Name:Soila Villalobos , 03/14/2025 01:30:00 PM, [address] [place] [address], [phone], Provider Name:Soila Villalobos , 05/16/2025 01:30:00 PM, [address] [place] [address], [phone], Progress Notes * Ben DONALDDOB: 8 (79 yo M)Acc No.[id number]:11/03/2023 Progress Note Patient: S Ben SIMMS Provider: Monie Villalobos DPM :1945 A ge:78 Y S ex:Male Date:11/03/2023 Address:[address] [place] [phone] Pcp:Luis Gauthier MD Subjective: * Chief Complaints: [...] 0 11/03/2023 Generated for Inocencio peace/Prosper/Dorinda on: 04:21 PM EDT
--- OUTSIDE RECORDS SUMMARY | 2024-02-13 06:50 | XMS_ITS ---
Author Organization Luis Gauthier MD Address 10 [facility] [address] [place] [phone] Care Team Providers Care Sql Ssis Developer Name Role Phone Luis Gauthier Primary Care Provider [phone] REASON FOR VISIT ER Encounters Encounter Location Date Provider Diagnosis Luis Gauthier MD 10 [facility] [address] [place] [phone] 02/13/2024 Luis Gauthier Plan Of Treatment Next Appt Details Provider Name:Luis kirkland, 06/21/2025 08:00:00 AM, [address] [place] [address], [address], [phone], Provider Name:Luis kirkland, 06/28/2025 10:00:00 AM, [address] [place] [address], [address], [phone], Provider Name:Luis kirkland, 12/23/2025 07:15:00 AM, [address] [place] [address], [address], [phone], Provider Name:Luis kirkland, 12/30/2025 09:30:00 AM, [address] [place] [address], [address], [phone], Progress Notes * Ben KRAMER SrDOB: (78 yo M)Acc No.[id number]:02/13/2024 Patient: Ben Grullon :1945 A ge:78 Y S ex:Male Address:[address] [place] [phone] * true * Date: Generated for Inocencio peace/Prosper/Corinsmitting on: 04:20 PM EDT
--- OUTSIDE RECORDS SUMMARY | 2024-03-08 04:45 | XMS_ITS ---
Author Organization Luis Gauthier MD Address [address] [place] [address] [phone] Care Team Providers Care Crane Hoist Or Lift Operator Name Role Phone Luis Gauthier Primary Care Provider REASON FOR VISIT BUN Creatinine Encounters Encounter Location Date Provider Diagnosis Luis Gauthier MD 10 [facility] [address] [place] [phone] 03/08/2024 Luis Gauthier Essential hypertension I10 Assessments Encounter Date Diagnosis (ICD Code) Assessment Notes Treatment Notes Treatment Clinical Notes Section Notes 03/08/2024 Essential hypertension (ICD-10 - I10) Plan Of Treatment Next Appt Details Provider Name:Luis kirkland, 06/21/2025 08:00:00 AM, [address] [place] [address], [address], [phone], Provider Name:Luis kirkland, 06/28/2025 10:00:00 AM, [address] [place] [address], [phone], Provider Name:Luis kirkland, 12/23/2025 07:15:00 AM, [address] [place] [address], [phone], Provider Name:Luis kirkland, 12/30/2025 09:30:00 AM, [address] [place] [address], [address], [place], [place], [phone], Progress Notes * Ben KRAMER SrDOB: (79 yo M)Acc No.[id number]:03/08/2024 Progress Note Patient: Ben HOFFMANN Sr Provider: Josh Gauthier MD :1945 A ge:78 Y S ex:Male Date:03/08/2024 Address: [address], [facility], [id number] Subjective: * Chief Complaints: * 1 . [...] 0 03/08/2024 Generated for Inocencio peace/Prosper/Aleksitting on: 04:21 PM EDT
--- OUTSIDE RECORDS SUMMARY | 2024-04-26 12:15 | XMS_ITS ---
Author Organization Luis Gauthier MD Address [address] [place] [address] [phone] Care Team Providers Care Director Of Home Care Hospice Name Role Phone Luis Gauthier Primary Care Provider REASON FOR VISIT Need prescription to replace Flovent HFA with Advair HFA Medications Medication SIG (Take, Route, Frequency, Duration) Notes Start Date End Date Status Advair HFA 115-21 MCG/ACT 2 puffs Inhala tion Twice a day for 30 days 04/27/2024 Active Encounters Encounter Location Date Provider Diagnosis Luis Gauthier MD [address] [place] [address] [place] [phone] 04/26/2024 Luis Gauthier Plan Of Treatment Medication Medication Name Sig Start Date Stop Date Notes Advair HFA 115-21 MCG/ACT 2 puffs Inhala tion Twice a day for 30 days 04/27/2024 Next Appt Details Provider Name:Luis kirkland, 06/21/2025 08:00:00 AM, [address] [place] [address], [address], [phone], Provider Name:Luis kirkland, 06/28/2025 10:00:00 AM, [address] [place] [address], [address], [phone], Provider Name:Luis Lewis ier, 12/23/2025 07:15:00 AM, [address], [address], [place], [place], [phone], Provider Name:Luis Lewis ier, 12/30/2025 09:30:00 AM, [address], [address], [place], [place], [phone], Progress Notes * Ben KRAMER SrDOB: (78 yo M)Acc No.[id number]:04/26/2024 Patient: Ben HOFFMANN Sr :1945 A ge:78 Y S ex:Male Address: [place] [address] * Refills Start Advair HFA Aerosol, 115-21 MCG/ACT, Inhalation, 1, 2 puffs, Twice a day, 30 days, Refills=11 * true * Date: Generated for Inocencio peace/Prosper/eTmartsmitting on: 04:20 PM EDT
--- OUTSIDE RECORDS SUMMARY | 2024-04-27 12:27 | XMS_ITS ---
Author Organization Luis Gauthier MD Address 10 [facility] [address] [place] [phone] Care Team Providers Care Substation Electrician Supervisor Name Role Phone Luis Gauthier Primary Care Provider REASON FOR VISIT RE:Need prescription to replace Flovent HFA with Advair HFA Encounters Encounter Location Date Provider Diagnosis Luis Gauthier MD [address] [place] [address] [place] [address] [phone] 04/27/2024 Luis Gauthier Plan Of Treatment Next Appt Details Provider Name:Luis kirkland, 06/21/2025 08:00:00 AM, [address] [place] [address], [address], [phone], Provider Name:Luis kirkland, 06/28/2025 10:00:00 AM, [address] [place] [address], [address], [phone], Provider Name:Luis kirkland, 12/23/2025 07:15:00 AM, [address] [place] [address], [phone], Provider Name:Luis kirkland, 12/30/2025 09:30:00 AM, [address] [place] [address], [phone], Progress Notes * Ben KRAMER SrDOB: (78 yo M)Acc No.[id number]:04/27/2024 Patient: Ben HOFFMANN Sr :1945 A ge:78 Y S ex:Male Address: [address], [place] [address] * true * Date: Generated for Inocencio peace/Prosper/eTransmitting on: 04:19 PM EDT
--- OUTSIDE RECORDS SUMMARY | 2024-06-26 03:00 | XMS_ITS ---
Author Organization Luis Gauthier MD Address [address] [place], [place] [phone] Care Team Providers Care Pyrotechnic Mixer Name Role Phone Luis Gauthier Primary Care Provider [phone] Results Component Value Reference Range Notes Liver Panel Reviewed date:06/26/2024 06:41:59 PM Interpretation: Performing Lab:[facility], [address] [place] [phone] Notes/Report: Bilirubin Total 0.5 0.0-1.0 mg/dL Bilirubin Direct 0.2 0.0-0.5 mg/dL Aspartate Amino Transferase 39 5-37 U/L Alanine Aminotransferase 31 0-40 U/L Total Protein 6.2 6.5-8.0 g/dL Albumin Level 4.1 3.5-5.0 g/dL Alkaline Phosphatase 76 39-117 U/L Lipid Panel with Reflex Reviewed date:06/26/2024 06:42:36 PM Interpretation: Performing Lab:[address] [phone] Notes/Report: Triglycerides 168 <150 mg/dL Desirable Triglyceride: [...] Location Date Provider Diagnosis Luis Gauthier MD [address] [place] [phone] 06/26/2024 Luis Gauthier Hypercholesteremia E 78.00 Assessments Encounter Date Diagnosis (ICD Code) Assessment Notes Treatment Notes Treatment Clinical Notes Section Notes 06/26/2024 Hypercholesteremia (ICD-10 - E78.00) Plan Of Treatment Next Appt Details Provider Name:Luis kirkland, 06/21/2025 08:00:00 AM, [address] [place] [address], [phone], Provider Name:Luis kirkland, 06/28/2025 10:00:00 AM, [address] [place] [address], [phone], Provider Name:Luis kirkland, 12/23/2025 07:15:00 AM, [address] [place] [address], [phone], Provider Name:Luis reardonr, 12/30/2025 09:30:00 AM, [address] [place] [address], [phone], Progress Notes * [facility] Ben Tana SrDOB: (79 yo M)Acc No.[id number]:06/26/2024 Progress Note Patient: Ben HOFFMANN Sr Provider: Josh Gauthier MD :1945 A ge:79 Y S ex:Male Date:06/26/2024 Address[facility] [address] [id number] Subjective: * Chief Complaints: * 1 . [...] 0 06/26/2024 Generated for Inocencio peace/Prosper/Aleksitting on: 04:20 PM EDT
--- OUTSIDE RECORDS SUMMARY | 2024-07-03 06:00 | XMS_ITS ---
Author Organization Luis Gauthier MD Address [address] [place], [place] [phone] Care Team Providers Care Dive Master Name Role Phone Luis Gauthier Primary Care [...] Status W/U Status Risk Notes Problem Prostatism (88373305) Prostatism (N40.0) Active confirmed Problem Reflux esophagitis (795164136) Reflux esophagitis (K21.00) Active confirmed Vital Signs Blood pressure systolic 122 mm Hg 07/04/19 25 Blood pressure diastolic 60 mm Hg 025 Height 72 in 07/03/2024 Weight 273 lbs 07/03/2024 BMI 37.02 kg/m2 07/03/2024 weight is down 8 pounds [facility] 12-26-23 Encounters Encounter Location Date Provider Diagnosis Luis Gauthier MD [address] [place] [address] [address] [place], [place] [phone] 07/03/2024 Luis Gauthier Vision changes H53.9 ; [...] Provider Name:Luis Lewis ier, 06/21/2025 08:00:00 AM, [address] [place] [address], [address], [phone], Provider Name:Luis Catie Joshua ier, 06/28/2025 10:00:00 AM, [address] [place] [address], [address], [phone], Provider Name:Luis Haddad Joshua ier, 12/23/2025 07:15:00 AM, [address] [place] [address], [address], [phone], Provider Name:Luis Haddad Joshua ier, 12/30/2025 09:30:00 AM, [address] [place] [address], [address], [phone], Progress Notes * Ben KRAMER SrDOB: (79 yo M)Acc No.[id number]:07/03/2024 Progress Notes Patient: Ben HOFFMANN Sr Provider: Josh Gauthier MD :1945 A ge:79 Y S ex:Male Date:07/03/2024 Address: [address], [facility], [id number] Subjective: * Chief Complaints: * 6 MO [...] 0 07/03/2024 Generated for Inocencio peace/Prosper/Aleksitting on: 04:21 PM EDT History and Physical Notes * [...]
--- OUTSIDE RECORDS SUMMARY | 2024-08-03 05:15 | XMS_ITS ---
Author Organization Luis Gauthier MD Address [address] [place], [place] [phone] Care Team Providers Care Tug Master Name Role Phone Luis Gauthier Primary [...] 200 MG TAKE 1 CAPSULE BY MO ILH EVERY DAY Active Allopurinol 300 MG 1tablet Orally Once a day Active Flonase 50 MCG/ACT 2 sprays Nasally Onc e a day for 90 days Not-Taking Vital Signs Blood pressure systolic 122 mm Hg 08/04/19 25 Blood pressure diastolic 70 mm Hg 025 Height 72 in 08/03/2024 Weight 267 lbs 08/03/2024 BMI 36.21 kg/m2 08/03/2024 weight is down 6 pounds [facility] 07-03-24 Encounters Encounter Location Date Provider Diagnosis Luis Gauthier MD [address] [place] [address] Drive [address] [place] [phone] 08/03/2024 Luis Gauthier Gastroesophageal ref lux disease [...] Details Provider Name:Luis kirkland, 06/21/2025 08:00:00 AM, [address] [place] [address], Suite [facility], [place], [place], [phone], Provider Name:Luis kirkland, 06/28/2025 10:00:00 AM, [address] [place] [address], Suite [facility], [place], [place], [phone], Provider Name:Luis Lewis ier, 12/23/2025 07:15:00 AM, [address], [address], [place], [phone], Provider Name:Luis Lewis ier, 12/30/2025 09:30:00 AM, [address], [address], [place], [phone], Progress Notes * Ben KRAMER SrDOB: (79 yo M)Acc No.[id number]:08/03/2024 Progress Notes Patient: Ben HOFFMANN Sr Provider: Josh Gauthier MD :1945 A ge:79 Y S ex:Male Date:08/03/2024 Address: [address], [place], [place] Subjective: * Chief Complaints: * 4 [...] 0 08/03/2024 Generated for Inocencio peace/Prosper/Aleksitting on: 04:20 PM EDT History and Physical Notes * [...]
--- OUTSIDE RECORDS SUMMARY | 2024-11-19 06:58 | XMS_ITS ---
Author Organization Luis Gauthier MD Address [address] [place] [phone] Care Team Providers Care Automatic Spooler Operator Name Role Phone Luis Gauthier Primary Care Provider Medications Medication SIG (Take, Route, Frequency, Duration) Notes Start Date End Date Status Breo Ellipta 100-25 MCG/ACT 1 puff Inhalation Once a day for 30 days 11/19/2024 Active Encounters Encounter Location Date Provider Diagnosis Luis Gauthier MD [address] [place] [address] [place] [phone] 11/19/2024 Luis Gauthier Plan Of Treatment Medication Medication Name Sig Start Date Stop Date Notes Breo Ellipta 100-25 MCG/ACT 1 puff Inhal ation Once a day for 30 days 11/19/2024 Next Appt Details Provider Name:Luis kirkland, 06/21/2025 08:00:00 AM, [address] [place] [address], [address], [phone], Provider Name:Luis kirkland, 06/28/2025 10:00:00 AM, [address] [place] [address], [address], [phone], Provider Name:Luis kirkland, 12/23/2025 07:15:00 AM, [address], [address], [place], [place], [phone], Provider Name:Luis Lewis marita, 12/30/2025 09:30:00 AM, [address] [facility], [address], [place], [place], [phone], Progress Notes * Ben KRAMER SrDOB: (79 yo M)Acc No.[id number]:11/19/2024 Patient: Ben HOFFMANN Sr :1945 A ge:79 Y S ex:Male Address: [address], [place] [address] * Refills Start Breo Ellipta Aerosol Powder Breath Activated, 100-25 MCG/ACT, Inhalation, 1, 1 puff, Once a day, 30 days, Refills=11 * true * Date: Generated for Inocencio peace/Prosper/Corinsmitting on: 04:20 PM EDT
--- OUTSIDE RECORDS SUMMARY | 2024-12-13 03:15 | XMS_ITS ---
Author Organization Luis Gauthier MD Address [address] [place] [phone] Care Team Providers Care Keller Machine Operator Name Role Phone Luis Gauthier Primary Care Provider [phone] Results Component Value Reference Range Notes Complete Blood Count Auto Di ff Reviewed date:12/13/2024 02:34:26 PM Interpretation: Performing Lab:[facility], [place], [address] [place] [phone] Notes/Report: White Blood Count 6.6 4.8-10.8 X10*3/uL [...] NRBC Abs Auto 0.000 0.0-0.012 X10*3/uL Comprehensive [place]. Panel Fa st Reviewed date:12/13/2024 02:34:06 PM Interpretation: Performing Lab:[address] [phone] Notes/Report: Sodium 143 135-145 mmol/L Potassium 4.0 [...] Panel Reviewed date:12/13/2024 01:45:16 PM Interpretation: Performing Lab:[address] [phone] Notes/Report: Triglycerides 122 <150 mg/dL Desirable Triglyceride: [...] (Free>4and<10) Reviewed date:12/13/2024 01:44:57 PM Interpretation: Performing Lab:[address] [phone] Notes/Report: PSA,Total (Free>4and<10) 1.42 0.00-4.00 ng/mL A [...] t Reviewed date:12/13/2024 02:35:25 PM Interpretation: Performing Lab:[facility], [place], [address] [place] [place] [phone] Notes/Report: Urine, Clean Catch Color Urine Yellow Appearance Urine Clear PH 6.5 5.0-9.0 Glucose Urine UA Negative Negative mg/dL Urine Blood Negative Negative Specific [place] - Urine 1.015 1.005-1.025 Urine Protein Negative [...] Location Date Provider Diagnosis Luis Gauthier MD [address] [place] [phone] 12/13/2024 Luis Gauthier Essential hypertensi on I10 ; Hypercholesteremia E78.00 and Prostatism N40.0 Assessments Encounter Date Diagnosis (ICD Code) Assessment Notes Treatment Notes Treatment Clinical Notes Section Notes 12/13/2024 Essential hypertensi on (ICD-10 - I10) 12/13/2024 Hypercholesteremia (ICD-10 - E78.00) 12/13/2024 Prostatism (ICD-10 - N40.0) Plan Of Treatment Next Appt Details Provider Name:Luis reardonr, 06/21/2025 08:00:00 AM, [address] [place] [address], [phone], Provider Name:Luis Lewis ier, 06/28/2025 10:00:00 AM, [address] [place] [address], [phone], Provider Name:Luis kirkland, 12/23/2025 07:15:00 AM, [address] [place] [address], [phone], Provider Name:Luis reardonr, 12/30/2025 09:30:00 AM, [address] [place] [address], [phone], Progress Notes * Ben MYRICK SrDOB: (79 yo M)Acc No.[id number]:12/13/2024 Progress Note Patient: Ben HOFFMANN Tana Sr Provider: Josh Gauthier MD :1945 A ge:79 Y S ex:Male Date:12/13/2024 Address: [address], [place], [id number] Subjective: * Chief Complaints: * 1 . FASTING LABS. * Medical History: Objective: * Vitals: Assessment: * Assessment: 1. E ssential hypertension - I10 (Primary) 2 . H ypercholesteremia - E78.00? 3. P rostatism - N40.0 Plan: * Treatment: 2. H ypercholesteremia L AB: Complete Blood Count Auto Diff (Collection Date & Time - 12/13/2024 07:15 AM) L AB: Comprehensive [place]. Panel Fast (Collection Date & Time - [...] - 12/13/2024 07:15 AM) L AB: Comprehensive [place]. Panel Fast (Collection Date & Time - [...] Josh Gauthier MD Date: Generated for Mashai ng/Farinag/eTransmitting on: 04:21 PM EDT
--- OUTSIDE RECORDS SUMMARY | 2024-12-27 04:30 | XMS_ITS ---
Author Organization Luis Gauthier MD Address [address] [place] [phone] Care Team Providers Care Cisco Network Engineer Name Role Phone Luis Gauthier Primary Care [...] Encounters Encounter Location Date Provider Diagnosis Luis Gauhtier MD [address] [place], [place] [id number] 12/27/2024 Luis Gauthier Essential hypertensi on I10 [...] Provider Name:Luis Lewis ier, 06/21/2025 08:00:00 AM, [address] [place] [address], [address] [facility], [place], [place], [phone], Provider Name:Luis Lewis ier, 06/28/2025 10:00:00 AM, [address] [place] [address], [address] [facility], [place], [place], [phone], Provider Name:Luis Lewis ier, 12/23/2025 07:15:00 AM, [address] [place] [address], [address] [facility], [place], [place], [phone], Provider Name:Luis Lewis ier, 12/30/2025 09:30:00 AM, [address] [place] [address], [address], [phone], Progress Notes * ELENBen Enciso SrDOB: (79 yo M)Acc No.[id number]:12/27/2024 Patient: Zaria ALMEIDABen Enciso Sr Provider: Josh Gauthier MD :1945 A ge:79 Y S ex:Male Date:12/27/2024 Address: [place], [id number] Subjective: * Chief Complaints: * C [...] mg/dL Urine Blood Negative Negative - Specific [place] - Urine 1.015 1.005-1.025 - Urine Protein [...] Auto 0.000 0.0-0.012 - X10*3/uL L ab:Comprehensive [place]. Panel Fast (Order Date - 12/13/2024) (Collection [...] Procedure Codes: 8 2270 TEST FOR BLOOD, [id number] Complex e/m visit add on * * Sign off status: Completed true * Provider: Josh Gauthier MD Date: Generated for Inocencio peace/Prosper/Dorinda on: 04:19 PM EDT History and Physical Notes * [...]
--- OUTSIDE RECORDS SUMMARY | 2024-12-31 09:00 | XMS_ITS ---
Author Organization [facility] Address [address] [place] [address] Care Team Providers Care Door To Door Sales Representative Name Role Phone Luis Gauthier MD Primary Care Provider Unavajane granados Black, Soila Unavailable [phone] Allergies Allergen (clinical drug ingredient) Drug/Non Drug Allergy documented on EMR Reaction Allergy Type Onset Date Status Cortisone red face Drug Allergy Active angiotensin-converting enzyme inhibitor (FN) NOEMI Inhibitors swelling Drug Allergy Acti ve REASON FOR VISIT Painful nail(s) aggrevated by shoes and causing difficulty standing/walking. Medications Medication SIG (Take, Route, Frequency, Duration) Notes Start Date End Date Status predniSONE PRN Active ProAir HFA Active Pantoprazole Sodium 40 MG 1 tablet Orally Once a day; Duration: 30 day(s) Active Multivitamins Active Carvedilol 6.25 MG 1 tablet with food Orally Twice a day Active CeleBREX 200 MG 1 capsule Orally Once a day; Duration: 30 day(s) Active Aspirin 81 MG 1 tablet Orally Once a day Active Avalide 150-12.5 MG 1 tablet Orally Once a day; Duration: 30 day(s) Active amLODIPine Besylate 10 MG 1 tablet Orally Once a day Active Allopurinol 300 MG 1 tablet Orally once a day Active Pregabalin 75 MG 1 capsule Orally Once a day Active Advair HFA 115-21 MCG/ACT 2 puffs Inhalation Twice a day Active Cephalexin 500 MG 1 tablet Orally every 6 hrs; Duration: 10 day(s) 02/17/2016 Not-Taking Colcrys 0.6 MG 1 tablet Orally Once a day; Duration: 30 day(s) 10/29/2013 Not-Taking Keflex 500 MG 1 capsule Orally every 12 hrs; Duration: 10 day(s) 04/12/2019 Not-Taking Ciclopirox Olamine 0.77% external Apply to effected areas on the feet twice a day; Duration: 30 days 07/28/2015 Not-Taking Colcrys 0.6 MG 1 tablet Orally Once a day; Duration: 30 day(s) Not-Taking AFO-fixed Not-Taking Gabapentin 300 MG 1 capsule Orally Three times a day Not-Taking Flovent HFA 110 MCG/ACT 1 puff Inhalatio n Twice a day Not-Taking Ammonium Lactate 12 % 1 application Externally Twice a day; Duration: 30 days Active Social History Tobacco Use: Social History [...] Interpretation Negative Vital Signs Height 6ft in 12/31/2024 Weight 255 lbs 12/31/2024 BMI 34.58 kg/m2 12/31/2024 Blood pressure systolic 126 mm Hg 01/01/20 25 Blood pressure diastolic 65 mm Hg 025 Procedures Procedure Date Ordered Date Performed Result Body Sit e 79649-WEBRXGE NAIL, 6 OR MORE 12/31/2024 N/A Encounters Encounter Location Date Provider Diagnosis [facility] [address] [address] 12/31/2024 Soila Black Tinea unguium B35.1 ; Pain in left toe(s) M79.675 and Pain in right toe(s) M79.674 Assessments Encounter Date Diagnosis (ICD Code) Assessment Notes Treatment Notes Treatment Clinical Notes Section Notes 12/31/2024 Tinea unguium (ICD-10 - B35.1) 12/31/2024 Pain in left toe(s) (ICD-10 - M79.675) 12/31/2024 Pain in right toe(s) (ICD-10 - M79.674) Plan Of Treatment Pending Test Test Name Order Date 65903-ZOQVHQZ NAIL, 6 OR MORE 12/31/2024 Next Appt Details Follow Up: 2 Months, Reason: Provider Name:Soila Villalobos , 03/14/2025 01:30:00 PM, [address] [place] [address], [phone], Provider Name:Soila Villalobos , 05/16/2025 01:30:00 PM, [address] [place] [address], [phone], Procedure Notes * Category Sub-Category Detail Notes [...] use of a nail nipper and/or dremel-type chicle grinder feeder, to a more viable healthy nail plate [...] in symptomatic relief - Progress Notes * Ben DONALDDOB: 8 (79 yo M)Acc No.[id number]:12/31/2024 Progress Note Patient: Ben DUNCAN Provider: Monie Villalobos DPM :1945 A ge:79 Y S ex:Male Date:12/31/2024 Address:[address] [place], [place] [id number] Pcp:Luis Gauthier MD Subjective: * Chief Complaints: * P ainful nail(s) aggrevated by shoes and causing difficulty standing/walking. * HPI: P ainful Nails: Pt States Last PCP Visit: D ate: 1 * ROS: G eneral/Constitutional: Nausea d enies. V omiting d enies. H erasto Thirst d enies. L oss appetite d enies. C hills d enies. F atigue d enies.?Fever d enies. N ight Sweats d enies. U nexplained weight loss d enies. U nexplained weight gain d enies. H EENTM: Dentures d enies. D izziness d enies. G lasses/contacts a dmits. R etinopathy d enies. B lurred/double vision d enies. T MJ?denies. D ischarge/drainage d enies. I mplants d enies. S ore throat d enies. D ental implants d enies. H zeb of hearing d enies. D ifficulty chewing/swallowing/speaking d enies. N ose bleeds d enies. S ore mouth d enies. ? R espiratory: On Oxygen d enies. P neumonia/pleurisy d enies.?Bronchitis d enies. E mphysema d enies. C oughing d enies. C ough blood?denies. S hortness of breath d enies. W heezing d enies. C ardiovascular: Pacemaker d enies. M PRESS MACHINE FEEDER d enies. W PW d enies. C HF d enies. H eart attack d enies. S eptal defect d enies. R apid beat d enies. C hest pain d enies. A trial Fib. d enies. M urmur/Palpitations d enies. G astrointestinal: Hemorrhoids d enies. S tomach/Abdominal pain d enies. D ark blood stool d enies. I rritable bowel d enies. C onstipation d enies. D iarrhea d enies. H ematology: Swelling d enies. C lots d enies. V aricose Veins d enies. B ruising d enies. B leeding problem d enies. G enitourinary: Blood urine d enies. F requent/Painfu/urination/bladder control d enies. K idney stones d enies. I nfection (UTI) d enies. N ephropathy d enies. s ex trans dis (STD) d enies. P rostate d enies. M usculoskeletal: Hammertoes a dmits. B unions d enies. B ack Pain d enies. M uscle Cramps/ Resting d enies. M uscle cramps / walking d enies.?Generalized aches and pains a dmits. W eakness d enies. I nteg.: Horowitz d enies. S cars d enies. C orns/calluses?denies. I ngrown nails d enies. P ainful nails a dmits. O pen Sores d enies. R ashes d enies. N eurologic: Difficulty sleeping d enies. B rain disorder d enies. N umbness d enies. B alance trouble a dmits. C onfusion d enies. F ainting/blackouts d enies. T ingling d enies. T remors d enies. * Medical History: * Surgical History: k nee replacement 2009Foot surgery 12/2013skin tag removal 10/2017Back Surgery 04/01/23polyethalenic exchange, knee surgery 09/28 * Hospitalization/Major Diagno stic Procedure: [facility] - HTN 06/2018[facility] [place] [place] er visit for fall 02/2024 * Family History: M other: , diagnosed with Unspecified essential hypertension, Unspecified heart disease, Family history of arthritis. F ather: . D aughter(s): alive. S on(s): alive. Siblings: diabetes, foot problems, hypertension. S pouse: alive. 1 son(s) , 1 daughter(s) . . * Social History: T obacco Use: T obacco use other than smoking A re you an other tobacco user? N o Tobacco Control (Standard) T obacco use: N onsmoker D rugs/Alcohol: D rugs H ave you used drugs other than those for medical reasons in the past 12 months? N o M iscellaneous: C affeine: yes, frequency:, 1-2 cups per day. Children: yes, 2. Exercise: yes, walking. Marital status: . 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 D rug/Alcohol: A DIGNA-C (Standard) D id you have a drink containing alcohol in the past year? N o P oints 0 I nterpretation N egative * Medications: T akingAdvair HFA 115-21 MCG/ACT Aerosol 2 puffs Inhalation Twice a day Pregabalin 75 MG Capsule 1 capsule Orally Once a day Allopurinol 300 MG Tablet 1 tablet Orally [...] tablet with food Orally Twice a day Multivitamins Pantoprazole Sodium 40 MG Tablet Delayed Release 1 tablet Orally Once a day ProAir HFA predniSONE , Notes to Pharmacist: PRNAmmonium Lactate 12 % Cream 1 application Externally Twice a day Taking Advair HFA 115-21 MCG/ACT Aerosol 2 puffs Inhalation Twice a day Taking Pregabalin 75 MG Capsule 1 capsule Orally Once a day Taking Allopurinol 300 MG Tablet 1 tablet Orally , Notes to Pharmacist: once a dayTaking amLODIPine Besylate 10 MG Tablet 1 tablet Orally Once a day Taking Avalide 150- 12.5 MG Tablet 1 tablet Orally Once a day Taking Aspirin 81 MG Tablet 1 tablet Orally Once a day Taking CeleBREX 200 MG Capsule 1 capsule Orally Once a day Taking Carvedilol 6.25 MG Tablet 1 tablet with food Orally Twice a day Taking Multivitamins Taking Pantoprazole Sodium 40 MG Tablet Delayed Release 1 tablet Orally Once a day Taking ProAir HFA Taking predniSONE , Notes to Pharmacist: PRNTaking Ammonium Lactate 12 % Cream 1 application Externally Twice a day Not-Taking/PRNFlovent HFA 110 MCG/ACT Aerosol 1 puff Inhalation Twice a day Gabapentin 300 MG Capsule 1 capsule Orally [...] List reviewed and reconciled with the patientNot-Taking/PRN Flovent HFA 110 MCG/ACT Aerosol 1 puff Inhalation Twice a day Not-Taking/PRN Gabapentin 300 MG Capsule 1 capsule Orally [...] and reconciled with the patient * Allergies: C ortisone: red face - Side EffectsACE Inhibitors: swelling - Side Effectsyes[Allergies Verified] Objective: * Vitals: H t: 6ft, Wt:255, BMI: 34.58, Shoe size:12.5, BP:126/65mm Hg, Ht-cm: 182.88 cm, Wt-k.67 kg. * Examination: G eneral Examination: GENERAL APPEARANCE: Mitesh rodriguezs a pleasant, alert, well nourished, well-developed, well hydrated individual, who demonstrates proper attention to hygiene/body habitus, and is in no acute distress, Pt serves as own historian for office visit today. ORIENTED: p erson, place, and time. V ascular: DP PULSES (B): 2 /4, B/L. PT PULSES (B): 2 /4, B/L. CAPILLARY FILL TIME: i mmediate, all digits, B/L. TROPHIC CONDITION-TEXTURE/ELASTICITY/TURGOR/HAIR GROWTH (B):?normal, B/L. TEMPERTURE GRADIENT (C): n ormal, warm to cool, proximal to distal, B/L, B/L. PIGMENTATION: n ormal, B/L. D ermatologic: SKIN FINDINGS: S kin exam reveals normal color, texture, elasticity, and turgor. There are no masses, nor excrescences. The interspaces are clear, B/L. ? N ails: NAILS are: E longated, overgrown, dystrophic, lytic, greater than 3mm thick, discolored and friable with crumbly malodorous subungual debris, with pain on palpation, , , TA, T1, T2, T3, T4, T5, T6, T8, T9. Assessment: * Assessment: 1. T inea unguium - B35.1 (Primary) 2 . P ain in left toe(s) - M79.675 3 . P ain in right toe(s) - M79.674 Plan: * Treatment: * Procedures: D ebride Nail 6-10: Nail debridement D ue to the clinical pathology outlined in the [...] the use of a nail nipper and/or dremel- type chicle grinder feeder, to a more viable healthy nail plate [...] to maintain effectiveness in symptomatic relief - 54767. * Procedure Codes: 1 1721 DEBRIDE NAIL, 6 OR MORE * Follow Up: 2 Months * Images: * Sign off status: Completed true * Provider: Monie Villalobos DPM Date: Generated for Inocencio peace/Prosper/Dorinda on: 04:20 PM EDT History and Physical Notes * HPI (History of Present Illness) Category Sub-Category Detail Notes Category Not es Painful Nails Pt States Last PCP Visit: Date:: 12/27/2024 Examination Category Sub-Category Detail Notes Category Not [...]
[2025-01-02 13:12] VITALS: BP 120/72; PULSE 51; BMI 36.8
--- NOTE | 2025-01-02 13:12 | MHC.OFFVIS ---
Vital Signs 01/02/25 13:12 Height 6 ft Weight 271 lb 2.697 oz BMI 36.8 BP 120/72 Blood Pressure Location Rt brachial Position Sitting Pulse 51 Pulse Source Monitor Intake Visit Reasons: 4 Month Follow Up Intake Note: 4 mth f/up [place] Operator Required: No Accompanied by: Self / Same As Patient Allergies lisinopril (From ZESTRIL) Adverse Reaction (Mild, Verified 07/24/24 14:12) DIZZINESS Cortisone Adverse Reaction (Mild, Uncoded 07/24/24 14:12) red face Medication List - Last Reconciled 01/02/25 by Antonio Cage MD acetaminophen (Tylenol Extra Strength) 1,000 mg PO QID PRN albuterol sulfate 90 mcg/actuation 2 puffs PO Q4H PRN allopurinol 300 mg PO DAILY amlodipine 10 mg PO DAILY aspirin (Adult Low Dose Aspirin) 81 mg PO DAILY atorvastatin 20 mg PO DAILY carvedilol 6.25 mg PO BID celecoxib 200 mg PO .4 times a week fluticasone propion-salmeterol 115-21 mcg/actuation (Advair HFA) inhalation fluticasone propionate 110 mcg/actuation (Flovent HFA) 1 puff inhalation DAILY irbesartan-hydrochlorothiazide 150-12.5 mg 1 tab PO DAILY lorazepam 0.5 mg PO BID PRN multivitamin 1 tab PO DAILY pantoprazole 40 mg PO BID prednisone 20 mg PO DAILY PRN pregabalin 50 mg PO BID pregabalin mg PO HPI Comments Details: Here for follow up. He was seen for epigastric fullness, palpitations and HTN. He had slight troponin elevation. Nuclear stress was normal. Echo showed normal LVEF and indeterminate diastolic function. For his palpitations we arranged a Holter which showed occasional supraventricular and ventricular ectopy but no sustained arrhythmia noted. He was started on antiypertensive medications. Since then he has been doing well. He is here for follow-up today. He is denying any chest discomfort or shortness of breath. Denying any further palpitations. Taking his antihypertensive medications regularly without any significant issues. He has bilateral lower extremity edema. He is wearing compression stockings. He had right lower extremity DVT and since then he had chronic right lower extremity edema. Currently has edema on both sides and he has been on amlodipine 10 mg daily which is potential reason for edema. He is denying any shortness of breath, orthopnea or PND. He has sleep apnea and sleeps with CPAP. 02/09/2023: He returns for follow-up. He was in the emergency department in December with dizziness. He felt lightheaded at that time. His blood pressure was elevated and his blood pressures were as high as 160s systolic. He was monitored in the ER and then discharged home. His BNP was normal. High sensitive troponin levels were flat. EKG did not have any dynamic changes. Since then he has done well. He continues to take same medications at this point. He continues to have peripheral edema but appears to be not bothered by it. 02/13/2024: He is here for follow-up. His blood pressure is elevated and he has peripheral edema as before. He is saying that he is off the gabapentin and has been started on pregabalin. Continues to take 10 mg amlodipine. 08/27/2024: He is here for follow-up. We added Lasix previously but he had some electrolyte changes and Lasix was discontinued. He continues to take hydrochlorothiazide and irbesartan combination along with carvedilol and amlodipine. Blood pressure is good. He is denying chest discomfort but gets dyspnea with activities. He is saying that he may need reoperation to his left knee replacement because he has been getting some issuess. 01/02/2025: He is here for follow-up. He continues to have lower extremity edema. We discussed in detail about management options. He is on pregabalin and amlodipine which can cause lower extremity edema. With previously tied Lasix but given the fact that he is on hydrochlorothiazide also he had some electrolyte issues. [facility] Surgical History History of back surgery History of foot surgery S/P surgery on nasal septum History of left knee surgery Family History Father No problems noted. Mother No problems noted. Family/Other Diabetes Social History Household Members: Spouse Alcohol intake: never Patient Tobacco Use Status: Former Tobacco user Tobacco use type: Cigarette Years Smoked: 20 +/- Current occupational status: unemployed Review of Systems Const Denies chills, Denies fatigue, Denies fever(s), Denies frequent falls, Denies weakness, Denies weight gain and Denies weight loss ENT Denies dizziness Card Denies chest pain, Denies leg edema, Denies lightheadedness, Denies palpitations, Denies dyspnea and Denies dyspnea on exertion Resp Denies cough, Denies dyspnea and Denies dyspnea on exertion GI Denies hematochezia Musc Denies abnormal gait, Denies muscle weakness, Denies numbness, Denies radiating pain into limb and Denies tingling Neuro Denies abnormal gait, Denies dizziness, Denies frequent falls, Denies numbness, Denies tingling and Denies weakness Endo Denies fatigue and Denies palpitations Physical Exam Vital Signs: Last Vital Signs Pulse 51 01/02/25 13:12 BP 120/72 01/02/25 13:12 BMI result Body Mass Index 36.8 GENERAL APPEARANCE: in no acute distress, well developed, well nourished. NECK/THYROID: no carotid bruit, no jugular venous distention. SKIN: warm and dry. HEART: no murmurs, regular rate and rhythm, S1, S2 normal. LUNGS: clear to auscultation bilaterally. ABDOMEN: normal, bowel sounds present, soft, nontender, nondistended. EXTREMITIES: 1-2+ edema bilaterally in the legs. PERIPHERAL PULSES: equal. PSYCH: mood/affect full range. Office Procedures EKG Details: Sinus bradycardia premature atrial complexes 51 beats per minute, left ventricular hypertrophy, QTC 390 milliseconds. 58023-Fqvdazrsxljmsiqyn, Complete Assessment & Plan Assessment & Plan (1) Hypertension: Code(s): I10 - Essential (primary) hypertension Category: Medical (2) Preop cardiovascular exam: Code(s): Z01.810 - Encounter for preprocedural cardiovascular examination Category: Medical Plan [age] year gentleman who is here for follow-up. He has background history of hypertension and peripheral edema. Blood pressure is well controlled currently. He has peripheral edema which is likely related to medications. He is on amlodipine and pregabalin both can cause peripheral edema. Pregabalin was given for neuropathic pain and it appears he is quite stable on that. I am decreasing the amlodipine to 5 mg daily. He will call over the next few weeks to see if any improvement in edema has happened. I have explained to him that it takes sometime after cutting the dose or discontinue same medications as before edema can improve. If there is no substantial change then I will stop the amlodipine and would consider starting him on spironolactone and Lasix. In that case we will stop the hydrochlorothiazide. Thank you for allowing me to participate in the care of your patient. Please feel free to contact me if you have any questions. Medications: Changed From amlodipine 10 mg PO DAILY To amlodipine 5 mg PO DAILY Coding Level of Care Code Est Pt Level 4 (65865) Diagnoses Hypertension I10 Preop cardiovascular exam Z01.810 CPT Codes EKG - CPT: 33395-Qvgvkwuehbzlqduqk, Complete ([id number])
--- OUTSIDE RECORDS SUMMARY | 2025-01-02 16:19 | XMS_ITS | Patient Health Record ---
Author Organization Luis Chaves MD Address [address] [place], [place] [id number] Care Team Providers Care Social Media Project Manager Name Role Phone Luis Chaves Primary Care Provider Allergies Allergen (clinical drug ingredient) Drug/Non Drug Allergy documented on EMR Reaction Allergy Type Onset Date Status lisinopril Lisinopril angioedema Drug Allergy Acti ve Results Component Value Reference Range Notes Liver Panel Reviewed date:06/26/2024 06:41:59 PM Interpretation: Performing Lab:[facility], [address] [place] [phone] Notes/Report: Bilirubin Total 0.5 0.0-1.0 mg/dL Bilirubin Direct 0.2 0.0-0.5 mg/dL Aspartate Amino Transferase 39 5-37 U/L Alanine Aminotransferase 31 0-40 U/L Total Protein 6.2 6.5-8.0 g/dL Albumin Level 4.1 3.5-5.0 g/dL Alkaline Phosphatase 76 39-117 U/L Lipid Panel with Reflex Reviewed date:06/26/2024 06:42:36 PM Interpretation: Performing Lab:[facility], [address] [place] [phone] Notes/Report: Triglycerides 168 <150 mg/dL Desirable Triglyceride: [...] ff Reviewed date:12/13/2024 02:34:26 PM Interpretation: Performing Lab:[facility], [address] [place] [phone] Notes/Report: White Blood Count 6.6 4.8-10.8 X10*3/uL [...] 0.0-0.2 /100WBC Neutrophils Absolute Auto 3.9 2.0-8.3 x10*3/uL Imm Gran Abs Auto 0.02 0.00-0.03 X10*3/uL Lymphocytes Absolute Auto 1.8 1.2-4.9 X10*3/uL Monocytes Absolute Auto 0.5 0.1-1.2 X10*3/uL Eosinophils Absolute Auto 0.3 0.0-0.4 X10*3/uL Basophils Absolute Auto 0.0 0.0-0.2 X10*3/uL NRBC Abs Auto 0.000 0.0-0.012 X10*3/uL Comprehensive [place]. Panel Fa st Reviewed date:12/13/2024 02:34:06 PM Interpretation: Performing Lab:[facility], [address] [place] [phone] Notes/Report: Sodium 143 135-145 mmol/L Potassium 4.0 [...] Panel Reviewed date:12/13/2024 01:45:16 PM Interpretation: Performing Lab:[facility], [address] [place] [phone] Notes/Report: Triglycerides 122 <150 mg/dL Desirable Triglyceride: [...] (Free>4and<10) Reviewed date:12/13/2024 01:44:57 PM Interpretation: Performing Lab:[address] [phone] Notes/Report: PSA,Total (Free>4and<10) 1.42 0.00-4.00 ng/mL A [...] t Reviewed date:12/13/2024 02:35:25 PM Interpretation: Performing Lab:[address] [phone] Notes/Report: Urine, Clean Catch Color Urine Yellow Appearance Urine Clear PH 6.5 5.0-9.0 Glucose Urine UA Negative Negative mg/dL Urine Blood Negative Negative Specific [place] - Urine 1.015 1.005-1.025 Urine Protein Negative Neg-Trace mg/dL Urine Ketones Negative Negative mg/dL Nitrite Urine Negative Negative Leukocyte Esterase Urine Negative Negative RBC Urine 0-2 0-2 /HPF WBC Urine 0-5 0-5 /HPF Squamous Epithelial Cell Urine 0-2 0-2 /HPF Bacteria Urine None Seen None Seen Hyaline Casts Urine 0-2 0-2 /LPF Occult Blood, Stool, Guaiac Reviewed date:12/27/2024 09:53:40 AM Interpretation:Negative Performing Lab: Notes/Report: Negative Occult Blood, Stool, Guaiac Neg XR hand RT 2V Reviewed date:02/12/2024 11:57:10 AM Interpretation: Performing Lab: Notes/Report: [facility] [address] [place] [address] XRay Report Signed Patient: Ben Kramer MR#: [id number] : 1945 Acct:[id number] Age/Sex: 78 / M ADM Date: 02/11/24 Loc: HO.ED Attending Dr: Ordering Physician: Bushra Bunch NP Date of Service: 02/11/24 Procedure(s): XR hand RT 2V Accession Number(s): [id number] cc: Luis Chaves MD; Bushra Bunch NP [...] by: Noe Swann MD 02/11/2024 05:35 PM [facility] Dictated By: Noe Swann MD Signed By: <Electronically signed by Noe Swann MD in OV> 02/11/24 1735 DD/ 1655 TD/TT: 02/11/24 1700 Sheep Clipper: [facility] [address] [place] [address] XRay Report Signed Patient: Ben Kramer MR#: [id number] : 1945 Acct:[id number] Age/Sex: 78 / M ADM Date: 02/11/24 Loc: HO.ED Attending Dr: Ordering Physician: Bushra Bunch NP Date of Service: 02/11/24 Procedure(s): XR calhoun d RT 2V Accession Number(s): [id number] cc: Luis Chaves MD; Bushra Bunch NP [...] by: Noe Swann MD 02/11/2024 05:35 PM [facility] Dictated By: Noe Swann MD Signed By: <Electronically signed by Noe Swann MD in OV> 02/11/24 1735 DD/ 1655 TD/TT: 02/11/24 1700 Sheep Clipper: [facility] XR hand RT 2V Reviewed date:02/12/2024 11:48:54 AM Interpretation: Performing Lab: Notes/Report: [address] [address] XRay Report Signed Patient: Ben Kramer MR#: [id number] : 1945 Acct:[id number] Age/Sex: 78 / M ADM Date: 02/11/24 Loc: HO.ED Attending Dr: Ordering Physician: Bushra Bunch NP Date of Service: 02/11/24 Procedure(s): XR hand RT 2V Accession Number(s): [id number] cc: Luis Chaves MD; Bushra Bunch NP [...] in OV> 02/11/242026 DD/ 15 TD/TT: 02/11/241927 Sheep Clipper: [place] [address] XRay Report Signed Patient: Ben Kramer MR#: [id number] : 1945 Acct:[id number] Age/Sex: 78 / M ADM Date: 02/11/24 Loc: HO.ED Attending Dr: Ordering Physician: Bushra Bunch NP Date of Service: 02/11/24 Procedure(s): XR calhoun d RT 2V Accession Number(s): [id number] cc: Luis Chaves MD; Bushra Bunch NP [...] in OV> 02/11/242026 DD/ 15 TD/TT: 02/11/241927 Sheep Clipper: [facility] Basic Metabolic Panel Reviewed date:03/01/2024 08:49:05 AM Interpretation: Performing Lab:[facility], [address] [place] [phone] Notes/Report: Sodium 143 135-145 mmol/L Potassium 4.5 [...] Panel Reviewed date:03/16/2024 05:41:41 PM Interpretation: Performing Lab:[facility], [address] [place] [phone] Notes/Report: CC BUN AND CREAT TO DR. [...] Acid Reviewed date:03/16/2024 05:26:58 PM Interpretation: Performing Lab:[facility], [address] [place] [phone] Notes/Report: CC BUN AND CREAT TO DR. CHAVES Uric Acid 5.5 3.4-7.0 mg/dL Hold Gold Reviewed date:06/26/2024 12:35:07 PM Interpretation: Performing Lab:[facility], [address] [place] [phone] Notes/Report: Hold Gold See Note Specimen held untested for 24 hours; Call to request Chemistry testing. FL upper GI w air Reviewed date:07/20/2024 12:43:54 PM Interpretation: Performing Lab: Notes/Report: [address] [address] Fluoroscopy Report Signed Patient: Ben Kramer MR#: [id number] : 1945 Acct:[id number] Age/Sex: 79 / M ADM Date: 07/20/24 Loc: HO.XRAY Attending Dr: Luis Chaves MD Ordering Physician: Luis Chaves MD Date of Service: 07/20/24 Procedure(s): FL upper GI w air Accession Number(s): [id number] cc: Luis Chaves MD EXAMINATION: XR FLUOROSCOPY [...] Thomas Quintero MD 07/20/2024 09:42 AM EDT RP Dictated By: Thomas Quintero MD Signed By: <Electronically signed by Thomas Quintero MD in OV> 07/20/24941 DD/ 4 TD/TT: 07/20/24830 Sheep Clipper: [place] [address] Fluoroscopy Report Signed Patient: Ben Kramer MR#: [id number] : 1945 Acct:[id number] Age/Sex: 79 / M ADM Date: 07/20/24 Loc: HO.XRAY Attending Dr: Luis Chaves MD Ordering Physician: Luis Chaves MD Date of Service: 07/20/24 Procedure(s): FL upp er GI w air Accession Number(s): [id number] cc: Luis Chaves MD EXAMINATION: XR FLUOROSCOPY [...] Thomas Quintero MD 07/20/2024 09:42 AM EDT RP Dictated By: Mr jama Quintero MD Signed By: <Electronically signed by Thomas Quintero MD in OV> 07/20/24941 DD/ 4 TD/TT: 07/20/24 08 Sheep Clipper: DANDRE Reason For Referral No Information Medications Medication SIG (Take, Route, Frequency, Duration) Notes Start Date End Date Status Amoxicillin 500 MG 4capsule Orally 1 ho ur prior to dental Not-Taking LORazepam 0.5 MG 1 tablet as needed Orally Twice a day for 7 days 06/09/2018 Not-Taking Aspir-81 81 MG 1 tablet Orally Once a day for 30 day(s) Not-Taking Allopurinol 300 MG 1tablet Orally Once a day Active Pregabalin 75 MG 1 capsule Orally Onc e a day Active Atorvastatin Calcium 20 MG TAKE 1 TABLET BY MOUTH EVERY DAY Orally Once a day Active Breo Ellipta 100-25 MCG/ACT 1 puff Inhalation Once a day 11/19/2024 Active Pantoprazole Sodium 40 MG 1 tablet 1/2 t o 1 hour before morning meal Active Advair HFA 115-21 MCG/ACT 2 puffs Inhala tion Twice a day for 30 days 04/27/2024 Active Irbesartan-hydroCHLOROthi azide 150-12.5 MG TAKE 1 TABLET BY MOUTH EVERY DAY Active Flonase 50 MCG/ACT 2 sprays Nasally Onc e a day for 90 days Not-Taking Celecoxib 200 MG TAKE 1 CAPSULE BY MO SCH EVERY DAY Active Advair Diskus 500-50 MCG/DOSE 1 puff Inhalation Twice a day 06/22/2012 Not-Taking amLODIPine Besylate 10 MG TAKE 1 TABLET BY MOUTH EVERY DAY Active Nasacort Allergy 24HR 55 MCG/ACT 1 puff in each nostril Nasally Once a day for 30 day(s) 03/28/2015 Not-Taking Carvedilol 6.25 MG TAKE 1 TABLET BY MEREDITH TWICE DAILY Active Albuterol Sulfate HFA 108 (90 Base) MCG/ACT INHALE 2 PUFFS BY MOUTH EVERY 4 HOURS NEEDED Active Immunizations Vaccine Route Administration Date Status Comme nts Flu Vaccine IM Intramuscular 12/18/2010 Administered PPSV23 (Pnemovax) IM Intramuscular 07/11/2012 Administered Flu Vaccine Unknown 12/15/2012 Administered At work [employer] Fluarix Quadrivalent IM Intramuscular 11/20/2013 Administe red Prevnar 13 IM Intramuscular 03/11/2014 Administered zFluzone Quadrivalent Unknown 12/31/2014 Administered given at work Fluarix Quadrivalent Unknown 11/26/2015 Administered At work [employer] Flu[employer] Quadrivalent Unknown 12/17/2016 Administered At [facility] TDaP Unknown 05/20/2008 Administered Shingles Unknown 05/20/2008 Administered PPSV23 (Pnemovax) IM Intramuscular 05/29/2018 Administered Fluarix Quadrivalent Unknown 12/16/2017 Administered pt was given the vaccine at work. Shingrix IM Intramuscular 10/24/2018 Administered pt was given the vaccine at [facility] in [place]. Shingrix IM Intramuscular 01/06/2019 Administered pt was given the vaccine at [facility] in [place]. 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 Problem 76104447 Anxiety (F41.9) Active confirmed Problem 26861973 Obstructive slee p apnea (adult) (pediatric) (G47.33) Active confirmed Problem 9617369 Arthritis (M19.90) Active confirmed Problem 460961634 Lumbar disc dise ase (M51.9) Active confirmed Problem 122309704 Gastroesophageal reflux disease without esophagitis (K21.9) Active confirmed Problem 20076784 Essential hypertension (I10) Active confirmed Problem 413445159 Mild intermitten t asthma without complication (J45.20) Active confirmed Problem 888000278 Low HDL (under 4 0) (E78.6) Active confirmed Problem 927202469 Non morbid obesi ty due to excess calories (E66.09) Active confirmed Problem 280182667 History of gout (Z87.39) Active confirmed Problem 375780245 Esophageal dysmotility (K22.4) Active confirmed Problem 19676054 Obstructive slee p apnea (G47.33) Active confirmed Problem 32627523 Hypercholesterem ia (E78.00) Active confirmed Problem 29793767 OSMEL (obstructive sleep apnea) (G47.33) Active confirmed Problem 450419438 Nodule of kidney (N28.89) Active confirmed Vital Signs Blood pressure diastolic 58 mm Hg 12/27/2024 gwendolyn ght is up 8 pounds since 08-03-24 Height 72 in 12/27/2024 weight is up 8 pounds since 08-03-24 Blood pressure systolic 138 mm Hg 12/27/2024 weig ht is up 8 pounds since 08-03-24 Weight 275 lbs 12/27/2024 weight is up 8 pounds since 08-03-24 BMI 37.29 kg/m2 12/27/2024 weight is up 8 pounds since 08-03-24 Encounters Encounter Location Date Provider Diagnosis Luis Chaves MD [address] [place] [id number] 06/26/2024 Luis Chaves Hypercholesteremia E 78.00 Luis Chaves MD [address] [place] [address] Drive [address] [place] [id number] 12/13/2024 Luis Chaves Essential hypertensi on I10 ; Hypercholesteremia E78.00 and Prostatism N40.0 Luis Chaves MD [address] [place] [address] Drive [address] [place] [id number] 07/03/2024 Luis Chaves Vision changes H53.9 ; Hypercholesteremia E78.00 ; Prostatism N40.0 and Reflux esophagitis K21.00 Luis Chaves MD [address] [place] [id number] 08/03/2024 Luis Chaves Gastroesophageal ref lux disease without esophagitis K21.9 Luis Chaves MD [address] [place] [address] Drive [address] [place] [id number] 12/27/2024 Luis Chaves Essential hypertensi on I10 ; History of gout Z87.39 ; Obstructive sleep apnea G47.33 ; Preop examination Z01.818 ; Mild intermittent asthma without complication J45.20 ; Gastroesophageal reflux disease without esophagitis K21.9 ; Hypercholesteremia E78.00 ; Arthritis M19.90 ; Colon cancer screening Z12.11 and Depression screening Z13.31 Luis Chaves MD [address] [place] [id number] 02/13/2024 Luis Chaves MD [address] [place] [address] [id number] 11/19/2024 Luis Chaves MD [address] [place] [id number] 04/26/2024 Luis Chaves MD [address] [place] [address] [id number] 04/27/2024 Luis Chaves Assessments Encounter Date Diagnosis (ICD Code) Assessment Notes Treatment Notes Treatment Clinical Notes Section Notes 06/26/2024 Hypercholesteremia (ICD-10 - E78.00) 12/13/2024 Essential hypertension (ICD-10 - I10) 07/03/2024 Vision changes (ICD-10 - H53.9) advised to get back to his ophthalmonoloigst 07/03/2024 Hypercholesteremia (ICD-10 - E78.00) stable, will continue current regiment 08/03/2024 Gastroesophageal reflux disease without esophagitis (ICD-10 - K21.9) discussed findings of recent GI series with patient, decrease the pantoprazole to one per day, will continue to monitor 12/27/2024 Essential hypertension (ICD-10 - I10) well controlled, will cntinue current regiment 12/27/2024 History of gout (ICD-10 - Z87.39) not having any problems 12/13/2024 Hypercholesteremia (ICD-10 - E78.00) 07/03/2024 Prostatism (ICD-10 - N40.0) states that each time is a lot of urine. would fill a bottle each time 12/27/2024 Obstructive sleep apnea (ICD-10 - G47.33) using cpap 12/13/2024 Prostatism (ICD-10 - N40.0) 07/03/2024 Reflux esophagitis (ICD-10 - K21.00) pending diagnostic testing 12/27/2024 Preop examination (ICD-10 - Z01.818) patient [...] will continue current regiment 12/27/2024 Colon cancer screening (ICD-10 - Z12.11) guaiac negative 12/27/2024 Depression screening (ICD-10 - Z13.31) negative screen Plan Of Treatment Pending Test Test Name Order Date XR GI SERIES 07/03/2024 CT lumbar spine wo con 12/17/2021 Next Appt Details Provider Name:Luis kirkland, 06/21/2025 08:00:00 AM, [address] [place] [address], [address] [place] [address], [phone], Provider Name:Luis kirkland, 06/28/2025 10:00:00 AM, [address] [place] [address], [address] [place] [address], [phone], Provider Name:Luis kirkland, 12/23/2025 07:15:00 AM, [address] [place] [address], [address] [place], [phone], Provider Name:Luis kirkland, 12/30/2025 09:30:00 AM, [address] [facility], [address], [place], [place], [phone], Insurance Providers Payer Name Payer Address Payer Phone Subscriber Number Group Number Insured Name Patient Relationship to Insured Coverage Start Date Coverage End Date [employer] [address] [place] [address] [id number] Ben Kramer Self - patient is the insured [facility] [address] [place], [place] [id number] [phone] [id number] Ben Kramer Self - patient is the insured Medical (General) History Medical History History ICD Code phlebitis Gout hematuria .cysto in 2004 colonoscopy 02/2003; 03/2013 - repeat 10 years sleep study 10/2008 refuses further colonoscopy forever 2024 Surgical History Surgery Date(Month/Year) Left Achilles Lengthening 12/2012
--- OUTSIDE RECORDS SUMMARY | 2025-01-02 16:20 | XMS_ITS | Encounter Summary ---
Author Organization [facility] Address [address] [facility] [address] [place] [address] Phone Care Team Providers Care Radiology Equipment Servicer Name Role Phone Luis Gauthier MD Primary Care Provider Reason for Referral * MRI/CAT Scan - Closed Specialty Diagnoses / Procedures Referred By Contprasanna t Referred To Contact Radiology Diagnoses Lumbar radiculopathy Procedures CT Lumbar Spine Clint Maldonado DO Phone: tel: fax: [email or web address] Referral ID Status Reason Start Date Expiration Date Visits Re quested Visits Authorized [id number] Closed 01/04/2020 01/03/2021 1 1 Encounter Details Date Type Department Care Team (Latest Contact Info) Description 01/04/2020 Ancillary Orders Virtual Department [address] [place] [address] Clint Maldonado DO [address] [place] [address] [email or web address] Lumbar radiculopathy Social History Tobacco Use Types Packs/Day Years Used Date Smoking Tobacco: Never Assessed Sex and Gender Information Value Date Recorded Sex Assigned at Not on file Legal Sex Male 10:52 AM EDT Gender Identity Not on file Sexual Orientation Not on file documented as of this encounter Plan of Treatment Not on file documented as of this encounter Results * CT LUMBAR SPINE WITHOUT CONTRAST (01/08/2020 3:13 PM EST) Anatomical Region Laterality Modality L-spine Computed Tomogra phy 01/08/2020 3:46 PM EST Impressions 01/08/2020 4:11 PM EST 1. Severe facet arthropathy at L4-L5 and L5-S1 on the left. Moderate facet arthropathy contralaterally at these levels. 2. Evidence of central canal stenosis at L4-L5. This is less than ideally evaluated but may be moderate-severe. 3. Evidence of moderate-severe narrowing of the left neuroforamen at L3-L4, moderate-severe bilateral neuroforaminal narrowing, more so on left than right at L4-L5. Moderate neuroforaminal narrowing at L5-S1 on the left. 4. Multilevel degenerative disc and endplate changes. 5. 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 Narrative 01/08/2020 4:11 PM EST HISTORY: Chronic lower back pain worse on left than right. COMPARISON: None. TECHNIQUE: A non-enhanced CT performed with multiplanar reformatted images. Scanning performed from lower T12-S2 level. FINDINGS: Vertebrae: Mild vertebral body height narrowing which is likely physiologic. No definite compression fractures. Very mild retrolisthesis at multiple levels, likely related to degenerative changes. Minimal spondylolisthesis of L5 on S1. Spondylolysis of L5 on right (pars fractures)) CT. T12-L1: Vacuum disc phenomenon. Disc space narrowing and relatively mild degenerative endplate changes. Tiny disc-osteophyte complex. No evidence of central canal stenosis or significant neuroforaminal narrowing. L1-L2: Mild retrolisthesis of L2 on L3. Disc space narrowing and moderate degenerative endplate changes. Small broad-based disc-osteophyte complex. Mild bilateral facet arthropathy. Mild facet arthropathy. Mild neuroforaminal narrowing more so on left than right. L2-L3: Mild retrolisthesis of L2 on L3 Vacuum disc phenomenon. Disc space narrowing. Mild sclerotic degenerative endplate changes to the right of midline. Small broad-based disc-osteophyte complex. Minimal facet arthropathy. Mild bilateral neuroforaminal narrowing. L3-L4: Vacuum disc phenomenon. Disc space narrowing. Sclerotic degenerative endplate changes to the left of midline. Broad-based disc-osteophyte complex. Mild facet arthropathy. No definite central canal stenosis. Moderate-severe narrowing of the left neuroforamen by osteophytes and facet arthropathy., More so on left than right. Mild right neuroforaminal narrowing. L4-L5: Mild disc space narrowing. Moderate sclerotic degenerative endplate changes to the right of midline. Broad-based disc-osteophyte complex. Severe facet arthropathy on left. Moderate facet arthropathy on right. Evidence of central canal stenosis, likely moderate-severe. Moderate-severe left neuroforaminal narrowing by osteophytes and facet arthropathy. Similar neuroforaminal narrowing on the right. L5-S1: Mild disc space narrowing. Vacuum disc phenomenon. Small disc-osteophyte complex. Severe at facet arthropathy on left and moderate facet arthropathy on right. No central canal stenosis. Moderate narrowing of the left neuroforamen and more mild narrowing of the right neuroforamen.. Soft tissues: No evidence of paravertebral masses. Procedure Note Miguel Angel Marte MD - 01/08/2020 HISTORY: Chronic lower back pain worse on left than right. COMPARISON: None. TECHNIQUE: A non-enhanced CT performed with multiplanar reformattedimages. Scanning performed from lower T12-S2 level. FINDINGS: Vertebrae: Mild vertebral body height narrowing which is likelyphysiologic. No definite compression fractures. Very mild retrolisthesisat multiple levels, likely related to degenerative changes. Minimalspondylolisthesis of L5 on S1. Spondylolysis of L5 on right (parsfractures)) CT. T12-L1: Vacuum disc phenomenon. Disc space narrowing and relatively milddegenerative endplate changes. Tiny disc-osteophyte complex. No evidenceof central canal stenosis or significant neuroforaminal narrowing. L1-L2: Mild retrolisthesis of L2 on L3. Disc space narrowing and moderatedegenerative endplate changes. Small broad-based disc-osteophyte complex.Mild bilateral facet arthropathy. Mild facet arthropathy. Mildneuroforaminal narrowing more so on left than right. L2-L3: Mild retrolisthesis of L2 on L3 Vacuum disc phenomenon. Disc spacenarrowing. Mild sclerotic degenerative endplate changes to the right ofmidline. Small broad-based disc-osteophyte complex. Minimal facetarthropathy. Mild bilateral neuroforaminal narrowing. L3-L4: Vacuum disc phenomenon. Disc space narrowing. Scleroticdegenerative endplate changes to the left of midline. Nzjpf-oqvvcdvmf-dtopuvwmxm complex. Mild facet arthropathy. No definite central canalstenosis. Moderate-severe narrowing of the left neuroforamen byosteophytes and facet arthropathy., More so on left than right. Mild rightneuroforaminal narrowing. L4-L5: Mild disc space narrowing. Moderate sclerotic degenerative endplatechanges to the right of midline. Broad-based disc-osteophyte complex.Severe facet arthropathy on left. Moderate facet arthropathy on right.Evidence of central canal stenosis, likely moderate-severe.Moderate-severe left neuroforaminal narrowing by osteophytes and facetarthropathy. Similar neuroforaminal narrowing on the right. L5-S1: Mild disc space narrowing. Vacuum disc phenomenon. Smalldisc-osteophyte complex. Severe at facet arthropathy on left and moderatefacet arthropathy on right. No central canal stenosis. Moderate narrowingof the left neuroforamen and more mild narrowing of the rightneuroforamen.. Soft tissues: No evidence of paravertebral masses. IMPRESSION: 1. Severe facet arthropathy at L4-L5 and L5-S1 on the left. Moderate facetarthropathy contralaterally at these levels. 2. Evidence of central canal stenosis at L4-L5. This is less than ideallyevaluated but may be moderate-severe. 3. Evidence of moderate-severe narrowing of the left neuroforamen atL3-L4, moderate-severe bilateral neuroforaminal narrowing, more so on leftthan right at L4-L5. Moderate neuroforaminal narrowing at L5-S1 on theleft. 4. Multilevel degenerative disc and endplate changes. 5. 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 Clint Maldonado DO [facility] CT XSPECIALTY ORDERABLES Final Result documented in this encounter Visit Diagnoses Diagnosis Lumbar radiculopathy Thoracic or lumbosacral neuritis or radiculitis, unspecified Lumbar radiculopathy Thoracic or lumbosacral neuritis or radiculitis, unspecified documented in this encounter Care Teams Radiology Equipment Servicer Relationship Specialty Start Date End Date Luis Gauthier MD [address] [place] [address] Dr [place], [place] [address] PCP - General Internal Medicine 01/04/20 documented as of this encounter Additional Source Comments The information contained in this document represents components of the legal health record. It is not the complete legal health record.[facility]
--- OUTSIDE RECORDS SUMMARY | 2025-01-02 16:20 | XMS_ITS | Encounter Summary ---
Author Organization [facility] Address [address] [facility] [address] [place] [address] Phone Care Team Providers Care Hand Cutter Name Role Phone Luis Gauthier MD Primary Care Provider Encounter Details Date Type Department Care Team (Late st Contact Info) Description 01/04/2020 Procedure Pass [facility], Ct Scan - [address] [address] Social History Tobacco Use Types Packs/Day Years Used Date Smoking Tobacco: Never Assessed Sex and Gender Information Value Date Recorded Sex Assigned at Not on file Legal Sex Male 10:52 AM EDT Gender Identity Not on file Sexual Orientation Not on file documented as of this encounter Plan of Treatment Not on file documented as of this encounter Visit Diagnoses Not on filedocumented in this encounter Care Teams Hand Cutter Relationship Specialty Start Date End Date Luis Gauthier MD [address] [place] [address] [place] [address] PCP - General Internal Medicine 01/04/20 documented as of this encounter Additional Source Comments The information contained in this document represents components of the legal health record. It is not the complete legal health record.[facility]
--- OUTSIDE RECORDS SUMMARY | 2025-01-02 16:20 | XMS_ITS | Clinical Summary ---
Author Organization [facility] Address [address] [facility] [address] [place] [address] Phone Care Team Providers Care Tow Truck Dispatcher Name Role Phone Luis Gauthier MD Primary Care Provider Social History Tobacco Use Types Packs/Day Years Used Date Smoking Tobacco: Never Assessed Education Answer Date Recorded Are you interested in more education? Not on yael e 07/02/2022 Are you concerned about learning? Not on file 07/02/2022 No 07/02/2022 No 07/02/2022 Digital Access Answer Date Recorded No 08/03/2022 No 08/03/2022 Reliable internet access at home? Not on file 08/03/2022 Device with a working camera? Not on file Sex and Gender Information Value Date Recorded Sex Assigned at Not on file Legal Sex Male 10:52 AM EDT Gender Identity Not on file Sexual Orientation Not on file Plan of Treatment Not on file Medical Devices Not on file Insurance MEDICARE PART A & B [employer] MEDEX SUPPLEMENT MEDICARE PART A & B Member Subscriber Plan / Payer ( fective 2016-Present) Name:Ben Dia Member ID:[id number] Relation to Subscriber:Self Name:Ben Dia Subscriber ID:[id number] Payer ID:[id number] Group ID:Not on file Type:Medicare Address: [facility] [employer] [facility] [address] [place] [address] [employer] MEDEX SUPPLEMENT MEDICARE PART A & B [employer] MEDEX SUPPLEMENT MEDICARE PART A & B [employer] MEDEX SUPPLEMENT MEDICARE PART A & B [employer] MEDEX SUPPLEMENT MEDICARE PART A & B [employer] MEDEX SUPPLEMENT MEDICARE PART A & B [employer] MEDEX SUPPLEMENT MEDICARE PART A & B [employer] MEDEX SUPPLEMENT MEDICARE PART A & B [employer] MEDEX SUPPLEMENT Care Teams Tow Truck Dispatcher Relationship Specialty Start Date End Date Luis Gauthier MD [address] [place] [address] [place] [address] PCP - General Internal Medicine 01/04/20 Additional Source Comments The information contained in this document represents components of the legal health record. It is not the complete legal health record.[facility]
--- OUTSIDE RECORDS SUMMARY | 2025-01-02 16:20 | XMS_ITS | Patient Health Record ---
Author Organization [facility] Address [address] [facility] [place] [address] Care Team Providers Care Community Services Officer Name Role Phone Luis Gauthier MD Primary Care Provider Soila Greco Unavailable [phone] Allergies Allergen (clinical drug ingredient) Drug/Non Drug Allergy documented on EMR Reaction Allergy Type Onset Date Status Cortisone red face Drug Allergy Active angiotensin-converting enzyme inhibitor (FN) NOEMI Inhibitors swelling Drug Allergy Acti ve Reason For Referral No Information Medications Medication SIG (Take, Route, Frequency, Duration) Notes Start Date End Date Status CeleBREX 200 MG 1 capsule Orally Once a day; Duration: 30 day(s) Active Ciclopirox Olamine 0.77% external Apply to effected areas on the feet twice a day; Duration: 30 days 07/28/2015 Not-Taking Colcrys 0.6 MG 1 tablet Orally Once a day; Duration: 30 day(s) Not-Taking amLODIPine Besylate 10 MG 1 tablet Orally Once a day Active Gabapentin 300 MG 1 capsule Orally Three times a day Not-Taking Allopurinol 300 MG 1 tablet Orally once a day Active Flovent HFA 110 MCG/ACT 1 puff Inhalatio n Twice a day Not-Taking Pregabalin 75 MG 1 capsule Orally Once a day Active Ammonium Lactate 12 % 1 application Externally Twice a day; Duration: 30 days Active Advair HFA 115-21 MCG/ACT 2 puffs Inhalation Twice a day Active predniSONE PRN Active ProAir HFA Active Pantoprazole Sodium 40 MG 1 tablet Orally Once a day; Duration: 30 day(s) Active Cephalexin 500 MG 1 tablet Orally every 6 hrs; Duration: 10 day(s) 02/17/2016 Not-Taking Multivitamins Active Colcrys 0.6 MG 1 tablet Orally Once a day; Duration: 30 day(s) 10/29/2013 Not-Taking Carvedilol 6.25 MG 1 tablet with food Orally Twice a day Active Keflex 500 MG 1 capsule Orally every 12 hrs; Duration: 10 day(s) 04/12/2019 Not-Taking Aspirin 81 MG 1 tablet Orally Once a day Active Avalide 150-12.5 MG 1 tablet Orally Once a day; Duration: 30 day(s) Active AFO-fixed Not-Taking Immunizations Vaccine Route Administration Date Status Comme nts Influenza Unknown 11/06/2023 Administered Influenza Unknown 12/07/2024 Administered COVID-19 Moderna Vaccine Unknown 12/26/2020 Administered 1st [...] Problem Status W/U Status Risk Notes Problem Tinea unguium (532022085) Tinea unguium (B35.1) Active confirmed Vital Signs Blood pressure diastolic 65 mm Hg 12/31/2024 Height 6ft in 12/31/2024 Blood pressure systolic 126 mm Hg 12/31/2024 Weight 255 lbs 12/31/2024 BMI 34.58 kg/m2 12/31/2024 Procedures Procedure Date Ordered Date Performed Result Body Sit e 92277-UTGQVUY NAIL, 6 OR MORE 02/13/2024 N/A 09063-BSGWEYM NAIL, 6 OR MORE 04/16/2024 N/A 86558-UASDCVD NAIL, 6 OR MORE 06/18/2024 N/A 87151-OCAEOUK NAIL, 6 OR MORE 08/23/2024 N/A 55121-NQIMLOR NAIL, 6 OR MORE 10/29/2024 N/A 11694-APQIKRE NAIL, 6 OR MORE 12/31/2024 N/A Encounters Encounter Location Date Provider Diagnosis [address] [address] 02/13/2024 Soila Black Tinea unguium B35.1 ; Pain in right toe(s) M79.674 and Pain in left toe(s) M79.[address] [address] 04/16/2024 Soila Black Tinea unguium B35.1 ; Other hammer toe(s) (acquired), right foot M20.41 ; Pain in left toe(s) M79.675 ; Pain in right toe(s) M79.674 and Subluxation of metatarsophalangeal joint of toe, initial encounter S93.149A [address] [address] 06/18/2024 Soila Black Tinea unguium B35.1 ; Pain in left toe(s) M79.675 and Pain in right toe(s) M79.[address] [address] 08/23/2024 Soila Black Tinea unguium B35.1 ; Pain in left toe(s) M79.675 and Pain in right toe(s) M79.[address] [address] 10/29/2024 Soila Black Tinea unguium B35.1 ; Pain in left toe(s) M79.675 and Pain in right toe(s) M79.[address] [address] 12/31/2024 Soila Black Tinea unguium B35.1 ; Pain in left toe(s) M79.675 and Pain in right toe(s) M79.674 Assessments Encounter Date Diagnosis (ICD Code) Assessment Notes Treatment Notes Treatment Clinical Notes Section Notes 02/13/2024 Tinea unguium (ICD-1 0 - B35.1) 02/13/2024 Pain in right toe(s) (ICD-10 - M79.674) 04/16/2024 Tinea unguium (ICD-1 0 - B35.1) 04/16/2024 Other hammer toe(s) (acquired), right foot (ICD-10 - M20.41) Chronic problem, Worse (4) 06/18/2024 Tinea unguium (ICD-1 0 - B35.1) 06/18/2024 Pain in left toe(s) (ICD-10 - M79.675) 08/23/2024 Tinea unguium (ICD-1 0 - B35.1) 10/29/2024 Tinea unguium (ICD-1 0 - B35.1) 12/31/2024 Tinea unguium (ICD-1 0 - B35.1) 12/31/2024 Pain in left toe(s) (ICD-10 - M79.675) 10/29/2024 Pain in left toe(s) (ICD-10 - M79.675) 08/23/2024 Pain in left toe(s) (ICD-10 - M79.675) 06/18/2024 Pain in right toe(s) (ICD-10 - M79.674) 04/16/2024 Pain in left toe(s) (ICD-10 - M79.675) 02/13/2024 Pain in left toe(s) (ICD-10 - M79.675) 04/16/2024 Pain in right toe(s) (ICD-10 - M79.674) 08/23/2024 Pain in right toe(s) (ICD-10 - M79.674) 10/29/2024 Pain in right toe(s) (ICD-10 - M79.674) 12/31/2024 Pain in right toe(s) (ICD-10 - M79.674) 04/16/2024 Subluxation of metatarsophalangeal joint of toe, initial encounter (ICD-10 - S93.149A) Plan Of Treatment Pending Test Test Name Order Date *Uric Acid, Serum 11/04/2022 *CBC With Differential/Platelet 11/05/19 23 *Sedimentation Rate-Westergren 3 C-Reactive Protein, Quant 11/04/2022 X ray : Foot, right 3V 05/29/2012 08143-GJVKPEY NAIL, 6 OR MORE 07/03/2012 71748-GYIVHDB NAIL, 6 OR MORE 10/30/2012 47899-HELQPZB NAIL, 6 OR MORE 02/19/2013 43427-WYKIFEJ NAIL, 6 OR MORE 06/25/2013 57835-JRQFHRU NAIL, 6 OR MORE 10/29/2013 20601-FUMRENH NAIL, 6 OR MORE 03/18/2014 84068-NEFZXTD NAIL, 6 OR MORE 12/07/2010 31141-ILSHKJA NAIL, 6 OR MORE 03/11/2011 94033-TMQEBAB NAIL, 6 OR MORE 07/01/2011 69376-LMODBWQ NAIL, 6 OR MORE 10/14/2011 31162-JGELPVS NAIL, 6 OR MORE 04/03/2012 30460-MTCCQCN NAIL, 6 OR MORE 04/05/2016 85529-VTVROAW NAIL, 6 OR MORE 07/05/2016 09880-QISAPAQ NAIL, 6 OR MORE 09/24/2016 64433-WZASCJX NAIL, 6 OR MORE 12/09/2016 48270-FVTMMKX NAIL, 6 OR MORE 02/10/2017 46579-JJKHVFH NAIL, 6 OR MORE 05/05/2017 66196-XYBLMHL NAIL, 6 OR MORE 07/21/2017 24675-IIJPYZF NAIL, 6 OR MORE 10/10/2017 77942-IQBQSPA NAIL, 6 OR MORE 12/19/2017 30596-LDHLOKQ NAIL, 6 OR MORE 03/20/2018 70722-UEGGNFS NAIL, 6 OR MORE 05/22/2018 74913-DXULMGI NAIL, 6 OR MORE 07/24/2018 98129-ZILIOZO NAIL, 6 OR MORE 10/05/2018 70941-DDXYELW NAIL, 6 OR MORE 12/21/2018 17510-NLMFVLH NAIL, 6 OR MORE 03/12/2019 28333-EHWDYVN NAIL, 6 OR MORE 09/27/2022 98195-ZCKOXPN NAIL, 6 OR MORE 12/02/2022 09076-VPCDSAX NAIL, 6 OR MORE 02/03/2023 47673-QXZRGPZ NAIL, 6 OR MORE 04/07/2023 22761-DUGAXWE NAIL, 6 OR MORE 06/09/2023 63949-YDLDDMQ NAIL, 6 OR MORE 09/01/2023 95621-CKBBDOT NAIL, 6 OR MORE 11/10/2023 79184-GYFGBKW NAIL, 6 OR MORE 02/13/2024 90640-HMXUQVW NAIL, 6 OR MORE 04/16/2024 43845-KKDVEQQ NAIL, 6 OR MORE 06/18/2024 44187-ZDLDYMU NAIL, 6 OR MORE 08/23/2024 01929-DCTQZNA NAIL, 6 OR MORE 10/29/2024 99788-WHVZNFJ NAIL, 6 OR MORE 12/31/2024 23192-DQPQXXY NAIL, 6 OR MORE 02/19/2020 99736-GWUAXZQ NAIL, 6 OR MORE 05/01/2020 68472-QCCYJHF NAIL, 6 OR MORE 07/03/2020 52876-JWVYEVH NAIL, 6 OR MORE 09/04/2020 13176-RWIKXXZ NAIL, 6 OR MORE 11/24/2020 47783-IMFNOEJ NAIL, 6 OR MORE 03/16/2021 46712-XZPQWEQ NAIL, 6 OR MORE 06/11/2021 52915-SHAPWIC NAIL, 6 OR MORE 08/17/2021 88325-IOSJDNL NAIL, 6 OR MORE 05/14/2019 00492-AFMGRTF NAIL, 6 OR MORE 07/23/2019 49715-OHPQEIV NAIL, 6 OR MORE 10/01/2019 35180-GPNSTIR NAIL, 6 OR MORE 12/13/2019 10807-UFDJUQR NAIL, 6 OR MORE 10/22/2021 18913-VGNJAYX NAIL, 6 OR MORE 12/28/2021 07657-ZVEUWYM NAIL, 6 OR MORE 03/15/2022 18533-NWFVVBR NAIL, 6 OR MORE 05/24/2022 45988-AHORGZC NAIL, 6 OR MORE 07/26/2022 25870-Tdmhwcsm Plate 09/27/2022 24563-Okzmmtqr Plate 12/13/2019 52829-Jjletrjb Plate 10/22/2021 32279-Sgdpinbu Plate 05/22/2018 94158-Stlfmefo Plate 10/10/2017 93947-Ledvrryu Plate 07/05/2016 47295-Zzemcpef Plate 12/01/2015 64999-Rhqgsrbd Plate 03/18/2014 13010-Upocshap Plate 07/15/2014 13801-Yyicjajn Plate 11/18/2014 77782-Ptdukdpt Plate Each Additional 77653 I&D ABSCESS- SIMPLE,SINGLE 016 65814 - Tenotomy, open flexor 04/12/2019 55000 - Tenotomy, open flexor 08/25/2023 Next Appt Details Provider Name:Soila Villalobos , 03/14/2025 01:30:00 PM, [address] [place] [address], [phone], Provider Name:Soila Villalobos , 05/16/2025 01:30:00 PM, [address] [place] [address], [phone], Insurance Providers Payer Name Payer Address Payer Phone Subscriber Number Group Number Insured Name Patient Relationship to Insured Coverage Start Date Coverage End Date Medicare National Govt [employer] [address] [place] [address] [id number] Ben Hogan Self - patient is the insured [employer] Blue [employer] [address] [place] [address] [id number] Ben Hogan Self - patient is the insured Medical (General) History Medical History History ICD Code vascular phlebitis(clots) mumps measles hypertension chicken pox Gout Arthritis Broken bones ( arm) Gout M10.9 Primary osteoarthritis, 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
--- OUTSIDE RECORDS SUMMARY | 2025-01-02 16:20 | XMS_ITS | Encounter Summary ---
Author Organization [facility] Address [address] [facility] [address] [place] [address] Phone Care Team Providers Care Access Clinician Name Role Phone Luis Gauthier MD Primary Care Provider Encounter Details Date Type Department Care Team (Latest Contact Info) Description 01/14/2020 Ancillary Orders Virtual Department [address] [place] [address] Clint Maldonado, DO [address] [place] [address] [email or web address] Lumbar radiculopathy Social History Tobacco Use Types Packs/Day Years Used Date Smoking Tobacco: Never Assessed Sex and Gender Information Value Date Recorded Sex Assigned at Not on file Legal Sex Male 10:52 AM EDT Gender Identity Not on file Sexual Orientation Not on file documented as of this encounter Plan of Treatment Not on file documented as of this encounter Visit Diagnoses Diagnosis Lumbar radiculopathy Thoracic or lumbosacral neuritis or radiculitis, unspecified documented in this encounter Care Teams Access Clinician Relationship Specialty Start Date End Date Luis Gauthier MD [address] [place] [address] [place] [address] PCP - General Internal Medicine 01/04/20 documented as of this encounter Additional Source Comments The information contained in this document represents components of the legal health record. It is not the complete legal health record.[facility]
== END 2025-01-02 13:44 | disposition home or self-care (01) ==
LOC: HO.HCS 12:56
PROVIDERS: PCP Internal Medicine; Visit Provider Internal Medicine Cardiovascular Disease
DX: I10 Essential (primary) hypertension (principal); Z01.810 Encounter for preprocedural cardiovascular examination
CPT/HCPCS: 93010; 99214

== ENCOUNTER → 2025-01-02 12:55 | Outpatient (BNVA) | payer MEDICARE, SELFPAY | PROVIDERS: PCP Internal Medicine; Visit Provider Internal Medicine Cardiovascular Disease | DX: Z01.810 Encounter for preprocedural cardiovascular examination (principal); I10 Essential (primary) hypertension; R00.1 Bradycardia, unspecified; I49.1 Atrial premature depolarization | CPT/HCPCS: 93005; 99212 ==

== ENCOUNTER 2025-01-24 07:51 | Outpatient (REF) | payer MEDICARE, SELFPAY ==
--- OUTSIDE RECORDS SUMMARY | 2023-11-03 08:00 | XMS_ITS ---
Author Organization [facility] Address [address] [place] [id number] Care Team Providers Care Director Of Diagnostic Imaging Name Role Phone Disha ALVARADO, Luis Primary Care Provider Soila Greco Unavailable [phone] Jacinto Encounters Encounter Location Date Provider Diagnosis [address] [address] 11/03/2023 Soila Wilfredo Plan Of Treatment Next Appt Details Provider Name:Soila Villalobos , 03/14/2025 01:30:00 PM, [address] [place] [address], [phone], Provider Name:Soila Villalobos , 05/16/2025 01:30:00 PM, [address] [place] [address], [phone], Progress Notes * Ben DONALDDOB: 8 (79 yo M)Acc No.[id number]:11/03/2023 Progress Note Patient: S Ben SIMMS Provider: Monie Villaolbos DPM :1945 A ge:78 Y S ex:Male Date:11/03/2023 Address:[address] [place] [id number] Pcp:Luis Gauthier MD Subjective: * Chief Complaints: * [address] Jacinto. * Medical History: Objective: * Vitals: Assessment: Plan: * Treatment: * Images: * The named appointment provid er may or may not be the originator of this progress note, and it is not deemed complete until electronically signed by the appointment provider. Sign off status: Pending * Provider: Monie Villalobos DPM Date: 0 11/03/2023 Generated for Inocencio peace/Prosper/Dorinda on: 03/26/2024 08:00 AM EST
--- OUTSIDE RECORDS SUMMARY | 2024-02-13 05:50 | XMS_ITS ---
Author Organization Luis Gauthier MD Address 10 [facility] [address] [place] [phone] Care Team Providers Care Epoxy Coatings Installer Name Role Phone Luis Gauthier Primary Care Provider [phone] REASON FOR VISIT ER Encounters Encounter Location Date Provider Diagnosis Luis Gauthier MD [address] [facility] [address] [place] [phone] 02/13/2024 Luis Gauthier Plan Of Treatment Next Appt Details Provider Name:Luis kirkland, 06/21/2025 08:00:00 AM, [address] [place] [address], [address], [phone], Provider Name:Luis kirkland, 06/28/2025 10:00:00 AM, [address] [place] [address], [address], [phone], Provider Name:Luis kirkland, 12/23/2025 07:15:00 AM, [address] [place] [address], [address], [phone], Provider Name:Luis kirkland, 12/30/2025 09:30:00 AM, [address] [place] [address], [address], [phone], Progress Notes * Ben KRAMER SrDOB: (78 yo M)Acc No.[id number]:02/13/2024 Patient: Ben Grullon :1945 A ge:78 Y S ex:Male Address:[address] [place] [phone] * true * Date: Generated for Inocencio paece/Prosper/Corinsmitting on: 03/26/2024 08:00 AM EST
--- OUTSIDE RECORDS SUMMARY | 2024-03-08 03:45 | XMS_ITS ---
Author Organization Luis Gauthier MD Address [address] [place] [address] [phone] Care Team Providers Care C T Tech Name Role Phone Luis Gauthier Primary Care Provider [phone] REASON FOR VISIT BUN Creatinine Encounters Encounter Location Date Provider Diagnosis Luis Gauthier MD 10 [facility] [address] [place] [phone] 03/08/2024 Luis Gauthier Essential hypertension I10 Assessments Encounter Date Diagnosis (ICD Code) Assessment Notes Treatment Notes Treatment Clinical Notes Section Notes 03/08/2024 Essential hypertension (ICD-10 - I10) Plan Of Treatment Next Appt Details Provider Name:Luis kirkland, 06/21/2025 08:00:00 AM, [address] [place] [address], [address], [phone], Provider Name:Luis kirkland, 06/28/2025 10:00:00 AM, [address] [place] [address], [phone], Provider Name:Luis kirkland, 12/23/2025 07:15:00 AM, [address] [place] [address], [phone], Provider Name:Luis kirkland, 12/30/2025 09:30:00 AM, [address] [place] [address], [address], [place], [place], [phone], Progress Notes * Ben KRAMER SrDOB: (79 yo M)Acc No.[id number]:03/08/2024 Progress Note Patient: Ben HOFFMANN Sr Provider: Josh Gauthier MD :1945 A ge:78 Y S ex:Male Date:03/08/2024 Address: [address], [facility], [id number] Subjective: * Chief Complaints: * 1 . BUN Creatinine. * Medical History: Objective: * Vitals: Assessment: * Assessment: 1. E ssential hypertension - I10 Plan: * Treatment: * * The named appointment provid er may or may not be the originator of this progress note, and it is not deemed complete until electronically signed by the appointment provider. Sign off status: Pending * Provider: Josh Gauthier MD Date: 0 03/08/2024 Generated for Inocencio peace/Prosper/Corinsmitting on: 03/26/2024 08:01 AM EST
--- OUTSIDE RECORDS SUMMARY | 2024-04-26 11:15 | XMS_ITS ---
Author Organization Luis Gauthier MD Address [address] [place] [address] [phone] Care Team Providers Care Enterprise Business Architect Name Role Phone Luis Gauthier Primary Care Provider REASON FOR VISIT Need prescription to replace Flovent HFA with Advair HFA Medications Medication SIG (Take, Route, Frequency, Duration) Notes Start Date End Date Status Advair HFA 115-21 MCG/ACT 2 puffs Inhala tion Twice a day for 30 days 04/27/2024 Active Encounters Encounter Location Date Provider Diagnosis Luis Gauthier MD [address] [place] [address] [place] [address] [phone] 04/26/2024 Luis Gauthier Plan Of Treatment Medication Medication Name Sig Start Date Stop Date Notes Advair HFA 115-21 MCG/ACT 2 puffs Inhala tion Twice a day for 30 days 04/27/2024 Next Appt Details Provider Name:Luis kirkland, 06/21/2025 08:00:00 AM, [address] [place] [address], [address], [phone], Provider Name:Luis kirkland, 06/28/2025 10:00:00 AM, [address] [place] [address], [address], [phone], Provider Name:Lusi Lewis ier, 12/23/2025 07:15:00 AM, [address], [address], [place], [place], [phone], Provider Name:Luis Lewis ier, 12/30/2025 09:30:00 AM, [address], [address], [place], [place], [phone], Progress Notes * Ben KRAMER SrDOB: (78 yo M)Acc No.[id number]:04/26/2024 Patient: Ben HOFFMANN Sr :1945 A ge:78 Y S ex:Male Address: [place] [address] * Refills Start Advair HFA Aerosol, 115-21 MCG/ACT, Inhalation, 1, 2 puffs, Twice a day, 30 days, Refills=11 * true * Date: Generated for Inocencio peace/Prosper/eTransmitting on: 03/26/2024 08:00 AM EST
--- OUTSIDE RECORDS SUMMARY | 2024-04-27 11:27 | XMS_ITS ---
Author Organization Luis Gauthier MD Address 10 [facility] [address] [place] [phone] Care Team Providers Care Web Analytics Developer Name Role Phone Luis Gauthier Primary Care Provider [phone] REASON FOR VISIT RE:Need prescription to replace Flovent HFA with Advair HFA Encounters Encounter Location Date Provider Diagnosis Luis Gauthier MD [address] [place] [address] [address] [place] [address] [phone] 04/27/2024 Luis Gauthier Plan Of Treatment Next Appt Details Provider Name:Luis kirkland, 06/21/2025 08:00:00 AM, [address] [place] [address], [address], [phone], Provider Name:Luis kirkland, 06/28/2025 10:00:00 AM, [address] [place] [address], [address], [phone], Provider Name:Luis kirkland, 12/23/2025 07:15:00 AM, [address] [place] [address], [phone], Provider Name:Luis kirkland, 12/30/2025 09:30:00 AM, [address] [place] [address], [phone], Progress Notes * Ben KRAMER SrDOB: (78 yo M)Acc No.[id number]:04/27/2024 Patient: Ben HOFFMANN Sr :1945 A ge:78 Y S ex:Male Address: [address], [place] [address] * true * Date: Generated for Inocencio peace/Prosper/eTransmitting on: 03/26/2024 07:59 AM EST
--- OUTSIDE RECORDS SUMMARY | 2024-06-26 02:00 | XMS_ITS ---
Author Organization Luis Gauthier MD Address [address] [place], [place] [phone] Care Team Providers Care Aboriginal Liaison Officer Name Role Phone Luis Gauthier Primary Care Provider Results Component Value Reference Range Notes Liver Panel Reviewed date:06/26/2024 06:41:59 PM Interpretation: Performing Lab:[facility], [address] [place] [id number] Notes/Report: Bilirubin Total 0.5 0.0-1.0 mg/dL Bilirubin Direct 0.2 0.0-0.5 mg/dL Aspartate Amino Transferase 39 5-37 U/L Alanine Aminotransferase 31 0-40 U/L Total Protein 6.2 6.5-8.0 g/dL Albumin Level 4.1 3.5-5.0 g/dL Alkaline Phosphatase 76 39-117 U/L Lipid Panel with Reflex Reviewed date:06/26/2024 06:42:36 PM Interpretation: Performing Lab:[address] [id number] Notes/Report: Triglycerides 168 <150 mg/dL Desirable Triglyceride: less than 150 mg/dL Borderline High Triglyceride 150-199 mg/dL High Triglyceride: 200-499 mg/dL Very High Triglyceride: greater than or equal to 5OO mg/dL Cholesterol 132 <200 mg/dL Desirable Cholesterol: less than 200 mg/dL Borderline High Cholesterol: 200-239 mg/dL High Cholesterol: greater than 239 mg/dL LDL Cholesterol Calculated 69 <100 mg/dL Desirable LDL: less than 100 mg/dL Near Optimal/Above Optimal LDL: 110-129 mg/dL Borderline High LDL: 130-159 mg/dL High LDL: 160-189 mg/dL Very High LDL: greater than or equal to 190 mg/dL HDL Cholesterol 30 >40 mg/dL Desirable HDL: greater than 40 mg/dL Note: This HDL assay may give artificially low results in patients with liver disease. REASON FOR VISIT FASTING LIPIDS Encounters Encounter Location Date Provider Diagnosis Luis Gauthier MD [address] [place] [address] [phone] 06/26/2024 Luis Gauthier Hypercholesteremia E 78.00 Assessments Encounter Date Diagnosis (ICD Code) Assessment Notes Treatment Notes Treatment Clinical Notes Section Notes 06/26/2024 Hypercholesteremia (ICD-10 - E78.00) Plan Of Treatment Next Appt Details Provider Name:Luis kirkland, 06/21/2025 08:00:00 AM, [address] [place] [address], [phone], Provider Name:Luis kirkland, 06/28/2025 10:00:00 AM, [address] [place] [address], [phone], Provider Name:Luis kirkland, 12/23/2025 07:15:00 AM, [address] [place] [address], [phone], Provider Name:Luis reardonr, 12/30/2025 09:30:00 AM, [address] [place] [address], [phone], Progress Notes * [facility] Ben Tana SrDOB: (79 yo M)Acc No.[id number]:06/26/2024 Progress Note Patient: Ben HOFFMANN Sr Provider: Josh Gauthier MD :1945 A ge:79 Y S ex:Male Date:06/26/2024 Address: [address], [facility], [id number] Subjective: * Chief Complaints: * 1 . FASTING LIPIDS. * Medical History: Objective: * Vitals: Assessment: * Assessment: 1. H ypercholesteremia - E78.00 (Primary) Plan: * Treatment: * Procedure Codes: 3 6415 VENIPUNCT, ROUTINE* * * The named appointment provid er may or may not be the originator of this progress note, and it is not deemed complete until electronically signed by the appointment provider. Sign off status: Pending * Provider: Josh Gauthier MD Date: 0 06/26/2024 Generated for Inocencio peace/Prosper/Aleksitting on: 1 03/26/2024 08:00 AM EST
--- OUTSIDE RECORDS SUMMARY | 2024-07-03 05:00 | XMS_ITS ---
Author Organization Luis Gauthier MD Address [address] [place], [place] [id number] Care Team Providers Care Brine Mixer Operator Name Role Phone Luis Gauthier Primary Care Provider Allergies Allergen (clinical drug ingredient) Drug/Non Drug Allergy documented on EMR Reaction Allergy Type Onset Date Status lisinopril Lisinopril angioedema Drug Allergy Acti ve REASON FOR VISIT 6 MO F/U, c/o reflux especially at night Medications Medication SIG (Take, Route, Frequency, Duration) Notes Start Date End Date Status Pantoprazole Sodium 40 MG TAKE 2 TABLETS BY MOUTH EVERY DAY for 90 Active amLODIPine Besylate 10 MG TAKE 1 TABLET BY MOUTH EVERY DAY for 90 Active Advair HFA 115-21 MCG/ACT 2 puffs Inhala tion Twice a day for 30 days 04/27/2024 Active Aspir-81 81 MG 1 tablet Orally Once a day for 30 day(s) Not-Taking LORazepam 0.5 MG 1 tablet as needed Orally Twice a day for 7 days 06/09/2018 Not-Taking Gabapentin 100 MG 2 capsule Twice a day Active Carvedilol 6.25 MG TAKE 1 TABLET BY MEREDITH TH TWICE DAILY Active Irbesartan-hydroCHLOROthi azide 150-12.5 MG TAKE 1 TABLET BY MOUTH EVERY DAY Active Celecoxib 200 MG TAKE 1 CAPSULE BY MO UTH EVERY DAY Active Atorvastatin Calcium 20 MG TAKE 1 TABLET BY MOUTH EVERY DAY Active Allopurinol 300 MG 1tablet Orally Once a day Active Flovent HFA 110 MCG/ACT 2 puffs Inhalati on Twice a day 06/07/2022 Active Albuterol Sulfate HFA 108 (90 Base) MCG/ACT INHALE 2 PUFFS BY MOUTH EVERY 4 HOURS NEEDED Active Advair Diskus 500-50 MCG/DOSE 1 puff Inhalation Twice a day 06/22/2012 Not-Taking Flonase 50 MCG/ACT 2 sprays Nasally Onc e a day for 90 days Not-Taking Amoxicillin 500 MG 4capsule Orally 1 ho ur prior to dental Not-Taking Nasacort Allergy 24HR 55 MCG/ACT 1 puff in each nostril Nasally Once a day for 30 day(s) 03/28/2015 Not-Taking Problems Problem Type SNOMED Code ICD Code Onset Dates Problem Status W/U Status Risk Notes Problem Prostatism (62771466) Prostatism (N40.0) Active confirmed Problem Reflux esophagitis (965382633) Reflux esophagitis (K21.00) Active confirmed Vital Signs Blood pressure systolic 122 mm Hg 07/04/19 25 Blood pressure diastolic 60 mm Hg 025 Height 72 in 07/03/2024 Weight 273 lbs 07/03/2024 BMI 37.02 kg/m2 07/03/2024 weight is down 8 pounds [facility] 12-26-23 Encounters Encounter Location Date Provider Diagnosis Luis Gauthier MD [address] [place] [address] [address] [place], [place] [phone] 07/03/2024 Luis Gauthier Vision changes H53.9 ; Hypercholesteremia E78.00 ; Prostatism N40.0 and Reflux esophagitis K21.00 Assessments Encounter Date Diagnosis (ICD Code) Assessment Notes Treatment Notes Treatment Clinical Notes Section Notes 07/03/2024 Vision changes (ICD-10 - H53.9) advised to get back to his ophthalmonoloigst 07/03/2024 Hypercholesteremia (ICD-10 - E78.00) stable, will continue current regiment 07/03/2024 Prostatism (ICD-10 - N40.0) states that each time is a lot of urine. would fill a bottle each time 07/03/2024 Reflux esophagitis (ICD-10 - K21.00) pending diagnostic testing Plan Of Treatment Treatment Notes Assessment Notes Vision changes advised to get back to his ophthalmonoloigst Hypercholesteremia stable, will continu e current regiment Prostatism states that each asael e is a lot of urine. would fill a bottle each time Reflux esophagitis pending diagnostic t esting Pending Test Test Name Order Date XR GI SERIES 07/03/2024 Next Appt Details Follow Up: 4 Weeks, Reason: Provider Name:Luis Lewis ier, 06/21/2025 08:00:00 AM, [address] [place] [address], [address], [phone], Provider Name:Luis Catie Joshua ier, 06/28/2025 10:00:00 AM, [address] [place] [address], [address], [phone], Provider Name:Luis Haddad Joshua ier, 12/23/2025 07:15:00 AM, [address] [place] [address], [address], [phone], Provider Name:Luis Haddad Joshua ier, 12/30/2025 09:30:00 AM, [address] [place] [address], [address], [phone], Progress Notes * Ben KRAMER SrDOB: (79 yo M)Acc No.[id number]:07/03/2024 Progress Notes Patient: Ben HOFFMANN Sr Provider: Josh Gauthier MD :1945 A ge:79 Y S ex:Male Date:07/03/2024 Address: [address], [facility], [id number] Subjective: * Chief Complaints: * 6 MO F/UC/o reflux especially at night * HPI: S ymptom(s): patient is a 79 yo male here for 6 month follow up visit./ complaining of a lot of reflux. thinks he urinates to often. * ROS: G eneral/Constitutional: Denies C hills. D enies F atigue. D enies F ever. D enies H eadache. E NT: Denies S ore throat. R espiratory: Denies C ough. D enies S hortness of breath at rest. D enies S hortness of breath with exertion. G astrointestinal: Admits A bdominal pain. D enanish D iarrhea. A dmits H eartburn. D enies N ausea. * Medical History: * Surgical History: * Hospitalization/Major Diagno stic Procedure: * Medications: T akingAllopurinol 300 MG Tablet 1tablet Orally Once a day Flovent HFA 110 MCG/ACT Aerosol 2 puffs Inhalation Twice a day Albuterol Sulfate HFA 108 (90 Base) MCG/ACT Aerosol Solution INHALE 2 PUFFS BY MOUTH EVERY 4 HOURS NEEDED Carvedilol 6.25 MG Tablet TAKE 1 TABLET BY MOUTH TWICE DAILY Irbesartan-hydroCHLOROthiazide 150- 12.5 MG Tablet TAKE 1 TABLET BY MOUTH EVERY DAY Celecoxib 200 MG Capsule TAKE 1 CAPSULE BY MOUTH EVERY DAY Atorvastatin Calcium 20 MG Tablet TAKE 1 TABLET BY MOUTH EVERY DAY Gabapentin 100 MG Capsule 2 capsule Twice a day Pantoprazole Sodium 40 MG Tablet Delayed Release TAKE 2 TABLETS BY MOUTH EVERY DAY amLODIPine Besylate 10 MG Tablet TAKE 1 TABLET BY MOUTH EVERY DAY Advair HFA 115-21 MCG/ACT Aerosol 2 puffs Inhalation Twice a day Taking Allopurinol 300 MG Tablet 1tablet Orally Once a day Taking Flovent HFA 110 MCG/ACT Aerosol 2 puffs Inhalation Twice a day Taking Albuterol Sulfate HFA 108 (90 Base) MCG/ACT Aerosol Solution INHALE 2 PUFFS BY MOUTH EVERY 4 HOURS NEEDED Taking Carvedilol 6.25 MG Tablet TAKE 1 TABLET BY MOUTH TWICE DAILY Taking Irbesartan-hydroCHLOROthiazide 150-12.5 MG Tablet TAKE 1 TABLET BY MOUTH EVERY DAY Taking Celecoxib 200 MG Capsule TAKE 1 CAPSULE BY MOUTH EVERY DAY Taking Atorvastatin Calcium 20 MG Tablet TAKE 1 TABLET BY MOUTH EVERY DAY Taking Gabapentin 100 MG Capsule 2 capsule Twice a day Taking Pantoprazole Sodium 40 MG Tablet Delayed Release TAKE 2 TABLETS BY MOUTH EVERY DAY Taking amLODIPine Besylate 10 MG Tablet TAKE 1 TABLET BY MOUTH EVERY DAY Taking Advair HFA 115-21 MCG/ACT Aerosol 2 puffs Inhalation Twice a day Not-Taking/PRNAspir-81 81 MG Tablet Delayed Release 1 tablet Orally Once a day LORazepam 0.5 MG Tablet 1 tablet as needed Orally Twice a day Amoxicillin 500 MG Capsule 4capsule Orally 1 hour prior to dental Nasacort Allergy 24HR 55 MCG/ACT Aerosol 1 puff in each nostril Nasally Once a day Advair Diskus 500-50 MCG/DOSE Aerosol Powder Breath Activated 1 puff Inhalation Twice a day Flonase 50 MCG/ACT Suspension 2 sprays Nasally Once a day Medication List reviewed and reconciled with the patientNot-Taking/PRN Aspir-81 81 MG Tablet Delayed Release 1 tablet Orally Once a day Not-Taking/PRN LORazepam 0.5 MG Tablet 1 tablet as needed Orally Twice a day Not-Taking/PRN Amoxicillin 500 MG Capsule 4capsule Orally 1 hour prior to dental Not-Taking/PRN Nasacort Allergy 24HR 55 MCG/ACT Aerosol 1 puff in each nostril Nasally Once a day Not-Taking/PRN Advair Diskus 500-50 MCG/DOSE Aerosol Powder Breath Activated 1 puff Inhalation Twice a day Not-Taking/PRN Flonase 50 MCG/ACT Suspension 2 sprays Nasally Once a day Medication List reviewed and reconciled with the patient * Allergies: L isinopril: angioedemayes[Allergies Verified] Objective: * Vitals: H t: 72, Wt: 273, BMI:37.02, BP:122/60, Wt-k.83. weight is down 8 pounds since 12-26-23. * P ast Orders: L ab:Liver Panel (Order Date - 06/26/2024) (Collection Date & Time - 06/26/2024 07:00 AM) Value Reference Range Bilirubin Total 0.5 0.0-1.0 - mg/dL Bilirubin Direct 0.2 0.0-0.5 - mg/dL Aspartate Amino Transferase 39 H 5-37 - U/L Alanine Aminotransferase 31 0-40 - U/L Total Protein 6.2 L 6.5-8.0 - g/dL Albumin Level 4.1 3.5-5.0 - g/dL Alkaline Phosphatase 76 39-117 - U/L L ab:Lipid Panel with Reflex (Order Date - 06/26/2024) (Collection Date & Time - 06/26/2024 07:00 AM) Value Reference Range Triglycerides 168 H <150 - mg/dL Cholesterol 132 <200 - mg/dL LDL Cholesterol Calculated 69 <100 - mg/dL HDL Cholesterol 30 L >40 - mg/dL * Examination: G eneral Examination: GENERAL APPEARANCE: a lert, well hydrated, in no distress.? HEAD: n ormocephalic. SKIN: g ood turgor. HEART: n o murmurs, rubs, gallops, regular rate and rhythm.? LUNGS: n o wheezes, rales, rhonchi, good air movement, clear to auscultation bilaterally. ABDOMEN: s oft, nontender, nondistended, no rebound tenderness. Assessment: * Assessment: 1. H ypercholesteremia - E78.00 (Primary) 2 . V ision changes - H53.9 ? 3 . P rostatism - N40.0 4 . R eflux esophagitis - K21.00 ? Plan: * Treatment: 2. V ision changes Notes: advised to get back to his ophthalmonoloigst 3. P rostatism Notes: states that each time is a lot of urine. would fill a bottle each time 4. R eflux esophagitis I maging: XR GI SERIES Notes: pending diagnostic testing * Procedure Codes: * Follow Up: 4 Weeks * * Sign off status: Completed true * Provider: Josh Gauthier MD Date: 0 07/03/2024 Generated for Inocencio peace/Prosper/Aleksitting on: 03/26/2024 08:01 AM EST History and Physical Notes * HPI (History of Present Illness) Category Sub-Category Detail Notes Category Not es Symptom(s) patient is a 79 yo male here for 6 month follow up visit./ complaining of a lot of reflux. thinks he urinates to often. Examination Category Sub-Category Detail Notes Category Not es General Examination GENERAL APPEARANCE: alert, w ell hydrated, in no distress HEAD: normocephalic HEART: no murmurs, rubs, ga llops, regular rate and rhythm LUNGS: no wheezes, rales, r honchi, good air movement, clear to auscultation bilaterally ABDOMEN: soft, nontender, non distended, no rebound tenderness SKIN: good turgor
--- OUTSIDE RECORDS SUMMARY | 2024-08-03 04:15 | XMS_ITS ---
Author Organization Luis Gauthier MD Address [address] [place], [place] [phone] Care Team Providers Care Bridge Builder Name Role Phone Luis Gauthier Primary Care [...] kg/m2 08/03/2024 weight is down 6 pounds [facility] 07-03-24 Encounters Encounter Location Date Provider Diagnosis Luis Gauthier MD [address] [place] [address] Drive [address] [place] [phone] 08/03/2024 Luis Gauthier Gastroesophageal ref lux disease [...] Details Provider Name:Luis kirkland, 06/21/2025 08:00:00 AM, [address] [place] [address], Suite [facility], [place], [place], [phone], Provider Name:Luis kirkland, 06/28/2025 10:00:00 AM, [address] [place] [address], Suite [facility], [place], [place], [phone], Provider Name:Luis Lewis ier, 12/23/2025 07:15:00 AM, [address], [address], [place], [phone], Provider Name:Luis Lewis ier, 12/30/2025 09:30:00 AM, [address], [address], [place], [phone], Progress Notes * Ben KRAMER SrDOB: (79 yo M)Acc No.[id number]:08/03/2024 Progress Notes Patient: Ben HOFFMANN Sr Provider: Josh Gauthier MD :1945 A ge:79 Y S ex:Male Date:08/03/2024 Address: [address], [place], [place] Subjective: * Chief Complaints: * 4 [...] 0 08/03/2024 Generated for Inocencio peace/Prosper/Aleksitting on: 03/26/2024 08:01 [...]
--- OUTSIDE RECORDS SUMMARY | 2024-11-19 05:58 | XMS_ITS ---
Author Organization Luis Gauthier MD Address [address] [place] [phone] Care Team Providers Care Redevelopment Manager Name Role Phone Luis Gauthier Primary Care Provider Medications Medication SIG (Take, Route, Frequency, Duration) Notes Start Date End Date Status Breo Ellipta 100-25 MCG/ACT 1 puff Inhalation Once a day for 30 days 11/19/2024 Active Encounters Encounter Location Date Provider Diagnosis Luis Gauthier MD [address] [place] [address] [place] [phone] 11/19/2024 Luis Gauthier Plan Of Treatment Medication Medication Name Sig Start Date Stop Date Notes Breo Ellipta 100-25 MCG/ACT 1 puff Inhal ation Once a day for 30 days 11/19/2024 Next Appt Details Provider Name:Luis kirkland, 06/21/2025 08:00:00 AM, [address] [place] [address], [address], [phone], Provider Name:Luis kirkland, 06/28/2025 10:00:00 AM, [address] [place] [address], [address], [phone], Provider Name:Luis kirkland, 12/23/2025 07:15:00 AM, [address], [address], [place], [place], [phone], Provider Name:Luis Lewis marita, 12/30/2025 09:30:00 AM, [address] [facility], [address], [place], [place], [phone], Progress Notes * Ben KRAMER SrDOB: (79 yo M)Acc No.[id number]:11/19/2024 Patient: Ben HOFFMANN Sr :1945 A ge:79 Y S ex:Male Address: [address], [place] [address] * Refills Start Breo Ellipta Aerosol Powder Breath Activated, 100-25 MCG/ACT, Inhalation, 1, 1 puff, Once a day, 30 days, Refills=11 * true * Date: Generated for Inocencio peace/Prosper/Corinsmitting on: 03/26/2024 08:01 AM EST
--- OUTSIDE RECORDS SUMMARY | 2024-12-13 02:15 | XMS_ITS ---
Author Organization Luis Gauthier MD Address [address] [place] [phone] Care Team Providers Care [employer] Name Role Phone Luis Gauthier Primary Care Provider Results Component Value Reference Range Notes Complete Blood Count Auto Di ff Reviewed date:12/13/2024 02:34:26 PM Interpretation: Performing Lab:[facility], [address] [place] [phone] Notes/Report: White Blood Count 6.6 4.8-10.8 X10*3/uL Red Blood Count 4.22 4.60-5.80 X10*6/uL Hemoglobin 13.3 14.0-18.0 g/dl Hematocrit 40.7 42.0-52.0 % Mean Corpuscular Volume 96.4 80.0-98.0 fL Mean Corpuscular Hemoglobin 31.5 27.0-33.0 pg Mean Corpuscular HGB Conc 32.7 31.0-36.0 g/dl Red Cell Distribution Width 13.1 11.0-16.0 % Platelet Count 196 160-400 X10*3/uL Mean Platelet Volume 10.2 9.4-12.4 fL Neutrophils Percent Auto 58.9 45-73 % Imm Gran Pct Auto 0.3 0.0-0.4 % Lymphocytes Percent Auto 27.7 20-40 % Monocytes Percent Auto 7.5 2-11 % Eosinophils Percent Auto 5.0 0-4 % Basophils Percent Auto 0.6 0-2 % NRBC Pct Auto 0.0 0.0-0.2 /100WBC Neutrophils Absolute Auto 3.9 2.0-8.3 x10*3/u L Imm Gran Abs Auto 0.02 0.00-0.03 X10*3/uL Lymphocytes Absolute Auto 1.8 1.2-4.9 X10*3/u L Monocytes Absolute Auto 0.5 0.1-1.2 X10*3/uL Eosinophils Absolute Auto 0.3 0.0-0.4 X10*3/u L Basophils Absolute Auto 0.0 0.0-0.2 X10*3/uL NRBC Abs Auto 0.000 0.0-0.012 X10*3/uL Comprehensive [place]. Panel Fa st Reviewed date:12/13/2024 02:34:06 PM Interpretation: Performing Lab:[address] [phone] Notes/Report: Sodium 143 135-145 mmol/L Potassium 4.0 3.3-5.1 mmol/L Chloride 106 96-108 mmol/L Carbon Dioxide 31 22-29 mmol/L Anion Gap 10 12-20 Blood Urea Nitrogen 22 9-16 mg/dL Creatinine 1.28 0.5-1.4 mg/dL Estimated Glomerular Filt Rate 54 Chronic Kidney Disease: Estimated GFR < 60 mL/min/1.73m2 Severe Kidney Disease: Estimated GFR < 15 mL/min/1.73m2 Glucose Fasting 97 60-99 mg/dL Calcium 9.2 8.4-10.2 mg/dL Bilirubin Total 0.6 0.0-1.0 mg/dL Aspartate Amino Transferase 45 5-37 U/L Alanine Aminotransferase 32 0-40 U/L Total Protein 6.5 6.5-8.0 g/dL Albumin Level 4.3 3.5-5.0 g/dL Alkaline Phosphatase 81 39-117 U/L Lipid Panel Reviewed date:12/13/2024 01:45:16 PM Interpretation: Performing Lab:[address] [phone] Notes/Report: Triglycerides 122 <150 mg/dL Desirable Triglyceride: less than 150 mg/dL Borderline High Triglyceride 150-199 mg/dL High Triglyceride: 200-499 mg/dL Very High Triglyceride: greater than or equal to 5OO mg/dL Cholesterol 128 <200 mg/dL Desirable Cholesterol: less than 200 mg/dL Borderline High Cholesterol: 200-239 mg/dL High Cholesterol: greater than 239 mg/dL LDL Cholesterol Calculated 73 <100 mg/dL Desirable LDL: less than 100 mg/dL Near Optimal/Above Optimal LDL: 110-129 mg/dL Borderline High LDL: 130-159 mg/dL High LDL: 160-189 mg/dL Very High LDL: greater than or equal to 190 mg/dL HDL Cholesterol 31 >40 mg/dL Desirable HDL: greater than 40 mg/dL Note: This HDL assay may give artificially low results in patients with liver disease. PSA,Total (Free>4and<10) Reviewed date:12/13/2024 01:44:57 PM Interpretation: Performing Lab:[address] [phone] Notes/Report: PSA,Total (Free>4and<10) 1.42 0.00-4.00 ng/mL A Free PSA was not [...] (CMIA) UA ClnCatch+Micro w/rflx Cul t Reviewed date:12/13/2024 02:35:25 PM Interpretation: Performing Lab:[facility], [address] [place] [phone] Notes/Report: Urine, Clean Catch Color Urine Yellow Appearance Urine Clear PH 6.5 5.0-9.0 Glucose Urine UA Negative Negative mg/dL Urine Blood Negative Negative Specific [place] - Urine 1.015 1.005-1.025 Urine Protein Negative Neg-Trace mg/dL Urine Ketones Negative Negative mg/dL Nitrite Urine Negative Negative Leukocyte Esterase Urine Negative Negative RBC Urine 0-2 0-2 /HPF WBC Urine 0-5 0-5 /HPF Squamous Epithelial Cell Urine 0-2 0-2 /HPF Bacteria Urine None Seen None Seen Hyaline Casts Urine 0-2 0-2 /LPF REASON FOR VISIT FASTING LABS Encounters Encounter Location Date Provider Diagnosis Luis Gauthier MD [address] [place] [phone] 12/13/2024 Luis Gauthier Essential hypertensi on I10 ; Hypercholesteremia E78.00 and Prostatism N40.0 Assessments Encounter Date Diagnosis (ICD Code) Assessment Notes Treatment Notes Treatment Clinical Notes Section Notes 12/13/2024 Essential hypertensi on (ICD-10 - I10) 12/13/2024 Hypercholesteremia (ICD-10 - E78.00) 12/13/2024 Prostatism (ICD-10 - N40.0) Plan Of Treatment Next Appt Details Provider Name:Luis reardonr, 06/21/2025 08:00:00 AM, [address] [place] [address], [phone], Provider Name:Luis Lewis ier, 06/28/2025 10:00:00 AM, [address] [place] [address], [phone], Provider Name:Luis kirkland, 12/23/2025 07:15:00 AM, [address] [place] [address], [phone], Provider Name:Luis reardonr, 12/30/2025 09:30:00 AM, [address] [place] [address], [phone], Progress Notes * Ben MYRICK SrDOB: (79 yo M)Acc No.[id number]:12/13/2024 Progress Note Patient: Ben HOFFMANN Tana Sr Provider: Josh Gauthier MD :1945 A ge:79 Y S ex:Male Date:12/13/2024 Address: [address], [place], [id number] Subjective: * Chief Complaints: * 1 . FASTING LABS. * Medical History: Objective: * Vitals: Assessment: * Assessment: 1. E ssential hypertension - I10 (Primary) 2 . H ypercholesteremia - E78.00? 3. P rostatism - N40.0 Plan: * Treatment: 2. H ypercholesteremia L AB: Complete Blood Count Auto Diff (Collection Date & Time - 12/13/2024 07:15 AM) L AB: Comprehensive [place]. Panel Fast (Collection Date & Time - 12/13/2024 07:15 AM) L AB: Lipid Panel (Collection Date & Time - 12/13/2024 07:15 AM) L AB: PSA,Total (Free>4and<10) (Collection Date & Time - 12/13/2024 07:15 AM) L AB: UA ClnCatch+Micro w/rflx Cult (Collection Date & Time - 12/13/2024 07:15 AM) 3. P rostatism L AB: Complete Blood Count Auto Diff (Collection Date & Time - 12/13/2024 07:15 AM) L AB: Comprehensive [place]. Panel Fast (Collection Date & Time - 12/13/2024 07:15 AM) L AB: Lipid Panel (Collection Date & Time - 12/13/2024 07:15 AM) L AB: PSA,Total (Free>4and<10) (Collection Date & Time - 12/13/2024 07:15 AM) L AB: UA ClnCatch+Micro w/rflx Cult (Collection Date & Time - 12/13/2024 07:15 AM) * Procedure Codes: 3 6415 VENIPUNCT, ROUTINE* * * The named appointment provid er may or may not be the originator of this progress note, and it is not deemed complete until electronically signed by the appointment provider. Sign off status: Pending * Provider: Josh Gauthier MD Date: Generated for Mashai ng/Humbertog/eTransmitting on: 03/26/2024 08:00 AM EST
--- OUTSIDE RECORDS SUMMARY | 2024-12-27 03:30 | XMS_ITS ---
Author Organization Luis Gauthier MD Address [address] [place] [id number] Care Team Providers Care Landing Scaler Name Role Phone Luis Gauthier Primary Care Provider Allergies Allergen (clinical drug ingredient) Drug/Non Drug Allergy documented on EMR Reaction Allergy Type Onset Date Status lisinopril Lisinopril angioedema Drug Allergy Acti ve Results Component Value Reference Range Notes Occult Blood, Stool, Guaiac Reviewed date:12/27/2024 09:53:40 AM Interpretation:Negative Performing Lab: Notes/Report: Negative Occult Blood, Stool, Guaiac Neg REASON FOR VISIT COMP EXAM Medications Medication SIG (Take, Route, Frequency, Duration) Notes Start Date End Date Status Carvedilol 6.25 MG TAKE 1 TABLET BY MEREDITH TWICE DAILY Active Albuterol Sulfate HFA 108 (90 Base) MCG/ACT INHALE 2 PUFFS BY MOUTH EVERY 4 HOURS NEEDED Active Flonase 50 MCG/ACT 2 sprays Nasally Onc e a day for 90 days Not-Taking Celecoxib 200 MG TAKE 1 CAPSULE BY MO H EVERY DAY Active amLODIPine Besylate 10 MG TAKE 1 TABLET BY MOUTH EVERY DAY Active Amoxicillin 500 MG 4capsule Orally 1 ho ur prior to dental Not-Taking LORazepam 0.5 MG 1 tablet as needed Orally Twice a day for 7 days 06/09/2018 Not-Taking Aspir-81 81 MG 1 tablet Orally Once a day for 30 day(s) Not-Taking Advair Diskus 500-50 MCG/DOSE 1 puff Inhalation Twice a day 06/22/2012 Not-Taking Nasacort Allergy 24HR 55 MCG/ACT 1 puff in each nostril Nasally Once a day for 30 day(s) 03/28/2015 Not-Taking Allopurinol 300 MG 1tablet Orally Once a day Active Pregabalin 75 MG 1 capsule Orally Onc e a day Active Advair HFA 115-21 MCG/ACT 2 puffs Inhala tion Twice a day for 30 days 04/27/2024 Active Atorvastatin Calcium 20 MG TAKE 1 TABLET BY MOUTH EVERY DAY Orally Once a day Active Breo Ellipta 100-25 MCG/ACT 1 puff Inhalation Once a day 11/19/2024 Active Pantoprazole Sodium 40 MG 1 tablet 1/2 t o 1 hour before morning meal Active Irbesartan-hydroCHLOROthi azide 150-12.5 MG TAKE 1 TABLET BY MOUTH EVERY DAY Active Social History Tobacco Use: Social History [...] No Points 0 Interpretation Negative Vital Signs Blood pressure systolic 138 mm Hg 12/28/19 25 Blood pressure diastolic 58 mm Hg 025 Height 72 in 12/27/2024 Weight 275 lbs 12/27/2024 BMI 37.29 kg/m2 12/27/2024 weight is up 8 pounds since 08-03-24 Encounters Encounter Location Date Provider Diagnosis Luis Gauthier MD [address] [place], [place] [phone] 12/27/2024 Luis Gauthier Essential hypertensi on I10 ; History of gout Z87.39 ; Obstructive sleep apnea G47.33 ; Preop examination Z01.818 ; Mild intermittent asthma without complication J45.20 ; Gastroesophageal reflux disease without esophagitis K21.9 ; Hypercholesteremia E78.00 ; Arthritis M19.90 ; Colon cancer screening Z12.11 and Depression screening Z13.31 Assessments Encounter Date Diagnosis (ICD Code) Assessment Notes Treatment Notes Treatment Clinical Notes Section Notes 12/27/2024 Essential hypertensi on (ICD-10 - I10) well controlled, will cntinue current regiment 12/27/2024 History of gout (ICD-10 - Z87.39) not having any problems 12/27/2024 Obstructive sleep apnea (ICD-10 - G47.33) using cpap 12/27/2024 Preop examination (ICD-10 - Z01.818) patient cleared for upcoming cataract surgery 12/27/2024 Mild intermittent asthma without complication (ICD-10 - J45.20) stable, will continue current regiment 12/27/2024 Gastroesophageal reflux disease without esophagitis (ICD-10 - K21.9) stable, will continue current regiment 12/27/2024 Hypercholesteremia (ICD-10 - E78.00) doing well, will continue current regiment 12/27/2024 Arthritis (ICD-10 - M19.90) stable, will continue current regiment 12/27/2024 Colon cancer screeni ng (ICD-10 - Z12.11) guaiac negative 12/27/2024 Depression screening (ICD-10 - Z13.31) negative screen Plan Of Treatment Medication Medication Name Sig Start Date Stop Date Notes Carvedilol 6.25 MG TAKE 1 TABLET BY MEREDITH TH TWICE DAILY Albuterol Sulfate HFA 108 (9 0 Base) MCG/ACT INHALE 2 PUFFS BY MOUTH EVERY 4 HOURS NEEDED Celecoxib 200 MG TAKE 1 CAPSULE BY MO UTH EVERY DAY amLODIPine Besylate 10 MG TAKE 1 TABLET BY MOUTH EVERY DAY Atorvastatin Calcium 20 MG TAKE 1 TABLET BY MOUTH EVERY DAY Orally Once a day Breo Ellipta 100-25 MCG/ACT 1 puff Inhalation Once a day 0 11/19/2024 Pantoprazole Sodium 40 MG 1 tablet 1/2 t o 1 hour before morning meal Irbesartan-hydroCHLOROthiazi de 150-12.5 MG TAKE 1 TABLET BY MOUTH EVERY DAY Treatment Notes Assessment Notes Essential hypertension well controlled, will cntinue current regiment History of gout not having any probl ems Obstructive sleep apnea using cpap Preop examination patient cleared for upcoming cataract surgery Mild intermittent asthma without complic ation stable, will continue current regiment Gastroesophageal reflux dise ase without esophagitis stable, will continue current regiment Hypercholesteremia doing well, will con tinue current regiment Arthritis stable, will continu e current regiment Colon cancer screening guaiac negative Depression screening negative screen Next Appt Details Provider Name:Luis Lewis ier, 06/21/2025 08:00:00 AM, [address] [place] [address], Suite [facility], [place], [place], [phone], Provider Name:Luis Lewis ier, 06/28/2025 10:00:00 AM, [address] [place] [address], Suite [facility], [place], [place], [phone], Provider Name:Luis Lewis ier, 12/23/2025 07:15:00 AM, [address] [place] [address], Suite [facility], [place], [place], [phone], Provider Name:Luis Lewis ier, 12/30/2025 09:30:00 AM, [address] [place] [address], [address], [phone], Progress Notes * ELENBen Enciso SrDOB: (79 yo M)Acc No.[id number]:12/27/2024 Patient: Zaria ALMEIDABne Enciso Sr Provider: Josh Gauthier MD :1945 A ge:79 Y S ex:Male Date:12/27/2024 Address: [address] [place], [id number] Subjective: * Chief Complaints: * C OMP EXAM * HPI: D epression Screening: going to have cataract surgery and is going to see dr lauren for question of surgery. PHQ-9 L ittle interest or pleasure in doing things N ot at all, F eeling down, depressed, or hopeless N ot at all, T rouble falling or staying asleep, or sleeping too much N ot at all, F eeling tired or having little energy N ot at all, P oor appetite or overeating N ot at all, F eeling bad about yourself or that you are a failure, or have let yourself or your family down N ot at all, T rouble concentrating on things, such as reading the newspaper or watching television N ot at all, M oving or speaking so slowly that other people could have noticed; or the opposite, being so fidgety or restless that you have been moving around a lot more than usual N ot at all, T houghts that you would be better off or of hurting yourself in some way N ot at all, T otal Score 0 . I nterpretation and Intervention D epression Screening Findings N egative, F ollow-Up for Depression : review of PHQ-9 found negative result, no follow-up needed. C ommunication Needs: Communication Needs D oes the patient have a hearing impairment N o, D oes the patient have a vision impairment? Y es, I f yes, what is the vision impairment? G lasses, D oes the patient have a cognition impairment? N o. F all Risk: History H ave you had any falls with injury in the past year? N o, H ave you had two or more falls in the past year? N o. S RENÉ Questions: SDOH Questions I n the past year have you been worried about losing housing? N o, I n the past year have you or any family members you live with been unable to get any of the following when it was really needed? Check all that apply: N one. S ymptom(s): patient is a 79 yo male here for visit with review of recent labs and follow up of chronic issues. * ROS: G eneral/Constitutional: Change in appetite d enies. C hills d enies. F ever d enies. O phthalmologic: Blurred vision d enies. D ischarge d enies. P ain d enies. E NT: Decreased hearing d enies. S ore throat d enies.?Swollen glands d enies. E ndocrine: Cold intolerance d enies. E xcessive thirst d enies. H eat intolerance d enies. W eight loss d enies. R espiratory: Cough d enies. S hortness of breath at rest d enies. S hortness of breath with exertion d enies. W heezing d enies. C ardiovascular: Chest pain at rest d enies. C hest pain with exertion?denies. I rregular heartbeat d enies. S hortness of breath d enies. ? G astrointestinal: Abdominal pain d enies. C hange in bowel habits d enies. D iarrhea d enies. N ausea d enies. R ectal bleeding d enies. V omiting d enies . G enitourinary: Blood in urine d enies. D ifficulty urinating d enies. F requent urination d enies. M usculoskeletal: Painful joints d enies. W eakness d enies. ? S kin: Dry skin d enies. I tching d enies. D enies?Mole(s), changes in moles, new moles or any lesions of concern. D enies P hotosensitivity. R alla d enies. N eurologic: Dizziness d enies. F ainting d enies. H eadache?denies. * Medical History: * Surgical History: * Hospitalization/Major Diagno stic Procedure: * Family History: F ather: 84 yrs. M other: 80 yrs. 2 brother(s) . 1 son(s) , 1 daughter(s) - healthy. . Both brothers on Dialysis AODM, Denies mental health/substance abuse family history, No pertinent family medical history, Denies mental health/substance abuse family history, No pertinent family medical history, No pertinent family medical history. * Social History: T obacco Use: T obacco Use/Smoking P atient is a f ormer smoker, H ow long has it been since you last smoked? > 10 years, A dditional Findings: Tobacco Non-User F ormer smoker, currently using no form of tobacco. D rugs/Alcohol: A lcohol Screen D id you have a drink containing alcohol in the past year? N o, P oints 0 , I nterpretation N egative. M iscellaneous: C affeine: yes, frequency:, 2-3 cups per day. Children: yes. Community involvements: no. Exercise: yes, plays pool QD. Housing: owning. Living with: spouse. Marital status: . Occupation: works part-time. Pets: none. Travel outside of the [place]: no. * Medications: T akingPregabalin 75 MG Capsule 1 capsule Orally Once a day Allopurinol 300 MG Tablet 1tablet Orally Once a day Albuterol Sulfate HFA 108 (90 Base) MCG/ACT Aerosol Solution INHALE 2 PUFFS BY MOUTH EVERY 4 HOURS NEEDED Carvedilol 6.25 MG Tablet TAKE 1 TABLET BY MOUTH TWICE DAILY Celecoxib 200 MG Capsule TAKE 1 CAPSULE BY MOUTH EVERY DAY amLODIPine Besylate 10 MG Tablet TAKE 1 TABLET BY MOUTH EVERY DAY Advair HFA 115-21 MCG/ACT Aerosol 2 puffs Inhalation Twice a day Irbesartan-hydroCHLOROthiazide 150-12.5 MG Tablet TAKE 1 TABLET BY MOUTH EVERY DAY Pantoprazole Sodium 40 MG Tablet Delayed Release 1 tablet 1/2 to 1 hour before morning meal Breo Ellipta 100-25 MCG/ACT Aerosol Powder Breath Activated 1 puff Inhalation Once a day Atorvastatin Calcium 20 MG Tablet TAKE 1 TABLET BY MOUTH EVERY DAY Orally Once a day Taking Pregabalin 75 MG Capsule 1 capsule Orally Once a day Taking Allopurinol 300 MG Tablet 1tablet Orally Once a day Taking Albuterol Sulfate HFA 108 (90 Base) MCG/ACT Aerosol Solution INHALE 2 PUFFS BY MOUTH EVERY 4 HOURS NEEDED Taking Carvedilol 6.25 MG Tablet TAKE 1 TABLET BY MOUTH TWICE DAILY Taking Celecoxib 200 MG Capsule TAKE 1 CAPSULE BY MOUTH EVERY DAY Taking amLODIPine Besylate 10 MG Tablet TAKE 1 TABLET BY MOUTH EVERY DAY Taking Advair HFA 115-21 MCG/ACT Aerosol 2 puffs Inhalation Twice a day Taking Irbesartan-hydroCHLOROthiazide 150-12.5 MG Tablet TAKE 1 TABLET BY MOUTH EVERY DAY Taking Pantoprazole Sodium 40 MG Tablet Delayed Release 1 tablet 1/2 to 1 hour before morning meal Taking Breo Ellipta 100-25 MCG/ACT Aerosol Powder Breath Activated 1 puff Inhalation Once a day Taking Atorvastatin Calcium 20 MG Tablet TAKE 1 TABLET BY MOUTH EVERY DAY Orally Once a day Not-Taking/PRNAspir-81 81 MG Tablet Delayed [...] Suspension 2 sprays Nasally Once a day Not-Taking/PRN Aspir-81 81 MG Tablet Delayed Release 1 [...] Suspension 2 sprays Nasally Once a day DiscontinuedFlovent HFA 110 MCG/ACT Aerosol 2 puffs Inhalation Twice a day Gabapentin 100 MG Capsule 2 capsule Twice a day Medication List reviewed and reconciled with the patientDiscontinued Flovent HFA 110 MCG/ACT Aerosol 2 puffs Inhalation Twice a day Discontinued Gabapentin 100 MG Capsule 2 capsule Twice a day Medication List reviewed and reconciled with the patient * Allergies: L isinopril: angioedemayes[Allergies Verified] Objective: * Vitals: H t: 72, Wt: 275, BMI:37.29, BP:138/58, Wt-k.74. weight is up 8 pounds since 08-03-24. * P ast Orders: L ab:UA ClnCatch+Micro w/rflx Cult (Order Date - 12/13/2024) (Collection Date & Time - 12/13/2024 07:15 AM) Value Reference Range Color Urine Yellow - Appearance Urine Clear - PH 6.5 5.0-9.0 - Glucose Urine UA Negative Negative - mg/dL Urine Blood Negative Negative - Specific [place] - Urine 1.015 1.005-1.025 - Urine Protein Negative Neg-Trace - mg/dL Urine Ketones Negative Negative - mg/dL Nitrite Urine Negative Negative - Leukocyte Esterase Urine Negative Negative - RBC Urine 0-2 0-2 - /HPF WBC Urine 0-5 0-5 - /HPF Squamous Epithelial Cell Urine 0-2 0-2 - /HP F Bacteria Urine None Seen None Seen - Hyaline Casts Urine 0-2 0-2 - /LPF L ab:Complete Blood Count Auto Diff (Order Date - 12/13/2024) (Collection Date & Time - 12/13/2024 07:15 AM) Value Reference Range White Blood Count 6.6 4.8-10.8 - X10*3/uL Red Blood Count 4.22 L 4.60-5.80 - X10*6/uL Hemoglobin 13.3 L 14.0-18.0 - g/dl Hematocrit 40.7 L 42.0-52.0 - % Mean Corpuscular Volume 96.4 80.0-98.0 - fL Mean Corpuscular Hemoglobin 31.5 27.0-33.0 - pg Mean Corpuscular HGB Conc 32.7 31.0-36.0 - g/ dl Red Cell Distribution Width 13.1 11.0-16.0 - % Platelet Count 196 160-400 - X10*3/uL Mean Platelet Volume 10.2 9.4-12.4 - fL Neutrophils Percent Auto 58.9 45-73 - % Imm Gran Pct Auto 0.3 0.0-0.4 - % Lymphocytes Percent Auto 27.7 20-40 - % Monocytes Percent Auto 7.5 2-11 - % Eosinophils Percent Auto 5.0 H 0-4 - % Basophils Percent Auto 0.6 0-2 - % NRBC Pct Auto 0.0 0.0-0.2 - /100WBC Neutrophils Absolute Auto 3.9 2.0-8.3 - x10* 3/uL Imm Gran Abs Auto 0.02 0.00-0.03 - X10*3/uL Lymphocytes Absolute Auto 1.8 1.2-4.9 - X10* 3/uL Monocytes Absolute Auto 0.5 0.1-1.2 - X10*3/ uL Eosinophils Absolute Auto 0.3 0.0-0.4 - X10* 3/uL Basophils Absolute Auto 0.0 0.0-0.2 - X10*3/ uL NRBC Abs Auto 0.000 0.0-0.012 - X10*3/uL L ab:Comprehensive [place]. Panel Fast (Order Date - 12/13/2024) (Collection Date & Time - 12/13/2024 07:15 AM) Value Reference Range Sodium 143 135-145 - mmol/L Bilirubin Total 0.6 0.0-1.0 - mg/dL Aspartate Amino Transferase 45 H 5-37 - U/L Alanine Aminotransferase 32 0-40 - U/L Total Protein 6.5 6.5-8.0 - g/dL Albumin Level 4.3 3.5-5.0 - g/dL Alkaline Phosphatase 81 39-117 - U/L Potassium 4.0 3.3-5.1 - mmol/L Chloride 106 96-108 - mmol/L Carbon Dioxide 31 H 22-29 - mmol/L Anion Gap 10 L 12-20 - Blood Urea Nitrogen 22 H 9-16 - mg/dL Creatinine 1.28 0.5-1.4 - mg/dL Estimated Glomerular Filt Rate 54 - Glucose Fasting 97 60-99 - mg/dL Calcium 9.2 8.4-10.2 - mg/dL L ab:Lipid Panel (Order Date - 12/13/2024) (Collection Date & Time - 12/13/2024 07:15 AM) Value Reference Range Triglycerides 122 <150 - mg/dL Cholesterol 128 <200 - mg/dL LDL Cholesterol Calculated 73 <100 - mg/dL HDL Cholesterol 31 L >40 - mg/dL L ab:PSA,Total (Free>4and<10) (Order Date - 12/13/2024) (Collection Date & Time - 12/13/2024 07:15 AM) Value Reference Range PSA,Total (Free>4and<10) 1.42 0.00-4.00 - ng/ mL * Examination: G eneral Examination: GENERAL APPEARANCE: w ell developed, well nourished, in no acute distress. HEAD: n ormocephalic, atraumatic. EYES: p upils equal, round, reactive to light and accommodation, sclera non-icteric. EARS: n ormal. ORAL CAVITY: m ucosa moist. THROAT: c lear. NECK/THYROID: n concha supple, full range of motion, no cervical lymphadenopathy, no bruits. SKIN: w arm and dry, no suspicious lesions. HEART: r egular rate and rhythm, S1, S2 normal, no murmurs.? LUNGS: c lear to auscultation bilaterally. ABDOMEN: s oft, nontender, nondistended, bowel sounds present, normal, no organomegaly , no masses palpable. RECTAL EXAM: n ormal tone, no external hemorrhoids, no masses palpable, prostate normal, stool guaiac negative. MALE GENITOURINARY: c ircumcised, testes descended bilaterally, prostate normal. EXTREMITIES: n o clubbing, cyanosis, or edema. NEUROLOGIC: n onfocal, motor strength normal upper and lower extremities, sensory exam intact. Assessment: * Assessment: 1. E ssential hypertension - I10 (Primary) 2 . H istory of gout - Z87.39? 3. O bstructive sleep apnea - G47.33 4 . P reop examination - Z01.818 5 . M ild intermittent asthma without complication - J45.20 6. G astroesophageal reflux disease without esophagitis - K21.9 7 . H ypercholesteremia - E78.00 8 . A rthritis - M19.90 9 . C olon cancer screening - Z12.11 1 0. D epression screening - Z13.31 Plan: * Treatment: 2. H istory of gout Notes: not having any problems 3. O bstructive sleep apnea Notes: using cpap 4. P reop examination Notes: patient cleared for upcoming cataract surgery 5. M ild intermittent asthma without complication Continue Albuterol Sulfate HFA Aerosol Solution, 108 (90 Base) MCG/ACT, INHALE 2 PUFFS BY MOUTH EVERY 4 HOURS NEEDED; C ontinue Breo Ellipta Aerosol Powder Breath Activated, 100-25 MCG/ACT, 1 puff, Inhalation, Once a day. Notes: stable, will continue current regiment 6. G astroesophageal reflux disease without esophagitis Continue Pantoprazole Sodium Tablet Delayed Release, 40 MG, 1 tablet 1/2 to 1 hour before morning meal. Notes: stable, will continue current regiment 7. H ypercholesteremia Continue Atorvastatin Calcium Tablet, 20 MG, TAKE 1 TABLET BY MOUTH EVERY DAY, Orally, Once a day.? Notes: doing well, will continue current regiment 8. A rthritis Continue Celecoxib Capsule, 200 MG, TAKE 1 CAPSULE BY MOUTH EVERY DAY. Notes: stable, will continue current regiment 9. C olon cancer screening L AB: Occult Blood, Stool, Guaiac (Collection Date & Time - 12/27/2024) N egative Value Reference Range O ccult Blood, Stool, Guaiac Neg Notes: guaiac negative??10.?Depression screening? Notes: negative screen?? * Procedure Codes: 8 2270 TEST FOR BLOOD, [id number] Complex e/m visit add on * * Sign off status: Completed true * Provider: Josh Gauthier MD Date: Generated for Inocencio peace/Prosper/Dorinda on: 03/26/2024 08:01 AM EST History and Physical Notes * HPI (History of Present Illness) Category Sub-Category Detail Notes Category Not es Symptom(s) patient is a 79 yo male here for visit with review of recent labs and follow up of chronic issues Depression Screening PHQ-9 Little inte rest or pleasure in doing things: Not at all Feeling down, depressed, or hopeless: No t at all Trouble falling or staying asleep, or sl eeping too much: Not at all Feeling tired or having little energy: N ot at all Poor appetite or overeating: Not at all Feeling bad about yourself o r that you are a failure, or have let yourself or your family down: Not at all Trouble concentrating on thi ngs, such as reading the newspaper or watching television: Not at all Moving or speaking so slowly that other people could have noticed; or the opposite, being so fidgety or restless that you have been moving around a lot more than usual: Not at all Thoughts that you would be b vic off or of hurting yourself in some way: Not at all Total Score: 0 Interpretation and Intervention Depression Kaylee garner Findings: Negative Follow-Up for Depression: : review of PH Q-9 found negative result, no follow-up needed SDOH Questions SDOH Questions In the past year have you been worried about losing housing?: No In the past year have you or any family members you live with been unable to get any of the following when it was really needed? Check all that apply:: None Fall Risk History Have you had any falls with injury i n the past year?: No Have you had two or more falls in the st year?: No Communication Needs Communication Needs Does the patient have a hearing impairment: No Does the patient have a vision impairmen t?: Yes If yes, what is the vision impairment?: Glasses Does the patient have a cognition impair ment?: No Examination Category Sub-Category Detail Notes Category Not es General Examination GENERAL APPEARANCE: well dev eloped, well nourished, in no acute distress HEAD: normocephalic, atrau matic EYES: pupils equal, round, reactive to light and accommodation, sclera non-icteric EARS: normal THROAT: clear NECK/THYROID: neck supple, full ra nge of motion, no cervical lymphadenopathy, no bruits HEART: regular rate and rhy thm, S1, S2 normal, no murmurs LUNGS: clear to auscultatio n bilaterally ABDOMEN: soft, nontender, non distended, bowel sounds present, normal, no organomegaly , no masses palpable NEUROLOGIC: nonfocal, motor stre ngth normal upper and lower extremities, sensory exam intact SKIN: warm and dry, no yomi picious lesions EXTREMITIES: no clubbing, cyanosi s, or edema MALE GENITOURINARY: circumcised, testes descended bilaterally, prostate normal RECTAL EXAM: normal tone, no exte rnal hemorrhoids, no masses palpable, prostate normal, stool guaiac negative ORAL CAVITY: mucosa moist
--- OUTSIDE RECORDS SUMMARY | 2025-01-24 07:59 | XMS_ITS | Patient Health Record ---
Author Organization [facility] Address [address] [facility] [facility] [place] [address] Care Team Providers Care Livestock Farm Manager Name Role Phone Luis Gauthier MD Primary Care Provider Soila Greco Unavailable [phone] Allergies Allergen (clinical drug ingredient) Drug/Non Drug [...] W/U Status Risk Notes Problem Tinea unguium (587033725) Tinea unguium (B35.1) Active confirmed Vital Signs Blood pressure diastolic 65 mm Hg 12/31/2024 Height 6ft in 12/31/2024 Blood pressure systolic 126 mm Hg 12/31/2024 Weight 255 lbs 12/31/2024 BMI 34.58 kg/m2 12/31/2024 Procedures Procedure Date Ordered Date Performed Result Body Sit e 91434-TNJYNVH NAIL, 6 OR MORE 02/13/2024 N/A 98597-YFUMFNP NAIL, 6 OR MORE 04/16/2024 N/A 86649-WIWEFNG NAIL, 6 OR MORE 06/18/2024 N/A 13013-KOHSHAH NAIL, 6 OR MORE 08/23/2024 N/A 49177-LNTTCUS NAIL, 6 OR MORE 10/29/2024 N/A 71295-UWQPCET NAIL, 6 OR MORE 12/31/2024 N/A Encounters Encounter Location Date Provider Diagnosis [address] [address] 02/13/2024 Soila Black Tinea unguium B35.1 ; Pain in right toe(s) M79.674 and Pain in left toe(s) M79.[address] [address] 04/16/2024 Soila Black Tinea unguium B35.1 ; Other hammer toe(s) (acquired), right foot M20.41 ; Pain in left toe(s) M79.675 ; Pain in right toe(s) M79.674 and Subluxation of metatarsophalangeal joint of toe, initial encounter S93.149A [address] [address] 06/18/2024 Soila Black Tinea unguium B35.1 ; Pain in left toe(s) M79.675 and Pain in right toe(s) M79.[address] [address] 08/23/2024 Soila Black Tinea unguium B35.1 ; Pain in left toe(s) M79.675 and Pain in right toe(s) M79.[address] [address] 10/29/2024 Soila Black Tinea unguium B35.1 ; Pain in left toe(s) M79.675 and Pain in right toe(s) M79.[address] [address] 12/31/2024 Soila Black Tinea unguium B35.1 ; [...] X ray : Foot, right 3V 05/29/2012 43940-IMMMHIZ NAIL, 6 OR MORE 07/03/2012 62207-ATRTEUW NAIL, 6 OR MORE 10/30/2012 58921-SESEIVD NAIL, 6 OR MORE 02/19/2013 82808-NKDQTRN NAIL, 6 OR MORE 06/25/2013 32551-BOJWSJI NAIL, 6 OR MORE 10/29/2013 57304-SMTAYXL NAIL, 6 OR MORE 03/18/2014 50022-NNDJUQM NAIL, 6 OR MORE 12/07/2010 49378-ZEOPSTU NAIL, 6 OR MORE 03/11/2011 27442-SREHZRF NAIL, 6 OR MORE 07/01/2011 25859-JFWXZBU NAIL, 6 OR MORE 10/14/2011 45243-YIUFBND NAIL, 6 OR MORE 04/03/2012 13433-JCMQWQG NAIL, 6 OR MORE 04/05/2016 11289-BRXFGYU NAIL, 6 OR MORE 07/05/2016 30719-ROVLGTQ NAIL, 6 OR MORE 09/24/2016 95789-PGKHGZH NAIL, 6 OR MORE 12/09/2016 65049-DVXEDRM NAIL, 6 OR MORE 02/10/2017 72988-BDRDTFW NAIL, 6 OR MORE 05/05/2017 61747-UDTWSDL NAIL, 6 OR MORE 07/21/2017 12233-TDSUVZW NAIL, 6 OR MORE 10/10/2017 55085-ZEUFPQV NAIL, 6 OR MORE 12/19/2017 97694-BGSMGJU NAIL, 6 OR MORE 03/20/2018 86948-JGISLZH NAIL, 6 OR MORE 05/22/2018 43006-CTHVTKG NAIL, 6 OR MORE 07/24/2018 27448-MTBEVQE NAIL, 6 OR MORE 10/05/2018 68277-VNIRVNE NAIL, 6 OR MORE 12/21/2018 67585-ZWOCKLJ NAIL, 6 OR MORE 03/12/2019 01334-PDOLESV NAIL, 6 OR MORE 09/27/2022 40087-BXFQGSE NAIL, 6 OR MORE 12/02/2022 50354-BVAEYHI NAIL, 6 OR MORE 02/03/2023 60142-PSWQZOH NAIL, 6 OR MORE 04/07/2023 28516-JPPDAAK NAIL, 6 OR MORE 06/09/2023 33839-OUVMFGM NAIL, 6 OR MORE 09/01/2023 70494-XLNDTXV NAIL, 6 OR MORE 11/10/2023 60429-CBBYOOH NAIL, 6 OR MORE 02/13/2024 49541-UEHVGII NAIL, 6 OR MORE 04/16/2024 26395-GSLBMQN NAIL, 6 OR MORE 06/18/2024 72514-GQQKQLR NAIL, 6 OR MORE 08/23/2024 83512-AGEVMFR NAIL, 6 OR MORE 10/29/2024 43308-ITGOFZE NAIL, 6 OR MORE 12/31/2024 36653-AGKOYQT NAIL, 6 OR MORE 02/19/2020 42435-DBRQOID NAIL, 6 OR MORE 05/01/2020 01666-MVWTLZS NAIL, 6 OR MORE 07/03/2020 44138-SPNOCHQ NAIL, 6 OR MORE 09/04/2020 22219-YVTQYRO NAIL, 6 OR MORE 11/24/2020 96883-FMMPQZK NAIL, 6 OR MORE 03/16/2021 76182-OTSUSVJ NAIL, 6 OR MORE 06/11/2021 73613-TCWPFVW NAIL, 6 OR MORE 08/17/2021 90351-XUIEVEZ NAIL, 6 OR MORE 05/14/2019 11725-SJIVWYD NAIL, 6 OR MORE 07/23/2019 86178-XLLBBMS NAIL, 6 OR MORE 10/01/2019 01924-WWNGOGL NAIL, 6 OR MORE 12/13/2019 22229-ZUTQDKM NAIL, 6 OR MORE 10/22/2021 13540-YGEHMFH NAIL, 6 OR MORE 12/28/2021 93349-XLXVOQF NAIL, 6 OR MORE 03/15/2022 87663-LQUEBNM NAIL, 6 OR MORE 05/24/2022 62318-UVOTRWH NAIL, 6 OR MORE 07/26/2022 53951-Kcuvqfak Plate 09/27/2022 00625-Kpamqxha Plate 12/13/2019 01797-Rempvzlu Plate 10/22/2021 20234-Bbrfmfqz Plate 05/22/2018 66697-Ywepwrmv Plate 10/10/2017 76574-Jstlnqdj Plate 07/05/2016 32514-Jehhsmje Plate 12/01/2015 51160-Cqzzehar Plate 03/18/2014 02806-Rjrqjbwn Plate 07/15/2014 73578-Vubhloci Plate 11/18/2014 59315-Wrzwbxcy Plate Each Additional 97762 I&D ABSCESS- SIMPLE,SINGLE 016 21763 - Tenotomy, open flexor 04/12/2019 44946 - Tenotomy, open flexor 08/25/2023 Next Appt Details Provider Name:Soila Villalobos , 03/14/2025 01:30:00 PM, [address] [place] [address], [phone], Provider Name:Soila Villalobos , 05/16/2025 01:30:00 PM, [address] [place] [address], [phone], Insurance Providers Payer Name Payer Address Payer Phone Subscriber Number Group Number Insured Name Patient Relationship to Insured Coverage Start Date Coverage End Date Medicare National Govt [employer] [address] [place] [address] [id number] Ben Hogan Self - patient is the insured [employer] Blue [employer] [address] [place] [address] [id number] Ben Hogan Self - patient is the [...] exchange, knee surgery Hospitalization History Reason Date(Month/Year) [facility] er visit for 02/2024 [facility] - HTN 06/2018
--- OUTSIDE RECORDS SUMMARY | 2025-01-24 08:01 | XMS_ITS | Patient Health Record ---
Author Organization Luis Chaves MD Address [address] [place], [place] [address] Care Team Providers Care Test Engine Operator Name Role Phone Luis Chaves Primary Care Provider [phone] Allergies Allergen (clinical drug ingredient) Drug/Non Drug Allergy documented on EMR Reaction Allergy Type Onset Date Status lisinopril Lisinopril angioedema Drug Allergy Acti ve Results Component Value Reference Range Notes Liver Panel Reviewed date:06/26/2024 06:41:59 PM Interpretation: Performing Lab:[facility], [address] [place] [phone] Notes/Report: Bilirubin Total 0.5 0.0-1.0 mg/dL Bilirubin Direct 0.2 0.0-0.5 mg/dL Aspartate Amino Transferase 39 5-37 U/L Alanine Aminotransferase 31 0-40 U/L Total Protein 6.2 6.5-8.0 g/dL Albumin Level 4.1 3.5-5.0 g/dL Alkaline Phosphatase 76 39-117 U/L Lipid Panel with Reflex Reviewed date:06/26/2024 06:42:36 PM Interpretation: Performing Lab:[facility], [address] [place] [phone] Notes/Report: Triglycerides 168 <150 mg/dL Desirable Triglyceride: [...] ff Reviewed date:12/13/2024 02:34:26 PM Interpretation: Performing Lab:[facility], [address] [place] [phone] Notes/Report: White Blood Count 6.6 4.8-10.8 X10*3/uL [...] NRBC Abs Auto 0.000 0.0-0.012 X10*3/uL Comprehensive [place]. Panel Fa st Reviewed date:12/13/2024 02:34:06 PM Interpretation: Performing Lab:[facility], [address] [place] [phone] Notes/Report: Sodium 143 135-145 mmol/L Potassium 4.0 [...] Panel Reviewed date:12/13/2024 01:45:16 PM Interpretation: Performing Lab:[facility], [address] [place] [phone] Notes/Report: Triglycerides 122 <150 mg/dL Desirable Triglyceride: [...] (Free>4and<10) Reviewed date:12/13/2024 01:44:57 PM Interpretation: Performing Lab:[address] [address] Notes/Report: PSA,Total (Free>4and<10) 1.42 0.00-4.00 ng/mL A [...] t Reviewed date:12/13/2024 02:35:25 PM Interpretation: Performing Lab:[address] [address] Notes/Report: Urine, Clean Catch Color Urine Yellow Appearance Urine Clear PH 6.5 5.0-9.0 Glucose Urine UA Negative Negative mg/dL Urine Blood Negative Negative Specific [place] - Urine 1.015 1.005-1.025 Urine Protein Negative [...] date:02/12/2024 11:57:10 AM Interpretation: Performing Lab: Notes/Report: [facility] [address] [place] [address] XRay Report Signed Patient: Ben Kramer MR#: [id number] : 1945 Acct:[id number] Age/Sex: 78 / M ADM Date: 02/11/24 Loc: HO.ED Attending Dr: Ordering Physician: Bushra Bunch NP Date of Service: 02/11/24 Procedure(s): XR hand RT 2V Accession Number(s): [id number] cc: Luis Chaves MD; Bushra Bunch NP [...] Noe Swann MD 02/11/2024 05:35 PM [facility] [place] [place] Dictated By: Noe Swann MD Signed By: <Electronically signed by Noe Swann MD in OV> 02/11/24 1735 DD/ 1655 TD/TT: 02/11/24 1700 Senior Mechanical Estimator: [facility] [address] [place] [address] XRay Report Signed Patient: Ben Kramer MR#: [id number] : 1945 Acct:[id number] Age/Sex: 78 / M ADM Date: 02/11/24 Loc: HO.ED Attending Dr: Ordering Physician: Bushra Bunch NP Date of Service: 02/11/24 Procedure(s): XR calhoun d RT 2V Accession Number(s): [id number] cc: Luis Chaves MD; Bushra Bunch NP [...] Noe Swann MD 02/11/2024 05:35 PM [facility] [place] [place] Dictated By: Noe Swann MD Signed By: <Electronically signed by Noe Swann MD in OV> 02/11/24 1735 DD/ 1655 TD/TT: 02/11/24 1700 Senior Mechanical Estimator: FINA XR hand RT 2V Reviewed date:02/12/2024 11:48:54 AM Interpretation: Performing Lab: Notes/Report: [address] [address] XRay Report Signed Patient: Ben Kramer MR#: [id number] : 1945 Acct:[id number] Age/Sex: 78 / M ADM Date: 02/11/24 Loc: HO.ED Attending Dr: Ordering Physician: Bushra Bunch NP Date of Service: 02/11/24 Procedure(s): XR hand RT 2V Accession Number(s): [id number] cc: Luis Chaves MD; Bushra Bunch NP [...] in OV> 02/11/242026 DD/ 15 TD/TT: 02/11/241927 Senior Mechanical Estimator: [place] [address] XRay Report Signed Patient: Ben Kramer MR#: [id number] : 1945 Acct:[id number] Age/Sex: 78 / M ADM Date: 02/11/24 Loc: HO.ED Attending Dr: Ordering Physician: Bushra Bunch NP Date of Service: 02/11/24 Procedure(s): XR calhoun d RT 2V Accession Number(s): [id number] cc: Luis Chaves MD; Bushra Bunch NP [...] in OV> 02/11/242026 DD/ 15 TD/TT: 02/11/241927 Senior Mechanical Estimator: FINA Basic Metabolic Panel Reviewed date:03/01/2024 08:49:05 AM Interpretation: Performing Lab:[facility], [address] [place] [phone] Notes/Report: Sodium 143 135-145 mmol/L Potassium 4.5 [...] Panel Reviewed date:03/16/2024 05:41:41 PM Interpretation: Performing Lab:[facility], [address] [place] [phone] Notes/Report: CC BUN AND CREAT TO DR. [...] Acid Reviewed date:03/16/2024 05:26:58 PM Interpretation: Performing Lab:[facility], [address] [place] [phone] Notes/Report: CC BUN AND CREAT TO DR. CHAVES Uric Acid 5.5 3.4-7.0 mg/dL Hold Gold Reviewed date:06/26/2024 12:35:07 PM Interpretation: Performing Lab:[facility], [address] [place] [phone] Notes/Report: Hold Gold See Note Specimen held untested for 24 hours; Call to request Chemistry testing. FL upper GI w air Reviewed date:07/20/2024 12:43:54 PM Interpretation: Performing Lab: Notes/Report: [address] [address] Fluoroscopy Report Signed Patient: Ben Kramer MR#: [id number] : 1945 Acct:[id number] Age/Sex: 79 / M ADM Date: 07/20/24 Loc: HO.XRAY Attending Dr: Luis Chaves MD Ordering Physician: Luis Chaves MD Date of Service: 07/20/24 Procedure(s): FL upper GI w air Accession Number(s): [id number] cc: Luis Chaves MD EXAMINATION: XR FLUOROSCOPY [...] in OV> 07/20/24941 DD/ 4 TD/TT: 07/20/24830 Senior Mechanical Estimator: [place] [address] Fluoroscopy Report Signed Patient: Ben Kramer MR#: [id number] : 1945 Acct:[id number] Age/Sex: 79 / M ADM Date: 07/20/24 Loc: HO.XRAY Attending Dr: Luis Chaves MD Ordering Physician: Luis Chaves MD Date of Service: 07/20/24 Procedure(s): FL upp er GI w air Accession Number(s): [id number] cc: Luis Chaves MD EXAMINATION: XR FLUOROSCOPY [...] OV> 07/20/24941 DD/ 4 TD/TT: 07/20/24 08 Senior Mechanical Estimator: DANDRE Reason For Referral No Information Medications [...] 200 MG TAKE 1 CAPSULE BY MO SDH EVERY DAY Active Advair Diskus 500-50 MCG/DOSE [...] Fluarix Quadrivalent Unknown 12/17/2016 Administered At [facility] TDaP Unknown 05/20/2008 Administered Shingles Unknown 05/20/2008 Administered PPSV23 (Pnemovax) IM Intramuscular 05/29/2018 Administered Fluarix Quadrivalent Unknown 12/16/2017 Administered pt was given the vaccine at work. Shingrix IM Intramuscular 10/24/2018 Administered pt was given the vaccine at [facility] in [place]. Shingrix IM Intramuscular 01/06/2019 Administered pt was given the vaccine at [facility] in [place]. 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 Problem 63901627 Anxiety (F41.9) Active confirmed Problem 81134865 Obstructive slee p apnea (adult) (pediatric) (G47.33) Active confirmed Problem 9180115 Arthritis (M19.90) Active confirmed Problem 901377194 Lumbar disc dise ase (M51.9) Active confirmed Problem 356163534 Gastroesophageal reflux disease without esophagitis (K21.9) Active confirmed Problem 26825463 Essential hypertension (I10) Active confirmed Problem 898766204 Mild intermitten t asthma without complication (J45.20) Active confirmed Problem 777407112 Low HDL (under 4 0) (E78.6) Active confirmed Problem 628439623 Non morbid obesi ty due to excess calories (E66.09) Active confirmed Problem 439964167 History of gout (Z87.39) Active confirmed Problem 337929081 Esophageal dysmotility (K22.4) Active confirmed Problem 27698555 Obstructive slee p apnea (G47.33) Active confirmed Problem 24884366 Hypercholesterem ia (E78.00) Active confirmed Problem 41654747 OSMEL (obstructive sleep apnea) (G47.33) Active confirmed Problem 155636329 Nodule of kidney (N28.89) Active confirmed Vital [...] Date Provider Diagnosis Luis Chaves MD [address] [place] [id number] 06/26/2024 Luis Chaves Hypercholesteremia E 78.00 Luis Chaves MD [address] [place] [address] Drive [address] [place] [id number] 12/13/2024 Luis Chaves Essential hypertensi on I10 ; Hypercholesteremia E78.00 and Prostatism N40.0 Luis Chaves MD [address] [place] [address] Drive [address] [place] [id number] 07/03/2024 Luis Chaves Vision changes H53.9 ; Hypercholesteremia E78.00 ; Prostatism N40.0 and Reflux esophagitis K21.00 Luis Chaves MD [address] [place] [id number] 08/03/2024 Luis Chaves Gastroesophageal ref lux disease without esophagitis K21.9 Luis Chaves MD [address] [place] [address] Drive [address] [place] [id number] 12/27/2024 Luis Chaves Essential hypertensi on I10 ; History of gout Z87.39 ; Obstructive sleep apnea G47.33 ; Preop examination Z01.818 ; Mild intermittent asthma without complication J45.20 ; Gastroesophageal reflux disease without esophagitis K21.9 ; Hypercholesteremia E78.00 ; Arthritis M19.90 ; Colon cancer screening Z12.11 and Depression screening Z13.31 Luis Chaves MD [address] [place] [id number] 02/13/2024 Luis hCaves MD [address] [place] [address] [address] [id number] 11/19/2024 Luis Chaves MD [address] [place] [id number] 04/26/2024 Luis Chaves MD [address] [place] [address] [address] [id number] 04/27/2024 Luis Chaves Assessments Encounter Date Diagnosis [...] Details Provider Name:Luis kirkland, 06/21/2025 08:00:00 AM, [address] [place] [address], [address] [place] [address], [phone], Provider Name:Luis kirkland, 06/28/2025 10:00:00 AM, [address] [place] [address], [address] [place] [address], [phone], Provider Name:Luis kirkland, 12/23/2025 07:15:00 AM, [address] [place] [address], [address] [place], [phone], Provider Name:Luis kirkland, 12/30/2025 09:30:00 AM, [address] [facility], [address], [place], [place], [phone], Insurance Providers Payer Name Payer Address Payer Phone Subscriber Number Group Number Insured Name Patient Relationship to Insured Coverage Start Date Coverage End Date [employer] [address] [place] [address] [id number] Ben Kramer Self - patient is the insured BLUE [employer]UE [facility] [address] [place], [place] [id number] Ben Kramer Self - patient is the insured Medical (General) History Medical History History ICD Code phlebitis Gout hematuria .cysto in 2004 colonoscopy 02/2003; 03/2013 - repeat 10 years sleep study 10/2008 refuses further colonoscopy forever 2024 Surgical History Surgery Date(Month/Year) Left Achilles Lengthening 12/2012
--- OUTSIDE RECORDS SUMMARY | 2025-01-24 08:01 | XMS_ITS | Encounter Summary ---
Author Organization [facility] Address [address] [place] [address] Phone Care Team Providers Care Boat Master Name Role Phone Luis Gauthier MD Primary Care Provider Encounter Details Date Type Department Care Team (Late st Contact Info) Description 01/04/2020 Procedure [facility], Ct Scan - [address] [address] Social History Tobacco Use Types Packs/Day Years [...] on filedocumented in this encounter Care Teams Boat Master Relationship Specialty Start Date End Date Luis Gauthier MD [address] [place] [address] [place] [address] PCP - General Internal Medicine 01/04/20 documented as of this encounter Additional Source Comments The information contained in this document represents components of the legal health record. It is not the complete legal health record.[facility]
--- OUTSIDE RECORDS SUMMARY | 2025-01-24 08:01 | XMS_ITS | Clinical Summary ---
Author Organization [facility] Address [address] [place] [address] Phone Care Team Providers Care Customer Service Trainer Name Role Phone Luis Gauthier MD Primary [...] file Insurance MEDICARE PART A & B [employer] SUPPLEMENT MEDICARE PART A & B [employer] SUPPLEMENT MEDICARE PART A & B [employer] SUPPLEMENT MEDICARE PART A & B [employer] SUPPLEMENT MEDICARE PART A & B [employer] SUPPLEMENT MEDICARE PART A & B [employer] SUPPLEMENT MEDICARE PART A & B [employer] SUPPLEMENT MEDICARE PART A & B [employer] SUPPLEMENT MEDICARE PART A & B [employer] MEDEX SUPPLEMENT Care Teams Customer Service Trainer Relationship Specialty Start Date End Date Luis Gauthier MD [address] [place] [address] [place] [address] PCP - General Internal Medicine 01/04/20 Additional Source Comments The information contained in this document represents components of the legal health record. It is not the complete legal health record.[facility]
--- OUTSIDE RECORDS SUMMARY | 2025-01-24 08:01 | XMS_ITS | Encounter Summary ---
Author Organization [facility] Address [address] [place] [address] Phone Care Team Providers Care Primer Inserting Machine Operator Name Role Phone Luis Gauthier MD Primary Care Provider Reason for Referral * MRI/CAT Scan - Closed Specialty Diagnoses / Procedures Referred By Contprasanna t Referred To Contact Radiology Diagnoses Lumbar radiculopathy Procedures CT Lumbar Spine Clint Maldonado DO Phone: tel: fax: [email or web address] Referral ID Status Reason Start Date Expiration Date Visits Re quested Visits Authorized [id number] Closed 01/04/2020 01/03/2021 1 1 Encounter Details Date Type Department Care Team (Latest Contact Info) Description 01/04/2020 Ancillary Orders Virtual Department [address] [place] [address] Clint Maldonado DO [address] [place] [address] Lumbar radiculopathy Social History Tobacco Use Types [...] endplate changes to the left of midline. Hcrcu-dcxmfhpje-qckhhgohed complex. Mild facet arthropathy. No definite central [...] L5 on the right. Clint Maldonado DO [facility] CT XSPECIALTY ORDERABLES Final Result documented in this encounter Visit Diagnoses Diagnosis Lumbar radiculopathy Thoracic or lumbosacral neuritis or radiculitis, unspecified Lumbar radiculopathy Thoracic or lumbosacral neuritis or radiculitis, unspecified documented in this encounter Care Teams Primer Inserting Machine Operator Relationship Specialty Start Date End Date Luis Gauthier MD [address] [place] [address] Dr [place], [place] [address] PCP - General Internal Medicine 01/04/20 documented as of this encounter Additional Source Comments The information contained in this document represents components of the legal health record. It is not the complete legal health record.[facility]
--- OUTSIDE RECORDS SUMMARY | 2025-01-24 08:01 | XMS_ITS | Encounter Summary ---
Author Organization [facility] Address [address] [facility] [facility] [address] [place] [address] Phone Care Team Providers Care Agricultural Equipment Test Engineer Name Role Phone Luis Gauthier MD Primary Care Provider Encounter Details Date Type Department Care Team (Latest Contact Info) Description 01/14/2020 Ancillary Orders Virtual Department [address] [place] [address] Clint Maldonado, DO [address] [place] [address] [email or web address] Lumbar radiculopathy Social History Tobacco Use Types [...] unspecified documented in this encounter Care Teams Agricultural Equipment Test Engineer Relationship Specialty Start Date End Date Luis Gauthier MD [address] [place] [address] [place] [address] PCP - General Internal Medicine 01/04/20 documented as of this encounter Additional Source Comments The information contained in this document represents components of the legal health record. It is not the complete legal health record.[facility]
[2025-01-24 08:52] LABS: Albumin Level 4.5 g/dL (3.5-5.0); Alkaline Phosphatase 79 U/L (39-117); Anion Gap 10 (12-20); Blood Urea Nitrogen 29 mg/dL (9-16); Calcium 9.6 mg/dL (8.4-10.2); Carbon Dioxide 31 mmol/L (22-29); Chloride 106 mmol/L (96-108); Estimated Glomerular Filt Rate 48; Potassium 4.3 mmol/L (3.3-5.1); Sodium 143 mmol/L (135-145); Total Protein 6.8 g/dL (6.5-8.0); Uric Acid 5.5 mg/dL (3.4-7.0)
[2025-01-24 09:14] LABS: Alanine Aminotransferase 33 U/L (0-40); Aspartate Amino Transferase 41 U/L (5-37)
== END 2025-01-24 07:52 | disposition home or self-care (01) ==
LOC: HO.LAB 07:51
PROVIDERS: PCP Internal Medicine; Visit Provider Student in an Organized Health Care Education/Training Program
DX: M1A.9XX1 Chronic gout, unspecified, with tophus (tophi) (principal)
CPT/HCPCS: 36415; 80053; 84550; 85652; 86140

== ENCOUNTER 2025-02-18 15:05 | Outpatient (REF) | payer MEDICARE, SELFPAY ==
--- OUTSIDE RECORDS SUMMARY | 2023-11-03 08:00 | XMS_ITS ---
Author Organization [facility] Address [address] [place] [phone] Care Team Providers Care Blue Crabber Name Role Phone Disha ALVARADO, Luis Primary Care Provider Soila Greco Unavailable [phone] Jacinto Encounters Encounter Location Date Provider Diagnosis [address] [address] 11/03/2023 Soila Wilfredo Plan Of Treatment Next Appt Details Provider Name:Soila Villalobos , 03/14/2025 12:15:00 PM, [address] [place] [address], [phone], Provider Name:Soila Villalobos , 05/16/2025 01:30:00 PM, [address] [place] [address], [phone], Progress Notes * Ben DONALDDOB: 8 (79 yo M)Acc No.[id number]:11/03/2023 Progress Note Patient: S Ben SIMMS Provider: Monie Villalobos DPM :1945 A ge:78 Y S ex:Male Date:11/03/2023 Address:[address] [place] [phone] Pcp:Luis Gauthier MD Subjective: * Chief Complaints: [...] 0 11/03/2023 Generated for Inocencio peace/Prosper/Dorinda on: 1 04/21/2024 09:40 PM EST
--- OUTSIDE RECORDS SUMMARY | 2024-02-13 05:50 | XMS_ITS ---
Author Organization Luis Gauthier MD Address [address] [facility] [address] [place] [address] [phone] Care Team Providers Care Pl[employer]pos[employer] Inspector Name Role Phone Luis Gauthier Primary Care Provider REASON FOR VISIT ER Encounters Encounter Location Date Provider Diagnosis Luis Gauthier MD [address] [facility] [address] [place] [phone] 02/13/2024 Luis Gauthier Plan Of Treatment Next Appt Details Provider Name:Luis kirkland, 06/21/2025 08:00:00 AM, [address] [place] [address], [address], [phone], Provider Name:Luis kirkland, 06/28/2025 10:00:00 AM, [address] [place] [address], [address], [phone], Provider Name:Luis kirkland, 12/23/2025 07:15:00 AM, [address] [place] [address], [address], [phone], Provider Name:Luis kirkland, 12/30/2025 09:30:00 AM, [address] [place] [address], [address], [phone], Progress Notes * Ben KRAMER SrDOB: (78 yo M)Acc No.[id number]:02/13/2024 Patient: Ben Grullon :1945 A ge:78 Y S ex:Male Address:[address] [place] [phone] * true * Date: Generated for Inocencio peace/Prosper/Corinsmitting on: 1 04/21/2024 09:39 PM EST
--- OUTSIDE RECORDS SUMMARY | 2024-03-08 03:45 | XMS_ITS ---
Author Organization Luis Gauthier MD Address [address] [place] [address] [phone] Care Team Providers Care Roll Table Operator Name Role Phone Luis Gauthier Primary Care Provider REASON FOR VISIT BUN Creatinine Encounters Encounter Location Date Provider Diagnosis Luis Gauthier MD 10 [facility] [address] [place] [address] [phone] 03/08/2024 Luis Gauthier Essential hypertension I10 Assessments Encounter Date Diagnosis (ICD Code) Assessment Notes Treatment Notes Treatment Clinical Notes Section Notes 03/08/2024 Essential hypertension (ICD-10 - I10) Plan Of Treatment Next Appt Details Provider Name:Luis kirkland, 06/21/2025 08:00:00 AM, [address] [place] [address], [address], [phone], Provider Name:Luis kirkland, 06/28/2025 10:00:00 AM, [address] [place] [address], [phone], Provider Name:Luis kirkland, 12/23/2025 07:15:00 AM, [address] [place] [address], [phone], Provider Name:Luis kirkland, 12/30/2025 09:30:00 AM, 10 [facility], [address], [place], [place], [phone], Progress Notes * Ben KRAMER SrDOB: (79 yo M)Acc No.[id number]:03/08/2024 Progress Note Patient: Ben HOFFMANN Sr Provider: Josh Gauthier MD :1945 A ge:78 Y S ex:Male Date:03/08/2024 Address: [address], [facility], [id number] Subjective: * Chief Complaints: * 1 . [...] MD Date: 0 03/08/2024 Generated for Inocencio peace/Prosper/Aleksitting on: 04/21/2024 09:40 PM EST
--- OUTSIDE RECORDS SUMMARY | 2024-04-26 11:15 | XMS_ITS ---
Author Organization Luis Gauthier MD Address [address] [place] [address] [phone] Care Team Providers Care Data Entry Processor Name Role Phone Luis Gauthier Primary Care Provider REASON FOR VISIT Need prescription to replace Flovent HFA with Advair HFA Medications Medication SIG (Take, Route, Frequency, Duration) Notes Start Date End Date Status Advair HFA 115-21 MCG/ACT 2 puffs Inhala tion Twice a day for 30 days 04/27/2024 Active Encounters Encounter Location Date Provider Diagnosis Luis Gauthier MD [address] [place] [address] [address] [place] [phone] 04/26/2024 Luis Gauthier Plan Of Treatment Medication Medication Name Sig Start Date Stop Date Notes Advair HFA 115-21 MCG/ACT 2 puffs Inhala tion Twice a day for 30 days 04/27/2024 Next Appt Details Provider Name:Luis kirkland, 06/21/2025 08:00:00 AM, [address] [place] [address], [address], [phone], Provider Name:Luis kirkland, 06/28/2025 10:00:00 AM, [address] [place] [address], [address], [phone], Provider Name:Luis Lewis ier, 12/23/2025 07:15:00 AM, [address], [address], [place], [place], [phone], Provider Name:Luis Lewis ier, 12/30/2025 09:30:00 AM, [address], [address], [place], [place], [phone], Progress Notes * Ben KRAMER SrDOB: (78 yo M)Acc No.[id number]:04/26/2024 Patient: Ben HOFFMANN Sr :1945 A ge:78 Y S ex:Male Address: [place] [address] * Refills Start Advair HFA Aerosol, 115-21 MCG/ACT, Inhalation, 1, 2 puffs, Twice a day, 30 days, Refills=11 * true * Date: Generated for Inocencio peace/Prosper/eTransmitting on: 1 04/21/2024 09:39 PM EST
--- OUTSIDE RECORDS SUMMARY | 2024-04-27 11:27 | XMS_ITS ---
Author Organization Luis Gauthier MD Address 10 [facility] [address] [place] [phone] Care Team Providers Care Candy Roller Name Role Phone Luis Gauthier Primary Care Provider REASON FOR VISIT RE:Need prescription to replace Flovent HFA with Advair HFA Encounters Encounter Location Date Provider Diagnosis Luis Gauthier MD [address] [place] [address] [place] [address] [phone] 04/27/2024 Luis Gauthier Plan Of Treatment Next Appt Details Provider Name:Luis kirkland, 06/21/2025 08:00:00 AM, [address] [place] [address], [address], [phone], Provider Name:Luis kirkland, 06/28/2025 10:00:00 AM, [address] [place] [address], [address], [phone], Provider Name:Luis kirkland, 12/23/2025 07:15:00 AM, [address] [place] [address], [phone], Provider Name:Luis kirkland, 12/30/2025 09:30:00 AM, [address] [place] [address], [phone], Progress Notes * Ben KRAMER SrDOB: (78 yo M)Acc No.[id number]:04/27/2024 Patient: Ben HOFFMANN Sr :1945 A ge:78 Y S ex:Male Address: [address], [place] [address] * true * Date: Generated for Inocencio peace/Prosper/eTransmitting on: 1 04/21/2024 09:38 PM EST
--- OUTSIDE RECORDS SUMMARY | 2024-06-26 02:00 | XMS_ITS ---
Author Organization Luis Gauthier MD Address [address] [place], [place] [id number] Care Team Providers Care Chair Springer Name Role Phone Luis Gauthier Primary Care Provider Results Component Value Reference Range Notes Liver Panel Reviewed date:06/26/2024 06:41:59 PM Interpretation: Performing Lab:[facility], [address] [place] [phone] Notes/Report: Bilirubin Total 0.5 0.0-1.0 mg/dL Bilirubin Direct 0.2 0.0-0.5 mg/dL Aspartate Amino Transferase 39 5-37 U/L Alanine Aminotransferase 31 0-40 U/L Total Protein 6.2 6.5-8.0 g/dL Albumin Level 4.1 3.5-5.0 g/dL Alkaline Phosphatase 76 39-117 U/L Lipid Panel with Reflex Reviewed date:06/26/2024 06:42:36 PM Interpretation: Performing Lab:[address] [phone] Notes/Report: Triglycerides 168 <150 mg/dL Desirable Triglyceride: [...] Location Date Provider Diagnosis Luis Gauthier MD [address] [place] [phone] 06/26/2024 Luis Gauthier Hypercholesteremia E 78.00 Assessments Encounter Date Diagnosis (ICD Code) Assessment Notes Treatment Notes Treatment Clinical Notes Section Notes 06/26/2024 Hypercholesteremia (ICD-10 - E78.00) Plan Of Treatment Next Appt Details Provider Name:Luis kirkland, 06/21/2025 08:00:00 AM, [address] [place] [address], [phone], Provider Name:Luis kirkland, 06/28/2025 10:00:00 AM, [address] [place] [address], [phone], Provider Name:Luis kirkland, 12/23/2025 07:15:00 AM, [address] [place] [address], [phone], Provider Name:Luis reardonr, 12/30/2025 09:30:00 AM, [address] [place] [address], [phone], Progress Notes * [facility] Ben Tana SrDOB: (79 yo M)Acc No.[id number]:06/26/2024 Progress Note Patient: Ben HOFFMANN Sr Provider: Josh Gauthier MD :1945 A ge:79 Y S ex:Male Date:06/26/2024 Address: [address], [facility], [id number] Subjective: * Chief Complaints: * 1 . [...] 06/26/2024 Generated for Inocencio peace/Prosper/Aleksitting on: 1 04/21/2024 09:39 PM EST
--- OUTSIDE RECORDS SUMMARY | 2024-07-03 05:00 | XMS_ITS ---
Author Organization Luis Gauthier MD Address [address] [place], [place] [phone] Care Team Providers Care Front Desk Specialist Name Role Phone Luis Gauthier Primary Care Provider [phone] Allergies Allergen (clinical drug ingredient) Drug/Non Drug [...] Status W/U Status Risk Notes Problem Prostatism (18853969) Prostatism (N40.0) Active confirmed Problem Reflux esophagitis (822028593) Reflux esophagitis (K21.00) Active confirmed Vital Signs Blood pressure systolic 122 mm Hg 07/04/19 25 Blood pressure diastolic 60 mm Hg 025 Height 72 in 07/03/2024 Weight 273 lbs 07/03/2024 BMI 37.02 kg/m2 07/03/2024 weight is down 8 pounds [facility] 12-26-23 Encounters Encounter Location Date Provider Diagnosis Luis Gauthier MD [address] [place] [address] [address] [place], [place] [phone] 07/03/2024 Luis Gauthier Vision changes H53.9 ; [...] Provider Name:Luis Lewis ier, 06/21/2025 08:00:00 AM, [address] [place] [address], [address], [phone], Provider Name:Luis Catie Joshua ier, 06/28/2025 10:00:00 AM, [address] [place] [address], [address], [phone], Provider Name:Luis Haddad Joshua ier, 12/23/2025 07:15:00 AM, [address] [place] [address], [address], [phone], Provider Name:Luis Haddad Joshua ier, 12/30/2025 09:30:00 AM, [address] [place] [address], [address], [phone], Progress Notes * Ben KRAMER SrDOB: (79 yo M)Acc No.[id number]:07/03/2024 Progress Notes Patient: Ben HOFFMANN Sr Provider: Josh Gauthier MD :1945 A ge:79 Y S ex:Male Date:07/03/2024 Address: [address], [facility], [id number] Subjective: * Chief Complaints: * 6 MO [...] 0 07/03/2024 Generated for Inocencio peace/Prosper/Aleksitting on: 1 04/21/2024 09:40 PM EST History and Physical Notes * HPI [...]
--- OUTSIDE RECORDS SUMMARY | 2024-08-03 04:15 | XMS_ITS ---
Author Organization Luis Gauthier MD Address [address] [place], [place] [phone] Care Team Providers Care Panel Cutter Name Role Phone Luis Gauthier Primary Care Provider Allergies Allergen (clinical drug ingredient) Drug/Non Drug Allergy documented on EMR Reaction Allergy Type Onset Date Status lisinopril Lisinopril angioedema Drug Allergy Acti ve REASON FOR VISIT 4 week Medications Medication SIG (Take, Route, Frequency, Duration) Notes Start Date End Date Status LORazepam 0.5 MG 1 tablet as needed Orally Twice a day for 7 days 06/09/2018 Not-Taking Aspir-81 81 MG 1 tablet Orally Once a day for 30 day(s) Not-Taking Nasacort Allergy 24HR 55 MCG/ACT 1 puff in each nostril Nasally Once a day for 30 day(s) 03/28/2015 Not-Taking Amoxicillin 500 MG 4capsule Orally 1 ho ur prior to dental Not-Taking Advair Diskus 500-50 MCG/DOSE 1 puff Inhalation Twice a day 06/22/2012 Not-Taking Pantoprazole Sodium 40 MG 1 tablet 1/2 t o 1 hour before morning meal Active Irbesartan-hydroCHLOROthi azide 150-12.5 MG TAKE 1 TABLET BY MOUTH EVERY DAY for 90 Active Gabapentin 100 MG 2 capsule Twice a day Active Advair HFA 115-21 MCG/ACT 2 puffs Inhala tion Twice a day for 30 days 04/27/2024 Active amLODIPine Besylate 10 MG TAKE 1 TABLET BY MOUTH EVERY DAY for 90 Active Flovent HFA 110 MCG/ACT 2 puffs Inhalati on Twice a day 06/07/2022 Active Carvedilol 6.25 MG TAKE 1 TABLET BY MEREDITH TH TWICE DAILY Active Albuterol Sulfate HFA 108 (90 Base) MCG/ACT INHALE 2 PUFFS BY MOUTH EVERY 4 HOURS NEEDED Active Atorvastatin Calcium 20 MG TAKE 1 TABLET BY MOUTH EVERY DAY Active Celecoxib 200 MG TAKE 1 CAPSULE BY MO MOH EVERY DAY Active Allopurinol 300 MG 1tablet Orally Once a day Active Flonase 50 MCG/ACT 2 sprays Nasally Onc e a day for 90 days Not-Taking Vital Signs Blood pressure systolic 122 mm Hg 08/04/19 25 Blood pressure diastolic 70 mm Hg 025 Height 72 in 08/03/2024 Weight 267 lbs 08/03/2024 BMI 36.21 kg/m2 08/03/2024 weight is down 6 pounds [facility] 07-03-24 Encounters Encounter Location Date Provider Diagnosis Luis Gauthier MD [address] [place] [address] Drive [address] [place] [phone] 08/03/2024 Luis Gauthier Gastroesophageal ref lux disease without esophagitis K21.9 Assessments Encounter Date Diagnosis (ICD Code) Assessment Notes Treatment Notes Treatment Clinical Notes Section Notes 08/03/2024 Gastroesophageal reflux disease without esophagitis (ICD-10 - K21.9) discussed findings of recent GI series with patient, decrease the pantoprazole to one per day, will continue to monitor Plan Of Treatment Medication Medication Name Sig Start Date Stop Date Notes Pantoprazole Sodium 40 MG 1 tablet 1/2 t o 1 hour before morning meal Treatment Notes Assessment Notes Gastroesophageal reflux dise ase without esophagitis discussed findings of recent GI series with patient, decrease the pantoprazole to one per day, will continue to monitor Next Appt Details Provider Name:Luis kirkland, 06/21/2025 08:00:00 AM, [address] [place] [address], Suite [facility], [place], [place], [phone], Provider Name:Luis kirkland, 06/28/2025 10:00:00 AM, [address] [place] [address], Suite [facility], [place], [place], [phone], Provider Name:Luis Lewis ier, 12/23/2025 07:15:00 AM, [address], [address], [place], [phone], Provider Name:Luis Lewis ier, 12/30/2025 09:30:00 AM, [address], [address], [place], [phone], Progress Notes * Ben KRAMER SrDOB: (79 yo M)Acc No.[id number]:08/03/2024 Progress Notes Patient: Ben HOFFMANN Sr Provider: Josh Gauthier MD :1945 A ge:79 Y S ex:Male Date:08/03/2024 Address: [address], [place], [id number] Subjective: * Chief Complaints: * 4 week * HPI: S ymptom(s): patient is a 79 yo male here for a 4 week follow up visit/ here for follow up of gi series. * ROS: G eneral/Constitutional: Denies C hills. D enies F atigue. D enies F ever. D enies H eadache. E NT: Denies S ore throat. R espiratory: Denies C ough. D enies S hortness of breath at rest. D enies S hortness of breath with exertion. G astrointestinal: Denies D iarrhea. D enies N ausea. * Medical History: [...] TAKE 1 TABLET BY MOUTH TWICE DAILY Celecoxib 200 MG Capsule TAKE 1 CAPSULE [...] Aerosol 2 puffs Inhalation Twice a day Irbesartan-hydroCHLOROthiazide 150-12.5 MG Tablet TAKE 1 TABLET BY MOUTH EVERY DAY Taking Allopurinol 300 MG Tablet 1tablet Orally Once a day Taking Flovent HFA 110 MCG/ACT Aerosol 2 puffs Inhalation Twice a day Taking Albuterol Sulfate HFA 108 (90 Base) MCG/ACT Aerosol Solution INHALE 2 PUFFS BY MOUTH EVERY 4 HOURS NEEDED Taking Carvedilol 6.25 MG Tablet TAKE 1 TABLET BY MOUTH TWICE DAILY Taking Celecoxib 200 MG Capsule TAKE 1 [...] 2 puffs Inhalation Twice a day Taking Irbesartan-hydroCHLOROthiazide 150-12.5 MG Tablet TAKE 1 TABLET BY MOUTH EVERY DAY Not-Taking/PRNAspir-81 81 MG Tablet Delayed Release 1 [...] Objective: * Vitals: H t: 72, Wt: 267, BMI:36.21, BP:122/70, Wt-k.11. weight is down 6 pounds since 07-03-24. * Examination: G eneral Examination: GENERAL APPEARANCE: a lert, well hydrated, in no distress.? HEAD: n ormocephalic. SKIN: g ood turgor. HEART: n o murmurs, rubs, gallops, regular rate and rhythm.? LUNGS: n o wheezes, rales, rhonchi, good air movement, clear to auscultation bilaterally. ABDOMEN: s oft, nontender, nondistended. ? Assessment: * Assessment: 1. G astroesophageal reflux disease without esophagitis - K21.9 (Primary) Plan: * Treatment: * Procedure Codes: * * Sign off status: Completed true * Provider: Josh Gauthier MD Date: 0 08/03/2024 Generated for Inocencio peace/Prosper/Aleksitting on: 1 04/21/2024 09:39 PM EST History and Physical Notes * HPI (History of Present Illness) Category Sub-Category Detail Notes Category Not es Symptom(s) patient is a 79 yo male here for a 4 week follow up visit/ here for follow up of gi series Examination Category Sub-Category Detail Notes Category Not es General Examination GENERAL APPEARANCE: alert, w ell hydrated, in no distress HEAD: normocephalic HEART: no murmurs, rubs, ga llops, regular rate and rhythm LUNGS: no wheezes, rales, r honchi, good air movement, clear to auscultation bilaterally ABDOMEN: soft, nontender, non distended SKIN: good turgor
--- OUTSIDE RECORDS SUMMARY | 2024-11-19 05:58 | XMS_ITS ---
Author Organization Luis Gauthier MD Address [address] [place] [phone] Care Team Providers Care Executive Assistant To President Name Role Phone Luis Gauthier Primary Care Provider [phone] Medications Medication SIG (Take, Route, Frequency, Duration) Notes Start Date End Date Status Breo Ellipta 100-25 MCG/ACT 1 puff Inhalation Once a day for 30 days 11/19/2024 Active Encounters Encounter Location Date Provider Diagnosis Luis Gauthier MD [address] [place] [address] [place] [phone] 11/19/2024 Luis Gauthier Plan Of Treatment Medication Medication Name Sig Start Date Stop Date Notes Breo Ellipta 100-25 MCG/ACT 1 puff Inhal ation Once a day for 30 days 11/19/2024 Next Appt Details Provider Name:Luis kirkland, 06/21/2025 08:00:00 AM, [address] [place] [address], [address], [phone], Provider Name:Luis kirkland, 06/28/2025 10:00:00 AM, [address] [place] [address], [address], [phone], Provider Name:Luis kirkland, 12/23/2025 07:15:00 AM, [address], [address], [place], [place], [phone], Provider Name:Luis Lewis marita, 12/30/2025 09:30:00 AM, [address] [facility], [address], [place], [place], [phone], Progress Notes * Ben KRAMER SrDOB: (79 yo M)Acc No.[id number]:11/19/2024 Patient: Ben HOFFMANN Sr :1945 A ge:79 Y S ex:Male Address: [address], [place] [address] * Refills Start Breo Ellipta Aerosol Powder Breath Activated, 100-25 MCG/ACT, Inhalation, 1, 1 puff, Once a day, 30 days, Refills=11 * true * Date: Generated for Inocencio peace/Prosper/Corinsmitting on: 04/21/2024 09:39 PM EST
--- OUTSIDE RECORDS SUMMARY | 2024-12-13 02:15 | XMS_ITS ---
Author Organization Luis Gauthier MD Address [address] [place] [phone] Care Team Providers Care Cyber Forensics Analyst Name Role Phone Luis Gauthier Primary Care Provider Results Component Value Reference Range Notes Complete Blood Count Auto Di ff Reviewed date:12/13/2024 02:34:26 PM Interpretation: Performing Lab:[facility], [address] [place] [phone] Notes/Report: White Blood Count 6.6 4.8-10.8 X10*3/uL [...] NRBC Abs Auto 0.000 0.0-0.012 X10*3/uL Comprehensive [place]. Panel Fa st Reviewed date:12/13/2024 02:34:06 PM Interpretation: Performing Lab:[address] [address] Notes/Report: Sodium 143 135-145 mmol/L Potassium 4.0 [...] Panel Reviewed date:12/13/2024 01:45:16 PM Interpretation: Performing Lab:[address] [phone] Notes/Report: Triglycerides 122 <150 mg/dL Desirable Triglyceride: [...] (Free>4and<10) Reviewed date:12/13/2024 01:44:57 PM Interpretation: Performing Lab:[address] [phone] Notes/Report: PSA,Total (Free>4and<10) 1.42 0.00-4.00 ng/mL A [...] t Reviewed date:12/13/2024 02:35:25 PM Interpretation: Performing Lab:[facility], [address] [place] [phone] Notes/Report: Urine, Clean Catch Color Urine Yellow Appearance Urine Clear PH 6.5 5.0-9.0 Glucose Urine UA Negative Negative mg/dL Urine Blood Negative Negative Specific [place] - Urine 1.015 1.005-1.025 Urine Protein Negative [...] Location Date Provider Diagnosis Luis Gauthier MD [address] [place] [phone] 12/13/2024 Luis Gauthier Essential hypertensi on I10 ; Hypercholesteremia E78.00 and Prostatism N40.0 Assessments Encounter Date Diagnosis (ICD Code) Assessment Notes Treatment Notes Treatment Clinical Notes Section Notes 12/13/2024 Essential hypertensi on (ICD-10 - I10) 12/13/2024 Hypercholesteremia (ICD-10 - E78.00) 12/13/2024 Prostatism (ICD-10 - N40.0) Plan Of Treatment Next Appt Details Provider Name:Luis reardonr, 06/21/2025 08:00:00 AM, [address] [place] [address], [phone], Provider Name:Luis Lewis ier, 06/28/2025 10:00:00 AM, [address] [place] [address], [phone], Provider Name:Luis kirkland, 12/23/2025 07:15:00 AM, [address] [place] [address], [phone], Provider Name:Luis reardonr, 12/30/2025 09:30:00 AM, [address] [place] [address], [phone], Progress Notes * Ben MYRICK SrDOB: (79 yo M)Acc No.[id number]:12/13/2024 Progress Note Patient: Ben HOFFMANN Tana Sr Provider: Josh Gauthier MD :1945 A ge:79 Y S ex:Male Date:12/13/2024 Address: [address], [place], [id number] Subjective: * Chief Complaints: * 1 . FASTING LABS. * Medical History: Objective: * Vitals: Assessment: * Assessment: 1. E ssential hypertension - I10 (Primary) 2 . H ypercholesteremia - E78.00? 3. P rostatism - N40.0 Plan: * Treatment: 2. H ypercholesteremia L AB: Complete Blood Count Auto Diff (Collection Date & Time - 12/13/2024 07:15 AM) L AB: Comprehensive [place]. Panel Fast (Collection Date & Time - [...] - 12/13/2024 07:15 AM) L AB: Comprehensive [place]. Panel Fast (Collection Date & Time - [...] Pending * Provider: Josh Gauthier MD Date: 1 Generated for Mashai ng/Farinag/eTransmitting on: 04/21/2024 09:40 PM EST
--- OUTSIDE RECORDS SUMMARY | 2024-12-27 03:30 | XMS_ITS ---
Author Organization Luis Gauthier MD Address [address] [place] [phone] Care Team Providers Care Herbarium Curator Name Role Phone Luis Gauthier Primary Care Provider [phone] Allergies Allergen (clinical drug ingredient) Drug/Non Drug [...] Date Provider Diagnosis Luis Gauthier MD [address] [place], [place] [phone] 12/27/2024 Luis Gauthier Essential hypertensi on I10 [...] Provider Name:Luis Lewis ier, 06/21/2025 08:00:00 AM, [address] [place] [address], [address] [facility], [place], [place], [phone], Provider Name:Luis Lewis ier, 06/28/2025 10:00:00 AM, [address] [place] [address], Suite [facility], [place], [place], [phone], Provider Name:Luis Lewis ier, 12/23/2025 07:15:00 AM, [address] [place] [address], [address] [facility], [place], [place], [phone], Provider Name:Luis Lewis ier, 12/30/2025 09:30:00 AM, [address] [place] [address], [address], [phone], Progress Notes * ELENBen Enciso SrDOB: (79 yo M)Acc No.[id number]:12/27/2024 Patient: Zaria ALMEIDABen Enciso Sr Provider: Josh Gauthier MD :1945 A ge:79 Y S ex:Male Date:12/27/2024 Address: [place], [id number] Subjective: * Chief Complaints: * C [...] mg/dL Urine Blood Negative Negative - Specific [place] - Urine 1.015 1.005-1.025 - Urine Protein [...] Auto 0.000 0.0-0.012 - X10*3/uL L ab:Comprehensive [place]. Panel Fast (Order Date - 12/13/2024) (Collection [...] Procedure Codes: 8 2270 TEST FOR BLOOD, [id number] Complex e/m visit add on * * Sign off status: Completed true * Provider: Josh Gauthier MD Date: Generated for Inocencio peace/Prosper/Dorinda on: 04/21/2024 09:38 PM EST History and Physical Notes * [...]
[2025-02-18 16:20] LABS: Anion Gap 11 (12-20); Blood Urea Nitrogen 31 mg/dL (9-16); Calcium 9.7 mg/dL (8.4-10.2); Carbon Dioxide 30 mmol/L (22-29); Chloride 107 mmol/L (96-108); Estimated Glomerular Filt Rate 46; Potassium 4.8 mmol/L (3.3-5.1); Sodium 143 mmol/L (135-145)
--- OUTSIDE RECORDS SUMMARY | 2025-02-18 21:38 | XMS_ITS | Patient Health Record ---
[facility] Address [address] [facility] [place] [address] Care Team Providers Care Metal Punch Press Operator Name Role Phone Luis Gauthier MD Primary Care Provider Soila Greco Unavailable [phone] Allergies Allergen (clinical drug ingredient) Drug/Non Drug [...] W/U Status Risk Notes Problem Tinea unguium (670444502) Tinea unguium (B35.1) Active confirmed Vital Signs Blood pressure diastolic 65 mm Hg 12/31/2024 Height 6ft in 12/31/2024 Blood pressure systolic 126 mm Hg 12/31/2024 Weight 255 lbs 12/31/2024 BMI 34.58 kg/m2 12/31/2024 Procedures Procedure Date Ordered Date Performed Result Body Sit e 23761-RBZBJAQ NAIL, 6 OR MORE 04/16/2024 N/A 93661-BJLJYZO NAIL, 6 OR MORE 06/18/2024 N/A 25631-SPEIIKM NAIL, 6 OR MORE 08/23/2024 N/A 34912-HKQXIWG NAIL, 6 OR MORE 10/29/2024 N/A 27777-XXPYPZF NAIL, 6 OR MORE 12/31/2024 N/A Encounters Encounter Location Date Provider Diagnosis [facility] [place] [address] 04/16/2024 Soila Black Tinea unguium B35.1 ; Other hammer toe(s) (acquired), right foot M20.41 ; Pain in left toe(s) M79.675 ; Pain in right toe(s) M79.674 and Subluxation of metatarsophalangeal joint of toe, initial encounter S93.149A [address] [address] 06/18/2024 Soila Black Tinea unguium B35.1 ; Pain in left toe(s) M79.675 and Pain in right toe(s) M79.[address] [address] 08/23/2024 Soila Black Tinea unguium B35.1 ; Pain in left toe(s) M79.675 and Pain in right toe(s) M79.[address] [address] 10/29/2024 Soila Black Tinea unguium B35.1 ; Pain in left toe(s) M79.675 and Pain in right toe(s) M79.[address] [address] 12/31/2024 Soila Black Tinea unguium B35.1 ; [...] X ray : Foot, right 3V 05/29/2012 11424-CTYIPAR NAIL, 6 OR MORE 07/03/2012 30127-PPJTIBK NAIL, 6 OR MORE 10/30/2012 21791-XADAAUY NAIL, 6 OR MORE 02/19/2013 12560-HTWEQMM NAIL, 6 OR MORE 06/25/2013 20681-RDWVAFQ NAIL, 6 OR MORE 10/29/2013 70158-UXBCZTE NAIL, 6 OR MORE 03/18/2014 93436-MNBLVQQ NAIL, 6 OR MORE 12/07/2010 73027-HNGEYLZ NAIL, 6 OR MORE 03/11/2011 06326-JDIGQFN NAIL, 6 OR MORE 07/01/2011 38532-IXJPFIJ NAIL, 6 OR MORE 10/14/2011 35902-KPWFDAI NAIL, 6 OR MORE 04/03/2012 75580-ZPMFNQH NAIL, 6 OR MORE 04/05/2016 71721-QECFIOU NAIL, 6 OR MORE 07/05/2016 68827-BZKIHKQ NAIL, 6 OR MORE 09/24/2016 16364-ZJZLAAX NAIL, 6 OR MORE 12/09/2016 29575-OYJJBRM NAIL, 6 OR MORE 02/10/2017 79082-BEAIDZO NAIL, 6 OR MORE 05/05/2017 70636-ILVSZJM NAIL, 6 OR MORE 07/21/2017 28519-DDMGTST NAIL, 6 OR MORE 10/10/2017 83087-ZSXCITI NAIL, 6 OR MORE 12/19/2017 49508-ELAGXQQ NAIL, 6 OR MORE 03/20/2018 06014-VFNANJS NAIL, 6 OR MORE 05/22/2018 73072-WKGWXSG NAIL, 6 OR MORE 07/24/2018 03124-OWNKSRB NAIL, 6 OR MORE 10/05/2018 59830-YCMZDVE NAIL, 6 OR MORE 12/21/2018 34040-OHIUTJQ NAIL, 6 OR MORE 03/12/2019 59142-JQIZVLB NAIL, 6 OR MORE 09/27/2022 16259-ASEBLNK NAIL, 6 OR MORE 12/02/2022 34150-LJWBNDD NAIL, 6 OR MORE 02/03/2023 81027-WPEPQLT NAIL, 6 OR MORE 04/07/2023 75478-WEFPKBE NAIL, 6 OR MORE 06/09/2023 81632-RVTLFRK NAIL, 6 OR MORE 09/01/2023 69254-OVSZJLV NAIL, 6 OR MORE 11/10/2023 82609-CZBHFYO NAIL, 6 OR MORE 02/13/2024 00181-HSQHCHR NAIL, 6 OR MORE 04/16/2024 94591-ATAKFVN NAIL, 6 OR MORE 06/18/2024 57421-CPLWNPX NAIL, 6 OR MORE 08/23/2024 70323-WHAFVRZ NAIL, 6 OR MORE 10/29/2024 67743-JVOQCED NAIL, 6 OR MORE 12/31/2024 70687-AKYVDJO NAIL, 6 OR MORE 02/19/2020 55977-FLNQVCT NAIL, 6 OR MORE 05/01/2020 59079-GZLZSRN NAIL, 6 OR MORE 07/03/2020 92812-HMUXTOJ NAIL, 6 OR MORE 09/04/2020 31590-VGAVHET NAIL, 6 OR MORE 11/24/2020 37583-LZJSVKI NAIL, 6 OR MORE 03/16/2021 09189-FOHEOHL NAIL, 6 OR MORE 06/11/2021 53596-ZPRAQQH NAIL, 6 OR MORE 08/17/2021 31241-LLIFWVN NAIL, 6 OR MORE 05/14/2019 37522-LZZNUTJ NAIL, 6 OR MORE 07/23/2019 69093-BLRSJOZ NAIL, 6 OR MORE 10/01/2019 78219-LZDMPJJ NAIL, 6 OR MORE 12/13/2019 30027-XFQHAUZ NAIL, 6 OR MORE 10/22/2021 87913-TGZECLI NAIL, 6 OR MORE 12/28/2021 30292-RKMOROA NAIL, 6 OR MORE 03/15/2022 33749-CPGGZFM NAIL, 6 OR MORE 05/24/2022 95823-GGKLQMW NAIL, 6 OR MORE 07/26/2022 61295-Iiemmhjh Plate 09/27/2022 15792-Phzuimxm Plate 12/13/2019 22620-Vlnwhfas Plate 10/22/2021 38333-Pfeyiptw Plate 05/22/2018 64019-Vvcnpyce Plate 10/10/2017 07889-Tqfokypo Plate 07/05/2016 85961-Thavtlbf Plate 12/01/2015 49835-Trbxedeu Plate 03/18/2014 32862-Dguplrgo Plate 07/15/2014 91011-Maxrlrvt Plate 11/18/2014 60863-Ntilkcdu Plate Each Additional 18651 I&D ABSCESS- SIMPLE,SINGLE 016 12127 - Tenotomy, open flexor 04/12/2019 75200 - Tenotomy, open flexor 08/25/2023 Next Appt Details Provider Name:Soila Zaman Wilfredo , 03/14/2025 12:15:00 PM, [address] [place] [address], [phone], Provider Name:Soila Villalobos , 05/16/2025 01:30:00 PM, [address] [place] [address], [phone], Insurance Providers Payer Name Payer Address Payer Phone Subscriber Number Group Number Insured Name Patient Relationship to Insured Coverage Start Date Coverage End Date Medicare National [employer] [address] [place] [address] [id number] Ben Hogan Self - patient is the insured [employer] Blue [employer] [address] [place] [address] [id number] Ben Hogan Self - patient is the [...] exchange, knee surgery Hospitalization History Reason Date(Month/Year) [facility] er visit for fall 02/2024 [facility] - HTN 06/2018
--- OUTSIDE RECORDS SUMMARY | 2025-02-18 21:38 | XMS_ITS | Encounter Summary ---
Author Organization [facility] Address [address] [facility] [address] [place] [address] Phone Care Team Providers Care Entry Level Marketing Representative Name Role Phone Luis Gauthier MD Primary Care Provider Reason for Referral * MRI/CAT Scan - Closed Specialty Diagnoses / Procedures Referred By Contprasanna t Referred To Contact Radiology Diagnoses Lumbar radiculopathy Procedures CT Lumbar Spine Clint Maldonado DO Phone: tel: fax: [email or web address] Referral ID Status Reason Start Date Expiration Date Visits Re quested Visits Authorized [id number] Closed 01/04/2020 01/03/2021 1 1 Encounter Details Date Type Department Care Team (Latest Contact Info) Description 01/04/2020 Ancillary Orders Virtual Department [address] [place] [address] Clint Maldonado DO [address] [place] [address] [email or web address] Lumbar radiculopathy Social History Tobacco Use Types [...] endplate changes to the left of midline. Nmwbb-mamosjkqe-gytqwmoyds complex. Mild facet arthropathy. No definite central [...] L5 on the right. Clint Maldonado DO [facility] [place] XSPECIALTY ORDERABLES Final Result documented in this encounter Visit Diagnoses Diagnosis Lumbar radiculopathy Thoracic or lumbosacral neuritis or radiculitis, unspecified Lumbar radiculopathy Thoracic or lumbosacral neuritis or radiculitis, unspecified documented in this encounter Care Teams Entry Level Marketing Representative Relationship Specialty Start Date End Date Luis Gauthier MD [address] [place] [address] Dr [place], [place] [address] PCP - General Internal Medicine 01/04/20 documented as of this encounter Additional Source Comments The information contained in this document represents components of the legal health record. It is not the complete legal health record.[facility]
--- OUTSIDE RECORDS SUMMARY | 2025-02-18 21:38 | XMS_ITS | Patient Health Record ---
Author Organization Luis Gauthier MD Address [address] [place], [place] [address] Care Team Providers Care Museum Tour Guide Name Role Phone Luis Gauthier Primary Care Provider Allergies Allergen (clinical drug ingredient) Drug/Non Drug Allergy documented on EMR Reaction Allergy Type Onset Date Status lisinopril Lisinopril angioedema Drug Allergy Acti ve Results Component Value Reference Range Notes Liver Panel Reviewed date:06/26/2024 06:41:59 PM Interpretation: Performing Lab:[facility], [address] [place] [phone] Notes/Report: Bilirubin Total 0.5 0.0-1.0 mg/dL Bilirubin Direct 0.2 0.0-0.5 mg/dL Aspartate Amino Transferase 39 5-37 U/L Alanine Aminotransferase 31 0-40 U/L Total Protein 6.2 6.5-8.0 g/dL Albumin Level 4.1 3.5-5.0 g/dL Alkaline Phosphatase 76 39-117 U/L Lipid Panel with Reflex Reviewed date:06/26/2024 06:42:36 PM Interpretation: Performing Lab:[facility], [address] [place] [phone] Notes/Report: Triglycerides 168 <150 mg/dL Desirable Triglyceride: [...] ff Reviewed date:12/13/2024 02:34:26 PM Interpretation: Performing Lab:[facility], [address] [place] [phone] Notes/Report: White Blood Count 6.6 4.8-10.8 X10*3/uL [...] NRBC Abs Auto 0.000 0.0-0.012 X10*3/uL Comprehensive [place]. Panel Fa st Reviewed date:12/13/2024 02:34:06 PM Interpretation: Performing Lab:[facility], [address] [place] [phone] Notes/Report: Sodium 143 135-145 mmol/L Potassium 4.0 [...] Panel Reviewed date:12/13/2024 01:45:16 PM Interpretation: Performing Lab:[facility], [address] [place] [phone] Notes/Report: Triglycerides 122 <150 mg/dL Desirable Triglyceride: [...] (Free>4and<10) Reviewed date:12/13/2024 01:44:57 PM Interpretation: Performing Lab:[address] [phone] Notes/Report: PSA,Total (Free>4and<10) 1.42 0.00-4.00 ng/mL A [...] t Reviewed date:12/13/2024 02:35:25 PM Interpretation: Performing Lab:[address] [address] Notes/Report: Urine, Clean Catch Color Urine Yellow Appearance Urine Clear PH 6.5 5.0-9.0 Glucose Urine UA Negative Negative mg/dL Urine Blood Negative Negative Specific [place] - Urine 1.015 1.005-1.025 Urine Protein Negative [...] Notes/Report: Negative Occult Blood, Stool, Guaiac Neg Basic Metabolic Panel Reviewed date:03/01/2024 08:49:05 AM Interpretation: Performing Lab:[facility], [address] [place] [phone] Notes/Report: Sodium 143 135-145 mmol/L Potassium 4.5 [...] Panel Reviewed date:03/16/2024 05:41:41 PM Interpretation: Performing Lab:[facility], [address] [place] [phone] Notes/Report: CC BUN AND CREAT TO DR. GAUTHIER Sodium 146 135-145 mmol/L Potassium 4.6 3.3-5.1 [...] Acid Reviewed date:03/16/2024 05:26:58 PM Interpretation: Performing Lab:[facility], [address] [place] [phone] Notes/Report: CC BUN AND CREAT TO DR. BOMBARDIER Uric Acid 5.5 3.4-7.0 mg/dL Hold Gold Reviewed date:06/26/2024 12:35:07 PM Interpretation: Performing Lab:[facility], [address] [place] [phone] Notes/Report: Ji Cotto See Note Specimen held untested for 24 hours; Call to request Chemistry testing. FL upper GI w air Reviewed date:07/20/2024 12:43:54 PM Interpretation: Performing Lab: Notes/Report: [address] [address] Fluoroscopy Report Signed Patient: Ben Kramer MR#: [id number] : 1945 Acct:[id number] Age/Sex: 79 / M ADM Date: 07/20/24 Loc: [facility] Attending Dr: uLis Gauthier MD Ordering Physician: Luis Gauthier MD Date of Service: 07/20/24 Procedure(s): FL upper GI w air Accession Number(s): [id number] cc: Luis Gauthier MD EXAMINATION: XR FLUOROSCOPY UPPER GI WITH [...] in OV> 07/20/24 0942 DD/ 0805 TD/TT: 07/20/24830 Escalator Constructor: [address] [address] Fluoroscopy Report Signed Patient: Ben Kramer MR#: [id number] : 1945 Acct:[id number] Age/Sex: 79 / M ADM Date: 07/20/24 Loc: HO.XRAY Attending Dr: Luis Gauthier MD Ordering Physician: Luis Gauthier MD Date of Service: 07/20/24 Procedure(s): FL upp er GI w air Accession Number(s): [id number] cc: Luis Gauthier MD EXAMINATION: XR FLUOROSCOPY UPPER GI WITH [...] in OV> 07/20/24941 DD/ 4 TD/TT: 07/20/24830 Escalator Constructor: [facility] Erythrocyte Sedimentation Ra te Reviewed date:01/24/2025 04:45:33 PM Interpretation: Performing Lab:[facility], [address] [place] [phone] Notes/Report: Erythrocyte Sedimentation Rate 4 0-15 MM/HR Patients with polycythemia and many hemoglobin abnormalities may have depressed sed rates whereas patients with anemia may have elevated sed rates. Comprehensive Met. Panel Reviewed date:01/24/2025 04:54:52 PM Interpretation: Performing Lab:[address] [address] Notes/Report: Sodium 143 135-145 mmol/L Potassium 4.3 3.3-5.1 mmol/L Chloride 106 96-108 mmol/L Carbon Dioxide 31 22-29 mmol/L Anion Gap 10 12-20 Blood Urea Nitrogen 29 9-16 mg/dL Creatinine 1.43 0.5-1.4 mg/dL Estimated Glomerular Filt Rate 48 Chronic Kidney Disease: Estimated GFR < 60 mL/min/1.73m2 Severe Kidney Disease: Estimated GFR < 15 mL/min/1.73m2 Glucose Random 90 60-115 mg/dL Calcium 9.6 8.4-10.2 mg/dL Bilirubin Total 0.7 0.0-1.0 mg/dL Aspartate Amino Transferase 41 5-37 U/L Alanine Aminotransferase 33 0-40 U/L Total Protein 6.8 6.5-8.0 g/dL Albumin Level 4.5 3.5-5.0 g/dL Alkaline Phosphatase 79 39-117 U/L Uric Acid Reviewed date:01/24/2025 12:41:00 PM Interpretation: Performing Lab:[address] [address] Notes/Report: Uric Acid 5.5 3.4-7.0 mg/dL C Reactive Protein Reviewed date:01/24/2025 04:53:01 PM Interpretation: Performing Lab:[address] [address] Notes/Report: C Reactive Protein 0.30 < or = 0.50 mg/dL Basic Metabolic Panel Reviewed date:02/18/2025 04:25:28 PM Interpretation: Performing Lab:[address] [address] Notes/Report: Sodium 143 135-145 mmol/L Potassium 4.8 3.3-5.1 mmol/L Chloride 107 96-108 mmol/L Carbon Dioxide 30 22-29 mmol/L Anion Gap 11 12-20 Blood Urea Nitrogen 31 9-16 mg/dL Creatinine 1.49 0.5-1.4 mg/dL Estimated Glomerular Filt Rate 46 Chronic Kidney Disease: Estimated GFR < 60 mL/min/1.73m2 Severe Kidney Disease: Estimated GFR < 15 mL/min/1.73m2 Glucose Random 102 60-115 mg/dL Calcium 9.7 8.4-10.2 mg/dL Reason For Referral No Information Medications Medication [...] day 11/19/2024 Active Pantoprazole Sodium 40 MG TAKE 2 [...] CAPSULE BY MO UTH EVERY DAY Active Advair Diskus 500-50 MCG/DOSE [...] Vaccine Unknown 12/15/2012 Administered At work [employer] Fluarix Quadrivalent IM Intramuscular 11/20/2013 Administe red Prevnar 13 IM Intramuscular 03/11/2014 Administered zFluzone Quadrivalent Unknown 12/31/2014 Administered given at work Fluarix Quadrivalent Unknown 11/26/2015 Administered At work [facility] [employer]. Fluarix Quadrivalent Unknown 12/17/2016 Administered At The [facility] TDaP Unknown 05/20/2008 Administered Shingles Unknown 05/20/2008 Administered PPSV23 (Pnemovax) IM Intramuscular 05/29/2018 Administered Fluarix Quadrivalent Unknown 12/16/2017 Administered pt was given the vaccine at work. Shingrix IM Intramuscular 10/24/2018 Administered pt was given the vaccine at [facility] [email or web address] [place]. Shingrix IM Intramuscular 01/06/2019 Administered pt was given the vaccine at [facility] [email or web address] [place]. Influenza High Dose Unknown 11/29/2019 Administered Teddy green s TDaP Unknown 10/25/2019 Administered [employer] Covid Vaccine Unknown 04/29/2020 Administered Moderna Covid Vaccine Unknown 05/27/2020 Administered Moderna Influenza High Dose Unknown 12/05/2020 Administered [employer] SARS-COV-2 Moderna Unknown 06/12/2021 Administered [facility] SARS-COV-2 Moderna Unknown 12/26/2020 Administered Influenza High [...] Problem Status W/U Status Risk Notes Problem 713944711 Atherosclerotic heart disease of [place] coronary artery without angina pectoris (I25.10) Active confirmed Problem Prostatism (79572930) Prostatism (N40.0) Active confirmed Problem Reflux esophagitis (966206305) Reflux esophagitis (K21.00) Active confirmed Problem 295374049 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 Problem 17063775 Anxiety (F41.9) Active confirmed Problem 78942961 Obstructive slee p apnea (adult) (pediatric) (G47.33) Active confirmed Problem 7954262 Arthritis (M19.90) Active confirmed Problem 923190555 Lumbar disc dise ase (M51.9) Active confirmed Problem 795871604 Gastroesophageal reflux disease without esophagitis (K21.9) Active confirmed Problem 51063705 Essential hypertension (I10) Active confirmed Problem 267828770 Mild intermitten t asthma without complication (J45.20) Active confirmed Problem 792405567 Low HDL (under 4 0) (E78.6) Active confirmed Problem 235938534 Non morbid obesi ty due to excess calories (E66.09) Active confirmed Problem 922092501 History of gout (Z87.39) Active confirmed Problem 362318436 Esophageal dysmotility (K22.4) Active confirmed Problem 51387436 Obstructive slee p apnea (G47.33) Active confirmed Problem 43871354 Hypercholesterem ia (E78.00) Active confirmed Problem 72746046 OSMEL (obstructive sleep apnea) (G47.33) Active confirmed Problem 946586201 Nodule of kidney (N28.89) Active confirmed Vital [...] Date Provider Diagnosis Luis Gauthier MD [address] [place], [place] [phone] 06/26/2024 Luis Gauthier Hypercholesteremia E 78.00 Luis Gauthier MD [address] [place] [id number] 12/13/2024 Luis Gauthier Essential hypertensi on I10 ; Hypercholesteremia E78.00 and Prostatism N40.0 Luis Gauthier MD [address] [place] [id number] 07/03/2024 Luis Gauthier Vision changes H53.9 ; Hypercholesteremia E78.00 ; Prostatism N40.0 and Reflux esophagitis K21.00 Luis Gauthier MD [address] [place] [id number] 08/03/2024 Luis Gauthier Gastroesophageal ref lux disease without esophagitis K21.9 Luis Gauthier MD [address] [place] [id number] 12/27/2024 Luis Gauthier Essential hypertensi on I10 ; History of gout Z87.39 ; Obstructive sleep apnea G47.33 ; Preop examination Z01.818 ; Mild intermittent asthma without complication J45.20 ; Gastroesophageal reflux disease without esophagitis K21.9 ; Hypercholesteremia E78.00 ; Arthritis M19.90 ; Colon cancer screening Z12.11 and Depression screening Z13.31 Luis Gauthier MD [address] [place] [id number] 11/19/2024 Luis Gauthier MD [address] [id number] 04/26/2024 Luis Gauthier MD [address] [id number] 04/27/2024 Luis Gauthier Assessments Encounter Date Diagnosis (ICD Code) Assessment [...] Provider Name:Luis kirkland, 06/21/2025 08:00:00 AM, [address] [place] [address], [address], [place], [phone], Provider Name:Luis kirkland, 06/28/2025 10:00:00 AM, [address] [place] [address], [address] [place] [address], [phone], Provider Name:Luis Lewis ier, 12/23/2025 07:15:00 AM, [address], [address], [place], [place], [id number], Provider Name:Luis Lewis ier, 12/30/2025 09:30:00 AM, [address], [address], [place], [place], [phone], Insurance Providers Payer Name Payer Address Payer Phone Subscriber Number Group Number Insured Name Patient Relationship to Insured Coverage Start Date Coverage End Date MEDICARE NHIC EDDIE [address] [place] [address] [id number] Ben Kramer Self - patient is the insured [facility] [address] [place], [place] [id number] [phone] [id number] Dominik Ben Self - patient is the insured Medical (General) History Medical History History ICD Code phlebitis Gout hematuria .cysto in 2004 colonoscopy 02/2003; 03/2013 - repeat 10 years sleep study 10/2008 refuses further colonoscopy forever 2024 Surgical History Surgery Date(Month/Year) Left Achilles Lengthening 12/2012
--- OUTSIDE RECORDS SUMMARY | 2025-02-18 21:39 | XMS_ITS | Clinical Summary ---
Author Organization [facility] Address [address] [facility] [address] [address] [place] [address] Phone Care Team Providers Care Assistant Professor Of Religion Name Role Phone Luis Gauthier MD Primary [...] file Insurance MEDICARE PART A & B [employer] MEDEX SUPPLEMENT MEDICARE PART A & B [employer] MEDEX SUPPLEMENT MEDICARE PART A & B [employer] MEDEX SUPPLEMENT MEDICARE PART A & B [employer] MEDEX SUPPLEMENT MEDICARE PART A & B [employer] MEDEX SUPPLEMENT MEDICARE PART A & B [employer] MEDEX SUPPLEMENT MEDICARE PART A & B [employer] MEDEX SUPPLEMENT MEDICARE PART A & B [employer] MEDEX SUPPLEMENT MEDICARE PART A & B [employer] MEDEX SUPPLEMENT Care Teams Assistant Professor Of Religion Relationship Specialty Start Date End Date Luis Gauthier MD [address] [place] [address] [place] [address] PCP - General Internal Medicine 01/04/20 Additional Source Comments The information contained in this document represents components of the legal health record. It is not the complete legal health record.[facility]
--- OUTSIDE RECORDS SUMMARY | 2025-02-18 21:39 | XMS_ITS | Encounter Summary ---
Author Organization [facility] Address [address] [address] [place] [address] Phone Care Team Providers Care Sales Expert Home Theater Name Role Phone Luis Gauthier MD Primary Care Provider Encounter Details Date Type Department Care Team (Late st Contact Info) Description 01/04/2020 Procedure Pass [facility], Ct Scan - [address] [address] Social History Tobacco Use Types Packs/Day Years [...] on filedocumented in this encounter Care Teams Sales Expert Home Theater Relationship Specialty Start Date End Date Luis Gauthier MD [address] [place] [address] [place] [address] PCP - General Internal Medicine 01/04/20 documented as of this encounter Additional Source Comments The information contained in this document represents components of the legal health record. It is not the complete legal health record.[facility]
--- OUTSIDE RECORDS SUMMARY | 2025-02-18 21:39 | XMS_ITS | Encounter Summary ---
Author Organization [facility] Address [address] [address] [place] [address] Phone Care Team Providers Care Game Breeding Farm Manager Name Role Phone Luis Gauthier MD Primary Care Provider Encounter Details Date Type Department Care Team (Latest Contact Info) Description 01/14/2020 Ancillary Orders Virtual Department [address] [place] [address] Clint Maldonado, DO [address] [place] [address] [email or web address] Lumbar radiculopathy Social History Tobacco Use Types [...] unspecified documented in this encounter Care Teams Game Breeding Farm Manager Relationship Specialty Start Date End Date Luis Gauthier MD [address] [place] [address] [place] [address] PCP - General Internal Medicine 01/04/20 documented as of this encounter Additional Source Comments The information contained in this document represents components of the legal health record. It is not the complete legal health record.[facility]
== END 2025-02-18 15:06 | disposition home or self-care (01) ==
LOC: HO.LAB 15:05
PROVIDERS: PCP Internal Medicine; Visit Provider Internal Medicine Cardiovascular Disease
DX: I10 Essential (primary) hypertension (principal)
CPT/HCPCS: 36415; 80048